=== PATIENT | male | born 1955 | race African-American/Black ===

== ENCOUNTER 2016-07-03 18:00 | Emergency (ER) | payer MEDICAID ==
[2016-07-03] MEDS ORDERED: HYDROCODONE/ACETAMINOPHEN 5-325 MG TABLET PO ONE (23:24)
[2016-07-03] MEDS ORDERED: ONDANSETRON 4 MG TAB.RAPDIS PO ONE (23:24)
--- NOTE | 2016-07-03 23:25 | ER Document Report ---
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 He states he has developed a headache, denies any specific head injuries, neck injury, shortness of breath, denies other locations of pain. Patient takes aspirin, on no other blood thinners. TRAVEL OUTSIDE OF THE [place] IN LAST 30 DAYS: No - Related Data Allergies/Adverse Reactions: Penicillins Allergy (Verified 07/03/16 18:10) Past Medical History - General Information source: Patient, Emergency Med Personnel - Social History Smoking Status: Never Smoker Chew tobacco use (# tins/day): No Frequency of alcohol use: None Drug Abuse: None Lives with: Alone Family History: Arthritis, CAD, CVA, DM, Hyperlipidemia, Hypertension Patient has suicidal ideation: No Patient has homicidal ideation: No - Past Medical History Cardiac Medical History: Reports: Hx Congestive Heart Failure, Hx Coronary Artery Disease, Hx Heart Attack - [place] x7, Hx Hypercholesterolemia, Hx Hypertension Pulmonary Medical History: Reports: Hx Asthma Denies: Hx Bronchitis, Hx COPD, Hx Pneumonia Neurological Medical History: Reports: Hx Cerebrovascular Accident - X2, Hx Seizures - 2015 Endocrine Medical History: Reports: Hx Diabetes Mellitus Type 2 Renal/ Medical History: Reports: Hx End Stage Renal Disease, Hx Hemodialysis, Hx Renal Insufficiency GI Medical History: Reports: Hx Gastroesophageal Reflux Disease Musculoskeltal Medical History: Reports Hx Arthritis, Reports Hx Musculoskeletal Deformity - right BKA, Reports Hx Musculoskeletal Trauma Psychiatric Medical History: Reports: Hx Depression Past Surgical History: Reports: Hx Cardiac Catheterization, Hx Cardiac Surgery - Stent placement x 6, Hx Coronary Stent - x6, Hx Orthopedic Surgery - right BKA , Hx Vascular Surgery - Right subclavian PermCath - Immunizations Immunizations up to date: Yes Hx Diphtheria, Pertussis, Tetanus Vaccination: Yes Hx Pneumococcal Vaccination: 07/02/12 Review of Systems - Review of Systems Constitutional: No symptoms reported EENT: No symptoms reported Cardiovascular: No symptoms reported Respiratory: No symptoms reported Gastrointestinal: No symptoms reported Genitourinary: No symptoms reported Male Genitourinary: No symptoms reported Musculoskeletal: See HPI Skin: No symptoms reported Hematologic/Lymphatic: No symptoms reported Neurological/Psychological: No symptoms reported Physical Exam - Vital signs Vitals: Temp Pulse Resp BP Pulse Ox 98.5 F 74 22 H 116/69 100 07/03/16 18:05 07/03/16 18:05 07/03/16 18:05 07/03/16 18:05 07/03/16 18:05 Interpretation: Normal - General General appearance: Appears well, Alert In distress: None - Patient does not appear to be in any pain whatsoever - HEENT Head: Normocephalic, Atraumatic. No: Abrasions, Ecchymosis Eyes: Normal Conjunctiva: Normal Extraocular movements intact: Yes Eyelashes: Normal Pupils: PERRL Pharynx: Normal Neck: Normal - Respiratory Respiratory status: No respiratory distress Chest status: Tender - Patient complains with his palpated generally over the left ribs near the mid axillary line, this is not reproducible, there is no sign of trauma Breath sounds: Normal. No: Decreased air movement, Nonproductive cough, Wheezing Chest palpation: Normal - Cardiovascular Rhythm: Regular Heart sounds: Normal auscultation Murmur: No - Abdominal Inspection: Normal Distension: No distension Bowel sounds: Normal Tenderness: Nontender. No: Tender - Completely nontender abdomen Organomegaly: No organomegaly - Back Back: Normal, Nontender. No: Tender - No tenderness over the cervical, thoracic , lumbar areas, no saddle anesthesia, no signs of trauma - Extremities General upper extremity: Normal inspection, Nontender, Normal ROM, Normal strength General lower extremity: Other - Left BK - Neurological Neuro grossly intact: Yes Cognition: Normal Orientation: AAOx4 Edward Coma Scale Eye Opening: Spontaneous Ras Coma Scale Verbal: Oriented Edward Coma Scale Motor: Obeys Commands Ras Coma Scale Total: 15 Speech: Normal Motor strength normal: LUE, RUE, LLE, RLE Sensory: Normal - Psychological Associated symptoms: Normal affect, Normal mood - Skin Skin Temperature: Warm Skin Moisture: Dry Skin Color: Normal Course - Re-evaluation Re-evalutation: Patient very well appearing. No signs of significant injury, no signs of trauma. Patient on reexamination is sleeping comfortably and easily aroused. No complaints on reexamination. Imaging is unremarkable. Very low suspicion of any acute traumatic abnormality. - Vital Signs Vital signs: Temp Pulse Resp BP Pulse Ox 98.0 F 70 16 135/61 H 98 07/04/16 04:00 07/04/16 04:00 07/04/16 04:00 07/04/16 04:00 07/04/16 04:00 Discharge - Discharge Clinical Impression: Side pain Fall Qualifiers: Encounter type: initial encounter Qualified Code(s): W19.XXXA - Unspecified fall, initial encounter Condition: Stable Disposition: HOME, SELF-CARE Additional Instructions: No acute abnormality is noted on examination or imaging. Follow-up with your provider closely. Return to the ED for any concerning symptoms - shortness of breath, chest pain, vomiting, etc. Referrals: VIRIDIANA LEHMAN MD [Primary Care Provider] - Follow up as needed
[2016-07-04] MEDS ORDERED: HYDROCODONE/ACETAMINOPHEN 5-325 MG 6 TAB/DSPK PO PRN (01:18)
[2016-07-04 04:03] VITALS: BP 135/61
== END 2016-07-04 04:07 | disposition home or self-care (01) ==
LOC: ER 18:00
DX: R07.81 Pleurodynia (principal); R51 Headache; E11.22 Type 2 diabetes mellitus with diabetic chronic kidney disease; I13.2 Hypertensive heart and chronic kidney disease with heart failure and with stage 5 chronic kidney disease, or end stage renal disease; N18.6 End stage renal disease; K21.9 Gastro-esophageal reflux disease without esophagitis; I50.9 Heart failure, unspecified; E78.00 Pure hypercholesterolemia, unspecified; Z89.512 Acquired absence of left leg below knee; Z88.0 Allergy status to penicillin; Z79.82 Long term (current) use of aspirin; Z99.2 Dependence on renal dialysis; I25.2 Old myocardial infarction
CPT/HCPCS: 99285; 71101; S0119

== ENCOUNTER 2016-07-10 05:20 | Observation (INO) | payer MEDICAID ==
[~2016-07-10 05:20] MED LIST: VANCOMYCIN HCL 500 MG in DEXTROSE 5%-WATER 100 ML IV PRN; VANCOMYCIN HCL 500 MG in DEXTROSE 5%-WATER 100 ML IV SCH
[2016-07-10 06:57] LABS: HEMATOCRIT 33.8 % (37.9-51.0); HEMOGLOBIN 11.1 g/dL (13.5-17.0); HGB HCT DIFFERENCE -0.5; MEAN CORPUSCULAR HEMOGLOBIN 31.6 pg (27.0-33.4); MEAN CORPUSCULAR HGB CONC 32.9 g/dL (32.0-36.0); MEAN CORPUSCULAR VOLUME 96 fl (80-97); RED BLOOD COUNT 3.53 10^6/uL (4.35-5.55); RED CELL DISTRIBUTION WIDTH 15.5 % (11.5-14.0); WHITE BLOOD COUNT 6.6 10^3/uL (4.0-10.5)
[2016-07-10 07:10] LABS: ANION GAP 12 (5-19); BLOOD UREA NITROGEN 40 mg/dL (7-20); CALCIUM 8.6 mg/dL (8.4-10.2); CARBON DIOXIDE 34 mmol/L (22-30); CHLORIDE 96 mmol/L (98-107); CREATININE RESULT 4.09 mg/dL (0.52-1.25); GLUCOSE 181 mg/dL (75-110); SODIUM 141.6 mmol/L (137-145)
[2016-07-10 07:12] LABS: POTASSIUM 4.1 mmol/L (3.6-5.0)
[2016-07-10] MEDS ORDERED: FENTANYL CITRATE INJ/PF 100 MCG/2 ML AMPUL ONE ×2 (07:56→12:36)
[2016-07-10] MEDS ORDERED: MIDAZOLAM 2 MG/2 ML INJ ONE ×2 (07:56→12:36)
[2016-07-10] MEDS ORDERED: LIDOCAINE 0.5% INJ-PF (5 MG/ML) 50 ML SDV ONE ×2 (08:08→12:36)
[2016-07-10] MEDS ORDERED: BACITRACIN INJ 50,000 UNIT VIAL INJ PRN (08:13)
[2016-07-10] MEDS ORDERED: MAG HYDROX/AL HYDROX/SIMETH SUSP 30 ML UDCUP PO ONE (09:15)
[2016-07-10] MEDS ORDERED: LIDOCAINE 2% VISCOUS SOLN 20 ML UDCUP PO ONE (09:15)
[2016-07-10] MEDS ORDERED: METOCLOPRAMIDE HCL 10 MG TABLET PO ONE (09:15)
[2016-07-10] MEDS ORDERED: ONDANSETRON HCL INJ/PF 4 MG/2 ML SDV ONE (09:24)
[2016-07-10] MEDS ORDERED: METOCLOPRAMIDE HCL ORAL SOLN 10 MG/10 ML UDCUP PO ONE (09:30)
--- NOTE | 2016-07-10 11:39 | PDOC H&P ---
General Chief Complaint: This patient on hemodialysis for end-stage renal disease has had his catheter fallout over the weekend. He is therefore in for replacement of a new PermCath Catheter. - Diagnosis (1) ESRD (end stage renal disease) on dialysis Is this a Current Diagnosis?: Yes (2) Morbid obesity Is this a Current Diagnosis?: Yes (3) Seizure disorder Is this a Current Diagnosis?: Yes (4) CAD (coronary artery disease) Is this a Current Diagnosis?: Yes (5) Diabetes mellitus type 2 in nonobese Is this a Current Diagnosis?: Yes - Current Medications/Allergies Home Medications: Gabapentin [Neurontin 300 mg Capsule] 800 mg PO Q8 04/02/14 Isosorbide Mononitrate [Isosorbide Mononitrate ER] 30 mg PO DAILY 04/02/14 Clonidine HCl [Catapres] 0.1 mg PO QHS 08/10/14 Hydralazine HCl 50 mg PO TID 08/10/14 Levetiracetam [Keppra] 250 mg PO DAILY 08/10/14 Metoprolol Succinate [Toprol XL 100 mg Tablet] 50 mg PO Q12H 08/10/14 Divalproex Sodium [Depakote] 500 mg PO DAILY 11/26/14 Omeprazole 20 mg PO DAILY 11/26/14 Aspirin [Aspirin 81 mg Chewable Tablet] 81 mg PO DAILY 11/11/15 Atorvastatin Calcium 40 mg PO QHS 11/11/15 Budesonide/Formoterol Fumarate [Symbicort HFA 160-4.5 mcg Inhaler 6 gm] 2 puff IH BID 11/11/15 Carvedilol [Coreg 25 mg Tablet] 1 tab PO Q12 11/11/15 Hum Insulin NPH/Reg Insulin Hm [Insulin 70-30 (NPH/Reg) 100 unit/mL] 20 unit SUBCUT HSP 11/11/15 Hum Insulin NPH/Reg Insulin Hm [Insulin 70-30 (NPH/Reg) 100 unit/mL] 25 unit SUBCUT QAM 11/11/15 Nitroglycerin 0.4 mg SL ASDIR PRN 11/11/15 Ondansetron [Zofran Odt 4 mg Tablet] 1 tab PO Q4H PRN 11/11/15 Ranitidine HCl 150 mg PO BID 11/11/15 Sennosides/Docusate 8.6-50 mg [Senna Plus Tablet] 1 tab PO BIDP PRN 11/11/15 Tamsulosin HCl [Flomax] 0.4 mg PO DAILY 11/11/15 Ticagrelor [Brilinta 90 mg Tablet] 1 tab PO BID 11/11/15 Allergies/Adverse Reactions: Penicillins Allergy (Verified 07/03/16 18:10) Past Medical History Cardiac Medical History: Reports: Congestive Heart Failure, Coronary Artery Disease, Myocardial Infarction - [place] x7, Hyperlipidema, Hypertension Pulmonary Medical History: Reports: Asthma Denies: Bronchitis, Chronic Obstructive Pulmonary Disease (COPD), Pneumonia Neurological Medical History: Reports: Seizures - 2015 Endocrine Medical History: Reports: Diabetes Mellitus Type 1, Diabetes Mellitus Type 2 Renal/ Medical History: Reports: End Stage Renal Disease GI Medical History: Reports: Gastroesophageal Reflux Disease Musculoskeltal Medical History: Reports: Arthritis Psychiatric Medical History: Reports: Depression Hematology: Reports: Anemia Past Surgical History Past Surgical History: Reports: Cardiac Catheterization, Coronary Stent - x6, Orthopedic Surgery - right BKA, Vascular Surgery - Right subclavian PermCath Family History Family History: Arthritis, CAD, CVA, DM, Hyperlipidemia, Hypertension Parental Family History Reviewed: No Children Family History Reviewed: No Sibling(s) Family History Reviewed.: No Social History Smoking Status: Never Smoker Frequency of Alcohol Use: None Hx Recreational Drug Use: No Hx Prescription Drug Abuse: No Physical Exam Vital Signs: Temp Pulse Resp BP Pulse Ox 97.8 F 75 16 170/65 H 96 07/10/16 06:59 07/10/16 06:59 07/10/16 06:59 07/10/16 06:59 07/10/16 06:59 Intake & Output 07/09/16 07/10/16 07/11/16 06:59 06:59 06:59 Weight 117.934 kg Additional comments: A well-developed well-nourished -Hungarian male. Obese body habitus. No acute distress. Eyes membranes is pink and moist, sclerae anicteric. Respiratory no shortness of breath. Breath sounds are normal and equal bilaterally. Cardiac: Heart sounds 1 and 2 heard, no murmurs. Upper extremities show normal range of movement and pulsatile to the radials. Normal capillary refill. A basilic to brachial fistula is appreciated. In the left upper extremity. Left below-knee amputation. Psychiatric the patient is alert, oriented, judgment, memory, insight normal Impression/Plan Impression: #1 end stage renal disease on hemodialysis. #2 diabetes mellitus type II. #3 coronary artery disease. #4 seizure disorder. #5 morbid obesity. Plan: In this patient who was catheter fell out, there has to be the suspicion of at least low-grade infection. We will try to replace his perm catheter on the other side, if not on the same side. Consideration to be given for prolonged IV antibiotic on hemodialysis. The risks, benefits, expected outcome are Familiar to the patient. He has had some heartburn. He has had experience with that and requested a GI cocktail. This was successful in relieving his symptoms. A cardiac exam was done which shows no acute changes.
--- NOTE | 2016-07-10 11:59 | EKG REPORT ---
SEVERITY:- ABNORMAL ECG - SINUS RHYTHM FIRST DEGREE AV BLOCK PROBABLE LEFT ATRIAL ABNORMALITY BORDERLINE PROLONGED QT INTERVAL : Confirmed by: Donta Hunt 10-Jul-2016 11:58:41
--- NOTE | 2016-07-10 17:21 | Operative Report ---
Operative Report DATE OF SURGERY: 07/10/16 PREOPERATIVE DIAGNOSIS: #1 end-stage renal disease on hemodialysis. #2 peripheral vascular disease. #3 coronary artery disease. #4 diabetes mellitus type II. #5morbid obesity. #6 hypertension. POSTOPERATIVE DIAGNOSIS: #1 end-stage renal disease on hemodialysis. #2 peripheral vascular disease. #3 coronary artery disease. #4 diabetes mellitus type II. #5morbid obesity. #6 hypertension. OPERATION: #1 ultrasound guided evaluation of right femoral vein. #2 insertion of temporary hemodialysis catheter on ultrasound real-time access. SURGEON: RICHARD SERVIN TELEVISION REPORTER: none ANESTHESIA: Local TISSUE REMOVED OR ALTERED: Not applicable COMPLICATIONS: None ESTIMATED BLOOD LOSS: 5 mL. INTRAOPERATIVE FINDINGS: Of a very deeply placed right femoral vein in this morbidly obese patient. Also considerable scarring [place] getting the catheters over the Glidewire. The use of a stiff Glidewire was of great facility in device. Easy egress of blood and ingress of heparinized solution through all 3 ports. PROCEDURE: After obtaining informed consent, the patient was positioned supine at bedside. The right groin and adjacent areas] were prepared with chlorhexidine and draped out with sterile linen. After the universal timeout the procedure commenced. A steriley sheathed ultrasound probe was used to evaluate the left femoral vein. Local anesthesia was infiltrated adjacent to the probe. Access into the left femoral was accomplished using a micropuncture needle followed, by micropuncture wire and then with a micropuncture catheter. This was followed by introduction of a 0.035 guidewire, the skin opening was enlarged slightly, serially larger dilators were now placed followed by introduction of a triaysis catheter. All of these transitions were smooth. Each lumen was aspirated of blood and irrigated with heparinized solution. The catheter was now sutured to the skin using 3-0 nylon. A Bio A patch was now applied, followed by sterile dressings. Caps were placed on the end of the each of the lumens. The procedure concluded. Copies dictated operative report to Dr. Richard Nichols MD.
--- NOTE | 2016-07-10 18:12 | PDOC CONSULTATION ---
Consultation Consult Date: 07/10/16 Consult reason:: For hemodialysis. History of Present Illness Admission Date/PCP: VIRIDIANA LEHMAN, History of Present Illness: MARIANA RICHARDSON is a 61 year old male with a history of ESRD on hemodialysis in the background of long-standing complicated diabetes, hypertension. His also got multiple other comorbidities which includes peripheral vascular disease status post bilateral BKA, CAD status post PTCA. He is being admitted after failed interventions for angioplasty on his AV graft by Dr. Nichols. He has had fallen off the right IJ catheter the next both scarf that is discovered last Sunday. He is begun on IV vancomycin and gentamicin after initial cultures were drawn. Patient has had no history of fever or chills. No history of any redness or discharge from his exit site of the right IJ. Discussions were done earlier with Dr. Nichols. Because of the difficulty is that he has had with his IJ catheter he has had a temporary dialysis catheter in his right groin done which also had some difficulties in placement because of scarring. Currently he is undergoing dialysis. He expresses no issues. He has no history of any abdominal pains. No definite fever chills or Rigors. Past Medical History Cardiac Medical History: Reports: Coronary Artery Disease, Hyperlipidemia, Myocardial Infarction - [place] x7, Peripheral Vascular Disease - Status post bilateral BKA Pulmonary Medical History: Reports: Asthma Denies: Bronchitis, Chronic Obstructive Pulmonary Disease (COPD), Pneumonia Neurological Medical History: Reports: Ischemic CVA, Seizures - 2015 Endocrine Medical History: Reports: Diabetes Mellitus Type 2 Renal/ Medical History: Reports: End Stage Renal Disease GI Medical History: Reports: Gastroesophageal Reflux Disease Musculoskeltal Medical History: Reports: Arthritis Psychiatric Medical History: Reports: Depression Hematology Medical History: Reports Anemia of Chronic Kidney Disease Past Surgical History Past Surgical History: Reports: Cardiac Catheterization, Coronary Stent - x6, Orthopedic Surgery - right BKA, Vascular Surgery - Right subclavian PermCath Social History Smoking Status: Never Smoker Frequency of Alcohol Use: None Hx Recreational Drug Use: No Hx Prescription Drug Abuse: No Family History Parental Family History Reviewed: Yes Children Family History Reviewed: No Sibling(s) Family History Reviewed.: No Medication/Allergy Home Medications: Gabapentin [Neurontin 300 mg Capsule] 800 mg PO Q8 04/02/14 Isosorbide Mononitrate [Isosorbide Mononitrate ER] 30 mg PO DAILY 04/02/14 Clonidine HCl [Catapres] 0.1 mg PO QHS 08/10/14 Hydralazine HCl 50 mg PO TID 08/10/14 Levetiracetam [Keppra] 250 mg PO DAILY 08/10/14 Metoprolol Succinate [Toprol XL 100 mg Tablet] 50 mg PO Q12H 08/10/14 Divalproex Sodium [Depakote] 500 mg PO DAILY 11/26/14 Omeprazole 20 mg PO DAILY 11/26/14 Aspirin [Aspirin 81 mg Chewable Tablet] 81 mg PO DAILY 11/11/15 Atorvastatin Calcium 40 mg PO QHS 11/11/15 Budesonide/Formoterol Fumarate [Symbicort HFA 160-4.5 mcg Inhaler 6 gm] 2 puff IH BID 11/11/15 Carvedilol [Coreg 25 mg Tablet] 1 tab PO Q12 11/11/15 Hum Insulin NPH/Reg Insulin Hm [Insulin 70-30 (NPH/Reg) 100 unit/mL] 20 unit SUBCUT HSP 11/11/15 Hum Insulin NPH/Reg Insulin Hm [Insulin 70-30 (NPH/Reg) 100 unit/mL] 25 unit SUBCUT QAM 11/11/15 Nitroglycerin 0.4 mg SL ASDIR PRN 11/11/15 Ondansetron [Zofran Odt 4 mg Tablet] 1 tab PO Q4H PRN 11/11/15 Ranitidine HCl 150 mg PO BID 11/11/15 Sennosides/Docusate 8.6-50 mg [Senna Plus Tablet] 1 tab PO BIDP PRN 11/11/15 Tamsulosin HCl [Flomax] 0.4 mg PO DAILY 11/11/15 Ticagrelor [Brilinta 90 mg Tablet] 1 tab PO BID 11/11/15 Ondansetron [Zofran Odt 4 mg Tablet] 1 - 2 tab PO Q4H PRN #20 tab.rapdis Sulfamethoxazole/Trimethoprim [Bactrim Ds Tablet] 1 each PO BID #10 tablet 11/24 Omeprazole [Prilosec] 20 mg PO BID #40 capsule. 12/30/15 Sucralfate [Carafate 1 gm Tablet] 1 gm PO ACHS #40 tablet 12/30/15 Oxycodone HCl/Acetaminophen [Percocet 5-325 mg Tablet] 1 tab PO ASDIR PRN #15 tab 05/30/16 Famotidine [Pepcid 20 mg Tablet] 20 mg PO BID #60 tablet 06/14/16 Allergies/Adverse Reactions: Penicillins Allergy (Verified 07/03/16 18:10) Review of Systems Review of Systems: Constitutional: [ABSENT: chills, fever(s), headache(s), weight gain, weight loss ] Eyes: [ABSENT: visual disturbances] Ears: [ABSENT: hearing changes] Nose, Mouth and Throat: [ABSENT: headache(s)] Cardiovascular:[ ABSENT: chest pain, dyspnea on exertion, edema, orthropnea, palpitations] Respiratory: [ABSENT: cough, hemoptysis] Gastrointestinal:[ ABSENT: abdominal pain, constipation, diarrhea, hematemesis, hematochezia, nausea, vomiting] Genitourinary: [ABSENT: dysuria, hematuria] Musculoskeletal:[ ABSENT: joint swelling] Integumentary: [ABSENT: rash, wounds] Neurological: [ABSENT: abnormal gait, abnormal speech, confusion, dizziness, focal weakness, syncope, vertigo, weakness] Psychiatric: [ABSENT: anxiety, depression, homicidal ideation, suicidal ideation ] Endocrine: [ABSENT: cold intolerance, heat intolerance, menstrual abnormalities , polydipsia, polyuria] Hematologic/Lymphatic:[ ABSENT: easy bleeding, easy bruising, lymphadenopathy] Physical Exam Vital Signs: Temp Pulse Resp BP Pulse Ox 97.6 F 67 19 183/80 H 100 07/10/16 16:06 07/10/16 16:06 07/10/16 16:06 07/10/16 16:06 07/10/16 16:06 Intake & Output 07/09/16 07/10/16 07/11/16 06:59 06:59 06:59 Weight 117.934 kg 141.9 kg General appearance: PRESENT: no acute distress, obese Eye exam: PRESENT: conjunctiva pink, EOMI, PERRLA. ABSENT: nystagmus, periorbital swelling Ear exam: ABSENT: bleeding, drainage Mouth exam: ABSENT: moist, neck supple Neck exam: ABSENT: lymphadenopathy, meningismus, tenderness, thyromegaly, tracheal deviation Respiratory exam: PRESENT: clear to auscultation aguilar, symmetrical, unlabored. ABSENT: chest wall tenderness, crackles, rales Cardiovascular exam: PRESENT: +S1, +S2, systolic murmur GI/Abdominal exam: PRESENT: soft. ABSENT: distended, firm, guarding, mass, tenderness Extremities exam: ABSENT: pedal edema Neurological exam: PRESENT: alert, awake, oriented to person, oriented to place , oriented to time Psychiatric exam: PRESENT: flat affect Skin exam: PRESENT: normal color. ABSENT: cyanosis, erythema, mottled, rash Results Laboratory Results: 07/10/16 06:10 07/10/16 06:10 07/10/16 07/10/16 06:10 06:10 WBC 6.6 RBC 3.53 L Hgb 11.1 L Hct 33.8 L MCV 96 MCH 31.6 MCHC 32.9 RDW 15.5 H Plt Count 213 Sodium 141.6 Potassium 4.1 Chloride 96 L Carbon Dioxide 34 H Anion Gap 12 BUN 40 H Creatinine 4.09 H Est GFR ( Amer) 18 L Est GFR (Non-Af Amer) 15 L Glucose 181 H Calcium 8.6 Impressions: Chest X-Ray 07/10/16 06:39 IMPRESSION: HEART ENLARGED WITHOUT FAILURE. NO OTHER SIGNIFICANT RADIOGRAPHIC FINDING IN THE CHEST. Assessment & Plan - Diagnosis (2) ESRD (end stage renal disease) on dialysis Is this a current diagnosis for this admission?: YesPlan: Patient was last dialyzed Sunday and is due for dialysis. Patient presently showing stable lites and no bryn evidence of heart failure. However he has got issues with the access. Unfortunately his right IJ catheter was exposed in the cuff and had to be removed. He has had difficulty in having a new IJ catheter placed by Dr. Nichols was gone on to place a temporary right femoral catheter. He is undergoing dialysis without any issues and is being supervised. Vital signs are stable. Orders have been placed. Plan to remove 1 -2 L as tolerated. As per discussions with Dr. Nichols the plan is to insert a new PermCath in the next day or 2 and then discharge him on that after removal of his temporary femoral dialysis catheter. Meanwhile he'll continue to get his vancomycin and gentamicin as he has been getting at [facility] (4) Morbid obesity Is this a current diagnosis for this admission?: Yes (5) Anemia Plan: Stable.
[2016-07-10] MEDS ORDERED: GENTAMICIN SULFATE INJ 80 MG/2 ML VIAL IV ONE (18:15)
[2016-07-10] MEDS ORDERED: HEPARIN SOD (PORCINE) 1,000 UNIT/ML 1 ML VIAL IV PRN (18:22)
[2016-07-10] MEDS ORDERED: HEPARIN SOD (PORCINE) 1,000 UNIT/ML 10 ML VIAL IV PRN (18:25)
[2016-07-10] MEDS ORDERED: WATER IV ONE (19:30)
[2016-07-10] MEDS ORDERED: VANCOMYCIN HCL IV ONE (19:30)
[2016-07-10] MEDS ORDERED: DEXTROSE 5% IV ONE (19:30)
[2016-07-10] MEDS ORDERED: VANCOMYCIN HCL 1,000 MG in DEXTROSE 5%-WATER 250 ML IV ONE (19:30)
[2016-07-10] MEDS ORDERED: GENTAMICIN SULFATE 100 MG in DEXTROSE 5%-WATER 100.0 ML IV ONE (20:00)
[2016-07-10] MEDS ORDERED: OXYCODONE-ACETAMINOPHEN 5-325 MG TABLET PO PRN (21:07)
[2016-07-10] MEDS ORDERED: NITROGLYCERIN 0.4 MG/TAB 25 TAB/BOTTLE SL PRN ×2 (21:07→21:21)
[2016-07-10] MEDS ORDERED: SENNOSIDES/DOCUSATE 8.6-50 MG 1 EACH TABLET PO PRN (21:07)
[2016-07-10] MEDS ORDERED: (PENDING PHARMACY ID) (Divalproex Sodium [Depakote] 500 MG) PO SCH (21:15)
[2016-07-10] MEDS ORDERED: (PENDING PHARMACY ID) (Metoprolol Succinate [Toprol Xl 100 Mg Tablet] 50 MG) PO SCH (21:15)
[2016-07-10] MEDS ORDERED: (PENDING PHARMACY ID) (Ranitidine Hcl [Ranitidine Hcl] 150 MG) PO SCH (21:15)
[2016-07-10] MEDS ORDERED: TAMSULOSIN HCL 0.4 MG CAP.SR.24H PO ONE (21:30)
[2016-07-10] MEDS ORDERED: ASPIRIN 81 MG TABLET, CHEWABLE PO ONE (21:30)
[2016-07-10] MEDS ORDERED: DIVALPROEX SODIUM 250 MG TABLET.DR PO ONE (22:00)
[2016-07-10] MEDS ORDERED: LANSOPRAZOLE 15 MG TAB.RAP.DR PO ONE (22:00)
[2016-07-10] MEDS ORDERED: (PENDING PHARMACY ID) (Carvedilol [Coreg 25 Mg Tablet] 1 TAB) PO SCH (22:00)
[2016-07-10] MEDS ORDERED: METOPROLOL SUCCINATE 50 MG TAB.SR.24H PO SCH (22:00)
[2016-07-10] MEDS ORDERED: GABAPENTIN 300 MG CAPSULE PO SCH (22:00)
[2016-07-10] MEDS: HUM INSULIN NPH/REG INSULIN HM 100 UNIT/1 ML 3 ML SUBCUT SCH (23:19)
[2016-07-10] MEDS: BUDESONIDE/FORMOTEROL 160-4.5 MCG 60 PUFF/6 GM MDI IH SCH (23:25)
[2016-07-10] MEDS: ATORVASTATIN CALCIUM 40 MG TABLET PO SCH (23:25)
[2016-07-10] MEDS: CLONIDINE HCL 0.1 MG TABLET PO SCH (23:26)
[2016-07-10] MEDS: CARVEDILOL 12.5 MG TABLET PO SCH (23:26)
[2016-07-10] MEDS: HYDRALAZINE HCL 50 MG TABLET PO SCH (23:27)
[2016-07-10] MEDS: FAMOTIDINE 20 MG TABLET PO SCH (23:27)
[2016-07-10] MEDS: GABAPENTIN 400 MG CAPSULE PO SCH (23:27)
[2016-07-10] MEDS: SUCRALFATE 1 GM TABLET PO SCH (23:28)
[2016-07-10] MEDS: OXYCODONE-ACETAMINOPHEN 5-325 MG TABLET PO PRN (23:29)
[2016-07-10] MEDS: TICAGRELOR 90 MG TABLET PO SCH (23:29)
[2016-07-11 00:09] LABS: THYROID STIMULATING HORMONE 1.31 uIU/mL (0.47-4.68)
[2016-07-11] MEDS: GABAPENTIN 400 MG CAPSULE PO SCH ×3 (05:32→23:16)
[2016-07-11] MEDS: HYDRALAZINE HCL 50 MG TABLET PO SCH ×3 (05:57→23:18)
[2016-07-11 06:15] LABS: ABSOLUTE BASOPHILS # (AUTO) 0.1 10^3/uL (0.0-0.2); ABSOLUTE EOSINOPHILS # (AUTO) 0.2 10^3/uL (0.0-0.6); ABSOLUTE LYMPHOCYTES (AUTO) 1.3 10^3/uL (0.5-4.7); ABSOLUTE MONOCYTES (AUTO) 0.6 10^3/uL (0.1-1.4); ABSOLUTE NEUT (AUTO) 4.6 10^3/uL (1.7-8.2); BASOPHILS % (AUTO) 1.1 % (0-2); EOSINOPHILS % (AUTO) 3.5 % (0-6); HEMATOCRIT 31.2 % (37.9-51.0); HEMOGLOBIN 10.2 g/dL (13.5-17.0); HGB HCT DIFFERENCE -0.6; LYMPHOCYTES % (AUTO) 18.4 % (13-45); MEAN CORPUSCULAR HEMOGLOBIN 31.4 pg (27.0-33.4); MEAN CORPUSCULAR HGB CONC 32.7 g/dL (32.0-36.0); MEAN CORPUSCULAR VOLUME 96 fl (80-97); MONOCYTES % (AUTO) 8.9 % (3-13); RED BLOOD COUNT 3.24 10^6/uL (4.35-5.55); RED CELL DISTRIBUTION WIDTH 15.8 % (11.5-14.0); SEGMENTED NEUTROPHILS % (AUTO) 68.1 % (42-78); WHITE BLOOD COUNT 6.8 10^3/uL (4.0-10.5)
[2016-07-11 06:34] LABS: ANION GAP 12 (5-19); BLOOD UREA NITROGEN 29 mg/dL (7-20); CALCIUM 8.9 mg/dL (8.4-10.2); CARBON DIOXIDE 31 mmol/L (22-30); CHLORIDE 97 mmol/L (98-107); CREATININE RESULT 3.56 mg/dL (0.52-1.25); GLUCOSE 176 mg/dL (75-110); POTASSIUM 4.2 mmol/L (3.6-5.0); SODIUM 139.6 mmol/L (137-145)
[2016-07-11] MEDS: SUCRALFATE 1 GM TABLET PO SCH ×3 (07:46→17:47)
[2016-07-11] MEDS ORDERED: ENOXAPARIN SODIUM INJ 40 MG/0.4 ML DISP.SYRIN SUBCUT SCH (08:00)
[2016-07-11] MEDS: OXYCODONE-ACETAMINOPHEN 5-325 MG TABLET PO PRN (08:02)
[2016-07-11] MEDS: DIVALPROEX SODIUM 250 MG TABLET.DR PO SCH (10:20)
[2016-07-11] MEDS: FAMOTIDINE 20 MG TABLET PO SCH (10:22)
[2016-07-11] MEDS: LANSOPRAZOLE 15 MG TAB.RAP.DR PO SCH (10:22)
[2016-07-11] MEDS: ASPIRIN 81 MG TABLET, CHEWABLE PO SCH (10:23)
[2016-07-11] MEDS: TAMSULOSIN HCL 0.4 MG CAP.SR.24H PO SCH (10:23)
[2016-07-11] MEDS: TICAGRELOR 90 MG TABLET PO SCH (10:24)
[2016-07-11] MEDS: BUDESONIDE/FORMOTEROL 160-4.5 MCG 60 PUFF/6 GM MDI IH SCH ×2 (10:24→22:53)
[2016-07-11] MEDS: CARVEDILOL 12.5 MG TABLET PO SCH (10:35)
--- NOTE | 2016-07-11 13:36 | Physician Advisory Note ---
Physician Advisor ProgressNote .: Pursuant to the [facility], I have reviewed the medical record for this patient. Physician Advisor Statement: Possible documentation opportunities if attending agrees: 1. "chronic ___ CHF" [is it unknown whether systolic, diastolic, or both?] 2. Please document reasons pt needs to be in hospital for this care & not able/ safe to have these procedures/abx done as outpt. (see below) 3. Please document reasons pt needs daily BMP checked. As always, if concerned about any unstable VS or abnormal labs, please comment on them & note what doing about them, & please document each day the potential clinical problems you are concerned could occur if pt not kept in hospital for tx at this time. Discussion: 61yo male w/ chronic co-morbidities including DM type 2 w/ESRD/HD & PVD/bilat BKA, CAD/PTCA/MIx2, HTN, chronic __ type CHF, obesity, sz d/o, Rt subclavian permcath, difficulty getting IJ access in past, recent failed angioplasty on AV graft. - presented 1/ AM to ED on what this reviewer believes was his usual HD day w/ need for new IV access for HD. His Rt IJ cath had been found over the weekend to be exposed in the cuff, making infection & poor function likely, and had to be removed. (+) VSS except mild bradycardia, nl WBC, bicarb 34, A1C 9.1 with glc's 100s here. Cx's were done, IV vanc/gent begun. Temporary femoral HD cath placed for immediate HD, while arranging for more permanent HD access placement. Initial adm order was by surgeon, but then by medical physician, which made it a little less clear as to who was attending. Attending ordered IV vanc/gent, serial labs, cultures. Status: Pt needing IV abx coverage for possible bacteremia - especially important given need for new permanent catheter soon. Plan is new Perm Cath in 1-2 days, after continued IV abx for clearance of potential bloodstream pathogens first. All this sounds appropriate. However, with mostly normal VS & reasonable labs, no distress or new organ failure, it remains to be proved in documentation the reasons that tx in inpatient hospital setting is medically reasonable & necessary to protect pt's health, safety, & medical condition - why this cannot all be done as an outpatient with IV abx through dialysis now. Appears, based on currently available documentation, most appropriate for Obs initially (for temporary catheter placement & urgent HD), with plan for d/c today or else change to "Inpatient in a bed" status - unless clear clinical reasons requiring Inpt status & 2nd MN are documented. Thanks for your help with documentation accuracy/specificity improvement! Nelli Malloy MD [facility] Physician Advisor, Fellow of Hospital Medicine
[2016-07-11] MEDS ORDERED: ONDANSETRON HCL INJ/PF 4 MG/2 ML SDV IV PRN (14:00)
[2016-07-11] MEDS ORDERED: (PENDING PHARMACY ID) (Tramadol Hcl/Acetaminophen [Ultracet 37.5 Mg/325 Mg Tablet] 1 TAB) PO PRN ×2 (17:55→18:25)
[2016-07-11] MEDS ORDERED: (PENDING PHARMACY ID) (Levetiracetam [Keppra] 250 MG) PO SCH (18:00)
[2016-07-11] MEDS ORDERED: FINASTERIDE 5 MG TABLET PO SCH (18:00)
[2016-07-11] MEDS ORDERED: (PENDING PHARMACY ID) (Linagliptin [Tradjenta] 5 MG) PO SCH (18:00)
[2016-07-11] MEDS ORDERED: (PENDING PHARMACY ID) (Omeprazole [Prilosec] 20 MG) PO SCH (18:00)
--- NOTE | 2016-07-11 18:14 | PDOC H&P ---
History of Present Illness Admission Date/PCP: 07/10/16 21:41 SHARONISMAELDANNI LEHMAN, History of Present Illness: Patient 61-year-old male with history of end-stage renal disease on maintenance hemodialysis, he was admitted electively for placement of permcath for hemodialysis, apparently the internal jugular vein catheter fell off, there was difficulty in placing a new IJ catheter and a temporary right femoral catheter was inserted, the surgeon, Dr. Nichols is requesting hospital admission for this patient because he developed complication , fever, nausea and diarrhea. Past Medical History Cardiac Medical History: Reports: Coronary Artery Disease, Myocardial Infarction , Hypertension, Peripheral Vascular Disease Pulmonary Medical History: Reports: Asthma Neurological Medical History: Reports: Ischemic CVA, Seizures - 2015 Endocrine Medical History: Reports: Diabetes Mellitus Type 2, Obesity Renal/ Medical History: Reports: End Stage Renal Disease GI Medical History: Reports: Gastroesophageal Reflux Disease Musculoskeltal Medical History: Reports: Arthritis Psychiatric Medical History: Reports: Depression Hematology: Reports: Anemia Past Surgical History Past Surgical History: Reports: Cardiac Catheterization, Coronary Stent - x6, Vascular Surgery - Right subclavian PermCath Social History Information Source: Patient Smoking Status: Never Smoker Frequency of Alcohol Use: None Hx Recreational Drug Use: No Hx Prescription Drug Abuse: No Family History Family History: Arthritis, CAD, CVA, DM, Hyperlipidemia, Hypertension Parental Family History Reviewed: Yes Children Family History Reviewed: Yes Sibling(s) Family History Reviewed.: Yes Medication/Allergy Home Medications: Gabapentin [Neurontin 300 mg Capsule] 800 mg PO TID 04/02/14 Isosorbide Mononitrate [Isosorbide Mononitrate ER] 30 mg PO DAILY 04/02/14 Clonidine HCl [Catapres] 0.1 mg PO QHS 08/10/14 Hydralazine HCl 100 mg PO TID 08/10/14 Levetiracetam [Keppra] 250 mg PO DAILY 08/10/14 Metoprolol Succinate [Toprol XL 100 mg Tablet] 100 mg PO Q12H 08/10/14 Divalproex Sodium [Depakote] 500 mg PO DAILY 11/26/14 Tamsulosin HCl [Flomax] 0.4 mg PO DAILY 11/11/15 Finasteride [Proscar 5 mg Tablet] 1 tab PO DAILY 07/11/16 Insulin Glargine,Hum.rec.anlog [Lantus Solostar] 12 unit SQ DAILY 07/11/16 Linagliptin [Tradjenta] 5 mg PO DAILY 07/11/16 Losartan Potassium [Cozaar 100 mg Tablet] 100 mg PO DAILY 07/11/16 Omeprazole [Prilosec] 20 mg PO DAILY 07/11/16 Tramadol HCl/Acetaminophen [Ultracet 37.5 mg/325 mg Tablet] 1 tab PO DAILY PRN 07/11/16 Allergies/Adverse Reactions: Penicillins Allergy (Verified 07/03/16 18:10) Review of Systems Constitutional: ABSENT: chills, fever(s), headache(s), weight gain, weight loss Eyes: ABSENT: visual disturbances Ears: ABSENT: hearing changes Cardiovascular: ABSENT: chest pain, dyspnea on exertion, edema, orthropnea, palpitations Respiratory: ABSENT: cough, hemoptysis Gastrointestinal: PRESENT: diarrhea Genitourinary: ABSENT: dysuria, hematuria Musculoskeletal: ABSENT: joint swelling Integumentary: ABSENT: rash, wounds Neurological: ABSENT: abnormal gait, abnormal speech, confusion, dizziness, focal weakness, syncope Psychiatric: ABSENT: anxiety, depression, homidical ideation, suicidal ideation Endocrine: ABSENT: cold intolerance, heat intolerance, menstrual abnormalities, polydipsia, polyuria Hematologic/Lymphatic: ABSENT: easy bleeding, easy bruising, lymphadenopathy Physical Exam Vital Signs: Temp Pulse Resp BP Pulse Ox 97.3 F 63 22 H 114/54 L 100 07/11/16 11:49 07/11/16 14:00 07/11/16 11:49 07/11/16 11:49 07/11/16 11:49 Intake & Output 07/10/16 07/11/16 07/12/16 06:59 06:59 06:59 Intake Total 542 3 Output Total 2800 Balance -2258 3 Weight 117.934 kg 141.5 kg General appearance: PRESENT: no acute distress Eye exam: PRESENT: PERRLA Neck exam: PRESENT: full ROM Cardiovascular exam: PRESENT: RRR, +S1, +S2 GI/Abdominal exam: PRESENT: normal bowel sounds, soft Rectal exam: PRESENT: deferred Neurological exam: PRESENT: alert Results Laboratory Results: 07/11/16 05:52 07/11/16 05:52 07/10/16 07/10/16 07/10/16 22:03 22:03 23:11 WBC RBC Hgb Hct MCV MCH MCHC RDW Plt Count Seg Neutrophils % Lymphocytes % Monocytes % Eosinophils % Basophils % Absolute Neutrophils Absolute Lymphocytes Absolute Monocytes Absolute Eosinophils Absolute Basophils Sodium Potassium Chloride Carbon Dioxide Anion Gap BUN Creatinine Est GFR ( Amer) Est GFR (Non-Af Amer) Glucose Calcium Lipase 123.4 TSH Cancelled 1.31 Free T4 Cancelled 1.47 07/11/16 07/11/16 05:52 05:52 WBC 6.8 RBC 3.24 L Hgb 10.2 L Hct 31.2 L MCV 96 MCH 31.4 MCHC 32.7 RDW 15.8 H Plt Count 186 Seg Neutrophils % 68.1 Lymphocytes % 18.4 Monocytes % 8.9 Eosinophils % 3.5 Basophils % 1.1 Absolute Neutrophils 4.6 Absolute Lymphocytes 1.3 Absolute Monocytes 0.6 Absolute Eosinophils 0.2 Absolute Basophils 0.1 Sodium 139.6 Potassium 4.2 Chloride 97 L Carbon Dioxide 31 H Anion Gap 12 BUN 29 H Creatinine 3.56 H Est GFR ( Amer) 21 L Est GFR (Non-Af Amer) 18 L Glucose 176 H Calcium 8.9 Lipase TSH Free T4 Impressions: Chest X-Ray 07/10/16 06:39 IMPRESSION: HEART ENLARGED WITHOUT FAILURE. NO OTHER SIGNIFICANT RADIOGRAPHIC FINDING IN THE CHEST. Assessment & Plan - Diagnosis (1) Diarrhea Qualifiers: Diarrhea type: unspecified type Qualified Code(s): R19.7 - Diarrhea , unspecified Is this a current diagnosis for this admission?: Yes (2) End stage renal disease on dialysis Is this a current diagnosis for this admission?: Yes
[2016-07-11] MEDS ORDERED: LEVETIRACETAM 500 MG TABLET PO ONE (18:30)
[2016-07-11] MEDS ORDERED: SITAGLIPTIN PHOSPHATE 50 MG TABLET PO ONE (18:30)
[2016-07-11] MEDS ORDERED: LOSARTAN POTASSIUM 50 MG TABLET PO ONE (18:30)
[2016-07-11] MEDS ORDERED: FINASTERIDE 5 MG TABLET PO ONE (18:30)
[2016-07-11] MEDS ORDERED: LANSOPRAZOLE 15 MG TAB.RAP.DR PO ONE (18:30)
[2016-07-11] MEDS ORDERED: LEVETIRACETAM ORAL SOLN 500 MG/5 ML UDCUP PO ONE (19:00)
[2016-07-11] MEDS ORDERED: ISOSORBIDE MONONITRATE 30 MG TAB.ER.24H PO ONE (19:30)
[2016-07-11] MEDS ORDERED: METOPROLOL SUCCINATE 50 MG TAB.SR.24H PO ONE (19:30)
[2016-07-11] MEDS ORDERED: SITAGLIPTIN PHOSPHATE 25 MG TABLET PO ONE (20:00)
[2016-07-11] MEDS: ATORVASTATIN CALCIUM 40 MG TABLET PO SCH (23:16)
[2016-07-11] MEDS: HUM INSULIN NPH/REG INSULIN HM 100 UNIT/1 ML 3 ML SUBCUT SCH (23:18)
[2016-07-11] MEDS: CLONIDINE HCL 0.1 MG TABLET PO SCH (23:18)
[2016-07-12 03:54] LABS: APPEARANCE,URINE SLIGHTLY-CLOUDY; BILIRUBIN,URINE NEGATIVE (NEGATIVE); GLUCOSE, URINE 50 mg/dL (NEGATIVE); KETONES,URINE NEGATIVE (NEGATIVE); LEUKOCYTE ESTERASE,URINE LARGE (NEGATIVE); NITRITE,URINE NEGATIVE (NEGATIVE); PROTEIN,URINE 100 mg/dL (NEGATIVE); URINE SPECIFIC GRAVITY 1.013; UROBILINOGEN,URINE NEGATIVE mg/dL (<2.0)
[2016-07-12] MEDS: GABAPENTIN 400 MG CAPSULE PO SCH ×3 (06:26→23:24)
[2016-07-12] MEDS: HYDRALAZINE HCL 50 MG TABLET PO SCH ×3 (06:26→23:26)
[2016-07-12 07:46] LABS: ABSOLUTE BASOPHILS # (AUTO) 0.1 10^3/uL (0.0-0.2); ABSOLUTE EOSINOPHILS # (AUTO) 0.2 10^3/uL (0.0-0.6); ABSOLUTE LYMPHOCYTES (AUTO) 1.3 10^3/uL (0.5-4.7); ABSOLUTE MONOCYTES (AUTO) 0.4 10^3/uL (0.1-1.4); ABSOLUTE NEUT (AUTO) 5.1 10^3/uL (1.7-8.2); EOSINOPHILS % (AUTO) 3.2 % (0-6); HEMATOCRIT 32.2 % (37.9-51.0); HEMOGLOBIN 10.4 g/dL (13.5-17.0); LYMPHOCYTES % (AUTO) 18.3 % (13-45); MEAN CORPUSCULAR HEMOGLOBIN 31.5 pg (27.0-33.4); MEAN CORPUSCULAR HGB CONC 32.3 g/dL (32.0-36.0); MEAN CORPUSCULAR VOLUME 98 fl (80-97); MONOCYTES % (AUTO) 6.3 % (3-13); RED CELL DISTRIBUTION WIDTH 15.7 % (11.5-14.0); SEGMENTED NEUTROPHILS % (AUTO) 71.2 % (42-78); WHITE BLOOD COUNT 7.1 10^3/uL (4.0-10.5)
[2016-07-12 07:48] LABS: ANION GAP 13 (5-19); BLOOD UREA NITROGEN 41 mg/dL (7-20); CALCIUM 8.7 mg/dL (8.4-10.2); CARBON DIOXIDE 28 mmol/L (22-30); CHLORIDE 96 mmol/L (98-107); CREATININE RESULT 4.66 mg/dL (0.52-1.25); GLUCOSE 276 mg/dL (75-110); POTASSIUM 4.1 mmol/L (3.6-5.0); SODIUM 137.4 mmol/L (137-145)
[2016-07-12] MEDS ORDERED: LIDOCAINE 0.5% INJ-PF (5 MG/ML) 50 ML SDV ONE (08:28)
[2016-07-12] MEDS ORDERED: BACITRACIN INJ 50,000 UNIT VIAL INJ PRN (08:30)
[2016-07-12] MEDS ORDERED: MIDAZOLAM 2 MG/2 ML INJ ONE (08:49)
[2016-07-12] MEDS ORDERED: FENTANYL CITRATE INJ/PF 100 MCG/2 ML AMPUL ONE (08:49)
[2016-07-12] MEDS ORDERED: LEVETIRACETAM 500 MG TABLET PO SCH (10:00)
[2016-07-12] MEDS ORDERED: SITAGLIPTIN PHOSPHATE 50 MG TABLET PO SCH (10:00)
[2016-07-12] MEDS: LOSARTAN POTASSIUM 50 MG TABLET PO SCH (10:30)
[2016-07-12] MEDS: FINASTERIDE 5 MG TABLET PO SCH (10:31)
[2016-07-12] MEDS: METOPROLOL SUCCINATE 50 MG TAB.SR.24H PO SCH (10:31)
[2016-07-12] MEDS: TAMSULOSIN HCL 0.4 MG CAP.SR.24H PO SCH (10:32)
[2016-07-12] MEDS: ASPIRIN 81 MG TABLET, CHEWABLE PO SCH (10:32)
[2016-07-12] MEDS: LANSOPRAZOLE 15 MG TAB.RAP.DR PO SCH ×2 (10:32→10:40)
[2016-07-12] MEDS: ISOSORBIDE MONONITRATE 30 MG TAB.ER.24H PO SCH (10:32)
[2016-07-12] MEDS: SITAGLIPTIN PHOSPHATE 25 MG TABLET PO SCH (10:33)
[2016-07-12] MEDS: BUDESONIDE/FORMOTEROL 160-4.5 MCG 60 PUFF/6 GM MDI IH SCH ×2 (10:33→23:23)
[2016-07-12] MEDS: DIVALPROEX SODIUM 250 MG TABLET.DR PO SCH (10:34)
[2016-07-12] MEDS: LEVETIRACETAM ORAL SOLN 500 MG/5 ML UDCUP PO SCH (10:35)
[2016-07-12] MEDS: INSULIN GLARGINE,HUM.REC.ANLOG 300 UNIT/3 ML INSULN.PEN SUBCUT SCH (10:36)
--- NOTE | 2016-07-12 10:42 | Operative Report ---
Operative Report DATE OF SURGERY: 07/12/16 PREOPERATIVE DIAGNOSIS: #1 end-stage renal disease on hemodialysis. #2 peripheral vascular disease. #3 coronary artery disease. #4 diabetes mellitus type II. #5morbid obesity. #6 hypertension. POSTOPERATIVE DIAGNOSIS: #1 end-stage renal disease on hemodialysis. #2 peripheral vascular disease. #3 coronary artery disease. #4 diabetes mellitus type II. #5morbid obesity. #6 hypertension. OPERATION: #1 ultrasound guided evaluation of right internal jugular vein. #2 insertion of permacatheter under ultrasound ultrasound real-time access. #3 angiogram and interpretation. SURGEON: RICHARD [employer] ATTENDANT: none ANESTHESIA: Moderate Sedation TISSUE REMOVED OR ALTERED: Not applicable COMPLICATIONS: None ESTIMATED BLOOD LOSS: 5 mL. INTRAOPERATIVE FINDINGS: Of satisfactory access into the right internal jugular vein. Good position of the catheter with the tip well down in the right atrial pool of blood. Catheter angiogram demonstrated smooth flow of contrast through the right atrium, ventricle and pulmonary outflow tract. Easy egress of blood and ingress of heparinized solution through both ports. PROCEDURE: After obtaining informed consent, the patient was taken to the [employer] and positioned supine. The right neck and chest were prepared with chlorhexidine and draped out with sterile linen. After the " universal timeout", in which it was verified that the patient continued to receive antibiotic, the procedure commenced. A steriley sheathed ultrasound probe was used to evaluate the right internal jugular vein. Local anesthesia was infiltrated adjacent to the probe. Access into the right internal jugular vein was obtained using a micropuncture needle, followed by micropuncture wire and then a micropuncture catheter. This was followed by introduction of a 0.035 guidewire the tip of which was placed down into the inferior vena cava . A 23 cm permacatheter was now positioned over the chest and an exit site marked and locally anesthetized , the catheter was placed between the 2 incisions. Proximally, the catheter was now positioned using a peel-away sheath, after dilation. Easy ingress of heparinized solution and egress of blood obtained through both ports. A completion angiogram was done by injecting contrast. The findings were as dictated. The neck incision was now closed using interrupted 3-0 PDS to the subcutaneous tissues, the catheter was anchored at the exit site using 3-0 PDS. A Biopatch device was now placed adjacent to the catheter. Dressings were applied and the procedure concluded. Exposure time: 0.5 minutes. Exposure: 40 cGy per centimeters squared. Contrast amount: 5 mL of [id number] low osmolality. Copies of the dictated operative report for Dr. Richard Nichols MD.concluded. Copies of the dictated operative report for Dr. Richard Nichols MD.
[2016-07-12] MEDS ORDERED: VANCOMYCIN HCL 1,000 MG in DEXTROSE 5%-WATER 250 ML IV PRN (13:38)
--- NOTE | 2016-07-12 13:38 | PDOC PROGRESS REPORT ---
Subjective Progress Note for:: 07/12/16 Subjective:: Seen on HD.New Permacath placed this AM and no issues. Physical Exam Vital Signs: Temp Pulse Resp BP Pulse Ox 97.3 F 69 20 137/66 H 97 07/12/16 11:42 07/12/16 11:42 07/12/16 11:42 07/12/16 11:42 07/12/16 11:42 Intake & Output 07/11/16 07/12/16 07/13/16 06:59 06:59 06:59 Intake Total 542 661 0 Output Total 2800 275 0 Balance -2258 386 0 Weight 141.5 kg 140.1 kg General appearance: PRESENT: no acute distress Respiratory exam: PRESENT: clear to auscultation aguilar, symmetrical, unlabored. ABSENT: chest wall tenderness, crackles, rhonchi Cardiovascular exam: PRESENT: +S1, +S2, systolic murmur GI/Abdominal exam: PRESENT: soft. ABSENT: distended, firm, guarding, mass, tenderness Results Laboratory Results: 07/12/16 06:06 07/12/16 06:06 07/12/16 07/12/16 07/12/16 02:17 06:06 06:06 WBC 7.1 RBC 3.30 L Hgb 10.4 L Hct 32.2 L MCV 98 H MCH 31.5 MCHC 32.3 RDW 15.7 H Plt Count 188 Seg Neutrophils % 71.2 Lymphocytes % 18.3 Monocytes % 6.3 Eosinophils % 3.2 Basophils % 1.0 Absolute Neutrophils 5.1 Absolute Lymphocytes 1.3 Absolute Monocytes 0.4 Absolute Eosinophils 0.2 Absolute Basophils 0.1 Sodium 137.4 Potassium 4.1 Chloride 96 L Carbon Dioxide 28 Anion Gap 13 BUN 41 H Creatinine 4.66 H Est GFR ( Amer) 16 L Est GFR (Non-Af Amer) 13 L Glucose 276 H Calcium 8.7 Urine Color YELLOW Urine Appearance SLIGHTLY-CLOUDY Urine pH 7.0 Ur Specific [place] 1.013 Urine Protein 100 H Urine Glucose (UA) 50 H Urine Ketones NEGATIVE Urine Blood NEGATIVE Urine Nitrite NEGATIVE Ur Leukocyte Esterase LARGE H Urine WBC (Auto) 138 Urine RBC (Auto) 2 Impressions: Chest X-Ray 07/10/16 06:39 IMPRESSION: HEART ENLARGED WITHOUT FAILURE. NO OTHER SIGNIFICANT RADIOGRAPHIC FINDING IN THE CHEST. Assessment & Plan - Diagnosis (1) Diabetes Plan: stable (2) ESRD (end stage renal disease) on dialysis Is this a current diagnosis for this admission?: YesPlan: He is undergoing dialysis without any issues and is being supervised. Vital signs are stable. Orders have been placed. Plan to remove 1-2 L as tolerated.Continue on vanc/gent A (4) Morbid obesity Is this a current diagnosis for this admission?: Yes
[2016-07-12] MEDS ORDERED: GENTAMICIN SULFATE 100 MG in DEXTROSE 5%-WATER 100 ML IV PRN (13:39)
[2016-07-12] MEDS ORDERED: HEPARIN SOD (PORCINE) 1,000 UNIT/ML 10 ML VIAL IV PRN (14:56)
--- NOTE | 2016-07-12 20:24 | PDOC PROGRESS REPORT ---
Subjective Progress Note for:: 07/12/16 Subjective:: Patient was admitted for observation because of concern for infection/sepsis, the blood culture is growing gram-positive cocci in clusters that suggest Staphylococcus infection, specific specie is not known yet. He was also found to have a low blood pressure, initial intent was to discharge him today but he will be monitored for another day to make sure is stable enough for discharge Physical Exam Vital Signs: Temp Pulse Resp BP Pulse Ox 98.0 F 67 20 105/90 H 92 07/12/16 18:11 07/12/16 18:11 07/12/16 18:11 07/12/16 18:11 07/12/16 18:11 Intake & Output 07/11/16 07/12/16 07/13/16 06:59 06:59 06:59 Intake Total 542 661 118 Output Total 2800 275 0 Balance -2258 386 118 Weight 141.5 kg 140.1 kg General appearance: PRESENT: mild distress Eye exam: PRESENT: PERRLA Respiratory exam: PRESENT: clear to auscultation aguilar Cardiovascular exam: PRESENT: +S1, +S2 GI/Abdominal exam: PRESENT: soft Results Laboratory Results: 07/12/16 06:06 07/12/16 06:06 07/12/16 07/12/16 07/12/16 02:17 06:06 06:06 WBC 7.1 RBC 3.30 L Hgb 10.4 L Hct 32.2 L MCV 98 H MCH 31.5 MCHC 32.3 RDW 15.7 H Plt Count 188 Seg Neutrophils % 71.2 Lymphocytes % 18.3 Monocytes % 6.3 Eosinophils % 3.2 Basophils % 1.0 Absolute Neutrophils 5.1 Absolute Lymphocytes 1.3 Absolute Monocytes 0.4 Absolute Eosinophils 0.2 Absolute Basophils 0.1 Sodium 137.4 Potassium 4.1 Chloride 96 L Carbon Dioxide 28 Anion Gap 13 BUN 41 H Creatinine 4.66 H Est GFR ( Amer) 16 L Est GFR (Non-Af Amer) 13 L Glucose 276 H Calcium 8.7 Urine Color YELLOW Urine Appearance SLIGHTLY-CLOUDY Urine pH 7.0 Ur Specific [place] 1.013 Urine Protein 100 H Urine Glucose (UA) 50 H Urine Ketones NEGATIVE Urine Blood NEGATIVE Urine Nitrite NEGATIVE Ur Leukocyte Esterase LARGE H Urine WBC (Auto) 138 Urine RBC (Auto) 2 Impressions: Chest X-Ray 07/10/16 06:39 IMPRESSION: HEART ENLARGED WITHOUT FAILURE. NO OTHER SIGNIFICANT RADIOGRAPHIC FINDING IN THE CHEST. Central Venous Line 07/12/16 00:00 IMPRESSION: IMAGE(S) OBTAINED DURING PROCEDURE. Assessment & Plan - Diagnosis (1) Diarrhea Qualifiers: Diarrhea type: unspecified type Qualified Code(s): R19.7 - Diarrhea , unspecified Is this a current diagnosis for this admission?: Yes (2) End stage renal disease on dialysis Is this a current diagnosis for this admission?: Yes (3) Staphylococcus aureus bacteremia Is this a current diagnosis for this admission?: YesPlan: Patient presently on vancomycin intravenously, he was initially brought here for observation, but he is on stable hemodynamically to discharge him home at this time.
[2016-07-12] MEDS: ATORVASTATIN CALCIUM 40 MG TABLET PO SCH (23:24)
[2016-07-12] MEDS: HUM INSULIN NPH/REG INSULIN HM 100 UNIT/1 ML 3 ML SUBCUT SCH (23:24)
[2016-07-12] MEDS: CLONIDINE HCL 0.1 MG TABLET PO SCH (23:26)
[2016-07-13 05:32] LABS: HEMATOCRIT 29.2 % (37.9-51.0); HEMOGLOBIN 9.6 g/dL (13.5-17.0); HGB HCT DIFFERENCE -0.4; MEAN CORPUSCULAR HEMOGLOBIN 31.3 pg (27.0-33.4); MEAN CORPUSCULAR HGB CONC 32.9 g/dL (32.0-36.0); MEAN CORPUSCULAR VOLUME 95 fl (80-97); RED BLOOD COUNT 3.07 10^6/uL (4.35-5.55); RED CELL DISTRIBUTION WIDTH 15.6 % (11.5-14.0); WHITE BLOOD COUNT 10.9 10^3/uL (4.0-10.5)
[2016-07-13 05:37] LABS: BAND NEUTROPHILS % (MANUAL) 2 % (3-5); BASOPHILS % (MANUAL) 0 % (0-2); EOSINOPHILS % (MANUAL) 1 % (0-6); LYMPHOCYTES % (MANUAL) 20 % (13-45); TOTAL CELLS COUNTED 100
[2016-07-13 05:39] LABS: ANISOCYTOSIS SLIGHT; OVALOCYTES SLIGHT; POIKILOCYTOSIS SLIGHT; SCHISTOCYTES SLIGHT; TEAR DROP CELLS SLIGHT; TOXIC GRANULATION SLIGHT; TOXIC VACUOLATION PRESENT
[2016-07-13 06:02] VITALS: BP 108/41
[2016-07-13] MEDS: GABAPENTIN 400 MG CAPSULE PO SCH (06:03)
[2016-07-13] MEDS: HYDRALAZINE HCL 50 MG TABLET PO SCH (06:03)
[2016-07-13] MEDS: DIVALPROEX SODIUM 250 MG TABLET.DR PO SCH (11:07)
[2016-07-13] MEDS: LEVETIRACETAM ORAL SOLN 500 MG/5 ML UDCUP PO SCH (11:08)
[2016-07-13] MEDS: ASPIRIN 81 MG TABLET, CHEWABLE PO SCH (11:08)
[2016-07-13] MEDS: SITAGLIPTIN PHOSPHATE 25 MG TABLET PO SCH (11:08)
[2016-07-13] MEDS: TAMSULOSIN HCL 0.4 MG CAP.SR.24H PO SCH (11:11)
[2016-07-13] MEDS: LANSOPRAZOLE 15 MG TAB.RAP.DR PO SCH (11:12)
[2016-07-13] MEDS: LOSARTAN POTASSIUM 50 MG TABLET PO SCH (11:12)
[2016-07-13] MEDS: FINASTERIDE 5 MG TABLET PO SCH (11:12)
[2016-07-13] MEDS: INSULIN GLARGINE,HUM.REC.ANLOG 300 UNIT/3 ML INSULN.PEN SUBCUT SCH (11:12)
[2016-07-13] MEDS: BUDESONIDE/FORMOTEROL 160-4.5 MCG 60 PUFF/6 GM MDI IH SCH (11:12)
[2016-07-13] MEDS: METOPROLOL SUCCINATE 50 MG TAB.SR.24H PO SCH (11:12)
[2016-07-13] MEDS: ISOSORBIDE MONONITRATE 30 MG TAB.ER.24H PO SCH (11:12)
--- NOTE | 2016-07-13 20:09 | PDOC DISCHARGE SUMMARY ---
General - Admit/Disc Date/PCP Admission Date/Primary Care Provider: 07/10/16 21:41 VIRIDIANA LEHMAN, Discharge Date: 07/13/16 - Discharge Diagnosis (1) Diarrhea Is this a current diagnosis for this admission?: Yes (2) End stage renal disease on dialysis Is this a current diagnosis for this admission?: Yes (4) Hypotension Is this a current diagnosis for this admission?: Yes - Additional Information Discharge Activity: Activity As Tolerated Home Medications: Gabapentin [Neurontin 300 mg Capsule] 800 mg PO TID 04/02/14 Isosorbide Mononitrate [Isosorbide Mononitrate ER] 30 mg PO DAILY 04/02/14 Clonidine HCl [Catapres] 0.1 mg PO QHS 08/10/14 Hydralazine HCl 100 mg PO TID 08/10/14 Levetiracetam [Keppra] 250 mg PO DAILY 08/10/14 Metoprolol Succinate [Toprol XL 100 mg Tablet] 100 mg PO Q12H 08/10/14 Divalproex Sodium [Depakote] 500 mg PO DAILY 11/26/14 Tamsulosin HCl [Flomax] 0.4 mg PO DAILY 11/11/15 Finasteride [Proscar 5 mg Tablet] 1 tab PO DAILY 07/11/16 Insulin Glargine,Hum.rec.anlog [Lantus Solostar] 12 unit SQ DAILY 07/11/16 Linagliptin [Tradjenta] 5 mg PO DAILY 07/11/16 Losartan Potassium [Cozaar 100 mg Tablet] 100 mg PO DAILY 07/11/16 Omeprazole [Prilosec] 20 mg PO DAILY 07/11/16 Tramadol HCl/Acetaminophen [Ultracet 37.5 mg/325 mg Tablet] 1 tab PO DAILY PRN 07/11/16 History of Present Illness History of Present Illness: Patient 61-year-old male with history of end-stage renal disease on maintenance hemodialysis, he was admitted electively for placement of permcath for hemodialysis, apparently the internal jugular vein catheter fell off, there was difficulty in placing a new IJ catheter and a temporary right femoral catheter was inserted, the surgeon, Dr. Nichols is requesting hospital admission for this patient because he developed complication , fever, nausea and diarrhea. Hospital Course Hospital Course: Patient was admitted because of concern for infection/sepsis, he had permcath for hemodialysis inserted, the blood culture was positive for staph, but it was Staphylococcus hominis, most likely contamination. He had hemodialysis done in the Hospital. He had diarrhea that was self-limited Physical Exam Vital Signs: Temp Pulse Resp BP Pulse Ox 97.7 F 70 20 108/41 L 100 07/13/16 11:45 07/13/16 11:45 07/13/16 11:45 07/13/16 11:45 07/13/16 11:45 Intake & Output 07/12/16 07/13/16 07/14/16 06:59 06:59 06:59 Intake Total 661 478 Output Total 275 500 Balance 386 -22 Weight 140.1 kg 142 kg General appearance: PRESENT: no acute distress Eye exam: PRESENT: PERRLA Respiratory exam: PRESENT: clear to auscultation aguilar Cardiovascular exam: PRESENT: +S1, +S2 Results Laboratory Results: 07/13/16 04:50 07/12/16 06:06 07/13/16 04:50 WBC 10.9 H RBC 3.07 L Hgb 9.6 L Hct 29.2 L MCV 95 MCH 31.3 MCHC 32.9 RDW 15.6 H Plt Count 159 Seg Neutrophils % Not Reportable Lymphocytes % Not Reportable Monocytes % Not Reportable Eosinophils % Not Reportable Basophils % Not Reportable Absolute Neutrophils Not Reportable Absolute Lymphocytes Not Reportable Absolute Monocytes Not Reportable Absolute Eosinophils Not Reportable Absolute Basophils Not Reportable 07/10/16 22:03 Blood Blood Culture - Final Staphylococcus Hominis Impressions: Chest X-Ray 07/10/16 06:39 IMPRESSION: HEART ENLARGED WITHOUT FAILURE. NO OTHER SIGNIFICANT RADIOGRAPHIC FINDING IN THE CHEST. Central Venous Line 07/12/16 00:00 IMPRESSION: IMAGE(S) OBTAINED DURING PROCEDURE.
== END 2016-07-13 12:32 | disposition home health service (06) ==
LOC: CCL 05:20 → 3S 14:45 → INTOOBSV 21:41 → CCL 22:42
PROVIDERS: ADMIT Internal Medicine; ATTEND Internal Medicine
PROC: 0WHG43Z Insertion of Infusion Device into Peritoneal Cavity, Percutaneous Endoscopic Approach (ICD-10-PCS; principal; 2016-07-10)
DX: I12.0 Hypertensive chronic kidney disease with stage 5 chronic kidney disease or end stage renal disease (principal); E11.22 Type 2 diabetes mellitus with diabetic chronic kidney disease; N18.6 End stage renal disease; D63.1 Anemia in chronic kidney disease; Z99.2 Dependence on renal dialysis; Z79.4 Long term (current) use of insulin; R19.7 Diarrhea, unspecified; I95.9 Hypotension, unspecified; I73.9 Peripheral vascular disease, unspecified; Z89.512 Acquired absence of left leg below knee; Z89.511 Acquired absence of right leg below knee; I25.10 Atherosclerotic heart disease of native coronary artery without angina pectoris; E78.5 Hyperlipidemia, unspecified; I25.2 Old myocardial infarction; J45.909 Unspecified asthma, uncomplicated; I69.398 Other sequelae of cerebral infarction; R56.9 Unspecified convulsions; K21.9 Gastro-esophageal reflux disease without esophagitis; M19.90 Unspecified osteoarthritis, unspecified site; F32.9 Major depressive disorder, single episode, unspecified; Z95.5 Presence of coronary angioplasty implant and graft; E66.01 Morbid (severe) obesity due to excess calories; Z68.37 Body mass index [BMI] 37.0-37.9, adult
CPT/HCPCS: 36415 ×4; 87040; 84439; 82962 ×4; 83690; 84443; 85025 ×3; 85027; 87077; 80048 ×3; 81001; 87186; 83036; 36558; 76937; 77001; 71010; 93005; 93010; G0378 ×4; G0379; C1752 ×3; Q9967; C1769; J2250; J3490 ×36; J3010; J1580 ×2; J1815 ×3; J1644 ×4; J2405; J3370 ×3; J7060 ×2

== ENCOUNTER 2016-07-14 11:44 | Inpatient (IN) | payer MEDICAID ==
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
[2016-07-14] MEDS ORDERED: VANCOMYCIN HCL INJ 1000 MG VIAL IV ONE (13:46)
[2016-07-14] MEDS ORDERED: AZTREONAM INJ 1 GM VIAL IV ONE (13:46)
[2016-07-14 13:51] LABS: PARTIAL THROMBOPLASTIN TIME 34.5 SEC (23.5-35.8); PROTHROMBIN TIME 13.2 SEC (11.4-15.4)
[2016-07-14 14:06] LABS: ALANINE AMINOTRANSFERASE 14 U/L (21-72); ALBUMIN 3.6 g/dL (3.5-5.0); ALKALINE PHOSPHATASE 112 U/L (38-126); ANION GAP 17 (5-19); ASPARTATE AMINO TRANSFERASE 21 U/L (17-59); BILIRUBIN,TOTAL 0.3 mg/dL (0.2-1.3); BLOOD UREA NITROGEN 43 mg/dL (7-20); CALCIUM 8.6 mg/dL (8.4-10.2); CARBON DIOXIDE 28 mmol/L (22-30); CHLORIDE 97 mmol/L (98-107); CREATINE KINASE 270 U/L (55-170); CREATININE RESULT 5.57 mg/dL (0.52-1.25); GLUCOSE 190 mg/dL (75-110); LIPASE 75.4 U/L (23-300); POTASSIUM 4.5 mmol/L (3.6-5.0); SODIUM 141.7 mmol/L (137-145); TOTAL PROTEIN 6.9 g/dL (6.3-8.2)
[2016-07-14 14:18] LABS: CREATINE KINASE MB 6.01 ng/mL (<4.55); TROPONIN I 0.033 ng/mL
[2016-07-14 14:23] LABS: ADD ON TESTING BLD IN LAB ACKNOWLEDGE
--- NOTE | 2016-07-14 15:00 | EKG REPORT ---
SEVERITY:- ABNORMAL ECG - SINUS RHYTHM FIRST DEGREE AV BLOCK : Confirmed by: Donta Hunt 14-Jul-2016 15:00:15
[2016-07-14 16:00] LABS: ABSOLUTE EOSINOPHILS # (AUTO) 0.4 10^3/uL (0.0-0.6); ABSOLUTE MONOCYTES (AUTO) 0.9 10^3/uL (0.1-1.4); BASOPHILS % (AUTO) 0.3 % (0-2); HEMATOCRIT 31.3 % (37.9-51.0); HEMOGLOBIN 9.8 g/dL (13.5-17.0); HGB HCT DIFFERENCE -1.9; LYMPHOCYTES % (AUTO) 10.5 % (13-45); MEAN CORPUSCULAR HEMOGLOBIN 31.3 pg (27.0-33.4); MEAN CORPUSCULAR HGB CONC 31.4 g/dL (32.0-36.0); MONOCYTES % (AUTO) 9.4 % (3-13); RED BLOOD COUNT 3.13 10^6/uL (4.35-5.55); RED CELL DISTRIBUTION WIDTH 16.1 % (11.5-14.0); SEGMENTED NEUTROPHILS % (AUTO) 75.8 % (42-78); WHITE BLOOD COUNT 9.2 10^3/uL (4.0-10.5)
[2016-07-14 16:12] LABS: MEAN CORPUSCULAR VOLUME 100 fl (80-97)
[2016-07-14] MEDS ORDERED: HEPARIN SOD (PORCINE) 1,000 UNIT/ML 1 ML VIAL IV PRN (17:00)
[2016-07-14] MEDS ORDERED: LOSARTAN POTASSIUM 50 MG TABLET PO ONE (17:00)
[2016-07-14] MEDS ORDERED: HEPARIN SOD (PORCINE) 1,000 UNIT/ML 10 ML VIAL IV PRN (17:05)
--- NOTE | 2016-07-14 17:42 | PDOC PROGRESS REPORT ---
Subjective Progress Note for:: 07/14/16 Subjective:: Mr. Price seen on dialysis today. He had just been discharged home yesterday after he had a catheter replaced he was brought back off that he apparently had a fall in his house. States he had some left-sided headache and body aches. He has had a CT of his brain does not show any acute changes. He denies any history of severe headache at the moment. He denies any history of chest pain shortness of breath. About close to 2 hours into dialysis the patient apparently began to become belligerent. He was not complaining of anything in particular but wanted to be taken off the machine. He was very unhappy that he was not sent home from the ER. Discussed with my treating nurse Bettye. He has had no apparent seizures. His last blood sugar in the ER at 1:30 was 190. And I did order a Accu-Cheks just now and it came back at 160. Patient denies any specific complaints at the moment. He states he just wants to go home. He has undergone dialysis without any issues. Vitals signs have been stable. His hemoglobin and lites are stable. Denies any history of pain around the recently placed right IJ catheter. No discharge. Denies chills or Rigors with fever. Physical Exam Vital Signs: Temp Pulse Resp BP Pulse Ox 9 L 146/69 H 98 07/14/16 13:21 07/14/16 13:21 07/14/16 13:21 Intake & Output 07/13/16 07/14/16 07/15/16 06:59 06:59 06:59 Weight 142 kg General appearance: PRESENT: no acute distress, cooperative Exam: He is laying very quietly in the bed. He answers to questions appropriately. Denies specific complaints. Eye exam: PRESENT: conjunctiva pink, EOMI, PERRLA. ABSENT: conjunctiva pale, nystagmus, periorbital swelling, scleral icterus Ear exam: ABSENT: bleeding, normal external ear exam Mouth exam: ABSENT: neck supple Neck exam: ABSENT: meningismus, tenderness, thyromegaly Respiratory exam: PRESENT: clear to auscultation aguilar, symmetrical. ABSENT: crackles, rales, tachypnea, unlabored Cardiovascular exam: PRESENT: +S1, +S2 GI/Abdominal exam: PRESENT: soft. ABSENT: distended, tenderness Neurological exam: PRESENT: alert, awake, oriented to person, oriented to place , oriented to time Results Impressions: Chest X-Ray 07/14/16 12:03 IMPRESSION: Right upper lobe airspace disease with trace fluid in the right minor fissure Right-sided central venous dialysis catheter tip in the superior vena cava. Head CT 07/14/16 12:03 IMPRESSION: MILD CHRONIC CHANGES OF ATROPHY AND MICROVASCULAR ISCHEMIA. NO ACUTE PROCESS. Cervical Spine CT 07/14/16 12:15 IMPRESSION: Technical limitations due to patient motion. No acute fracture identified. Assessment & Plan - Diagnosis (1) ESRD (end stage renal disease) on dialysis Plan: Patient undergoing dialysis as he is due for one today. His next dialysis will be Sunday. Patient underwent dialysis without any issues even though we had to cut short his treatment after couple of hours. His electrolytes are stable. He should do well to Sunday. (2) Pneumonia Qualifiers: Pneumonia type: due to unspecified organism Laterality: right Lung location: upper lobe of lung Qualified Code(s): J18.1 - Lobar pneumonia, unspecified organism (3) Seizure disorder Plan: Should be on Keppra. However he has got history of severe noncompliance and therefore unsure if he is compliant with medications. (4) Diabetes mellitus type 2 in nonobese Plan: His blood sugars are currently stable as seen on Accu-Chek of of 160..
[2016-07-14] MEDS: METOPROLOL SUCCINATE 50 MG TAB.SR.24H PO SCH (19:31)
[2016-07-14] MEDS ORDERED: (PENDING PHARMACY ID) (Tramadol Hcl/Acetaminophen [Ultracet 37.5 Mg/325 Mg Tablet] 1 TAB) PO PRN (21:57)
[2016-07-14] MEDS ORDERED: DEXTROSE 40% GEL 15 GM TUBE PO PRN ×2 (21:59)
[2016-07-14] MEDS ORDERED: DEXTROSE 50%-WATER 25 GM/50 ML DISP.SYRIN IV PRN ×2 (21:59)
[2016-07-14] MEDS ORDERED: GLUCAGON,HUMAN RECOMB 1 MG INJ IM PRN (21:59)
[2016-07-14] MEDS ORDERED: (PENDING PHARMACY ID) (Omeprazole [Prilosec] 20 MG) PO SCH (22:00)
[2016-07-14] MEDS ORDERED: (PENDING PHARMACY ID) (Levetiracetam [Keppra] 250 MG) PO SCH (22:00)
[2016-07-14] MEDS ORDERED: (PENDING PHARMACY ID) (Linagliptin [Tradjenta] 5 MG) PO SCH (22:00)
--- NOTE | 2016-07-14 22:19 | PDOC H&P ---
History of Present Illness Admission Date/PCP: 07/14/16 18:41 VIRIDIANA LEHMAN, History of Present Illness: MARIANA RICHARDSON is a 61 year old male, he was discharged yesterday from this hospital when he was admitted for diarrhea and at a time he had a PermCath inserted. He came to emergency room this morning because he fell the emergency room providers said he developed left-sided weakness. CT head was done that was negative for any acute pathology. Chest x-ray was done that showed a focal airspace disease in the right upper lobe near the minor fissure that suggest pneumonia. Past Medical History Cardiac Medical History: Reports: Congestive Heart Failure, Coronary Artery Disease, Myocardial Infarction, Hyperlipidema, Hypertension, Peripheral Vascular Disease Pulmonary Medical History: Reports: Asthma Neurological Medical History: Reports: Seizures - 2015 Endocrine Medical History: Reports: Diabetes Mellitus Type 2, Obesity Renal/ Medical History: Reports: End Stage Renal Disease GI Medical History: Reports: Gastroesophageal Reflux Disease Musculoskeltal Medical History: Reports: Arthritis Psychiatric Medical History: Reports: Depression Hematology: Reports: Anemia Past Surgical History Past Surgical History: Reports: Cardiac Catheterization, Coronary Stent - x6, Orthopedic Surgery - right BKA, Vascular Surgery - Right subclavian PermCath Social History Lives with: Alone Smoking Status: Never Smoker Frequency of Alcohol Use: None Hx Recreational Drug Use: No Drugs: None Hx Prescription Drug Abuse: No - Advance Directive Resuscitation Status: Full Code Family History Family History: Arthritis, CAD, CVA, DM, Hyperlipidemia, Hypertension Parental Family History Reviewed: Yes Children Family History Reviewed: Yes Sibling(s) Family History Reviewed.: Yes Medication/Allergy Home Medications: Gabapentin [Neurontin 300 mg Capsule] 800 mg PO TID 04/02/14 Isosorbide Mononitrate [Isosorbide Mononitrate ER] 30 mg PO DAILY 04/02/14 Clonidine HCl [Catapres] 0.1 mg PO QHS 08/10/14 Hydralazine HCl 100 mg PO TID 08/10/14 Levetiracetam [Keppra] 250 mg PO DAILY 08/10/14 Metoprolol Succinate [Toprol XL 100 mg Tablet] 100 mg PO Q12H 08/10/14 Divalproex Sodium [Depakote] 500 mg PO DAILY 11/26/14 Tamsulosin HCl [Flomax] 0.4 mg PO DAILY 11/11/15 Finasteride [Proscar 5 mg Tablet] 1 tab PO DAILY 07/11/16 Insulin Glargine,Hum.rec.anlog [Lantus Solostar] 12 unit SQ DAILY 07/11/16 Linagliptin [Tradjenta] 5 mg PO DAILY 07/11/16 Losartan Potassium [Cozaar 100 mg Tablet] 100 mg PO DAILY 07/11/16 Omeprazole [Prilosec] 20 mg PO DAILY 07/11/16 Tramadol HCl/Acetaminophen [Ultracet 37.5 mg/325 mg Tablet] 1 tab PO DAILY PRN 07/11/16 Allergies/Adverse Reactions: Penicillins Allergy (Verified 07/03/16 18:10) Review of Systems Constitutional: PRESENT: chills Cardiovascular: ABSENT: as per HPI, chest pain, dyspnea on exertion, edema, orthropnea, palpitations, other Respiratory: PRESENT: cough Gastrointestinal: PRESENT: abdominal pain Genitourinary: ABSENT: as per HPI, difficulty urinating, dysuria, hematuria, nocturia, other Musculoskeletal: ABSENT: joint swelling Integumentary: ABSENT: rash, wounds Neurological: PRESENT: frequent falls Endocrine: ABSENT: cold intolerance, heat intolerance, menstrual abnormalities, polydipsia, polyuria Hematologic/Lymphatic: ABSENT: easy bleeding, easy bruising, lymphadenopathy Physical Exam Vital Signs: Temp Pulse Resp BP Pulse Ox 97.2 F 76 20 128/42 H 100 07/14/16 18:02 07/14/16 18:39 07/14/16 18:02 07/14/16 18:02 07/14/16 18:02 Intake & Output 07/13/16 07/14/16 07/15/16 06:59 06:59 06:59 Output Total 500 Balance -500 General appearance: PRESENT: no acute distress Eye exam: PRESENT: PERRLA Respiratory exam: PRESENT: clear to auscultation aguilar Cardiovascular exam: PRESENT: +S1, +S2 GI/Abdominal exam: PRESENT: soft Results Impressions: Chest X-Ray 07/14/16 12:03 IMPRESSION: Right upper lobe airspace disease with trace fluid in the right minor fissure Right-sided central venous dialysis catheter tip in the superior vena cava. Head CT 07/14/16 12:03 IMPRESSION: MILD CHRONIC CHANGES OF ATROPHY AND MICROVASCULAR ISCHEMIA. NO ACUTE PROCESS. Cervical Spine CT 07/14/16 12:15 IMPRESSION: Technical limitations due to patient motion. No acute fracture identified. Assessment & Plan - Diagnosis (1) Pneumonia Qualifiers: Pneumonia type: due to unspecified organism Laterality: right Lung location: upper lobe of lung Qualified Code(s): J18.1 - Lobar pneumonia, unspecified organism Is this a current diagnosis for this admission?: YesPlan: Patient will be treated with IV antibiotic,zithromax and rocephin
[2016-07-14] MEDS ORDERED: AZTREONAM INJ 1 GM VIAL IV PRN (22:35)
[2016-07-14] MEDS ORDERED: INSULIN GLARGINE,HUM.REC.ANLOG 300 UNIT/3 ML INSULN.PEN SUBCUT ONE (22:45)
[2016-07-14] MEDS ORDERED: LANSOPRAZOLE 15 MG TAB.RAP.DR PO ONE (22:45)
[2016-07-14] MEDS ORDERED: AZTREONAM 1.5 GM in DEXTROSE 5%-WATER 100 ML IV ONE (22:45)
[2016-07-14] MEDS ORDERED: ISOSORBIDE MONONITRATE 30 MG TAB.ER.24H PO ONE (22:45)
[2016-07-14] MEDS ORDERED: SITAGLIPTIN PHOSPHATE 25 MG TABLET PO ONE (23:00)
[2016-07-14] MEDS: GABAPENTIN 400 MG CAPSULE PO SCH (23:48)
[2016-07-14] MEDS: HYDRALAZINE HCL 50 MG TABLET PO SCH (23:48)
[2016-07-14] MEDS: CLONIDINE HCL 0.1 MG TABLET PO SCH (23:49)
[2016-07-15] MEDS: INSULIN LISPRO 100 UNIT/ML 3 ML VIAL SUBCUT PRN (00:09)
[2016-07-15] MEDS ORDERED: INSULIN GLARGINE,HUM.REC.ANLOG 300 UNIT/3 ML INSULN.PEN SUBCUT ONE (00:48)
[2016-07-15] MEDS ORDERED: AZTREONAM INJ 1 GM VIAL ONE (00:48)
[2016-07-15] MEDS ORDERED: AZTREONAM 1.5 GM in DEXTROSE 5%-WATER 100 ML IV SCH ×2 (06:00→10:00)
[2016-07-15] MEDS: GABAPENTIN 400 MG CAPSULE PO SCH ×3 (06:57→22:39)
[2016-07-15] MEDS: LANSOPRAZOLE 15 MG TAB.RAP.DR PO SCH (06:57)
[2016-07-15] MEDS: METOPROLOL SUCCINATE 50 MG TAB.SR.24H PO SCH ×2 (07:55→18:15)
[2016-07-15] MEDS: HYDRALAZINE HCL 50 MG TABLET PO SCH ×3 (07:55→22:43)
[2016-07-15] MEDS: AZITHROMYCIN 500 MG in DEXTROSE 5%-WATER 250 ML IV SCH (10:13)
[2016-07-15] MEDS: INSULIN GLARGINE,HUM.REC.ANLOG 300 UNIT/3 ML INSULN.PEN SUBCUT SCH (10:13)
[2016-07-15] MEDS: SITAGLIPTIN PHOSPHATE 25 MG TABLET PO SCH (10:14)
[2016-07-15] MEDS: FINASTERIDE 5 MG TABLET PO SCH (10:15)
[2016-07-15] MEDS: DIVALPROEX SODIUM 500 MG TAB.SR.24H PO SCH (10:15)
[2016-07-15] MEDS: ISOSORBIDE MONONITRATE 30 MG TAB.ER.24H PO SCH (10:15)
[2016-07-15 13:21] LABS: APPEARANCE,URINE TURBID; BILIRUBIN,URINE NEGATIVE (NEGATIVE); GLUCOSE, URINE NEGATIVE (NEGATIVE); KETONES,URINE NEGATIVE (NEGATIVE); LEUKOCYTE ESTERASE,URINE LARGE (NEGATIVE); NITRITE,URINE NEGATIVE (NEGATIVE); PROTEIN,URINE 100 mg/dL (NEGATIVE); URINE SPECIFIC GRAVITY 1.013; UROBILINOGEN,URINE NEGATIVE mg/dL (<2.0)
[2016-07-15] MEDS ORDERED: LEVETIRACETAM ORAL SOLN 500 MG/5 ML UDCUP PO ONE (13:30)
[2016-07-15] MEDS: TAMSULOSIN HCL 0.4 MG CAP.SR.24H PO SCH (18:15)
[2016-07-15] MEDS: LOSARTAN POTASSIUM 50 MG TABLET PO SCH (18:16)
[2016-07-15] MEDS: CLONIDINE HCL 0.1 MG TABLET PO SCH (22:39)
[2016-07-15] MEDS: DEXTROSE 5% IV SCH (22:43)
[2016-07-15] MEDS: WATER IV SCH (22:43)
[2016-07-15] MEDS: AZTREONAM IV SCH (22:43)
[2016-07-16 05:32] LABS: ABSOLUTE EOSINOPHILS # (AUTO) 0.3 10^3/uL (0.0-0.6); ABSOLUTE LYMPHOCYTES (AUTO) 1.1 10^3/uL (0.5-4.7); ABSOLUTE MONOCYTES (AUTO) 0.9 10^3/uL (0.1-1.4); ABSOLUTE NEUT (AUTO) 6.5 10^3/uL (1.7-8.2); BASOPHILS % (AUTO) 0.5 % (0-2); EOSINOPHILS % (AUTO) 3.3 % (0-6); HEMATOCRIT 28.3 % (37.9-51.0); HEMOGLOBIN 8.9 g/dL (13.5-17.0); HGB HCT DIFFERENCE -1.6; LYMPHOCYTES % (AUTO) 12.8 % (13-45); MEAN CORPUSCULAR HEMOGLOBIN 31.4 pg (27.0-33.4); MEAN CORPUSCULAR HGB CONC 31.4 g/dL (32.0-36.0); MEAN CORPUSCULAR VOLUME 100 fl (80-97); MONOCYTES % (AUTO) 10.1 % (3-13); RED BLOOD COUNT 2.82 10^6/uL (4.35-5.55); RED CELL DISTRIBUTION WIDTH 16.4 % (11.5-14.0); SEGMENTED NEUTROPHILS % (AUTO) 73.3 % (42-78); WHITE BLOOD COUNT 8.9 10^3/uL (4.0-10.5)
[2016-07-16 05:38] LABS: ALANINE AMINOTRANSFERASE 22 U/L (21-72); ALBUMIN 3.1 g/dL (3.5-5.0); ALKALINE PHOSPHATASE 94 U/L (38-126); ANION GAP 14 (5-19); ASPARTATE AMINO TRANSFERASE 13 U/L (17-59); BILIRUBIN,TOTAL 0.5 mg/dL (0.2-1.3); BLOOD UREA NITROGEN 46 mg/dL (7-20); CALCIUM 8.2 mg/dL (8.4-10.2); CARBON DIOXIDE 24 mmol/L (22-30); CHLORIDE 99 mmol/L (98-107); CREATININE RESULT 6.27 mg/dL (0.52-1.25); GLUCOSE 92 mg/dL (75-110); POTASSIUM 4.4 mmol/L (3.6-5.0); SODIUM 137.3 mmol/L (137-145)
[2016-07-16] MEDS: WATER IV SCH ×3 (06:04→22:38)
[2016-07-16] MEDS: DEXTROSE 5% IV SCH ×3 (06:04→22:38)
[2016-07-16] MEDS: AZTREONAM IV SCH ×3 (06:04→22:38)
[2016-07-16] MEDS: LANSOPRAZOLE 15 MG TAB.RAP.DR PO SCH (06:06)
[2016-07-16] MEDS: GABAPENTIN 400 MG CAPSULE PO SCH ×3 (06:06→22:18)
[2016-07-16] MEDS: HYDRALAZINE HCL 50 MG TABLET PO SCH ×3 (06:06→22:17)
[2016-07-16] MEDS: METOPROLOL SUCCINATE 50 MG TAB.SR.24H PO SCH ×2 (06:06→18:15)
[2016-07-16] MEDS: AZITHROMYCIN 500 MG in DEXTROSE 5%-WATER 250 ML IV SCH (10:39)
[2016-07-16] MEDS: FINASTERIDE 5 MG TABLET PO SCH (10:40)
[2016-07-16] MEDS: DIVALPROEX SODIUM 500 MG TAB.SR.24H PO SCH (10:40)
[2016-07-16] MEDS: LEVETIRACETAM ORAL SOLN 500 MG/5 ML UDCUP PO SCH (10:40)
[2016-07-16] MEDS: ISOSORBIDE MONONITRATE 30 MG TAB.ER.24H PO SCH (10:40)
[2016-07-16] MEDS: SITAGLIPTIN PHOSPHATE 25 MG TABLET PO SCH (10:45)
[2016-07-16] MEDS: INSULIN GLARGINE,HUM.REC.ANLOG 300 UNIT/3 ML INSULN.PEN SUBCUT SCH (10:45)
--- NOTE | 2016-07-16 12:21 | PDOC PROGRESS REPORT ---
Subjective Progress Note for:: 07/16/16 Subjective:: Patient expressed prpfound depression due to his current medical condition and lack of family support. Poor p.o intake and crying. Patient denied suicidal thoughts or ideation. He remain on IV Zithromax and Aztreonam coverage. Urine culture did revealed significant growth of Rosy species. Blood culture is no growth to date. He denied difficulty with breathing or chest pain. No nausea or vomiting. No reported fever or chills. Physical Exam Vital Signs: Temp Pulse Resp BP Pulse Ox 97.6 F 61 17 110/42 L 97 07/16/16 07:32 07/16/16 07:32 07/16/16 07:32 07/16/16 07:32 07/16/16 07:32 Intake & Output 07/15/16 07/16/16 07/17/16 06:59 06:59 06:59 Intake Total 420 1210 Output Total 500 400 Balance -80 810 General appearance: PRESENT: no acute distress, morbidly obese Head exam: PRESENT: atraumatic, normocephalic Eye exam: PRESENT: conjunctiva pink, EOMI, PERRLA Mouth exam: PRESENT: moist Respiratory exam: PRESENT: decreased breath sounds - at lung bases. ABSENT: accessory muscle use, chest wall tenderness, clear to auscultation aguilar, crackles , prolonged expiratory phas, rales, retraction, rhonchi, stridor, symmetrical, tachypnea, unlabored, wheezes, other Cardiovascular exam: PRESENT: RRR. ABSENT: diastolic murmur, rubs, systolic murmur GI/Abdominal exam: PRESENT: normal bowel sounds, soft. ABSENT: distended, guarding, mass, organolmegaly, rebound, tenderness Extremities exam: PRESENT: right BKA Neurological exam: PRESENT: alert, awake, oriented to person, oriented to place , oriented to time, oriented to situation, CN II-XII grossly intact, motor sensory deficit Psychiatric exam: PRESENT: depressed. ABSENT: agitated, anxious, appropriate affect, flat affect, homicidal ideation, manic, normal mood, suicidal ideation, unusual affect, other Skin exam: PRESENT: dry, intact, warm. ABSENT: cyanosis, rash Results Laboratory Results: 07/16/16 04:51 07/16/16 04:51 07/15/16 07/16/16 07/16/16 11:50 04:51 04:51 WBC 8.9 RBC 2.82 L Hgb 8.9 L Hct 28.3 L MCV 100 H MCH 31.4 MCHC 31.4 L RDW 16.4 H Plt Count 194 Seg Neutrophils % 73.3 Lymphocytes % 12.8 L Monocytes % 10.1 Eosinophils % 3.3 Basophils % 0.5 Absolute Neutrophils 6.5 Absolute Lymphocytes 1.1 Absolute Monocytes 0.9 Absolute Eosinophils 0.3 Absolute Basophils 0.0 Sodium 137.3 Potassium 4.4 Chloride 99 Carbon Dioxide 24 Anion Gap 14 BUN 46 H Creatinine 6.27 H Est GFR ( Amer) 11 L Est GFR (Non-Af Amer) 9 L Glucose 92 Calcium 8.2 L Total Bilirubin 0.5 AST 13 L ALT 22 Alkaline Phosphatase 94 Total Protein 6.0 L Albumin 3.1 L Urine Color YELLOW Urine Appearance TURBID Urine pH 6.0 Ur Specific [place] 1.013 Urine Protein 100 H Urine Glucose (UA) NEGATIVE Urine Ketones NEGATIVE Urine Blood SMALL H Urine Nitrite NEGATIVE Ur Leukocyte Esterase LARGE H Urine WBC (Auto) >182 Urine RBC (Auto) 3 07/15/16 11:50 Catheterized Urine Urine Culture - Final C.albicans/C.dubliniensis Impressions: Chest X-Ray 07/14/16 12:03 IMPRESSION: Right upper lobe airspace disease with trace fluid in the right minor fissure Right-sided central venous dialysis catheter tip in the superior vena cava. Head CT 07/14/16 12:03 IMPRESSION: MILD CHRONIC CHANGES OF ATROPHY AND MICROVASCULAR ISCHEMIA. NO ACUTE PROCESS. Cervical Spine CT 07/14/16 12:15 IMPRESSION: Technical limitations due to patient motion. No acute fracture identified. Assessment & Plan - Diagnosis (1) Diabetes mellitus type 2 in obese Is this a current diagnosis for this admission?: Yes (2) ESRD (end stage renal disease) on dialysis Is this a current diagnosis for this admission?: Yes (3) Pneumonia Qualifiers: Pneumonia type: due to unspecified organism Laterality: right Lung location: upper lobe of lung Qualified Code(s): J18.1 - Lobar pneumonia, unspecified organism Is this a current diagnosis for this admission?: YesPlan: Maintain on IV Aztreonam coverage. D/C IV Zithromax due to drug-drug interaction with Diflucan and so far no growth from blood culture. (4) HTN (hypertension) Qualifiers: Hypertension type: essential hypertension Qualified Code(s): I10 - Essential (primary) hypertension Is this a current diagnosis for this admission?: Yes (5) Chronic systolic CHF (congestive heart failure) Is this a current diagnosis for this admission?: Yes (6) Depression Qualifiers: Depression Type: major depressive disorder Major depression recurrence : recurrent Active/Remission status: currently active Major depression episode severity: moderate Qualified Code(s): F33.1 - Major depressive disorder, recurrent, moderate Is this a current diagnosis for this admission?: YesPlan: Start on Zoloft 50 mg p.o daily for dual benefit of depression and anxiety management. (7) Candidal UTI (urinary tract infection) Is this a current diagnosis for this admission?: YesPlan: Start on adjusted dose Diflucan therapy for Rosy UTI. - Time Time Spent with patient: 25-34 minutes Medications reviewed and adjusted accordingly: Yes Anticipated discharge: Home with Homehealth Within: Other - Inpatient Certification Medical Necessity: Need Close Monitoring Due to Risk of Patient Decompensation, Need for IV Antibiotics, Risk of Complication if Not Cared For in Hospital Post Hospital Care: D/C Operator Lights Documentation - Plan Summary Plan Summary: see covering physician orders.
[2016-07-16] MEDS ORDERED: SERTRALINE HCL 50 MG TABLET PO ONE (13:00)
[2016-07-16] MEDS ORDERED: FLUCONAZOLE 100 MG TABLET PO ONE (13:00)
[2016-07-16] MEDS: TAMSULOSIN HCL 0.4 MG CAP.SR.24H PO SCH (18:14)
[2016-07-16] MEDS: LOSARTAN POTASSIUM 50 MG TABLET PO SCH (18:15)
[2016-07-16] MEDS ORDERED: FLUTICASONE NASAL SPRAY 50 MCG/SPRY 120 SPRAY/16 GM ONE (19:06)
[2016-07-16] MEDS: CLONIDINE HCL 0.1 MG TABLET PO SCH (22:18)
[2016-07-17] MEDS: METOPROLOL SUCCINATE 50 MG TAB.SR.24H PO SCH ×2 (06:00→17:23)
[2016-07-17] MEDS: AZTREONAM IV SCH ×2 (06:00→13:16)
[2016-07-17] MEDS: GABAPENTIN 400 MG CAPSULE PO SCH ×2 (06:00→13:16)
[2016-07-17] MEDS: WATER IV SCH ×2 (06:00→13:16)
[2016-07-17] MEDS: HYDRALAZINE HCL 50 MG TABLET PO SCH ×2 (06:00→13:16)
[2016-07-17] MEDS: LANSOPRAZOLE 15 MG TAB.RAP.DR PO SCH (06:00)
[2016-07-17] MEDS: DEXTROSE 5% IV SCH ×2 (06:00→13:16)
[2016-07-17 09:26] LABS: ABSOLUTE EOSINOPHILS # (AUTO) 0.3 10^3/uL (0.0-0.6); ABSOLUTE LYMPHOCYTES (AUTO) 1.2 10^3/uL (0.5-4.7); ABSOLUTE MONOCYTES (AUTO) 0.8 10^3/uL (0.1-1.4); ABSOLUTE NEUT (AUTO) 5.4 10^3/uL (1.7-8.2); BASOPHILS % (AUTO) 0.4 % (0-2); EOSINOPHILS % (AUTO) 3.9 % (0-6); HEMOGLOBIN 8.5 g/dL (13.5-17.0); HGB HCT DIFFERENCE -2.5; LYMPHOCYTES % (AUTO) 15.8 % (13-45); MEAN CORPUSCULAR HEMOGLOBIN 30.4 pg (27.0-33.4); MEAN CORPUSCULAR HGB CONC 30.5 g/dL (32.0-36.0); MEAN CORPUSCULAR VOLUME 100 fl (80-97); MONOCYTES % (AUTO) 10.2 % (3-13); RED BLOOD COUNT 2.81 10^6/uL (4.35-5.55); RED CELL DISTRIBUTION WIDTH 16.3 % (11.5-14.0); SEGMENTED NEUTROPHILS % (AUTO) 69.7 % (42-78); WHITE BLOOD COUNT 7.7 10^3/uL (4.0-10.5)
[2016-07-17] MEDS: INSULIN GLARGINE,HUM.REC.ANLOG 300 UNIT/3 ML INSULN.PEN SUBCUT SCH (09:26)
--- NOTE | 2016-07-17 09:43 | PDOC PROGRESS REPORT ---
Subjective Progress Note for:: 07/17/16 Subjective:: Mr. Price seen on dialysis today. Patient denies any specific complaints at the moment. He has undergoing dialysis without any issues. Vitals signs have been stable. His hemoglobin and lites are stable. Denies any history of pain around the recently placed right IJ catheter. No discharge. Denies chills or Rigors with fever.He is not belligerent as he was on sunday. Physical Exam Vital Signs: Temp Pulse Resp BP Pulse Ox 97.4 F 62 18 110/39 L 96 07/17/16 07:39 07/17/16 07:39 07/17/16 07:39 07/17/16 07:39 07/17/16 07:39 Intake & Output 07/16/16 07/17/16 07/18/16 06:59 06:59 06:59 Intake Total 1210 3203 Output Total 400 400 Balance 810 2803 General appearance: PRESENT: no acute distress Respiratory exam: PRESENT: clear to auscultation aguilar, symmetrical, unlabored. ABSENT: crackles Cardiovascular exam: PRESENT: +S1, +S2 GI/Abdominal exam: PRESENT: soft. ABSENT: distended, tenderness Extremities exam: PRESENT: pedal edema - trace on left leg Neurological exam: PRESENT: alert, oriented to person, oriented to place, oriented to time Results Laboratory Results: 07/17/16 08:00 07/17/16 08:00 WBC 7.7 RBC 2.81 L Hgb 8.5 L Hct 28.0 L MCV 100 H MCH 30.4 MCHC 30.5 L RDW 16.3 H Plt Count 207 Seg Neutrophils % 69.7 Lymphocytes % 15.8 Monocytes % 10.2 Eosinophils % 3.9 Basophils % 0.4 Absolute Neutrophils 5.4 Absolute Lymphocytes 1.2 Absolute Monocytes 0.8 Absolute Eosinophils 0.3 Absolute Basophils 0.0 07/15/16 11:50 Catheterized Urine Urine Culture - Final C.albicans/C.dubliniensis Impressions: Chest X-Ray 07/14/16 12:03 IMPRESSION: Right upper lobe airspace disease with trace fluid in the right minor fissure Right-sided central venous dialysis catheter tip in the superior vena cava. Head CT 07/14/16 12:03 IMPRESSION: MILD CHRONIC CHANGES OF ATROPHY AND MICROVASCULAR ISCHEMIA. NO ACUTE PROCESS. Cervical Spine CT 07/14/16 12:15 IMPRESSION: Technical limitations due to patient motion. No acute fracture identified. Assessment & Plan - Diagnosis (1) ESRD (end stage renal disease) on dialysis Is this a current diagnosis for this admission?: YesPlan: Patient undergoing dialysis ,without any issues . His labs from today are pending. Orders discussed with RN. . (2) Pneumonia Qualifiers: Pneumonia type: due to unspecified organism Laterality: right Lung location: upper lobe of lung Qualified Code(s): J18.1 - Lobar pneumonia, unspecified organism Is this a current diagnosis for this admission?: Yes (3) Seizure disorder Plan: Stable.. (4) Diabetes mellitus type 2 in nonobese Plan: His blood sugars are currently stable. (5) Anemia Plan: titrate EPO after labs.
[2016-07-17 09:50] LABS: ANION GAP 13 (5-19); BLOOD UREA NITROGEN 60 mg/dL (7-20); CARBON DIOXIDE 26 mmol/L (22-30); CHLORIDE 97 mmol/L (98-107); CREATININE RESULT 6.88 mg/dL (0.52-1.25); GLUCOSE 78 mg/dL (75-110); POTASSIUM 4.9 mmol/L (3.6-5.0)
--- NOTE | 2016-07-17 10:49 | Physician Advisory Note ---
Physician Advisor ProgressNote .: Pursuant to the plan for [facility], I have reviewed the medical record for this patient. Physician Advisor Statement: 1. Please document principal dx for which pt required hospital as dx #1 in each note. 2. RUL PNA - "possibly gram-negative" [or "possibly gram-positive" - whatever type or class of bacteria you are suspecting/tx'ing, just please specify it] 3. "obesity w/BMI 49.6" Status: [facility] made Inpt on 07/16. Thanks! CK
[2016-07-17] MEDS ORDERED: EPOETIN ALFA INJ 20000 UNIT/1 ML VIAL (RENAL) IV PRN (11:00)
[2016-07-17] MEDS ORDERED: HEPARIN SOD (PORCINE) 1,000 UNIT/ML 10 ML VIAL IV PRN (11:00)
[2016-07-17] MEDS: LEVETIRACETAM ORAL SOLN 500 MG/5 ML UDCUP PO SCH (12:15)
[2016-07-17] MEDS: FINASTERIDE 5 MG TABLET PO SCH (12:16)
[2016-07-17] MEDS: DIVALPROEX SODIUM 500 MG TAB.SR.24H PO SCH (12:16)
[2016-07-17] MEDS: ISOSORBIDE MONONITRATE 30 MG TAB.ER.24H PO SCH (12:16)
[2016-07-17] MEDS: FLUCONAZOLE 100 MG TABLET PO SCH (12:16)
[2016-07-17] MEDS: SERTRALINE HCL 50 MG TABLET PO SCH (12:17)
[2016-07-17] MEDS: FLUTICASONE NASAL SPRAY 50 MCG/SPRY 120 SPRAY/16 GM NASL SCH ×2 (12:17→17:24)
[2016-07-17] MEDS: LOSARTAN POTASSIUM 50 MG TABLET PO SCH (12:17)
[2016-07-17] MEDS: SITAGLIPTIN PHOSPHATE 25 MG TABLET PO SCH (12:17)
[2016-07-17] MEDS: TAMSULOSIN HCL 0.4 MG CAP.SR.24H PO SCH (17:24)
--- NOTE | 2016-07-17 17:24 | PDOC PROGRESS REPORT ---
Subjective Progress Note for:: 07/17/16 Subjective:: Patient was dialyzed today, he is very lethargic and ABG was attempted but patient refused, he is oriented to person, he knows who I am Physical Exam Vital Signs: Temp Pulse Resp BP Pulse Ox 97.4 F 63 16 128/49 H 95 07/17/16 12:08 07/17/16 14:00 07/17/16 12:08 07/17/16 12:08 07/17/16 12:08 Intake & Output 07/16/16 07/17/16 07/18/16 06:59 06:59 06:59 Intake Total 1210 3203 Output Total 400 400 Balance 810 2803 General appearance: PRESENT: mild distress Head exam: PRESENT: atraumatic Eye exam: PRESENT: PERRLA. ABSENT: scleral icterus Neck exam: PRESENT: full ROM Respiratory exam: PRESENT: clear to auscultation aguilar Cardiovascular exam: PRESENT: RRR Vascular exam: PRESENT: normal capillary refill GI/Abdominal exam: PRESENT: normal bowel sounds, soft Rectal exam: PRESENT: deferred Neurological exam: PRESENT: altered Results Laboratory Results: 07/17/16 08:00 07/17/16 08:00 07/17/16 07/17/16 08:00 08:00 WBC 7.7 RBC 2.81 L Hgb 8.5 L Hct 28.0 L MCV 100 H MCH 30.4 MCHC 30.5 L RDW 16.3 H Plt Count 207 Seg Neutrophils % 69.7 Lymphocytes % 15.8 Monocytes % 10.2 Eosinophils % 3.9 Basophils % 0.4 Absolute Neutrophils 5.4 Absolute Lymphocytes 1.2 Absolute Monocytes 0.8 Absolute Eosinophils 0.3 Absolute Basophils 0.0 Sodium 136.0 L Potassium 4.9 Chloride 97 L Carbon Dioxide 26 Anion Gap 13 BUN 60 H Creatinine 6.88 H Est GFR ( Amer) 10 L Est GFR (Non-Af Amer) 8 L Glucose 78 Calcium 8.0 L Impressions: Chest X-Ray 07/14/16 12:03 IMPRESSION: Right upper lobe airspace disease with trace fluid in the right minor fissure Right-sided central venous dialysis catheter tip in the superior vena cava. Head CT 07/14/16 12:03 IMPRESSION: MILD CHRONIC CHANGES OF ATROPHY AND MICROVASCULAR ISCHEMIA. NO ACUTE PROCESS. Cervical Spine CT 07/14/16 12:15 IMPRESSION: Technical limitations due to patient motion. No acute fracture identified. Assessment & Plan - Diagnosis (1) Pneumonia Qualifiers: Pneumonia type: due to unspecified organism Laterality: right Lung location: upper lobe of lung Qualified Code(s): J18.1 - Lobar pneumonia, unspecified organism Is this a current diagnosis for this admission?: Yes (2) Encephalopathy Plan: The differentia diagnosis is long , MRI brain, cannot be done because of his weight, he has a history of seizure. EEG be ordered (3) CAD (coronary artery disease) Qualifiers: Coronary Disease-Associated Artery/Lesion type: [place] artery [place] vs. transplanted heart: [place] heart Associated angina: with unspecified angina Qualified Code(s): I25.119 - Atherosclerotic heart disease of [place] coronary artery with unspecified angina pectoris Is this a current diagnosis for this admission?: Yes
[2016-07-18] MEDS: GABAPENTIN 400 MG CAPSULE PO SCH ×4 (00:15→22:29)
[2016-07-18] MEDS: CLONIDINE HCL 0.1 MG TABLET PO SCH ×2 (00:15→22:30)
[2016-07-18] MEDS: HYDRALAZINE HCL 50 MG TABLET PO SCH ×4 (00:15→22:30)
[2016-07-18] MEDS: WATER IV SCH ×4 (00:27→22:29)
[2016-07-18] MEDS: AZTREONAM IV SCH ×4 (00:27→22:29)
[2016-07-18] MEDS: DEXTROSE 5% IV SCH ×4 (00:27→22:29)
[2016-07-18] MEDS: LANSOPRAZOLE 15 MG TAB.RAP.DR PO SCH (06:32)
[2016-07-18] MEDS: METOPROLOL SUCCINATE 50 MG TAB.SR.24H PO SCH ×2 (06:33→18:30)
[2016-07-18] MEDS: FLUTICASONE NASAL SPRAY 50 MCG/SPRY 120 SPRAY/16 GM NASL SCH ×2 (12:28→18:31)
[2016-07-18] MEDS: LOSARTAN POTASSIUM 50 MG TABLET PO SCH (12:28)
[2016-07-18] MEDS: FLUCONAZOLE 100 MG TABLET PO SCH (12:29)
[2016-07-18] MEDS: SERTRALINE HCL 50 MG TABLET PO SCH (12:29)
[2016-07-18] MEDS: DIVALPROEX SODIUM 500 MG TAB.SR.24H PO SCH (12:29)
[2016-07-18] MEDS: ISOSORBIDE MONONITRATE 30 MG TAB.ER.24H PO SCH (12:29)
[2016-07-18] MEDS: FINASTERIDE 5 MG TABLET PO SCH (12:29)
[2016-07-18] MEDS: INSULIN GLARGINE,HUM.REC.ANLOG 300 UNIT/3 ML INSULN.PEN SUBCUT SCH (12:30)
[2016-07-18] MEDS: SITAGLIPTIN PHOSPHATE 25 MG TABLET PO SCH (12:30)
[2016-07-18] MEDS: LEVETIRACETAM ORAL SOLN 500 MG/5 ML UDCUP PO SCH (12:30)
[2016-07-18] MEDS: TAMSULOSIN HCL 0.4 MG CAP.SR.24H PO SCH (18:31)
[2016-07-19] MEDS: WATER IV SCH (06:08)
[2016-07-19] MEDS: DEXTROSE 5% IV SCH (06:08)
[2016-07-19] MEDS: AZTREONAM IV SCH (06:08)
[2016-07-19] MEDS: GABAPENTIN 400 MG CAPSULE PO SCH ×3 (06:09→22:58)
[2016-07-19] MEDS: LANSOPRAZOLE 15 MG TAB.RAP.DR PO SCH (06:09)
[2016-07-19] MEDS: HYDRALAZINE HCL 50 MG TABLET PO SCH ×3 (06:14→22:57)
[2016-07-19] MEDS: METOPROLOL SUCCINATE 50 MG TAB.SR.24H PO SCH ×2 (06:14→18:35)
[2016-07-19 07:14] LABS: HEMATOCRIT 29.6 % (37.9-51.0); HGB HCT DIFFERENCE -2.6; MEAN CORPUSCULAR HEMOGLOBIN 30.3 pg (27.0-33.4); MEAN CORPUSCULAR HGB CONC 30.5 g/dL (32.0-36.0); MEAN CORPUSCULAR VOLUME 99 fl (80-97); RED BLOOD COUNT 2.98 10^6/uL (4.35-5.55); RED CELL DISTRIBUTION WIDTH 16.3 % (11.5-14.0); WHITE BLOOD COUNT 7.2 10^3/uL (4.0-10.5)
[2016-07-19 07:27] LABS: ANION GAP 12 (5-19); BLOOD UREA NITROGEN 52 mg/dL (7-20); CALCIUM 8.3 mg/dL (8.4-10.2); CARBON DIOXIDE 30 mmol/L (22-30); CHLORIDE 98 mmol/L (98-107); CREATININE RESULT 6.41 mg/dL (0.52-1.25); GLUCOSE 136 mg/dL (75-110); POTASSIUM 4.4 mmol/L (3.6-5.0); SODIUM 140.1 mmol/L (137-145)
[2016-07-19] MEDS: INSULIN GLARGINE,HUM.REC.ANLOG 300 UNIT/3 ML INSULN.PEN SUBCUT SCH (10:10)
[2016-07-19] MEDS: DIVALPROEX SODIUM 500 MG TAB.SR.24H PO SCH (10:18)
[2016-07-19] MEDS: FINASTERIDE 5 MG TABLET PO SCH (10:18)
[2016-07-19] MEDS: ISOSORBIDE MONONITRATE 30 MG TAB.ER.24H PO SCH (10:19)
[2016-07-19] MEDS: FLUCONAZOLE 100 MG TABLET PO SCH (10:19)
[2016-07-19] MEDS: SERTRALINE HCL 50 MG TABLET PO SCH (10:19)
[2016-07-19] MEDS: LEVETIRACETAM ORAL SOLN 500 MG/5 ML UDCUP PO SCH (10:22)
[2016-07-19] MEDS: SITAGLIPTIN PHOSPHATE 25 MG TABLET PO SCH (10:22)
[2016-07-19] MEDS: LOSARTAN POTASSIUM 50 MG TABLET PO SCH (10:24)
[2016-07-19] MEDS: FLUTICASONE NASAL SPRAY 50 MCG/SPRY 120 SPRAY/16 GM NASL SCH ×2 (10:25→18:35)
[2016-07-19] MEDS: INSULIN LISPRO 100 UNIT/ML 3 ML VIAL SUBCUT PRN (12:53)
[2016-07-19] MEDS: AZTREONAM 1.5 GM in DEXTROSE 5%-WATER 100 ML IV SCH ×2 (14:55→23:11)
[2016-07-19] MEDS: TAMSULOSIN HCL 0.4 MG CAP.SR.24H PO SCH (18:35)
--- NOTE | 2016-07-19 19:11 | PDOC PROGRESS REPORT ---
Subjective Progress Note for:: 07/19/16 Subjective:: Mr. Price seen on dialysis today. Patient denies any specific complaints at the moment. He has undergoing dialysis without any issues. Vitals signs have been stable. His hemoglobin and lites are stable. He is mentally most more coherent. Denies chills or Rigors with fever. Physical Exam Vital Signs: Temp Pulse Resp BP Pulse Ox 97.4 F 64 21 H 108/48 L 97 07/19/16 12:34 07/19/16 12:34 07/19/16 12:34 07/19/16 12:34 07/19/16 12:34 Intake & Output 07/18/16 07/19/16 07/20/16 06:59 06:59 06:59 Intake Total 1210 910 480 Output Total 2050 Balance -840 910 480 General appearance: PRESENT: no acute distress Respiratory exam: PRESENT: clear to auscultation aguilar. ABSENT: crackles Cardiovascular exam: PRESENT: +S1, +S2 GI/Abdominal exam: PRESENT: soft. ABSENT: distended, tenderness Results Laboratory Results: 07/19/16 06:32 07/19/16 06:32 07/19/16 07/19/16 06:32 06:32 WBC 7.2 RBC 2.98 L Hgb 9.0 L Hct 29.6 L MCV 99 H MCH 30.3 MCHC 30.5 L RDW 16.3 H Plt Count 211 Sodium 140.1 Potassium 4.4 Chloride 98 Carbon Dioxide 30 Anion Gap 12 BUN 52 H Creatinine 6.41 H Est GFR ( Amer) 11 L Est GFR (Non-Af Amer) 9 L Glucose 136 H Calcium 8.3 L Impressions: Chest X-Ray 07/14/16 12:03 IMPRESSION: Right upper lobe airspace disease with trace fluid in the right minor fissure Right-sided central venous dialysis catheter tip in the superior vena cava. Head CT 07/14/16 12:03 IMPRESSION: MILD CHRONIC CHANGES OF ATROPHY AND MICROVASCULAR ISCHEMIA. NO ACUTE PROCESS. Cervical Spine CT 07/14/16 12:15 IMPRESSION: Technical limitations due to patient motion. No acute fracture identified. Assessment & Plan - Diagnosis (1) ESRD (end stage renal disease) on dialysis Is this a current diagnosis for this admission?: YesPlan: Patient undergoing dialysis ,without any issues . His labs are stable. Orders discussed with FLIP. Gabi'll really ready to be discharged home . (2) Pneumonia Qualifiers: Pneumonia type: due to unspecified organism Laterality: right Lung location: upper lobe of lung Qualified Code(s): J18.1 - Lobar pneumonia, unspecified organism Is this a current diagnosis for this admission?: YesPlan: On antibiotics and getting better. (3) Seizure disorder Plan: Vies compliant with his medications. (6) Encephalopathy Plan: He is much improved. Differential includes possible seizures versus CO2 retention. Management as per Dr. Gordillo.
--- NOTE | 2016-07-19 19:26 | PDOC PROGRESS REPORT ---
Subjective Progress Note for:: 07/18/16 Subjective:: Patient is stuporous, he refused ABG, he is arousable Physical Exam Vital Signs: Temp Pulse Resp BP Pulse Ox 97.4 F 64 21 H 108/48 L 97 07/19/16 12:34 07/19/16 12:34 07/19/16 12:34 07/19/16 12:34 07/19/16 12:34 Intake & Output 07/18/16 07/19/16 07/20/16 06:59 06:59 06:59 Intake Total 1210 910 480 Output Total 2050 Balance -840 910 480 General appearance: PRESENT: no acute distress Eye exam: PRESENT: PERRLA Respiratory exam: PRESENT: clear to auscultation aguilar Cardiovascular exam: PRESENT: +S1, +S2 GI/Abdominal exam: PRESENT: soft Results Laboratory Results: 07/19/16 06:32 07/19/16 06:32 07/19/16 07/19/16 06:32 06:32 WBC 7.2 RBC 2.98 L Hgb 9.0 L Hct 29.6 L MCV 99 H MCH 30.3 MCHC 30.5 L RDW 16.3 H Plt Count 211 Sodium 140.1 Potassium 4.4 Chloride 98 Carbon Dioxide 30 Anion Gap 12 BUN 52 H Creatinine 6.41 H Est GFR ( Amer) 11 L Est GFR (Non-Af Amer) 9 L Glucose 136 H Calcium 8.3 L Impressions: Chest X-Ray 07/14/16 12:03 IMPRESSION: Right upper lobe airspace disease with trace fluid in the right minor fissure Right-sided central venous dialysis catheter tip in the superior vena cava. Head CT 07/14/16 12:03 IMPRESSION: MILD CHRONIC CHANGES OF ATROPHY AND MICROVASCULAR ISCHEMIA. NO ACUTE PROCESS. Cervical Spine CT 07/14/16 12:15 IMPRESSION: Technical limitations due to patient motion. No acute fracture identified. Assessment & Plan - Diagnosis (1) Pneumonia Qualifiers: Pneumonia type: due to unspecified organism Laterality: right Lung location: upper lobe of lung Qualified Code(s): J18.1 - Lobar pneumonia, unspecified organism Is this a current diagnosis for this admission?: Yes (3) CAD (coronary artery disease) Qualifiers: Coronary Disease-Associated Artery/Lesion type: [place] artery [place] vs. transplanted heart: [place] heart Associated angina: with unspecified angina Qualified Code(s): I25.119 - Atherosclerotic heart disease of [place] coronary artery with unspecified angina pectoris Is this a current diagnosis for this admission?: Yes
--- NOTE | 2016-07-19 19:28 | PDOC PROGRESS REPORT ---
Subjective Progress Note for:: 07/19/16 Subjective:: Patient is more alert and oriented today, he waants go home, but the nurse said discharge planning is yet to make arrangement for home health Physical Exam Vital Signs: Temp Pulse Resp BP Pulse Ox 97.4 F 64 21 H 108/48 L 97 07/19/16 12:34 07/19/16 12:34 07/19/16 12:34 07/19/16 12:34 07/19/16 12:34 Intake & Output 07/18/16 07/19/16 07/20/16 06:59 06:59 06:59 Intake Total 1210 910 480 Output Total 2050 Balance -840 910 480 General appearance: PRESENT: no acute distress Eye exam: PRESENT: PERRLA Respiratory exam: PRESENT: clear to auscultation aguilar Cardiovascular exam: PRESENT: +S1, +S2 Neurological exam: PRESENT: alert Results Laboratory Results: 07/19/16 06:32 07/19/16 06:32 07/19/16 07/19/16 06:32 06:32 WBC 7.2 RBC 2.98 L Hgb 9.0 L Hct 29.6 L MCV 99 H MCH 30.3 MCHC 30.5 L RDW 16.3 H Plt Count 211 Sodium 140.1 Potassium 4.4 Chloride 98 Carbon Dioxide 30 Anion Gap 12 BUN 52 H Creatinine 6.41 H Est GFR ( Amer) 11 L Est GFR (Non-Af Amer) 9 L Glucose 136 H Calcium 8.3 L Impressions: Chest X-Ray 07/14/16 12:03 IMPRESSION: Right upper lobe airspace disease with trace fluid in the right minor fissure Right-sided central venous dialysis catheter tip in the superior vena cava. Head CT 07/14/16 12:03 IMPRESSION: MILD CHRONIC CHANGES OF ATROPHY AND MICROVASCULAR ISCHEMIA. NO ACUTE PROCESS. Cervical Spine CT 07/14/16 12:15 IMPRESSION: Technical limitations due to patient motion. No acute fracture identified. Assessment & Plan - Diagnosis (1) Pneumonia Qualifiers: Pneumonia type: due to unspecified organism Laterality: right Lung location: upper lobe of lung Qualified Code(s): J18.1 - Lobar pneumonia, unspecified organism Is this a current diagnosis for this admission?: Yes (3) CAD (coronary artery disease) Qualifiers: Coronary Disease-Associated Artery/Lesion type: [place] artery [place] vs. transplanted heart: [place] heart Associated angina: with unspecified angina Qualified Code(s): I25.119 - Atherosclerotic heart disease of [place] coronary artery with unspecified angina pectoris Is this a current diagnosis for this admission?: Yes
[2016-07-19] MEDS ORDERED: HEPARIN SOD (PORCINE) 1,000 UNIT/ML 10 ML VIAL IV PRN (19:39)
[2016-07-19] MEDS ORDERED: EPOETIN ALFA INJ 20000 UNIT/1 ML VIAL (RENAL) IV PRN (19:40)
[2016-07-19] MEDS: CLONIDINE HCL 0.1 MG TABLET PO SCH (22:57)
[2016-07-20] MEDS: METOPROLOL SUCCINATE 50 MG TAB.SR.24H PO SCH ×2 (06:24→18:23)
[2016-07-20] MEDS: GABAPENTIN 400 MG CAPSULE PO SCH ×3 (06:24→22:58)
[2016-07-20] MEDS: HYDRALAZINE HCL 50 MG TABLET PO SCH ×3 (06:24→23:47)
[2016-07-20] MEDS: LANSOPRAZOLE 15 MG TAB.RAP.DR PO SCH (06:24)
[2016-07-20] MEDS: AZTREONAM 1.5 GM in DEXTROSE 5%-WATER 100 ML IV SCH ×3 (06:25→22:58)
--- NOTE | 2016-07-20 08:30 | EEG PRO FEE REPORT ---
EEG INTERPRETATION PATIENT NAME: MARIANA RICHARDSON ROOM#: [id number] ORDER#: [id number] DATE OF STUDY: 07/17/16 : 08/30/1987 REFERRING MD: VIRIDIANA LEHMAN M.D. DIAGNOSIS: Encephalopathy REPORT The patient is reported to be cooperative. This is done during photic stimulation and early stages of sleep. The background activity is 7.5-8 cycles per second while eyes are closed. However, slower forms seen intermittently as the patient is reported to be drowsy. EKG artifact seen severely towards the end of the tracing. Beta 18-22 cycles per second also noted. Photic stimulation did not alter the tracing significantly. In the early stages of sleep, more generalized slowing in other sleep forms noted. IMPRESSION This EEG is within normal limits. INTERPRETING PHYSICIAN: TEMO VERDUZCO M.D. /: HORACIO TT: 0827 ID: [id number] /: [id number] TD: 1220 JOB: [id number] cc:Patty MG M.D. >
[2016-07-20] MEDS: FLUCONAZOLE 100 MG TABLET PO SCH (10:30)
[2016-07-20] MEDS: LOSARTAN POTASSIUM 50 MG TABLET PO SCH (10:31)
[2016-07-20] MEDS: LEVETIRACETAM ORAL SOLN 500 MG/5 ML UDCUP PO SCH (10:31)
[2016-07-20] MEDS: ISOSORBIDE MONONITRATE 30 MG TAB.ER.24H PO SCH (10:31)
[2016-07-20] MEDS: SITAGLIPTIN PHOSPHATE 25 MG TABLET PO SCH (10:31)
[2016-07-20] MEDS: DIVALPROEX SODIUM 500 MG TAB.SR.24H PO SCH (10:32)
[2016-07-20] MEDS: FINASTERIDE 5 MG TABLET PO SCH (10:32)
[2016-07-20] MEDS: SERTRALINE HCL 50 MG TABLET PO SCH (10:32)
[2016-07-20] MEDS: FLUTICASONE NASAL SPRAY 50 MCG/SPRY 120 SPRAY/16 GM NASL SCH ×2 (10:32→18:23)
[2016-07-20] MEDS: INSULIN GLARGINE,HUM.REC.ANLOG 300 UNIT/3 ML INSULN.PEN SUBCUT SCH (10:35)
[2016-07-20] MEDS: TAMSULOSIN HCL 0.4 MG CAP.SR.24H PO SCH (18:23)
--- NOTE | 2016-07-20 21:26 | PDOC PROGRESS REPORT ---
Subjective Progress Note for:: 07/20/16 Subjective:: Patient was seen by the bedside, he is not in acute distress Physical Exam Vital Signs: Temp Pulse Resp BP Pulse Ox 97.9 F 60 18 102/48 L 97 07/20/16 19:59 07/20/16 19:59 07/20/16 19:59 07/20/16 19:59 07/20/16 19:59 Intake & Output 07/19/16 07/20/16 07/21/16 06:59 06:59 06:59 Intake Total 910 830 750 Output Total 2500 Balance 910 -1670 750 Weight 144.2 kg General appearance: PRESENT: no acute distress Eye exam: PRESENT: PERRLA Cardiovascular exam: PRESENT: +S1 GI/Abdominal exam: PRESENT: soft Neurological exam: PRESENT: alert Results Laboratory Results: 07/19/16 06:32 07/19/16 06:32 Impressions: Chest X-Ray 07/14/16 12:03 IMPRESSION: Right upper lobe airspace disease with trace fluid in the right minor fissure Right-sided central venous dialysis catheter tip in the superior vena cava. Head CT 07/14/16 12:03 IMPRESSION: MILD CHRONIC CHANGES OF ATROPHY AND MICROVASCULAR ISCHEMIA. NO ACUTE PROCESS. Cervical Spine CT 07/14/16 12:15 IMPRESSION: Technical limitations due to patient motion. No acute fracture identified. Assessment & Plan - Diagnosis (1) Pneumonia Qualifiers: Pneumonia type: due to unspecified organism Laterality: right Lung location: upper lobe of lung Qualified Code(s): J18.1 - Lobar pneumonia, unspecified organism Is this a current diagnosis for this admission?: Yes (3) CAD (coronary artery disease) Qualifiers: Coronary Disease-Associated Artery/Lesion type: [place] artery [place] vs. transplanted heart: [place] heart Associated angina: with unspecified angina Qualified Code(s): I25.119 - Atherosclerotic heart disease of [place] coronary artery with unspecified angina pectoris Is this a current diagnosis for this admission?: Yes
[2016-07-20] MEDS: CLONIDINE HCL 0.1 MG TABLET PO SCH (23:47)
[2016-07-21] MEDS: AZTREONAM 1.5 GM in DEXTROSE 5%-WATER 100 ML IV SCH ×3 (06:32→21:48)
[2016-07-21] MEDS: LANSOPRAZOLE 15 MG TAB.RAP.DR PO SCH (06:32)
[2016-07-21] MEDS: GABAPENTIN 400 MG CAPSULE PO SCH ×3 (06:32→21:48)
[2016-07-21] MEDS: HYDRALAZINE HCL 50 MG TABLET PO SCH ×3 (06:41→21:54)
[2016-07-21] MEDS: METOPROLOL SUCCINATE 50 MG TAB.SR.24H PO SCH ×2 (06:41→18:46)
[2016-07-21 08:49] LABS: ABSOLUTE BASOPHILS # (AUTO) 0.1 10^3/uL (0.0-0.2); ABSOLUTE EOSINOPHILS # (AUTO) 0.3 10^3/uL (0.0-0.6); ABSOLUTE LYMPHOCYTES (AUTO) 1.3 10^3/uL (0.5-4.7); ABSOLUTE MONOCYTES (AUTO) 0.9 10^3/uL (0.1-1.4); ABSOLUTE NEUT (AUTO) 4.9 10^3/uL (1.7-8.2); BASOPHILS % (AUTO) 1.2 % (0-2); EOSINOPHILS % (AUTO) 3.4 % (0-6); HEMATOCRIT 29.1 % (37.9-51.0); HEMOGLOBIN 9.1 g/dL (13.5-17.0); HGB HCT DIFFERENCE -1.8; LYMPHOCYTES % (AUTO) 17.9 % (13-45); MEAN CORPUSCULAR HEMOGLOBIN 30.8 pg (27.0-33.4); MEAN CORPUSCULAR HGB CONC 31.1 g/dL (32.0-36.0); MEAN CORPUSCULAR VOLUME 99 fl (80-97); MONOCYTES % (AUTO) 12.2 % (3-13); RED BLOOD COUNT 2.94 10^6/uL (4.35-5.55); RED CELL DISTRIBUTION WIDTH 15.8 % (11.5-14.0); SEGMENTED NEUTROPHILS % (AUTO) 65.3 % (42-78); WHITE BLOOD COUNT 7.4 10^3/uL (4.0-10.5)
[2016-07-21 09:12] LABS: ANION GAP 12 (5-19); BLOOD UREA NITROGEN 42 mg/dL (7-20); CALCIUM 8.7 mg/dL (8.4-10.2); CARBON DIOXIDE 29 mmol/L (22-30); CHLORIDE 98 mmol/L (98-107); CREATININE RESULT 6.03 mg/dL (0.52-1.25); GLUCOSE 81 mg/dL (75-110); POTASSIUM 4.3 mmol/L (3.6-5.0); SODIUM 139.1 mmol/L (137-145)
[2016-07-21] MEDS ORDERED: HEPARIN SOD (PORCINE) 1,000 UNIT/ML 10 ML VIAL IV PRN (10:33)
[2016-07-21] MEDS ORDERED: EPOETIN ALFA INJ 20000 UNIT/1 ML VIAL (RENAL) IV PRN (10:34)
[2016-07-21] MEDS: DIVALPROEX SODIUM 500 MG TAB.SR.24H PO SCH (12:22)
[2016-07-21] MEDS: FLUCONAZOLE 100 MG TABLET PO SCH (12:24)
[2016-07-21] MEDS: LOSARTAN POTASSIUM 50 MG TABLET PO SCH (12:25)
[2016-07-21] MEDS: ISOSORBIDE MONONITRATE 30 MG TAB.ER.24H PO SCH (12:25)
[2016-07-21] MEDS: FINASTERIDE 5 MG TABLET PO SCH (12:26)
[2016-07-21] MEDS: SERTRALINE HCL 50 MG TABLET PO SCH (12:26)
[2016-07-21] MEDS: LEVETIRACETAM ORAL SOLN 500 MG/5 ML UDCUP PO SCH (12:27)
[2016-07-21] MEDS: FLUTICASONE NASAL SPRAY 50 MCG/SPRY 120 SPRAY/16 GM NASL SCH ×2 (12:28→18:39)
[2016-07-21] MEDS: SITAGLIPTIN PHOSPHATE 25 MG TABLET PO SCH (12:28)
[2016-07-21] MEDS: INSULIN GLARGINE,HUM.REC.ANLOG 300 UNIT/3 ML INSULN.PEN SUBCUT SCH (12:32)
--- NOTE | 2016-07-21 13:46 | PDOC PROGRESS REPORT ---
Subjective Progress Note for:: 07/21/16 Subjective:: Mr. Price seen on dialysis today. Patient denies any specific complaints at the moment. He has undergoing dialysis without any issues. Vitals signs have been stable. His hemoglobin and lites are stable. He is mentally most more coherent. Denies chills or Rigors with fever. Physical Exam Vital Signs: Temp Pulse Resp BP Pulse Ox 97.6 F 63 22 H 158/64 H 96 07/21/16 12:10 07/21/16 12:10 07/21/16 12:10 07/21/16 12:10 07/21/16 12:10 Intake & Output 07/20/16 07/21/16 07/22/16 06:59 06:59 06:59 Intake Total 830 950 Output Total 2500 Balance -1670 950 Weight 144.2 kg General appearance: PRESENT: no acute distress Respiratory exam: PRESENT: clear to auscultation aguilar, symmetrical. ABSENT: crackles, rhonchi Cardiovascular exam: PRESENT: +S1, +S2 GI/Abdominal exam: PRESENT: soft. ABSENT: distended, tenderness Neurological exam: PRESENT: alert, oriented to person, oriented to place Results Laboratory Results: 07/21/16 08:30 07/21/16 08:30 07/21/16 07/21/16 08:30 08:30 WBC 7.4 RBC 2.94 L Hgb 9.1 L Hct 29.1 L MCV 99 H MCH 30.8 MCHC 31.1 L RDW 15.8 H Plt Count 248 Seg Neutrophils % 65.3 Lymphocytes % 17.9 Monocytes % 12.2 Eosinophils % 3.4 Basophils % 1.2 Absolute Neutrophils 4.9 Absolute Lymphocytes 1.3 Absolute Monocytes 0.9 Absolute Eosinophils 0.3 Absolute Basophils 0.1 Sodium 139.1 Potassium 4.3 Chloride 98 Carbon Dioxide 29 Anion Gap 12 BUN 42 H Creatinine 6.03 H Est GFR ( Amer) 12 L Est GFR (Non-Af Amer) 10 L Glucose 81 Calcium 8.7 07/19/16 04:15 Stool - Stool - Final Impressions: Chest X-Ray 07/14/16 12:03 IMPRESSION: Right upper lobe airspace disease with trace fluid in the right minor fissure Right-sided central venous dialysis catheter tip in the superior vena cava. Head CT 07/14/16 12:03 IMPRESSION: MILD CHRONIC CHANGES OF ATROPHY AND MICROVASCULAR ISCHEMIA. NO ACUTE PROCESS. Cervical Spine CT 07/14/16 12:15 IMPRESSION: Technical limitations due to patient motion. No acute fracture identified. Assessment & Plan - Diagnosis (1) ESRD (end stage renal disease) on dialysis Is this a current diagnosis for this admission?: YesPlan: Patient undergoing dialysis ,without any issues . His labs are stable. Orders discussed with RN. (2) Pneumonia Qualifiers: Pneumonia type: due to unspecified organism Laterality: right Lung location: upper lobe of lung Qualified Code(s): J18.1 - Lobar pneumonia, unspecified organism Is this a current diagnosis for this admission?: YesPlan: On antibiotics and getting better. (3) Seizure disorder Plan: Stable. no history to indicate he has had ongoing seizures. (6) Encephalopathy Plan: Improving.
[2016-07-21] MEDS: TAMSULOSIN HCL 0.4 MG CAP.SR.24H PO SCH (18:40)
--- NOTE | 2016-07-21 20:56 | EKG REPORT ---
SEVERITY:- ABNORMAL ECG - SINUS RHYTHM MULTIPLE ATRIAL PREMATURE COMPLEXES SINUS PAUSE/ARREST WITH ATRIAL ESCAPE FIRST DEGREE AV BLOCK NONSPECIFIC INTRAVENTRICULAR CONDUCTION DELAY : Confirmed by: Vincent Cruz MD 21-Jul-2016 20:55:39
[2016-07-21] MEDS: CLONIDINE HCL 0.1 MG TABLET PO SCH (21:54)
[2016-07-22] MEDS: HYDRALAZINE HCL 50 MG TABLET PO SCH ×2 (05:22→15:55)
[2016-07-22] MEDS: METOPROLOL SUCCINATE 50 MG TAB.SR.24H PO SCH ×2 (05:22→17:24)
[2016-07-22] MEDS: LANSOPRAZOLE 15 MG TAB.RAP.DR PO SCH (05:26)
[2016-07-22] MEDS: AZTREONAM 1.5 GM in DEXTROSE 5%-WATER 100 ML IV SCH ×2 (05:26→13:58)
[2016-07-22] MEDS: GABAPENTIN 400 MG CAPSULE PO SCH ×2 (05:26→13:58)
[2016-07-22] MEDS: LOSARTAN POTASSIUM 50 MG TABLET PO SCH (10:09)
[2016-07-22] MEDS: SITAGLIPTIN PHOSPHATE 25 MG TABLET PO SCH (10:09)
[2016-07-22] MEDS: LEVETIRACETAM ORAL SOLN 500 MG/5 ML UDCUP PO SCH (10:09)
[2016-07-22] MEDS: FLUCONAZOLE 100 MG TABLET PO SCH (10:10)
[2016-07-22] MEDS: ISOSORBIDE MONONITRATE 30 MG TAB.ER.24H PO SCH (10:10)
[2016-07-22] MEDS: FLUTICASONE NASAL SPRAY 50 MCG/SPRY 120 SPRAY/16 GM NASL SCH (10:11)
[2016-07-22] MEDS: DIVALPROEX SODIUM 500 MG TAB.SR.24H PO SCH (10:11)
[2016-07-22] MEDS: SERTRALINE HCL 50 MG TABLET PO SCH (10:11)
[2016-07-22] MEDS: FINASTERIDE 5 MG TABLET PO SCH (10:11)
[2016-07-22] MEDS: INSULIN GLARGINE,HUM.REC.ANLOG 300 UNIT/3 ML INSULN.PEN SUBCUT SCH (10:12)
--- NOTE | 2016-07-22 14:23 | PDOC PROGRESS REPORT ---
Subjective Progress Note for:: 07/21/16 Subjective:: Patient was hemodialyzed, he was seen by the bedside, hopefully discharge soon Physical Exam Vital Signs: Temp Pulse Resp BP Pulse Ox 97.9 F 51 L 22 H 110/52 L 100 07/22/16 11:42 07/22/16 11:42 07/22/16 11:42 07/22/16 11:42 07/22/16 11:42 Intake & Output 07/21/16 07/22/16 07/23/16 06:59 06:59 06:59 Intake Total 950 1240 Output Total 2300 Balance 950 -1060 General appearance: PRESENT: no acute distress Eye exam: PRESENT: PERRLA Respiratory exam: PRESENT: clear to auscultation aguilar Cardiovascular exam: PRESENT: +S1, +S2 GI/Abdominal exam: PRESENT: soft Results Laboratory Results: 07/21/16 08:30 07/21/16 08:30 07/19/16 04:15 Stool - Stool - Final Impressions: Chest X-Ray 07/14/16 12:03 IMPRESSION: Right upper lobe airspace disease with trace fluid in the right minor fissure Right-sided central venous dialysis catheter tip in the superior vena cava. Head CT 07/14/16 12:03 IMPRESSION: MILD CHRONIC CHANGES OF ATROPHY AND MICROVASCULAR ISCHEMIA. NO ACUTE PROCESS. Cervical Spine CT 07/14/16 12:15 IMPRESSION: Technical limitations due to patient motion. No acute fracture identified. Assessment & Plan - Diagnosis (1) Pneumonia Qualifiers: Pneumonia type: due to unspecified organism Laterality: right Lung location: upper lobe of lung Qualified Code(s): J18.1 - Lobar pneumonia, unspecified organism Is this a current diagnosis for this admission?: Yes (3) CAD (coronary artery disease) Qualifiers: Coronary Disease-Associated Artery/Lesion type: [place] artery [place] vs. transplanted heart: [place] heart Associated angina: with unspecified angina Qualified Code(s): I25.119 - Atherosclerotic heart disease of [place] coronary artery with unspecified angina pectoris Is this a current diagnosis for this admission?: Yes
--- NOTE | 2016-07-22 14:35 | PDOC DISCHARGE SUMMARY ---
General - Admit/Disc Date/PCP Admission Date/Primary Care Provider: 07/16/16 16:32 VIRIDIANA LEHMAN, Discharge Date: 07/22/16 - Discharge Diagnosis (1) Pneumonia Is this a current diagnosis for this admission?: Yes (2) CAD (coronary artery disease) Is this a current diagnosis for this admission?: Yes (3) BPH (benign prostatic hypertrophy) with urinary obstruction Is this a current diagnosis for this admission?: Yes (4) Depression Is this a current diagnosis for this admission?: Yes (5) ESRD (end stage renal disease) on dialysis Is this a current diagnosis for this admission?: Yes - Additional Information Resuscitation Status: Full Code Home Medications: Gabapentin [Neurontin 300 mg Capsule] 800 mg PO TID 04/02/14 Levetiracetam [Keppra] 250 mg PO DAILY 08/10/14 Metoprolol Succinate [Toprol XL 100 mg Tablet] 100 mg PO Q12H 08/10/14 Divalproex Sodium [Depakote] 500 mg PO DAILY 11/26/14 Tamsulosin HCl [Flomax] 0.4 mg PO DAILY 11/11/15 Finasteride [Proscar 5 mg Tablet] 1 tab PO DAILY 07/11/16 Insulin Glargine,Hum.rec.anlog [Lantus Solostar] 12 unit SQ DAILY 07/11/16 Linagliptin [Tradjenta] 5 mg PO DAILY 07/11/16 Losartan Potassium [Cozaar 100 mg Tablet] 100 mg PO DAILY 07/11/16 Omeprazole [Prilosec] 20 mg PO DAILY 07/11/16 Tramadol HCl/Acetaminophen [Ultracet 37.5 mg/325 mg Tablet] 1 tab PO DAILY PRN 07/11/16 History of Present Illness History of Present Illness: MARIANA RICHARDSON is a 61 year old male, he was discharged yesterday from this hospital when he was admitted for diarrhea and at a time he had a PermCath inserted. He came to emergency room this morning because he fell the emergency room providers said he developed left-sided weakness. CT head was done that was negative for any acute pathology. Chest x-ray was done that showed a focal airspace disease in the right upper lobe near the minor fissure that suggest pneumonia. Hospital Course Hospital Course: Patient was admitted because of pneumonia, he was treated with IV antibiotic, he has end-stage renal disease on hemodialysis, and he had hemodialysis session in the hospital. He had episode of excessive somnolence and encephalopathy was considered as a possible etiology. EEG was done. EEG was within normal limits suggesting that it was not encephalopathy is probably just excessive sleepiness. Patient is also depressed he lives alone and he is very limited in terms of what he can do at home . Physical Exam Vital Signs: Temp Pulse Resp BP Pulse Ox 97.9 F 51 L 22 H 110/52 L 100 07/22/16 11:42 07/22/16 11:42 07/22/16 11:42 07/22/16 11:42 07/22/16 11:42 Intake & Output 07/21/16 07/22/16 07/23/16 06:59 06:59 06:59 Intake Total 950 1240 Output Total 2300 Balance 950 -1060 General appearance: PRESENT: no acute distress Eye exam: PRESENT: PERRLA Respiratory exam: PRESENT: clear to auscultation aguilar Cardiovascular exam: PRESENT: +S1, +S2 GI/Abdominal exam: PRESENT: soft Neurological exam: PRESENT: alert, CN II-XII grossly intact Results Laboratory Results: 07/21/16 08:30 07/21/16 08:30 07/19/16 04:15 Stool - Stool - Final 07/19/16 04:15 Stool - Stool Stool Culture - Final NO SALMONELLA, SHIGELLA, CAMPYLOBACTER, OR E.COLI 0157 RECOVERED. NEGATIVE FOR SHIGA TOXINS 1&2. Impressions: Chest X-Ray 07/14/16 12:03 IMPRESSION: Right upper lobe airspace disease with trace fluid in the right minor fissure Right-sided central venous dialysis catheter tip in the superior vena cava. Head CT 07/14/16 12:03 IMPRESSION: MILD CHRONIC CHANGES OF ATROPHY AND MICROVASCULAR ISCHEMIA. NO ACUTE PROCESS. Cervical Spine CT 07/14/16 12:15 IMPRESSION: Technical limitations due to patient motion. No acute fracture identified.
[2016-07-22 16:02] VITALS: BP 149/50
[2016-07-22] MEDS: TAMSULOSIN HCL 0.4 MG CAP.SR.24H PO SCH (17:24)
== END 2016-07-22 18:57 | disposition home health service (06) | DRG 193 ==
LOC: ER 11:44 → EH 16:24 → UNDOADMOB 16:24 → EH 18:01 → 4S 18:01 → UNDOADMOB 18:41 → 4S 18:41 → OBSVTOIN 07-16 16:32 → 4S 07-16 16:32 → OBSVTOIN 07-18 07:05 → INTOOBSV 07-18 07:05
PROVIDERS: ADMIT Internal Medicine; ATTEND Internal Medicine
PROC: 5A1D60Z (ICD-10-PCS; principal; 2016-07-16)
DX: J18.1 Lobar pneumonia, unspecified organism (principal); N18.6 End stage renal disease; I50.22 Chronic systolic (congestive) heart failure; I13.2 Hypertensive heart and chronic kidney disease with heart failure and with stage 5 chronic kidney disease, or end stage renal disease; B37.49 Other urogenital candidiasis; F33.1 Major depressive disorder, recurrent, moderate; N13.8 Other obstructive and reflux uropathy; Z68.43 Body mass index [BMI] 50.0-59.9, adult; E11.22 Type 2 diabetes mellitus with diabetic chronic kidney disease; I25.119 Atherosclerotic heart disease of native coronary artery with unspecified angina pectoris; R53.1 Weakness; E78.5 Hyperlipidemia, unspecified; I73.9 Peripheral vascular disease, unspecified; E66.01 Morbid (severe) obesity due to excess calories; N40.1 Benign prostatic hyperplasia with lower urinary tract symptoms; G40.909 Epilepsy, unspecified, not intractable, without status epilepticus; K21.9 Gastro-esophageal reflux disease without esophagitis; I25.2 Old myocardial infarction; W05.0XXA Fall from non-moving wheelchair, initial encounter; Y93.9 Activity, unspecified; Y92.9 Unspecified place or not applicable; Z60.2 Problems related to living alone; Z91.14 Patient's other noncompliance with medication regimen; Z89.511 Acquired absence of right leg below knee; Z88.0 Allergy status to penicillin; Z79.4 Long term (current) use of insulin; Z99.2 Dependence on renal dialysis
CPT/HCPCS: 36415; 70450; 71010; 72125; 80048; 80053; 81001; 82550; 82553; 82962; 83605; 83690; 83735; 83880; 84484; 85025; 85027; 85610; 85730; 87040; 87045; 87086; 87205; 93005; 93010; 95819; 99285; G0378; J0456; J1644; J1815; J3490; J7060; Q4081

== ENCOUNTER 2016-07-25 19:56 | Inpatient (IN) | payer MEDICAID ==
--- NOTE | 2016-07-25 20:19 | ER Document Report ---
ED Medical Screen (RME) - General Chief Complaint: Fall Stated Complaint: FALL Time seen by provider: 20:15 Mode of Arrival: Medic Information source: Patient Notes: 61-year-old male presents to ED via EMS for a fall today. States he is sore but does not have any pain. Vital signs stable for EMS. States he needs to get checked out. I have greeted and performed a rapid initial assessment of this patient. A comprehensive ED assessment and evaluation of the patient, analysis of test results and completion of medical decision making process will be conducted by an additional ED providers. TRAVEL OUTSIDE OF THE [place] IN LAST 30 DAYS: No - Related Data Allergies/Adverse Reactions: Penicillins Allergy (Verified 07/03/16 18:10) Past Medical History - Past Medical History Cardiac Medical History: Reports: Hx Congestive Heart Failure, Hx Coronary Artery Disease, Hx Heart Attack, Hx Hypercholesterolemia, Hx Hypertension, Hx Peripheral Vascular Disease Pulmonary Medical History: Reports: Hx Asthma Denies: Hx Bronchitis, Hx COPD, Hx Pneumonia Neurological Medical History: Reports: Hx Cerebrovascular Accident - X2, Hx Seizures - 2015 Endocrine Medical History: Reports: Hx Diabetes Mellitus Type 1, Hx Diabetes Mellitus Type 2 Renal/ Medical History: Reports: Hx End Stage Renal Disease, Hx Hemodialysis, Hx Renal Insufficiency GI Medical History: Reports: Hx Gastroesophageal Reflux Disease Musculoskeltal Medical History: Reports Hx Arthritis, Reports Hx Musculoskeletal Deformity - right BKA, Reports Hx Musculoskeletal Trauma Psychiatric Medical History: Reports: Hx Depression Past Surgical History: Reports: Hx Cardiac Catheterization, Hx Cardiac Surgery - Stent placement x 6, Hx Coronary Stent - x6, Hx Orthopedic Surgery - right BKA , Hx Vascular Surgery - Right subclavian PermCath - Immunizations Immunizations up to date: Yes Hx Diphtheria, Pertussis, Tetanus Vaccination: Yes
[2016-07-26] MEDS ORDERED: HYDROCODONE/ACETAMINOPHEN 5-325 MG TABLET PO ONE (01:34)
[2016-07-26 03:27] LABS: ABSOLUTE BASOPHILS # (AUTO) 0.1 10^3/uL (0.0-0.2); ABSOLUTE EOSINOPHILS # (AUTO) 0.2 10^3/uL (0.0-0.6); ABSOLUTE MONOCYTES (AUTO) 0.9 10^3/uL (0.1-1.4); ABSOLUTE NEUT (AUTO) 12.1 10^3/uL (1.7-8.2); BASOPHILS % (AUTO) 0.7 % (0-2); EOSINOPHILS % (AUTO) 1.7 % (0-6); HEMATOCRIT 28.9 % (37.9-51.0); HEMOGLOBIN 8.9 g/dL (13.5-17.0); HGB HCT DIFFERENCE -2.2; LYMPHOCYTES % (AUTO) 6.8 % (13-45); MEAN CORPUSCULAR HEMOGLOBIN 30.3 pg (27.0-33.4); MEAN CORPUSCULAR HGB CONC 30.8 g/dL (32.0-36.0); MEAN CORPUSCULAR VOLUME 98 fl (80-97); MONOCYTES % (AUTO) 6.2 % (3-13); RED BLOOD COUNT 2.93 10^6/uL (4.35-5.55); RED CELL DISTRIBUTION WIDTH 15.8 % (11.5-14.0); SEGMENTED NEUTROPHILS % (AUTO) 84.6 % (42-78); WHITE BLOOD COUNT 14.3 10^3/uL (4.0-10.5)
[2016-07-26 03:51] LABS: ANION GAP 16 (5-19); BLOOD UREA NITROGEN 60 mg/dL (7-20); CALCIUM 8.8 mg/dL (8.4-10.2); CARBON DIOXIDE 22 mmol/L (22-30); CHLORIDE 104 mmol/L (98-107); GLUCOSE 90 mg/dL (75-110); POTASSIUM 4.1 mmol/L (3.6-5.0); SODIUM 142.3 mmol/L (137-145)
[2016-07-26] MEDS ORDERED: VANCOMYCIN HCL INJ 500 MG VIAL IV ONE (05:00)
[2016-07-26] MEDS ORDERED: LEVOFLOXACIN 750 MG/D5W RTU 150 ML IV ONE (05:00)
--- NOTE | 2016-07-26 05:01 | ER Document Report ---
ED General - General Chief Complaint: Fall Stated Complaint: FALL Mode of Arrival: Medic Notes: Patient is 61-year-old male who presents with complaint of fall. Patient said he fell and he's been very weak today. Patient was recently discharged from the hospital for pneumonia. Patient says that he is doing very well and is felt well until today. Today's gradual for more weakness had subjective fevers and coughing. He says he feels as if his pneumonia has returned. Last dialysis was Sunday. He is due for dialysis in the morning. No trauma or injuries from the fall. No other complaints at this time. TRAVEL OUTSIDE OF THE [place] IN LAST 30 DAYS: No - Related Data Allergies/Adverse Reactions: Penicillins Allergy (Verified 07/03/16 18:10) Past Medical History - General Information source: Patient - Social History Smoking Status: Never Smoker Chew tobacco use (# tins/day): No Frequency of alcohol use: None Drug Abuse: None Family History: Arthritis, CAD, CVA, DM, Hyperlipidemia, Hypertension - Past Medical History Cardiac Medical History: Reports: Hx Congestive Heart Failure, Hx Coronary Artery Disease, Hx Heart Attack, Hx Hypercholesterolemia, Hx Hypertension, Hx Peripheral Vascular Disease Pulmonary Medical History: Reports: Hx Asthma Denies: Hx Bronchitis, Hx COPD, Hx Pneumonia Neurological Medical History: Reports: Hx Cerebrovascular Accident - X2, Hx Seizures - 2015 Endocrine Medical History: Reports: Hx Diabetes Mellitus Type 1, Hx Diabetes Mellitus Type 2 Renal/ Medical History: Reports: Hx End Stage Renal Disease, Hx Hemodialysis, Hx Renal Insufficiency. Denies: Hx Peritoneal Dialysis GI Medical History: Reports: Hx Gastroesophageal Reflux Disease Musculoskeltal Medical History: Reports Hx Arthritis, Reports Hx Musculoskeletal Deformity - right BKA, Reports Hx Musculoskeletal Trauma Psychiatric Medical History: Reports: Hx Depression Past Surgical History: Reports: Hx Cardiac Catheterization, Hx Cardiac Surgery - Stent placement x 6, Hx Coronary Stent - x6, Hx Orthopedic Surgery - right BKA , Hx Vascular Surgery - Right subclavian PermCath - Immunizations Immunizations up to date: Yes Hx Diphtheria, Pertussis, Tetanus Vaccination: Yes Hx Pneumococcal Vaccination: 07/02/12 Review of Systems - Review of Systems Notes: My Normal Review Basic REVIEW OF SYSTEMS: CONSTITUTIONAL : Objective fever EENT: Denies eye, ear, throat, or mouth pain or symptoms. Denies nasal or sinus congestion. CARDIOVASCULAR: Denies chest pain. RESPIRATORY: Current cough GASTROINTESTINAL: Denies abdominal pain. Denies nausea, vomiting, or diarrhea. Denies constipation. Last BM: MUSCULOSKELETAL: Denies neck or back pain or joint pain or swelling. SKIN: Denies rash or skin lesions. NEUROLOGICAL: Denies altered mental status or loss of consciousness. Denies headache. Denies weakness or paralysis or loss of use of either side. Denies problems with gait or speech. Denies sensory or motor loss. ALL OTHER SYSTEMS REVIEWED AND NEGATIVE. Physical Exam - Vital signs Vitals: Temp Pulse Resp BP Pulse Ox 98.2 F 73 20 104/46 L 96 07/25/16 20:19 07/25/16 20:19 07/25/16 20:19 07/25/16 20:19 07/25/16 20:19 - Notes Notes: General Appearance: Well nourished, alert, cooperative, no acute distress, no obvious discomfort. Obese Vitals: reviewed, See vital signs table. Head: no swelling or tenderness to the head Eyes: PERRL, EOMI, Conjuctiva clear Mouth: No decreasd moisture Neck: Supple, no neck tenderness, No thyromegaly Lungs: No wheezing, No rales, No rhonci, No accessory muscle use, good air exchange bilaterally. Heart: Normal rate, Regular rythm, No murmur, no rub Abdomen: Normal BS, soft, No rigidity, No abdominal tenderness, No guarding, no rebound, no abdominal masses, no organomegaly Extremities: strength 5/5 in all extremities, good pulses in all extremities, no swelling or tenderness in the extremities, no edema. Skin: warm, dry, appropriate color, no rash Neuro: speech clear, oriented x 3, normal affect, responds appropriately to questions. Course - Vital Signs Vital signs: Temp Pulse Resp BP Pulse Ox 98.2 F 73 20 104/46 L 96 07/25/16 20:19 07/25/16 20:19 07/25/16 20:19 07/25/16 20:19 07/25/16 20:19 - Laboratory Result Diagrams: 07/26/16 03:14 07/26/16 03:14 Laboratory results interpreted by me: 07/26/16 07/26/16 03:14 03:14 WBC 14.3 H RBC 2.93 L Hgb 8.9 L Hct 28.9 L MCV 98 H MCHC 30.8 L RDW 15.8 H Seg Neutrophils % 84.6 H Lymphocytes % 6.8 L Absolute Neutrophils 12.1 H BUN 60 H Creatinine 6.40 H Est GFR ( Amer) 11 L Est GFR (Non-Af Amer) 9 L - Transfer of Care Notes: 07/26/16 04:57 Unfortunately this is the patient's second readmit for similar problems. His chest x-ray does have bilateral of drift process. Suspect that some of this is fluid from requiring dialysis; however, he does have a leukocytosis which is new and the patient himself still says that he feels as if his pneumonias, back and has been very weak at home and that is why he fell. I suspect he probably is having recurrence of his pneumonia based on his leukocytosis and subjective fevers at home. I did speak with Dr. Gordillo and informed him of my wish to admit the patient. 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 I will start the patient on antibiotics. We will omit the patient for further workup and treatment of his probable pneumonia, leukocytosis, and end-stage renal disease. Dictation of this chart was performed using voice recognition software; therefore, there may be some unintended grammatical errors. Discharge - Discharge Clinical Impression: Weakness, End stage renal failure on dialysis Leukocytosis Qualifiers: Leukocytosis type: unspecified Qualified Code(s): D72.829 - Elevated white blood cell count, unspecified Pneumonia Qualifiers: Pneumonia type: due to unspecified organism Laterality: bilateral Lung location : unspecified part of lung Qualified Code(s): J18.9 - Pneumonia, unspecified organism Condition: Stable Disposition: ADMITTED INPATIENT Admitting Provider: [facility] Admitted: Telemetry
[2016-07-26] MEDS ORDERED: IPRATROPIUM/ALBUTEROL 0.5-2.5 MG/3 ML AMPUL NEB PRN (07:31)
[2016-07-26] MEDS ORDERED: DEXTROSE 50%-WATER 25 GM/50 ML DISP.SYRIN IV PRN ×2 (07:38)
[2016-07-26] MEDS ORDERED: GLUCAGON,HUMAN RECOMB 1 MG INJ IM PRN (07:38)
[2016-07-26] MEDS ORDERED: DEXTROSE 40% GEL 15 GM TUBE PO PRN ×2 (07:38)
[2016-07-26 09:32] LABS: LIPASE 93.6 U/L (23-300); MAGNESIUM 1.9 mg/dL (1.6-2.3)
[2016-07-26] MEDS ORDERED: LEVOFLOXACIN 750 MG/D5W RTU 750 MG/150 ML RTUPB IV SCH (10:00)
[2016-07-26] MEDS ORDERED: VANCOMYCIN HCL 1,000 MG in DEXTROSE 5%-WATER 250 ML IV ONE (11:30)
--- NOTE | 2016-07-26 13:11 | XCELERA REPORT ---
[address] [address] Transthoracic Echocardiogram Report Name: MARIANA RICHARDSON Age: 61 yrs Gender: Male : 1955 Patient Status: Inpatient Patient Location: \S\[facility]\S\A Study Date: 07/26/2016 10:35 AM Height: 66 in Weight: 210 lb BSA: 2.0 m2 Procedure: A complete two-dimensional transthoracic echocardiogram was performed (2D, M-mode, spectral and color flow Doppler). The study was technically difficult with many images being suboptimal in quality. Reason For Study: chf Ordering Physician: VIRIDIANA LEHMAN Performed By: Armando Dasilva Interpretation Summary Due to the poor quality of the echocardiogram, an assessment of left ventricular ejection fraction cannot be made. Best estimate is LVEF is WNL. LV diastolic function could not be adequately assessed. The left ventricle is grossly normal size. There is mild concentric left ventricular hypertrophy. Not all wall segments were well visualized. Regional wall motion abnormalities cannot be excluded due to limited visualization. The right ventricle is mildly dilated. The right ventricular systolic function is normal. The left atrium is mildly dilated. The right atrium is mildly dilated. There is no mitral valve stenosis. There is a trace to mild amount of mitral regurgitation No aortic regurgitation is present. There is no aortic valve stenosis There is a trace or physiologic amount of tricuspid regurgitation Tricuspid regurgitation jet envelope not well defined to measure RV systolic pressure accurately. There is no pericardial effusion. MMode/2D Measurements \T\ Calculations RVDd: 3.1 cm LVIDd: 5.2 cm FS: 33.2 % Ao root diam: 3.2 cm IVSd: 1.2 cm LVIDs: 3.5 cm EDV(Teich): 130.4 ml LVPWd: 1.2 cm ESV(Teich): 50.4 ml Ao root area: 8.0 cm2 EF(Teich): 61.4 % LA dimension: 4.2 cm Doppler Measurements \T\ Calculations MV E max elma: MV P1/2t max elma: Ao V2 max: LV V1 max P.6 cm/sec 58.9 cm/sec 117.9 cm/sec 2.8 mmHg MV A max elma: MV P1/2t: 57.6 msec Ao max PG: LV V1 max: 81.8 cm/sec 5.6 mmHg 83.4 cm/sec MV E/A: 0.70 MVA(P1/2t): 3.8 cm2 MV dec slope: 299.6 cm/sec2 MV dec time: 0.20 sec PA V2 max: TR max elma: RAP systole: 84.9 cm/sec 204.6 cm/sec 10.0 mmHg PA max PG: TR max P.7 mmHg 2.9 mmHg RVSP(TR): 26.7 mmHg Left Ventricle The left ventricle is grossly normal size. There is mild concentric left ventricular hypertrophy. Due to the poor quality of the echocardiogram, an assessment of left ventricular ejection fraction cannot be made. Best estimate is LVEF is WNL. LV diastolic function could not be adequately assessed. Not all wall segments were well visualized. Regional wall motion abnormalities cannot be excluded due to limited visualization. Right Ventricle The right ventricle is mildly dilated. There is normal right ventricular wall thickness. The right ventricular systolic function is normal. Atria The right atrium is mildly dilated. The left atrium is mildly dilated. Interarterial septum not well visualized and not well dopplered. Cannot comment on ASD/PFO presence. Mitral Valve There is mild mitral leaflet calcification. There is no mitral valve stenosis. There is a trace to mild amount of mitral regurgitation. Aortic Valve The aortic valve is not well visualized secondary to technical limitations. There is no aortic valve stenosis. No aortic regurgitation is present. Tricuspid Valve The tricuspid valve is not well visualized secondary to technical limitations. There is no tricuspid stenosis. There is a trace or physiologic amount of tricuspid regurgitation. Tricuspid regurgitation jet envelope not well defined to measure RV systolic pressure accurately. Pulmonic Valve The pulmonic valve is not well visualized. Great Vessels The aortic root is not well visualized. The inferior vena cava was not well visualized. Effusions There is no pericardial effusion. : VIRIDIANA LEHMAN > Donta Hunt
[2016-07-26 13:52] LABS: CREATINE KINASE MB 4.06 ng/mL (<4.55)
[2016-07-26 13:56] LABS: TROPONIN I 0.05 ng/mL
[2016-07-26 14:07] LABS: THYROID STIMULATING HORMONE 1.49 uIU/mL (0.47-4.68)
[2016-07-26] MEDS ORDERED: HEPARIN SOD (PORCINE) 1,000 UNIT/ML 10 ML VIAL IV PRN (16:16)
[2016-07-26] MEDS ORDERED: EPOETIN ALFA INJ 20000 UNIT/1 ML VIAL (RENAL) IV PRN (16:17)
[2016-07-26] MEDS ORDERED: ENOXAPARIN SODIUM INJ 40 MG/0.4 ML DISP.SYRIN SUBCUT ONE (17:30)
[2016-07-26 20:30] LABS: CREATINE KINASE MB 2.85 ng/mL (<4.55); TROPONIN I 0.061 ng/mL
[2016-07-27 00:37] LABS: CREATINE KINASE MB 2.53 ng/mL (<4.55); TROPONIN I 0.054 ng/mL
[2016-07-27] MEDS ORDERED: VANCOMYCIN HCL 1,000 MG in DEXTROSE 5%-WATER 250 ML IV ONE ×2 (02:30→16:00)
[2016-07-27 07:04] LABS: ABSOLUTE BASOPHILS # (AUTO) 0.1 10^3/uL (0.0-0.2); ABSOLUTE EOSINOPHILS # (AUTO) 0.2 10^3/uL (0.0-0.6); ABSOLUTE LYMPHOCYTES (AUTO) 1.5 10^3/uL (0.5-4.7); ABSOLUTE MONOCYTES (AUTO) 1.1 10^3/uL (0.1-1.4); ABSOLUTE NEUT (AUTO) 7.3 10^3/uL (1.7-8.2); BASOPHILS % (AUTO) 0.9 % (0-2); EOSINOPHILS % (AUTO) 2.4 % (0-6); HEMATOCRIT 26.8 % (37.9-51.0); HEMOGLOBIN 8.2 g/dL (13.5-17.0); HGB HCT DIFFERENCE -2.2; LYMPHOCYTES % (AUTO) 14.3 % (13-45); MEAN CORPUSCULAR HEMOGLOBIN 30.6 pg (27.0-33.4); MEAN CORPUSCULAR HGB CONC 30.7 g/dL (32.0-36.0); MEAN CORPUSCULAR VOLUME 100 fl (80-97); MONOCYTES % (AUTO) 11.2 % (3-13); RED BLOOD COUNT 2.68 10^6/uL (4.35-5.55); RED CELL DISTRIBUTION WIDTH 16.2 % (11.5-14.0); SEGMENTED NEUTROPHILS % (AUTO) 71.2 % (42-78); WHITE BLOOD COUNT 10.2 10^3/uL (4.0-10.5)
[2016-07-27 07:19] LABS: ALANINE AMINOTRANSFERASE 16 U/L (21-72); ALBUMIN 3.6 g/dL (3.5-5.0); ALKALINE PHOSPHATASE 97 U/L (38-126); ANION GAP 12 (5-19); ASPARTATE AMINO TRANSFERASE 22 U/L (17-59); BILIRUBIN,TOTAL 0.4 mg/dL (0.2-1.3); BLOOD UREA NITROGEN 37 mg/dL (7-20); CALCIUM 8.9 mg/dL (8.4-10.2); CARBON DIOXIDE 30 mmol/L (22-30); CHLORIDE 100 mmol/L (98-107); CHOLESTEROL 151.03 mg/dL (0-200); CREATININE RESULT 5.24 mg/dL (0.52-1.25); Direct HDL 28 mg/dL (>40); GLUCOSE 118 mg/dL (75-110); POTASSIUM 3.5 mmol/L (3.6-5.0); SODIUM 141.9 mmol/L (137-145); TOTAL PROTEIN 7.1 g/dL (6.3-8.2); TRIGLYCERIDES 134 mg/dL (<150)
[2016-07-27 07:31] LABS: DIRECT LDL 67 mg/dL (<100)
[2016-07-27] MEDS ORDERED: ENOXAPARIN SODIUM INJ 40 MG/0.4 ML DISP.SYRIN SUBCUT SCH (08:00)
--- NOTE | 2016-07-27 13:55 | PDOC CONSULTATION ---
Consultation Consult Date: 07/26/16 Consult reason:: Hemodialysis History of Present Illness Admission Date/PCP: 07/26/16 07:32 VIRIDIANA LEHMAN, History of Present Illness: MARIANA RICHARDSON is a 61 year old male was recently discharged after admission for pneumonia comes in with a history of falls. He lives alone does not have appropriate help. He denies any history of chest pain shortness of breath most of nausea vomiting no history of any syncope or focal deficits. Has not been going for outpatient hemodialysis as supposed to. He has history of noncompliance with diet and medications and getting to dialysis.No history of any headaches or possible seizures. Has a history of seizures because of noncompliance with his seizure medications. No history of any focal deficits Past Medical History Cardiac Medical History: Reports: Coronary Artery Disease, Hyperlipidemia, Myocardial Infarction, Peripheral Vascular Disease Pulmonary Medical History: Reports: Asthma Denies: Bronchitis, Chronic Obstructive Pulmonary Disease (COPD), Pneumonia Neurological Medical History: Reports: Seizures - 2015 Endocrine Medical History: Reports: Diabetes Mellitus Type 2 Renal/ Medical History: Reports: End Stage Renal Disease GI Medical History: Reports: Gastroesophageal Reflux Disease Musculoskeltal Medical History: Reports: Arthritis Psychiatric Medical History: Reports: Depression Hematology Medical History: Reports Anemia of Chronic Kidney Disease Past Surgical History Past Surgical History: Reports: Cardiac Catheterization, Coronary Stent - x6, Orthopedic Surgery - right BKA, Vascular Surgery - Right subclavian PermCath Social History Smoking Status: Never Smoker Frequency of Alcohol Use: None Hx Recreational Drug Use: No Drugs: None Hx Prescription Drug Abuse: No Family History Parental Family History Reviewed: Yes - Negative for ESRD Children Family History Reviewed: No Sibling(s) Family History Reviewed.: No Medication/Allergy Home Medications: Clonidine HCl [Catapres 0.1 mg Tablet] 0.1 mg PO QHS 07/26/16 Divalproex Sodium [Depakote ER 500 mg Tab.sr] 500 mg PO DAILY 07/26/16 Finasteride [Proscar 5 mg Tablet] 5 mg PO DAILY 07/26/16 Gabapentin [Neurontin] 800 mg PO Q8 07/26/16 Hydralazine HCl [Apresoline 50 mg Tablet] 100 mg PO Q8 07/26/16 Insulin Glargine,Hum.rec.anlog [Lantus Solostar] 12 units SQ DAILY 07/26/16 Isosorbide Mononitrate [Imdur 30 mg Tablet.er] 30 mg PO DAILY 07/26/16 Levetiracetam [Keppra] 250 mg PO DAILY 07/26/16 Linagliptin [Tradjenta] 5 mg PO DAILY 07/26/16 Losartan Potassium [Cozaar 100 mg Tablet] 100 mg PO DAILY 07/26/16 Metoprolol Succinate [Toprol XL 100 mg Tablet] 100 mg PO DAILY 07/26/16 Omeprazole 20 mg PO DAILY 07/26/16 Oxycodone HCl/Acetaminophen [Percocet 5-325 mg Tablet] 1 tab PO Q6HP PRN Tamsulosin HCl [Flomax 0.4 mg Cap.sr] 0.4 mg PO PCBRKFST 07/26/16 Allergies/Adverse Reactions: Penicillins Allergy (Verified 07/03/16 18:10) Review of Systems Review of Systems: Constitutional: PRESENT: as per HPI. ABSENT: chills, fever(s), headache(s), weight gain, weight loss Eyes: ABSENT: visual disturbances Ears: ABSENT: hearing changes Cardiovascular: ABSENT: chest pain, dyspnea on exertion, edema, orthropnea, palpitations Respiratory: ABSENT: cough, hemoptysis Gastrointestinal: ABSENT: abdominal pain, constipation, diarrhea, hematemesis, hematochezia, nausea, vomiting Genitourinary: ABSENT: dysuria, hematuria Musculoskeletal: ABSENT: joint swelling Integumentary: ABSENT: rash, wounds Neurological: ABSENT: abnormal gait, abnormal speech, confusion, dizziness, focal weakness, syncope Psychiatric: ABSENT: anxiety, depression, homicidal ideation, suicidal ideation Endocrine: ABSENT: cold intolerance, heat intolerance, menstrual abnormalities, polydipsia, polyuria Hematologic/Lymphatic: ABSENT: easy bleeding, easy bruising, lymphadenopathy Physical Exam Vital Signs: Temp Pulse Resp BP Pulse Ox 98.2 F 77 19 104/46 L 96 07/25/16 20:19 07/26/16 09:36 07/26/16 09:36 07/25/16 20:19 07/25/16 20:19 General appearance: PRESENT: no acute distress Exam: Patient is in no acute distress. He looks well-nourished. He is atraumatic normocephalic. EOMI/PERRLA. Conjunctiva is pink no scleral icterus. No periorbital swelling. The external ears were normal to examination and there was no bleeding or drainage. All mucosa was moist and there were no visible lesions on the soft palate. Neck was supple and that he had no thyromegaly or tracheal deviation. Full range of movements. He had no cervical lymphadenopathy. Both heart sounds were heard normally. No rubs or gallops. No pericardial rub. Chest examination revealed equal air entry in both lungs nose no wheezing or crackles. Examination of the abdomen was soft nontender. No organomegaly. Bowel sounds are heard normally. Was no ascites. There is 1+ edema. There is no joint swelling. There is no cough tenderness. Patient is ambulatory. Full range of movements. Normal to inspection. Neurological evaluation revealed an awake alert person. Oriented to time person and place. Cranial nerves 2-12 is grossly intact. He is not aphasic. Psych evaluation revealed appropriate affect. He is not anxious or agitated. He has a normal mood. Skin evaluation was normal. She had no mottling. Skin is not dry. He had no skin rashes. No palpable nodules Respiratory exam: PRESENT: clear to auscultation aguilar, decreased breath sounds. ABSENT: crackles, rhonchi Cardiovascular exam: PRESENT: +S1, +S2, systolic murmur GI/Abdominal exam: PRESENT: soft. ABSENT: distended, firm, guarding, organomegaly, tenderness Neurological exam: PRESENT: alert, awake, oriented to person, oriented to place , oriented to time Results Laboratory Results: 07/26/16 07/26/16 08:56 12:56 Phosphorus 5.0 H Magnesium 1.9 Lipase 93.6 TSH 1.49 Free T4 1.27 07/26/16 12:56 CK-MB (CK-2) 4.06 Troponin I 0.050 Impressions: Chest X-Ray 07/26/16 01:34 IMPRESSION: Evolved mild -moderate pulmonary edema pattern. Differential diagnosis includes CHF and pneumonia. Assessment & Plan - Diagnosis (1) ESRD (end stage renal disease) on dialysis Plan: Patient undergoing dialysis currently without any issues no history of any chest pain shortness of breath. Orders were discussed with the treating nurse Bettye. We will try to remove between 3 and 4 L as he has compliance issues with fluid intake. (2) Pneumonia Qualifiers: Pneumonia type: due to unspecified organism Laterality: bilateral Lung location: unspecified part of lung Qualified Code(s): J18.9 - Pneumonia, unspecified organism Plan: Management as per Dr. Patricia (3) Seizure disorder Plan: Discussed compliance with his antiseizure medications. (4) Weakness Plan: With history of intermittent falls. No history to indicate orthostasis. He has got very poor psychosocial support. discussed the possibility of going to intermediate but he declined. (5) Anemia Qualifiers: Other causes of anemia: chronic disease, kidney Plan: Adjust erythropoietin (6) Diabetes mellitus type 2 in obese Plan: Advised on sugar control
[2016-07-27] MEDS: INSULIN LISPRO 100 UNIT/ML 3 ML VIAL SUBCUT PRN ×2 (18:10→23:47)
--- NOTE | 2016-07-27 20:12 | PDOC H&P ---
[id number] History of Present Illness: Patient 61-year-old male. He was draws discharged from this hospital on 2016 when he was admitted for pneumonia, he has end-stage renal disease on hemodialysis. He came to the emergency room because of a fall, in the ER was evaluated and it was thought to have pneumonia. Chest x-ray showed patchy air space disease in the right lung. The biggest challenge for this patient is a social problem, he lives alone and he has no help, is an amputee and he cannot care for himself. This is the third admission within 30 days and he usually will present in similar fashion Past Medical History Cardiac Medical History: Reports: Congestive Heart Failure, Coronary Artery Disease, Myocardial Infarction, Hyperlipidema, Hypertension, Peripheral Vascular Disease Pulmonary Medical History: Reports: Asthma Neurological Medical History: Reports: Seizures - 2015 Endocrine Medical History: Reports: Diabetes Mellitus Type 2 Renal/ Medical History: Reports: End Stage Renal Disease GI Medical History: Reports: Gastroesophageal Reflux Disease Musculoskeltal Medical History: Reports: Arthritis Psychiatric Medical History: Reports: Depression Hematology: Reports: Anemia Past Surgical History Past Surgical History: Reports: Cardiac Catheterization, Coronary Stent - x6, Orthopedic Surgery - right BKA, Vascular Surgery - Right subclavian PermCath Social History Smoking Status: Never Smoker Frequency of Alcohol Use: None Hx Recreational Drug Use: No Drugs: None Hx Prescription Drug Abuse: No Family History Family History: Arthritis, CAD, CVA, DM, Hyperlipidemia, Hypertension Parental Family History Reviewed: Yes Children Family History Reviewed: Yes Sibling(s) Family History Reviewed.: Yes Medication/Allergy Home Medications: Clonidine HCl [Catapres 0.1 mg Tablet] 0.1 mg PO QHS 07/26/16 Divalproex Sodium [Depakote ER 500 mg Tab.sr] 500 mg PO DAILY 07/26/16 Finasteride [Proscar 5 mg Tablet] 5 mg PO DAILY 07/26/16 Gabapentin [Neurontin] 800 mg PO Q8 07/26/16 Hydralazine HCl [Apresoline 50 mg Tablet] 100 mg PO Q8 07/26/16 Insulin Glargine,Hum.rec.anlog [Lantus Solostar] 12 units SQ DAILY 07/26/16 Isosorbide Mononitrate [Imdur 30 mg Tablet.er] 30 mg PO DAILY 07/26/16 Levetiracetam [Keppra] 250 mg PO DAILY 07/26/16 Linagliptin [Tradjenta] 5 mg PO DAILY 07/26/16 Losartan Potassium [Cozaar 100 mg Tablet] 100 mg PO DAILY 07/26/16 Metoprolol Succinate [Toprol XL 100 mg Tablet] 100 mg PO DAILY 07/26/16 Omeprazole 20 mg PO DAILY 07/26/16 Oxycodone HCl/Acetaminophen [Percocet 5-325 mg Tablet] 1 tab PO Q6HP PRN Tamsulosin HCl [Flomax 0.4 mg Cap.sr] 0.4 mg PO [id number] 07/26/16 Allergies/Adverse Reactions: Penicillins Allergy (Verified 07/03/16 18:10) Review of Systems Constitutional: PRESENT: chills Cardiovascular: ABSENT: as per HPI, chest pain, dyspnea on exertion, edema, orthropnea, palpitations, other Respiratory: PRESENT: cough Gastrointestinal: ABSENT: as per HPI, abdominal pain, bloating, coffee ground emesis, constipation, diarrhea, dysphagia, heartburn, hematemesis, hematochezia , melena, nausea, vomiting, other Musculoskeletal: ABSENT: as per HPI, back pain, deformity, joint swelling, muscle weakness, other Neurological: ABSENT: as per HPI, abnormal gait, abnormal movements, abnormal speech, confusion, convulsions, dizziness, focal weakness, frequent falls, lack of coordination, memory loss, numbness, paresthesias, restless legs, syncope, tingling, tremor(s), vertigo, weakness, other Physical Exam Vital Signs: Temp Pulse Resp BP Pulse Ox 98.3 F 75 16 151/54 H 96 07/27/16 15:23 07/27/16 16:41 07/27/16 16:41 07/27/16 15:23 07/27/16 16:41 Intake & Output 07/26/16 07/27/16 07/28/16 06:59 06:59 06:59 Intake Total 712 1224 Output Total 4000 150 Balance -3288 1074 Weight 140 kg 135.794 kg General appearance: PRESENT: no acute distress Eye exam: PRESENT: PERRLA Respiratory exam: PRESENT: crackles Cardiovascular exam: PRESENT: +S1, +S2 GI/Abdominal exam: PRESENT: firm Neurological exam: PRESENT: alert Results Laboratory Results: 07/27/16 06:51 07/27/16 06:51 07/26/16 07/27/16 07/27/16 19:50 06:51 06:51 WBC 10.2 RBC 2.68 L Hgb 8.2 L Hct 26.8 L MCV 100 H MCH 30.6 MCHC 30.7 L RDW 16.2 H Plt Count 235 Seg Neutrophils % 71.2 Lymphocytes % 14.3 Monocytes % 11.2 Eosinophils % 2.4 Basophils % 0.9 Absolute Neutrophils 7.3 Absolute Lymphocytes 1.5 Absolute Monocytes 1.1 Absolute Eosinophils 0.2 Absolute Basophils 0.1 Sodium 141.9 Potassium 3.5 L Chloride 100 Carbon Dioxide 30 Anion Gap 12 BUN 37 H Creatinine 5.24 H Est GFR ( Amer) 14 L Est GFR (Non-Af Amer) 11 L Glucose 118 H Calcium 8.9 Total Bilirubin 0.4 AST 22 ALT 16 L Alkaline Phosphatase 97 Ammonia < 8.7 L Total Protein 7.1 Albumin 3.6 Triglycerides 134 Cholesterol 151.03 LDL Cholesterol Direct 67 VLDL Cholesterol 27.0 HDL Cholesterol 28 L 07/26/16 07/26/16 07/26/16 12:56 19:50 23:52 CK-MB (CK-2) 4.06 2.85 2.53 Troponin I 0.050 0.061 0.054 NT-Pro-B Natriuret Pep 07/27/16 06:51 CK-MB (CK-2) Troponin I NT-Pro-B Natriuret Pep 7520 H Impressions: Chest X-Ray 07/26/16 01:34 IMPRESSION: Evolved mild -moderate pulmonary edema pattern. Differential diagnosis includes CHF and pneumonia. Assessment & Plan - Diagnosis (1) Pneumonia Qualifiers: Pneumonia type: due to unspecified organism Laterality: unspecified laterality Lung location: unspecified part of lung Qualified Code(s) : J18.9 - Pneumonia, unspecified organism Plan: Patient is admitted for management (2) ESRD (end stage renal disease) on dialysis Is this a current diagnosis for this admission?: Yes
[2016-07-27] MEDS: TRAMADOL HCL 50 MG TABLET PO PRN (23:03)
[2016-07-28] MEDS: TRAMADOL HCL 50 MG TABLET PO PRN ×2 (06:13→17:52)
[2016-07-28 08:15] LABS: ABSOLUTE BASOPHILS # (AUTO) 0.1 10^3/uL (0.0-0.2); ABSOLUTE EOSINOPHILS # (AUTO) 0.4 10^3/uL (0.0-0.6); ABSOLUTE LYMPHOCYTES (AUTO) 1.3 10^3/uL (0.5-4.7); ABSOLUTE MONOCYTES (AUTO) 1.1 10^3/uL (0.1-1.4); ABSOLUTE NEUT (AUTO) 6.5 10^3/uL (1.7-8.2); BASOPHILS % (AUTO) 0.9 % (0-2); EOSINOPHILS % (AUTO) 4.3 % (0-6); HEMATOCRIT 27.5 % (37.9-51.0); HEMOGLOBIN 8.7 g/dL (13.5-17.0); HGB HCT DIFFERENCE -1.4; LYMPHOCYTES % (AUTO) 13.9 % (13-45); MEAN CORPUSCULAR HEMOGLOBIN 31.2 pg (27.0-33.4); MEAN CORPUSCULAR HGB CONC 31.4 g/dL (32.0-36.0); MEAN CORPUSCULAR VOLUME 99 fl (80-97); MONOCYTES % (AUTO) 11.9 % (3-13); RED BLOOD COUNT 2.78 10^6/uL (4.35-5.55); RED CELL DISTRIBUTION WIDTH 16.2 % (11.5-14.0); WHITE BLOOD COUNT 9.4 10^3/uL (4.0-10.5)
[2016-07-28 08:44] LABS: ALANINE AMINOTRANSFERASE 21 U/L (21-72); ALBUMIN 3.2 g/dL (3.5-5.0); ALKALINE PHOSPHATASE 97 U/L (38-126); ANION GAP 15 (5-19); ASPARTATE AMINO TRANSFERASE 15 U/L (17-59); BILIRUBIN,TOTAL 0.4 mg/dL (0.2-1.3); BLOOD UREA NITROGEN 44 mg/dL (7-20); CALCIUM 8.9 mg/dL (8.4-10.2); CARBON DIOXIDE 28 mmol/L (22-30); CHLORIDE 97 mmol/L (98-107); CREATININE RESULT 5.61 mg/dL (0.52-1.25); GLUCOSE 159 mg/dL (75-110); POTASSIUM 3.6 mmol/L (3.6-5.0); SODIUM 139.9 mmol/L (137-145); TOTAL PROTEIN 6.9 g/dL (6.3-8.2)
[2016-07-28] MEDS ORDERED: HEPARIN SOD (PORCINE) 1,000 UNIT/ML 10 ML VIAL IV PRN (10:02)
[2016-07-28] MEDS ORDERED: EPOETIN ALFA INJ 20000 UNIT/1 ML VIAL (RENAL) IV PRN (10:03)
[2016-07-28 11:24] LABS: FOLATE 9.06 ng/mL (>2.76)
[2016-07-28] MEDS: LEVOFLOXACIN 500 MG/D5W RTU 500 MG/100 ML RTUPB IV SCH (11:43)
[2016-07-28] MEDS: ENOXAPARIN SODIUM INJ 30 MG/0.3 ML DISP.SYRIN SUBCUT SCH (11:43)
--- NOTE | 2016-07-28 16:51 | PDOC PROGRESS REPORT ---
Subjective Progress Note for:: 07/28/16 Subjective:: Seen on dialysis today.Undergoing dialysis without any issues. Denies any chest pains, dyspnea, fever or chills.labs reviewed.Orders discussed with pulp grinder and blender. Physical Exam Vital Signs: Temp Pulse Resp BP Pulse Ox 98.5 F 111 H 18 149/52 H 96 07/28/16 16:20 07/28/16 16:20 07/28/16 16:20 07/28/16 16:20 07/28/16 16:20 Intake & Output 07/27/16 07/28/16 07/29/16 06:59 06:59 06:59 Intake Total 712 1534 120 Output Total 4000 400 0 Balance -3288 1134 120 Weight 140 kg 145 kg General appearance: PRESENT: no acute distress Respiratory exam: PRESENT: clear to auscultation aguilar. ABSENT: crackles, rhonchi Cardiovascular exam: PRESENT: +S1, +S2, systolic murmur GI/Abdominal exam: PRESENT: soft. ABSENT: distended, firm, guarding, organomegaly, tenderness Neurological exam: PRESENT: awake, oriented to person, oriented to place, oriented to time Results Laboratory Results: 07/28/16 07:47 07/28/16 07:47 07/28/16 07/28/16 07/28/16 07:47 07:47 07:47 WBC 9.4 RBC 2.78 L Hgb 8.7 L Hct 27.5 L MCV 99 H MCH 31.2 MCHC 31.4 L RDW 16.2 H Plt Count 238 Seg Neutrophils % 69.0 Lymphocytes % 13.9 Monocytes % 11.9 Eosinophils % 4.3 Basophils % 0.9 Absolute Neutrophils 6.5 Absolute Lymphocytes 1.3 Absolute Monocytes 1.1 Absolute Eosinophils 0.4 Absolute Basophils 0.1 Retic Count (auto) 2.58 Absolute Retic 0.072 Sodium 139.9 Potassium 3.6 Chloride 97 L Carbon Dioxide 28 Anion Gap 15 BUN 44 H Creatinine 5.61 H Est GFR ( Amer) 13 L Est GFR (Non-Af Amer) 10 L Glucose 159 H Calcium 8.9 Iron TIBC % Saturation Ferritin Total Bilirubin 0.4 AST 15 L ALT 21 Alkaline Phosphatase 97 Total Protein 6.9 Albumin 3.2 L Vitamin B12 Folate 07/28/16 07:47 WBC RBC Hgb Hct MCV MCH MCHC RDW Plt Count Seg Neutrophils % Lymphocytes % Monocytes % Eosinophils % Basophils % Absolute Neutrophils Absolute Lymphocytes Absolute Monocytes Absolute Eosinophils Absolute Basophils Retic Count (auto) Absolute Retic Sodium Potassium Chloride Carbon Dioxide Anion Gap BUN Creatinine Est GFR ( Amer) Est GFR (Non-Af Amer) Glucose Calcium Iron 42 L TIBC 181 L % Saturation 23 Ferritin 375.00 Total Bilirubin AST ALT Alkaline Phosphatase Total Protein Albumin Vitamin B12 736.0 Folate 9.06 07/26/16 07/26/16 07/26/16 12:56 19:50 23:52 CK-MB (CK-2) 4.06 2.85 2.53 Troponin I 0.050 0.061 0.054 NT-Pro-B Natriuret Pep 07/27/16 07/28/16 06:51 07:47 CK-MB (CK-2) Troponin I NT-Pro-B Natriuret Pep 7520 H 5790 H Impressions: Chest X-Ray 07/26/16 01:34 IMPRESSION: Evolved mild -moderate pulmonary edema pattern. Differential diagnosis includes CHF and pneumonia. Assessment & Plan - Diagnosis (1) ESRD (end stage renal disease) on dialysis Plan: Seen on HD.No issues.Plan to UF x 3-4 L as tolerated. (2) Pneumonia Qualifiers: Pneumonia type: due to unspecified organism Laterality: bilateral Lung location: unspecified part of lung Qualified Code(s): J18.9 - Pneumonia, unspecified organism Plan: On antibiotics.WBC better. (3) Seizure disorder Plan: stable. (5) Anemia Qualifiers: Other causes of anemia: chronic disease, kidney Plan: Adjust EPO dose.Check Iron. (6) Diabetes mellitus type 2 in obese Plan: Advised on sugar control
[2016-07-28] MEDS: VANCOMYCIN HCL 750 MG in DEXTROSE 5%-WATER 250 ML IV SCH (17:53)
--- NOTE | 2016-07-28 21:06 | PDOC PROGRESS REPORT ---
Subjective Progress Note for:: 07/27/16 Subjective:: Patient seen by the bedside. There is no new complaint today Physical Exam Vital Signs: Temp Pulse Resp BP Pulse Ox 98.3 F 67 16 151/54 H 96 07/27/16 15:23 07/27/16 19:00 07/27/16 16:41 07/27/16 15:23 07/27/16 16:41 Intake & Output 07/26/16 07/27/16 07/28/16 06:59 06:59 06:59 Intake Total 712 1224 Output Total 4000 150 Balance -3288 1074 Weight 140 kg 135.794 kg General appearance: PRESENT: no acute distress Eye exam: PRESENT: PERRLA Respiratory exam: PRESENT: clear to auscultation aguilar Cardiovascular exam: PRESENT: +S1, +S2 GI/Abdominal exam: PRESENT: soft Neurological exam: PRESENT: altered, CN II-XII grossly intact Results Laboratory Results: 07/27/16 06:51 07/27/16 06:51 07/26/16 07/27/16 07/27/16 19:50 06:51 06:51 WBC 10.2 RBC 2.68 L Hgb 8.2 L Hct 26.8 L MCV 100 H MCH 30.6 MCHC 30.7 L RDW 16.2 H Plt Count 235 Seg Neutrophils % 71.2 Lymphocytes % 14.3 Monocytes % 11.2 Eosinophils % 2.4 Basophils % 0.9 Absolute Neutrophils 7.3 Absolute Lymphocytes 1.5 Absolute Monocytes 1.1 Absolute Eosinophils 0.2 Absolute Basophils 0.1 Sodium 141.9 Potassium 3.5 L Chloride 100 Carbon Dioxide 30 Anion Gap 12 BUN 37 H Creatinine 5.24 H Est GFR ( Amer) 14 L Est GFR (Non-Af Amer) 11 L Glucose 118 H Calcium 8.9 Total Bilirubin 0.4 AST 22 ALT 16 L Alkaline Phosphatase 97 Ammonia < 8.7 L Total Protein 7.1 Albumin 3.6 Triglycerides 134 Cholesterol 151.03 LDL Cholesterol Direct 67 VLDL Cholesterol 27.0 HDL Cholesterol 28 L 07/26/16 07/26/16 07/26/16 12:56 19:50 23:52 CK-MB (CK-2) 4.06 2.85 2.53 Troponin I 0.050 0.061 0.054 NT-Pro-B Natriuret Pep 07/27/16 06:51 CK-MB (CK-2) Troponin I NT-Pro-B Natriuret Pep 7520 H Impressions: Chest X-Ray 07/26/16 01:34 IMPRESSION: Evolved mild -moderate pulmonary edema pattern. Differential diagnosis includes CHF and pneumonia. Assessment & Plan - Diagnosis (1) Pneumonia Qualifiers: Pneumonia type: due to unspecified organism Laterality: unspecified laterality Lung location: unspecified part of lung Qualified Code(s) : J18.9 - Pneumonia, unspecified organism Is this a current diagnosis for this admission?: Yes
--- NOTE | 2016-07-28 21:07 | PDOC PROGRESS REPORT ---
Subjective Progress Note for:: 07/28/16 Subjective:: There is no new complaint today. He had dialysis Physical Exam Vital Signs: Temp Pulse Resp BP Pulse Ox 98.2 F 62 16 154/53 H 99 07/28/16 20:10 07/28/16 20:10 07/28/16 20:10 07/28/16 20:10 07/28/16 20:10 Intake & Output 07/27/16 07/28/16 07/29/16 06:59 06:59 06:59 Intake Total 712 1534 947 Output Total 4000 400 4500 Balance -3285 9954 -7117 Weight 140 kg 145 kg General appearance: PRESENT: no acute distress Eye exam: PRESENT: PERRLA Respiratory exam: PRESENT: clear to auscultation aguilar Cardiovascular exam: PRESENT: +S1, +S2 Results Laboratory Results: 07/28/16 07:47 07/28/16 07:47 07/28/16 07/28/16 07/28/16 07:47 07:47 07:47 WBC 9.4 RBC 2.78 L Hgb 8.7 L Hct 27.5 L MCV 99 H MCH 31.2 MCHC 31.4 L RDW 16.2 H Plt Count 238 Seg Neutrophils % 69.0 Lymphocytes % 13.9 Monocytes % 11.9 Eosinophils % 4.3 Basophils % 0.9 Absolute Neutrophils 6.5 Absolute Lymphocytes 1.3 Absolute Monocytes 1.1 Absolute Eosinophils 0.4 Absolute Basophils 0.1 Retic Count (auto) 2.58 Absolute Retic 0.072 Sodium 139.9 Potassium 3.6 Chloride 97 L Carbon Dioxide 28 Anion Gap 15 BUN 44 H Creatinine 5.61 H Est GFR ( Amer) 13 L Est GFR (Non-Af Amer) 10 L Glucose 159 H Calcium 8.9 Iron TIBC % Saturation Ferritin Total Bilirubin 0.4 AST 15 L ALT 21 Alkaline Phosphatase 97 Total Protein 6.9 Albumin 3.2 L Vitamin B12 Folate 07/28/16 07:47 WBC RBC Hgb Hct MCV MCH MCHC RDW Plt Count Seg Neutrophils % Lymphocytes % Monocytes % Eosinophils % Basophils % Absolute Neutrophils Absolute Lymphocytes Absolute Monocytes Absolute Eosinophils Absolute Basophils Retic Count (auto) Absolute Retic Sodium Potassium Chloride Carbon Dioxide Anion Gap BUN Creatinine Est GFR ( Amer) Est GFR (Non-Af Amer) Glucose Calcium Iron 42 L TIBC 181 L % Saturation 23 Ferritin 375.00 Total Bilirubin AST ALT Alkaline Phosphatase Total Protein Albumin Vitamin B12 736.0 Folate 9.06 07/26/16 07/26/16 07/26/16 12:56 19:50 23:52 CK-MB (CK-2) 4.06 2.85 2.53 Troponin I 0.050 0.061 0.054 NT-Pro-B Natriuret Pep 07/27/16 07/28/16 06:51 07:47 CK-MB (CK-2) Troponin I NT-Pro-B Natriuret Pep 7520 H 5790 H Impressions: Chest X-Ray 07/26/16 01:34 IMPRESSION: Evolved mild -moderate pulmonary edema pattern. Differential diagnosis includes CHF and pneumonia. Assessment & Plan - Diagnosis (1) Pneumonia Qualifiers: Pneumonia type: due to unspecified organism Laterality: unspecified laterality Lung location: unspecified part of lung Qualified Code(s) : J18.9 - Pneumonia, unspecified organism Is this a current diagnosis for this admission?: Yes
--- NOTE | 2016-07-29 08:50 | PDOC PROGRESS REPORT ---
Subjective Progress Note for:: 07/29/16 Subjective:: Patient is doing well this morning denied any chest pain or shortness of the breath still coughing on and off patient's admitted for the pneumonia and end- stage renal disease on hemodialysis is seen by Dr. Bojorquez also Physical Exam Vital Signs: Temp Pulse Resp BP Pulse Ox 97.5 F 70 16 153/55 H 99 07/29/16 07:46 07/29/16 07:46 07/29/16 07:46 07/29/16 07:46 07/29/16 07:46 Intake & Output 07/28/16 07/29/16 07/30/16 06:59 06:59 06:59 Intake Total 1534 1697 Output Total 400 4700 Balance 1134 -3003 Weight 145 kg 141.2 kg General appearance: PRESENT: no acute distress Head exam: PRESENT: normocephalic Eye exam: PRESENT: PERRLA Mouth exam: PRESENT: neck supple Neck exam: ABSENT: JVD Respiratory exam: PRESENT: clear to auscultation aguilar Cardiovascular exam: PRESENT: +S1, +S2 GI/Abdominal exam: PRESENT: normal bowel sounds, soft. ABSENT: tenderness Extremities exam: PRESENT: right BKA Neurological exam: PRESENT: alert, awake, oriented to person, oriented to place , oriented to time Psychiatric exam: PRESENT: normal mood Skin exam: PRESENT: normal color Results Laboratory Results: 07/28/16 07:47 07/28/16 07:47 07/28/16 07/28/16 07/28/16 07:47 07:47 07:47 Retic Count (auto) 2.58 Absolute Retic 0.072 Sodium 139.9 Potassium 3.6 Chloride 97 L Carbon Dioxide 28 Anion Gap 15 BUN 44 H Creatinine 5.61 H Est GFR ( Amer) 13 L Est GFR (Non-Af Amer) 10 L Glucose 159 H Calcium 8.9 Iron 42 L TIBC 181 L % Saturation 23 Ferritin 375.00 Total Bilirubin 0.4 AST 15 L ALT 21 Alkaline Phosphatase 97 Total Protein 6.9 Albumin 3.2 L Vitamin B12 736.0 Folate 9.06 07/26/16 07/26/16 07/26/16 12:56 19:50 23:52 CK-MB (CK-2) 4.06 2.85 2.53 Troponin I 0.050 0.061 0.054 NT-Pro-B Natriuret Pep 07/27/16 07/28/16 06:51 07:47 CK-MB (CK-2) Troponin I NT-Pro-B Natriuret Pep 7520 H 5790 H Impressions: Chest X-Ray 07/26/16 01:34 IMPRESSION: Evolved mild -moderate pulmonary edema pattern. Differential diagnosis includes CHF and pneumonia. Assessment & Plan - Diagnosis (1) Pneumonia Qualifiers: Pneumonia type: due to unspecified organism Laterality: bilateral Lung location: unspecified part of lung Qualified Code(s): J18.9 - Pneumonia, unspecified organism Is this a current diagnosis for this admission?: YesPlan: In his IV antibiotic (2) ESRD (end stage renal disease) on dialysis Is this a current diagnosis for this admission?: YesPlan: dialysis (3) Anemia Qualifiers: Other causes of anemia: chronic disease, kidney Is this a current diagnosis for this admission?: YesPlan: stable (4) Diabetes mellitus type 2 in nonobese Is this a current diagnosis for this admission?: YesPlan: Sliding scale - Time Time Spent with patient: 15-24 minutes Medications reviewed and adjusted accordingly: Yes Anticipated discharge: Home with Homehealth - Inpatient Certification Medical Necessity: Significant Comorbidiites Make Outpatient Treatment Too Risky , Need for IV Antibiotics - Plan Summary Plan Summary: continuee IV antibiotic
[2016-07-29] MEDS: ENOXAPARIN SODIUM INJ 30 MG/0.3 ML DISP.SYRIN SUBCUT SCH (10:42)
--- NOTE | 2016-07-29 15:18 | EKG REPORT ---
SEVERITY:- ABNORMAL ECG - SINUS RHYTHM FIRST DEGREE AV BLOCK PROBABLE LEFT ATRIAL ABNORMALITY NONSPECIFIC INTRAVENTRICULAR CONDUCTION DELAY : Confirmed by: Jena Chairez MD 29-Jul-2016 15:17:05
[2016-07-30] MEDS: ENOXAPARIN SODIUM INJ 30 MG/0.3 ML DISP.SYRIN SUBCUT SCH (09:12)
[2016-07-30] MEDS: LEVOFLOXACIN 500 MG/D5W RTU 500 MG/100 ML RTUPB IV SCH (09:13)
--- NOTE | 2016-07-30 12:55 | PDOC PROGRESS REPORT ---
Subjective Progress Note for:: 07/30/16 Subjective:: Patient is doing well this morning denied any chest pain or shortness of the breath still coughing on and off patient's admitted for the pneumonia and end- stage renal disease on hemodialysis is seen by Dr. Bojorquez also Physical Exam Vital Signs: Temp Pulse Resp BP Pulse Ox 98.3 F 72 16 162/87 H 99 07/30/16 07:46 07/30/16 07:46 07/30/16 07:46 07/30/16 07:46 07/30/16 07:46 Intake & Output 07/29/16 07/30/16 07/31/16 06:59 06:59 06:59 Intake Total 1697 1192 Output Total 4700 800 Balance -3003 392 Weight 141.2 kg 141.2 kg General appearance: PRESENT: no acute distress Eye exam: PRESENT: PERRLA Mouth exam: PRESENT: neck supple Neck exam: ABSENT: JVD Respiratory exam: PRESENT: clear to auscultation aguilar Cardiovascular exam: PRESENT: +S1, +S2 GI/Abdominal exam: PRESENT: normal bowel sounds, soft. ABSENT: tenderness Extremities exam: PRESENT: right BKA Neurological exam: PRESENT: alert, awake, oriented to person, oriented to place , oriented to time, oriented to situation Psychiatric exam: PRESENT: normal mood Skin exam: PRESENT: normal color Results Laboratory Results: 07/28/16 07:47 07/28/16 07:47 07/28/16 07:47 Transferrin 132 L 07/26/16 22:30 Sputum Gram Stain - Final 07/26/16 22:30 Sputum Sputum Culture - Final NORMAL SEBAS 07/26/16 07/26/16 07/26/16 12:56 19:50 23:52 CK-MB (CK-2) 4.06 2.85 2.53 Troponin I 0.050 0.061 0.054 NT-Pro-B Natriuret Pep 07/27/16 07/28/16 06:51 07:47 CK-MB (CK-2) Troponin I NT-Pro-B Natriuret Pep 7520 H 5790 H Impressions: Chest X-Ray 07/26/16 01:34 IMPRESSION: Evolved mild -moderate pulmonary edema pattern. Differential diagnosis includes CHF and pneumonia. Assessment & Plan - Diagnosis (1) Pneumonia Qualifiers: Pneumonia type: due to unspecified organism Laterality: bilateral Lung location: unspecified part of lung Qualified Code(s): J18.9 - Pneumonia, unspecified organism Is this a current diagnosis for this admission?: YesPlan: In his IV antibiotic (2) ESRD (end stage renal disease) on dialysis Is this a current diagnosis for this admission?: YesPlan: dialysis (3) Anemia Qualifiers: Other causes of anemia: chronic disease, kidney Is this a current diagnosis for this admission?: YesPlan: stable (4) Diabetes mellitus type 2 in nonobese Is this a current diagnosis for this admission?: YesPlan: Sliding scale - Time Time Spent with patient: 15-24 minutes Medications reviewed and adjusted accordingly: Yes Anticipated discharge: Other - Inpatient Certification Medical Necessity: Significant Comorbidiites Make Outpatient Treatment Too Risky
[2016-07-30] MEDS: INSULIN LISPRO 100 UNIT/ML 3 ML VIAL SUBCUT PRN ×2 (13:27→18:19)
[2016-07-31 08:21] LABS: HEMATOCRIT 28.4 % (37.9-51.0); HEMOGLOBIN 9.2 g/dL (13.5-17.0); HGB HCT DIFFERENCE -0.8; MEAN CORPUSCULAR HEMOGLOBIN 31.7 pg (27.0-33.4); MEAN CORPUSCULAR HGB CONC 32.3 g/dL (32.0-36.0); MEAN CORPUSCULAR VOLUME 98 fl (80-97); RED BLOOD COUNT 2.89 10^6/uL (4.35-5.55); RED CELL DISTRIBUTION WIDTH 16.5 % (11.5-14.0); WHITE BLOOD COUNT 7.2 10^3/uL (4.0-10.5)
[2016-07-31 08:47] LABS: ANION GAP 13 (5-19); BLOOD UREA NITROGEN 46 mg/dL (7-20); CALCIUM 9.6 mg/dL (8.4-10.2); CARBON DIOXIDE 29 mmol/L (22-30); CHLORIDE 100 mmol/L (98-107); CREATININE RESULT 5.43 mg/dL (0.52-1.25); GLUCOSE 182 mg/dL (75-110); POTASSIUM 4.2 mmol/L (3.6-5.0); SODIUM 141.9 mmol/L (137-145)
[2016-07-31] MEDS ORDERED: HEPARIN SOD (PORCINE) 1,000 UNIT/ML 10 ML VIAL IV PRN (09:57)
[2016-07-31] MEDS ORDERED: EPOETIN ALFA INJ 20000 UNIT/1 ML VIAL (RENAL) IV PRN (09:58)
--- NOTE | 2016-07-31 12:52 | PDOC PROGRESS REPORT ---
Subjective Progress Note for:: 07/31/16 Subjective:: Seen on dialysis today.Undergoing dialysis without any issues. Denies any chest pains, dyspnea, fever or chills.labs reviewed.Orders discussed with cement tester assistant. Physical Exam Vital Signs: Temp Pulse Resp BP Pulse Ox 99.0 F 68 12 166/76 H 97 07/31/16 04:20 07/31/16 04:20 07/31/16 04:20 07/31/16 04:20 07/31/16 04:20 Intake & Output 07/30/16 07/31/16 08/01/16 06:59 06:59 06:59 Intake Total 1192 1394 Output Total 800 375 Balance 392 1019 Weight 141.2 kg 135.2 kg General appearance: PRESENT: no acute distress Respiratory exam: PRESENT: clear to auscultation aguilar. ABSENT: crackles, rhonchi Cardiovascular exam: PRESENT: +S1, +S2, systolic murmur GI/Abdominal exam: PRESENT: soft. ABSENT: distended, firm, guarding, organomegaly, tenderness Extremities exam: PRESENT: +1 edema Neurological exam: PRESENT: alert, awake, oriented to person, oriented to place , oriented to time Results Laboratory Results: 07/31/16 07:56 07/31/16 07:56 07/31/16 07/31/16 07:56 07:56 WBC 7.2 RBC 2.89 L Hgb 9.2 L Hct 28.4 L MCV 98 H MCH 31.7 MCHC 32.3 RDW 16.5 H Plt Count 254 Sodium 141.9 Potassium 4.2 Chloride 100 Carbon Dioxide 29 Anion Gap 13 BUN 46 H Creatinine 5.43 H Est GFR ( Amer) 13 L Est GFR (Non-Af Amer) 11 L Glucose 182 H Calcium 9.6 07/26/16 07/26/16 07/26/16 12:56 19:50 23:52 CK-MB (CK-2) 4.06 2.85 2.53 Troponin I 0.050 0.061 0.054 NT-Pro-B Natriuret Pep 07/27/16 07/28/16 06:51 07:47 CK-MB (CK-2) Troponin I NT-Pro-B Natriuret Pep 7520 H 5790 H Impressions: Chest X-Ray 01/25/17 01:34 IMPRESSION: Evolved mild -moderate pulmonary edema pattern. Differential diagnosis includes CHF and pneumonia. Assessment & Plan - Diagnosis (1) ESRD (end stage renal disease) on dialysis Is this a current diagnosis for this admission?: YesPlan: Seen on HD.No issues.Plan to UF x 1-2 L as tolerated. (2) Pneumonia Qualifiers: Pneumonia type: due to unspecified organism Laterality: bilateral Lung location: unspecified part of lung Qualified Code(s): J18.9 - Pneumonia, unspecified organism Is this a current diagnosis for this admission?: YesPlan: On antibiotics. (3) Seizure disorder Plan: stable. (5) Anemia Qualifiers: Other causes of anemia: chronic disease, kidney Is this a current diagnosis for this admission?: YesPlan: Adjust EPO dose.Iron levels are adequate (6) Diabetes mellitus type 2 in obese Plan: Advised on sugar control
[2016-07-31] MEDS: ENOXAPARIN SODIUM INJ 30 MG/0.3 ML DISP.SYRIN SUBCUT SCH (16:58)
[2016-07-31] MEDS: VANCOMYCIN HCL 750 MG in DEXTROSE 5%-WATER 250 ML IV SCH (16:58)
[2016-07-31] MEDS ORDERED: VANCOMYCIN HCL 750 MG in DEXTROSE 5%-WATER 250 ML IV ONE (21:30)
[2016-08-01] MEDS ORDERED: (PENDING PHARMACY ID) (Levetiracetam [Keppra] 250 MG) PO SCH (10:00)
[2016-08-01] MEDS ORDERED: (PENDING PHARMACY ID) (Linagliptin [Tradjenta] 5 MG) PO SCH (10:00)
[2016-08-01] MEDS ORDERED: LEVOFLOXACIN 500 MG TABLET PO SCH (10:00)
[2016-08-01] MEDS: ENOXAPARIN SODIUM INJ 30 MG/0.3 ML DISP.SYRIN SUBCUT SCH (10:43)
[2016-08-01] MEDS: LOSARTAN POTASSIUM 50 MG TABLET PO SCH (10:44)
[2016-08-01] MEDS: DIVALPROEX SODIUM 500 MG TAB.SR.24H PO SCH (10:44)
[2016-08-01] MEDS: METOPROLOL SUCCINATE 50 MG TAB.SR.24H PO SCH (10:45)
[2016-08-01] MEDS: ISOSORBIDE MONONITRATE 30 MG TAB.ER.24H PO SCH (10:45)
[2016-08-01] MEDS: LEVETIRACETAM 500 MG TABLET PO SCH (10:45)
[2016-08-01] MEDS: TAMSULOSIN HCL 0.4 MG CAP.SR.24H PO SCH (10:46)
[2016-08-01] MEDS: FINASTERIDE 5 MG TABLET PO SCH (10:46)
[2016-08-01] MEDS: LANSOPRAZOLE 15 MG TAB.RAP.DR PO SCH (10:46)
[2016-08-01] MEDS ORDERED: INSULIN GLARGINE,HUM.REC.ANLOG 300 UNIT/3 ML INSULN.PEN SUBCUT ONE (11:00)
[2016-08-01] MEDS: SITAGLIPTIN PHOSPHATE 25 MG TABLET PO SCH (12:40)
[2016-08-01] MEDS: GABAPENTIN 400 MG CAPSULE PO SCH ×2 (13:40→22:13)
[2016-08-01] MEDS: HYDRALAZINE HCL 50 MG TABLET PO SCH ×2 (13:40→23:43)
[2016-08-01] MEDS: INSULIN LISPRO 100 UNIT/ML 3 ML VIAL SUBCUT PRN ×2 (17:30→22:14)
--- NOTE | 2016-08-01 20:28 | PDOC PROGRESS REPORT ---
Subjective Progress Note for:: 07/31/16 Subjective:: There is no new complaint today. He had dialysis Physical Exam Vital Signs: Temp Pulse Resp BP Pulse Ox 99.0 F 63 12 166/76 H 97 07/31/16 04:20 07/31/16 14:00 07/31/16 04:20 07/31/16 04:20 07/31/16 04:20 Intake & Output 07/30/16 07/31/16 08/01/16 06:59 06:59 06:59 Intake Total 1192 1394 710 Output Total 925 162 2296 Balance 392 1019 -3390 Weight 141.2 kg 135.2 kg General appearance: PRESENT: no acute distress Eye exam: PRESENT: PERRLA Respiratory exam: PRESENT: clear to auscultation aguilar Cardiovascular exam: PRESENT: +S1, +S2 GI/Abdominal exam: PRESENT: soft Neurological exam: PRESENT: alert Results Laboratory Results: 07/31/16 07:56 07/31/16 07:56 07/31/16 07/31/16 07:56 07:56 WBC 7.2 RBC 2.89 L Hgb 9.2 L Hct 28.4 L MCV 98 H MCH 31.7 MCHC 32.3 RDW 16.5 H Plt Count 254 Sodium 141.9 Potassium 4.2 Chloride 100 Carbon Dioxide 29 Anion Gap 13 BUN 46 H Creatinine 5.43 H Est GFR ( Amer) 13 L Est GFR (Non-Af Amer) 11 L Glucose 182 H Calcium 9.6 07/26/16 07/26/16 07/26/16 12:56 19:50 23:52 CK-MB (CK-2) 4.06 2.85 2.53 Troponin I 0.050 0.061 0.054 NT-Pro-B Natriuret Pep 07/27/16 07/28/16 06:51 07:47 CK-MB (CK-2) Troponin I NT-Pro-B Natriuret Pep 7520 H 5790 H Impressions: Chest X-Ray 07/26/16 01:34 IMPRESSION: Evolved mild -moderate pulmonary edema pattern. Differential diagnosis includes CHF and pneumonia. Assessment & Plan - Diagnosis (1) Pneumonia Qualifiers: Pneumonia type: due to unspecified organism Laterality: unspecified laterality Lung location: unspecified part of lung Qualified Code(s) : J18.9 - Pneumonia, unspecified organism Is this a current diagnosis for this admission?: Yes (2) ESRD (end stage renal disease) on dialysis Is this a current diagnosis for this admission?: Yes
[2016-08-01] MEDS ORDERED: CLONIDINE HCL 0.1 MG TABLET PO SCH (22:00)
[2016-08-01] MEDS: TRAMADOL HCL 50 MG TABLET PO PRN (22:13)
[2016-08-02] MEDS: HYDRALAZINE HCL 50 MG TABLET PO SCH (05:13)
[2016-08-02] MEDS: GABAPENTIN 400 MG CAPSULE PO SCH ×2 (06:16→13:11)
[2016-08-02] MEDS: TRAMADOL HCL 50 MG TABLET PO PRN (06:16)
[2016-08-02 06:22] LABS: ABSOLUTE BASOPHILS # (AUTO) 0.1 10^3/uL (0.0-0.2); ABSOLUTE EOSINOPHILS # (AUTO) 0.3 10^3/uL (0.0-0.6); ABSOLUTE LYMPHOCYTES (AUTO) 1.7 10^3/uL (0.5-4.7); ABSOLUTE MONOCYTES (AUTO) 0.9 10^3/uL (0.1-1.4); ABSOLUTE NEUT (AUTO) 4.5 10^3/uL (1.7-8.2); BASOPHILS % (AUTO) 1.3 % (0-2); EOSINOPHILS % (AUTO) 3.9 % (0-6); HEMATOCRIT 30.9 % (37.9-51.0); HGB HCT DIFFERENCE -0.9; MEAN CORPUSCULAR HEMOGLOBIN 31.5 pg (27.0-33.4); MEAN CORPUSCULAR HGB CONC 32.3 g/dL (32.0-36.0); MEAN CORPUSCULAR VOLUME 97 fl (80-97); MONOCYTES % (AUTO) 11.6 % (3-13); RED BLOOD COUNT 3.17 10^6/uL (4.35-5.55); RED CELL DISTRIBUTION WIDTH 16.4 % (11.5-14.0); SEGMENTED NEUTROPHILS % (AUTO) 60.2 % (42-78); WHITE BLOOD COUNT 7.5 10^3/uL (4.0-10.5)
[2016-08-02 06:41] LABS: ANION GAP 15 (5-19); BLOOD UREA NITROGEN 39 mg/dL (7-20); CALCIUM 9.3 mg/dL (8.4-10.2); CARBON DIOXIDE 27 mmol/L (22-30); CHLORIDE 98 mmol/L (98-107); CREATININE RESULT 5.84 mg/dL (0.52-1.25); GLUCOSE 145 mg/dL (75-110); POTASSIUM 4.7 mmol/L (3.6-5.0); SODIUM 139.9 mmol/L (137-145)
[2016-08-02] MEDS ORDERED: INSULIN GLARGINE,HUM.REC.ANLOG 300 UNIT/3 ML INSULN.PEN SUBCUT SCH (10:00)
[2016-08-02] MEDS ORDERED: HEPARIN SOD (PORCINE) 1,000 UNIT/ML 10 ML VIAL IV PRN (10:10)
--- NOTE | 2016-08-02 11:26 | PDOC PROGRESS REPORT ---
Subjective Progress Note for:: 08/02/16 Subjective:: Seen on dialysis today.His blood pressures on the low side with around upper 90s systolics. Undergoing dialysis without any issues. Denies any chest pains, dyspnea, fever or chills.labs reviewed.Orders discussed with speeder machine operator. Physical Exam Vital Signs: Temp Pulse Resp BP Pulse Ox 97.3 F 56 L 16 96/45 L 100 08/02/16 03:37 08/02/16 07:00 08/02/16 03:37 08/02/16 03:37 08/02/16 03:37 Intake & Output 08/01/16 08/02/16 08/03/16 06:59 06:59 06:59 Intake Total 1216 1258 Output Total 4400 250 Balance -3184 1008 Weight 134.8 kg 134.3 kg General appearance: PRESENT: no acute distress Respiratory exam: PRESENT: clear to auscultation aguilar, symmetrical. ABSENT: crackles, rhonchi Cardiovascular exam: PRESENT: +S1, +S2, systolic murmur GI/Abdominal exam: PRESENT: soft. ABSENT: distended, firm, guarding, organomegaly, tenderness Extremities exam: PRESENT: pedal edema Neurological exam: PRESENT: alert, oriented to person, oriented to place, oriented to time Results Laboratory Results: 08/02/16 06:07 08/02/16 06:07 08/02/16 08/02/16 06:07 06:07 WBC 7.5 RBC 3.17 L Hgb 10.0 L Hct 30.9 L MCV 97 MCH 31.5 MCHC 32.3 RDW 16.4 H Plt Count 245 Seg Neutrophils % 60.2 Lymphocytes % 23.0 Monocytes % 11.6 Eosinophils % 3.9 Basophils % 1.3 Absolute Neutrophils 4.5 Absolute Lymphocytes 1.7 Absolute Monocytes 0.9 Absolute Eosinophils 0.3 Absolute Basophils 0.1 Sodium 139.9 Potassium 4.7 Chloride 98 Carbon Dioxide 27 Anion Gap 15 BUN 39 H Creatinine 5.84 H Est GFR ( Amer) 12 L Est GFR (Non-Af Amer) 10 L Glucose 145 H Calcium 9.3 07/27/16 06:51 Blood Blood Culture - Final NO GROWTH IN 5 DAYS 07/26/16 07/26/16 07/26/16 12:56 19:50 23:52 CK-MB (CK-2) 4.06 2.85 2.53 Troponin I 0.050 0.061 0.054 NT-Pro-B Natriuret Pep 07/27/16 07/28/16 06:51 07:47 CK-MB (CK-2) Troponin I NT-Pro-B Natriuret Pep 7520 H 5790 H Impressions: Chest X-Ray 07/26/16 01:34 IMPRESSION: Evolved mild -moderate pulmonary edema pattern. Differential diagnosis includes CHF and pneumonia. Assessment & Plan - Diagnosis (1) ESRD (end stage renal disease) on dialysis Is this a current diagnosis for this admission?: YesPlan: Seen on HD. Blood pressure is in the upper 90s. Patient has been primed with saline as discussed with Bettye the treating nurse. Will monitor and see if he needs more priming. Patient asymptomatic.Plan to UF x 500 - 1 l L as tolerated. (2) Pneumonia Qualifiers: Pneumonia type: due to unspecified organism Laterality: bilateral Lung location: unspecified part of lung Qualified Code(s): J18.9 - Pneumonia, unspecified organism Is this a current diagnosis for this admission?: YesPlan: On antibiotics. (3) Seizure disorder Plan: stable. (5) Anemia Qualifiers: Other causes of anemia: chronic disease, kidney Is this a current diagnosis for this admission?: YesPlan: Adjust EPO dose.Iron levels are adequate (6) Diabetes mellitus type 2 in obese Plan: Advised on sugar control
[2016-08-02] MEDS: METOPROLOL SUCCINATE 50 MG TAB.SR.24H PO SCH (12:43)
[2016-08-02] MEDS: ISOSORBIDE MONONITRATE 30 MG TAB.ER.24H PO SCH (12:43)
[2016-08-02] MEDS: ENOXAPARIN SODIUM INJ 30 MG/0.3 ML DISP.SYRIN SUBCUT SCH (12:43)
[2016-08-02] MEDS: LOSARTAN POTASSIUM 50 MG TABLET PO SCH (12:43)
[2016-08-02] MEDS: TAMSULOSIN HCL 0.4 MG CAP.SR.24H PO SCH (12:48)
[2016-08-02] MEDS: LEVETIRACETAM 500 MG TABLET PO SCH (13:10)
[2016-08-02] MEDS: DIVALPROEX SODIUM 500 MG TAB.SR.24H PO SCH (13:11)
[2016-08-02] MEDS: SITAGLIPTIN PHOSPHATE 25 MG TABLET PO SCH (13:12)
[2016-08-02] MEDS: LANSOPRAZOLE 15 MG TAB.RAP.DR PO SCH (13:12)
[2016-08-02] MEDS: FINASTERIDE 5 MG TABLET PO SCH (13:12)
--- NOTE | 2016-08-02 15:06 | PDOC DISCHARGE SUMMARY ---
General - Admit/Disc Date/PCP Admission Date/Primary Care Provider: 07/26/16 07:32 VIRIDIANA LEHMAN, Discharge Date: 08/02/16 - Discharge Diagnosis (1) Pneumonia Is this a current diagnosis for this admission?: Yes (2) ESRD (end stage renal disease) on dialysis Is this a current diagnosis for this admission?: Yes (3) Essential hypertension Is this a current diagnosis for this admission?: Yes (4) Diabetes mellitus type 2 in obese Is this a current diagnosis for this admission?: Yes (5) CAD (coronary artery disease) Is this a current diagnosis for this admission?: Yes - Additional Information Discharge Activity: Activity As Tolerated Home Medications: Clonidine HCl [Catapres 0.1 mg Tablet] 0.1 mg PO QHS 07/26/16 Divalproex Sodium [Depakote ER 500 mg Tab.sr] 500 mg PO DAILY 07/26/16 Finasteride [Proscar 5 mg Tablet] 5 mg PO DAILY 07/26/16 Gabapentin [Neurontin] 800 mg PO Q8 07/26/16 Hydralazine HCl [Apresoline 50 mg Tablet] 100 mg PO Q8 07/26/16 Insulin Glargine,Hum.rec.anlog [Lantus Solostar] 12 units SQ DAILY 07/26/16 Isosorbide Mononitrate [Imdur 30 mg Tablet.er] 30 mg PO DAILY 07/26/16 Levetiracetam [Keppra] 250 mg PO DAILY 07/26/16 Linagliptin [Tradjenta] 5 mg PO DAILY 07/26/16 Losartan Potassium [Cozaar 100 mg Tablet] 100 mg PO DAILY 07/26/16 Metoprolol Succinate [Toprol XL 100 mg Tablet] 100 mg PO DAILY 07/26/16 Omeprazole 20 mg PO DAILY 07/26/16 Tamsulosin HCl [Flomax 0.4 mg Cap.sr] 0.4 mg PO PCBRKFST 07/26/16 History of Present Illness History of Present Illness: Patient 61-year-old male. He was draws discharged from this hospital on 2016 when he was admitted for pneumonia, he has end-stage renal disease on hemodialysis. He came to the emergency room because of a fall, in the ER was evaluated and it was thought to have pneumonia. Chest x-ray showed patchy air space disease in the right lung. The biggest challenge for this patient is a social problem, he lives alone and he has no help, is an amputee and he cannot care for himself. This is the third admission within 30 days and he usually will present in similar fashion Hospital Course Hospital Course: Patient was admitted because of pneumonia, he has end-stage renal disease on maintenance hemodialysis, he was hemodialyzed in the hospital. He was treated with IV antibiotic with good response. Part of the challenge for this patient is Social, he lives alone and is on amputee and also very obese. He has no one to help him at home with with routine shores. He was seen in consultation by the automotive sales professional, Dr. Fabio Bojorquez. Discharge planning is making arrangements for home health nurse, home physical therapy and other assistance that he may need at home. Physical Exam Vital Signs: Temp Pulse Resp BP Pulse Ox 97.3 F 68 16 96/45 L 100 08/02/16 03:37 08/02/16 14:00 08/02/16 03:37 08/02/16 03:37 08/02/16 03:37 Intake & Output 08/01/16 08/02/16 08/03/16 06:59 06:59 06:59 Intake Total 1216 1258 Output Total 4400 250 Balance -3184 1008 Weight 134.8 kg 134.3 kg General appearance: PRESENT: no acute distress Eye exam: PRESENT: PERRLA Respiratory exam: PRESENT: clear to auscultation aguilar Cardiovascular exam: PRESENT: +S1, +S2 GI/Abdominal exam: PRESENT: soft Neurological exam: PRESENT: CN II-XII grossly intact Results Laboratory Results: 08/02/16 06:07 08/02/16 06:07 08/02/16 08/02/16 06:07 06:07 WBC 7.5 RBC 3.17 L Hgb 10.0 L Hct 30.9 L MCV 97 MCH 31.5 MCHC 32.3 RDW 16.4 H Plt Count 245 Seg Neutrophils % 60.2 Lymphocytes % 23.0 Monocytes % 11.6 Eosinophils % 3.9 Basophils % 1.3 Absolute Neutrophils 4.5 Absolute Lymphocytes 1.7 Absolute Monocytes 0.9 Absolute Eosinophils 0.3 Absolute Basophils 0.1 Sodium 139.9 Potassium 4.7 Chloride 98 Carbon Dioxide 27 Anion Gap 15 BUN 39 H Creatinine 5.84 H Est GFR ( Amer) 12 L Est GFR (Non-Af Amer) 10 L Glucose 145 H Calcium 9.3 07/26/16 07/26/16 07/26/16 12:56 19:50 23:52 CK-MB (CK-2) 4.06 2.85 2.53 Troponin I 0.050 0.061 0.054 NT-Pro-B Natriuret Pep 07/27/16 07/28/16 06:51 07:47 CK-MB (CK-2) Troponin I NT-Pro-B Natriuret Pep 7520 H 5790 H Impressions: Chest X-Ray 07/26/16 01:34 IMPRESSION: Evolved mild -moderate pulmonary edema pattern. Differential diagnosis includes CHF and pneumonia.
[2016-08-02 15:42] VITALS: BP 137/65
== END 2016-08-02 17:02 | disposition home health service (06) | DRG 193 ==
LOC: ER 19:56 → EH 07-26 05:24 → UNDOADMIN 07-26 05:24 → EH 07-26 07:32 → 3W 07-26 22:19
PROVIDERS: ADMIT Internal Medicine; ATTEND Internal Medicine
PROC: 5A1D60Z (ICD-10-PCS; principal; 2016-07-26)
DX: J18.9 Pneumonia, unspecified organism (principal); N18.6 End stage renal disease; I13.2 Hypertensive heart and chronic kidney disease with heart failure and with stage 5 chronic kidney disease, or end stage renal disease; E11.22 Type 2 diabetes mellitus with diabetic chronic kidney disease; E78.5 Hyperlipidemia, unspecified; I50.9 Heart failure, unspecified; I25.10 Atherosclerotic heart disease of native coronary artery without angina pectoris; G40.909 Epilepsy, unspecified, not intractable, without status epilepticus; D63.1 Anemia in chronic kidney disease; E11.51 Type 2 diabetes mellitus with diabetic peripheral angiopathy without gangrene; K21.9 Gastro-esophageal reflux disease without esophagitis; M19.90 Unspecified osteoarthritis, unspecified site; D72.829 Elevated white blood cell count, unspecified; J45.909 Unspecified asthma, uncomplicated; Z89.511 Acquired absence of right leg below knee; Z82.61 Family history of arthritis; Z82.3 Family history of stroke; Z79.4 Long term (current) use of insulin; Z88.0 Allergy status to penicillin; Z79.899 Other long term (current) drug therapy; Z86.73 Personal history of transient ischemic attack (TIA), and cerebral infarction without residual deficits; Z95.5 Presence of coronary angioplasty implant and graft; Z60.2 Problems related to living alone; Z91.19 Patient's noncompliance with other medical treatment and regimen
CPT/HCPCS: 36415; 71010; 80048; 80061; 80074; 80076; 80202; 82140; 82553; 82607; 82728; 82746; 82962; 83036; 83540; 83550; 83690; 83735; 83880; 84100; 84439; 84443; 84466; 84484; 85025; 85027; 85045; 87040; 87070; 87205; 87340; 93005; 93010; 93306; 99285; J1644; J1650; J1815; J1956; J3370; J7060; Q4081

== ENCOUNTER 2016-08-13 01:49 | Emergency (ER) | payer MEDICAID ==
[2016-08-13] MEDS ORDERED: ASPIRIN 81 MG TABLET, CHEWABLE PO ONE (01:51)
[2016-08-13] MEDS ORDERED: ONDANSETRON 4 MG TAB.RAPDIS PO ONE (02:03)
--- NOTE | 2016-08-13 02:05 | ER Document Report ---
ED General - General Chief Complaint: Chest Pain Stated Complaint: CHEST PAIN Time seen by provider: 02:04 Notes: Patient is a 61-year-old male that comes emergency department for chief complaint of persistent vomiting, chills, sweats, shortness of breath, and a sharp chest pain on the left side of his chest symptoms began 2 hours ago. States he has vomited more than 10 times. Patient states he is getting doses of antibiotics at dialysis for a recent pneumonia. Last dialysis was Sunday. Past medical history of SD, end-stage renal disease, CHF, type II diabetes, LE amputation. TRAVEL OUTSIDE OF THE [place] IN LAST 30 DAYS: No - Related Data Allergies/Adverse Reactions: Penicillins Allergy (Verified 07/03/16 18:10) Past Medical History - General Information source: Patient, Emergency Med Personnel - Social History Smoking Status: Never Smoker Family History: Arthritis, CAD, CVA, DM, Hyperlipidemia, Hypertension - Past Medical History Cardiac Medical History: Reports: Hx Congestive Heart Failure, Hx Coronary Artery Disease, Hx Heart Attack, Hx Hypercholesterolemia, Hx Hypertension, Hx Peripheral Vascular Disease Pulmonary Medical History: Reports: Hx Asthma Denies: Hx Bronchitis, Hx COPD, Hx Pneumonia Neurological Medical History: Reports: Hx Cerebrovascular Accident - X2, Hx Seizures - 2015 Endocrine Medical History: Reports: Hx Diabetes Mellitus Type 1, Hx Diabetes Mellitus Type 2 Renal/ Medical History: Reports: Hx End Stage Renal Disease, Hx Hemodialysis, Hx Renal Insufficiency. Denies: Hx Peritoneal Dialysis GI Medical History: Reports: Hx Gastroesophageal Reflux Disease Musculoskeltal Medical History: Reports Hx Arthritis, Reports Hx Musculoskeletal Deformity - right BKA, Reports Hx Musculoskeletal Trauma Psychiatric Medical History: Reports: Hx Depression Past Surgical History: Reports: Hx Cardiac Catheterization, Hx Cardiac Surgery - Stent placement x 6, Hx Coronary Stent - x6, Hx Orthopedic Surgery - right BKA , Hx Vascular Surgery - Right subclavian PermCath - Immunizations Immunizations up to date: Yes Hx Diphtheria, Pertussis, Tetanus Vaccination: Yes Hx Pneumococcal Vaccination: 07/02/12 Review of Systems - Review of Systems Constitutional: No symptoms reported EENT: No symptoms reported Cardiovascular: See HPI Respiratory: See HPI Gastrointestinal: See HPI Genitourinary: No symptoms reported Male Genitourinary: No symptoms reported Musculoskeletal: No symptoms reported Skin: No symptoms reported Hematologic/Lymphatic: No symptoms reported Neurological/Psychological: No symptoms reported Physical Exam - Vital signs Vitals: Pulse Ox 100 08/13/16 01:51 Interpretation: Normal - General General appearance: Alert, Anxious In distress: Mild - Patient appears mildly uncomfortable - HEENT Head: Normocephalic, Atraumatic Eyes: Normal Pupils: PERRL - Respiratory Respiratory status: No respiratory distress Chest status: Nontender Breath sounds: Normal. No: Decreased air movement, Wheezing Chest palpation: Normal - Cardiovascular Rhythm: Regular. No: Tachycardia Heart sounds: Normal auscultation, S1 appreciated, S2 appreciated Murmur: No - Abdominal Inspection: Normal Distension: No distension Bowel sounds: Normal Tenderness: Tender - Very mild generalized upper abdominal tenderness, nonspecific, no guarding - Back Back: Normal, Nontender - Extremities General upper extremity: Normal inspection, Nontender, Normal color, Normal ROM , Normal temperature General lower extremity: Other - Lower extremity amputee - Neurological Neuro grossly intact: Yes Cognition: Normal Orientation: AAOx4 [place] Coma Scale Eye Opening: Spontaneous [place] Coma Scale Verbal: Oriented [place] Coma Scale Motor: Obeys Commands [place] Coma Scale Total: 15 Speech: Normal Motor strength normal: LUE, RUE, LLE, RLE Sensory: Normal - Psychological Associated symptoms: Normal affect, Normal mood - Skin Skin Temperature: Warm Skin Moisture: Dry Skin Color: Normal Course - Re-evaluation Re-evalutation: CBC, chemistry at baseline, cardiac enzyme indeterminate, this is patient's baseline, chest x-ray is unremarkable. Patient has some epigastric tenderness on exam, mild, when asked to clarify where his chest pain is he points to his left upper abdomen. Patient given zofran, did vomit again, will be given phenergan. 08/13/16 05:31 Patient was sleeping soundly on reevaluation, on second reevaluation patient awake, states he has "heartburn", otherwise he states he feels fine. Cardiac enzymes cycled, no significant change, patient tolerated Phenergan, Pepcid, Maalox, by mouth fluids. Discussed with patient, patient will follow- up with primary care this week, dialysis, instructed to return if he develops uncontrolled vomiting, pain in his chest, shortness of breath, or any other concerning symptoms. Patient states understanding and agreement with plan. I did offer patient to help him find services for people would check on him routinely or even home health, patient declines, patient states that he has "neighbors everywhere that take care" of him, states he is fine and he does not need anything - Vital Signs Vital signs: Temp Pulse Resp BP Pulse Ox 98.7 F 16 172/79 H 98 08/13/16 02:02 08/13/16 06:32 08/13/16 07:31 08/13/16 06:32 - Laboratory Result Diagrams: 08/13/16 02:25 08/13/16 02:25 Laboratory results interpreted by me: 08/13/16 08/13/16 02:25 02:25 RBC 3.55 L Hgb 10.9 L Hct 34.6 L MCHC 31.6 L RDW 16.7 H Seg Neutrophils % 84.2 H Lymphocytes % 8.8 L BUN 24 H Creatinine 3.93 H Est GFR ( Amer) 19 L Est GFR (Non-Af Amer) 16 L Glucose 192 H ALT 18 L Alkaline Phosphatase 131 H Discharge - Discharge Clinical Impression: Nausea and vomiting Qualifiers: Vomiting type: unspecified Vomiting Intractability: non-intractable Qualified Code(s): R11.2 - Nausea with vomiting, unspecified Chest pain Qualifiers: Chest pain type: unspecified Qualified Code(s): R07.9 - Chest pain, unspecified Abdominal pain Qualifiers: Abdominal location: unspecified location Qualified Code(s): R10.9 - Unspecified abdominal pain Condition: Stable Disposition: HOME, SELF-CARE Additional Instructions: Take the nausea medication as prescribed if needed, start with liquids and bland food. Follow-up with your primary care provider this week. Return to the emergency department for any concerning or worsening symptoms. Prescriptions: Promethazine HCl [Phenergan 25 mg Tablet] 1 - 2 tab PO Q6H PRN #20 tablet PRN Reason:
[2016-08-13 02:44] LABS: ABSOLUTE BASOPHILS # (AUTO) 0.1 10^3/uL (0.0-0.2); ABSOLUTE LYMPHOCYTES (AUTO) 0.7 10^3/uL (0.5-4.7); ABSOLUTE MONOCYTES (AUTO) 0.5 10^3/uL (0.1-1.4); EOSINOPHILS % (AUTO) 0.4 % (0-6); HEMATOCRIT 34.6 % (37.9-51.0); HEMOGLOBIN 10.9 g/dL (13.5-17.0); HGB HCT DIFFERENCE -1.9; LYMPHOCYTES % (AUTO) 8.8 % (13-45); MEAN CORPUSCULAR HEMOGLOBIN 30.8 pg (27.0-33.4); MEAN CORPUSCULAR HGB CONC 31.6 g/dL (32.0-36.0); MEAN CORPUSCULAR VOLUME 97 fl (80-97); MONOCYTES % (AUTO) 5.6 % (3-13); RED BLOOD COUNT 3.55 10^6/uL (4.35-5.55); RED CELL DISTRIBUTION WIDTH 16.7 % (11.5-14.0); SEGMENTED NEUTROPHILS % (AUTO) 84.2 % (42-78); WHITE BLOOD COUNT 8.3 10^3/uL (4.0-10.5)
[2016-08-13 02:57] LABS: ALANINE AMINOTRANSFERASE 18 U/L (21-72); ALBUMIN 3.8 g/dL (3.5-5.0); ALKALINE PHOSPHATASE 131 U/L (38-126); ANION GAP 13 (5-19); ASPARTATE AMINO TRANSFERASE 24 U/L (17-59); BILIRUBIN,TOTAL 0.7 mg/dL (0.2-1.3); BLOOD UREA NITROGEN 24 mg/dL (7-20); CALCIUM 9.4 mg/dL (8.4-10.2); CARBON DIOXIDE 30 mmol/L (22-30); CHLORIDE 99 mmol/L (98-107); CREATINE KINASE 86 U/L (55-170); CREATININE RESULT 3.93 mg/dL (0.52-1.25); GLUCOSE 192 mg/dL (75-110); POTASSIUM 3.8 mmol/L (3.6-5.0); SODIUM 141.5 mmol/L (137-145); TOTAL PROTEIN 7.9 g/dL (6.3-8.2)
[2016-08-13 03:09] LABS: CREATINE KINASE MB 1.94 ng/mL (<4.55); TROPONIN I 0.057 ng/mL
[2016-08-13] MEDS ORDERED: MAG HYDROX/AL HYDROX/SIMETH SUSP 30 ML UDCUP PO ONE (05:31)
[2016-08-13] MEDS ORDERED: FAMOTIDINE 20 MG TABLET PO ONE (05:31)
[2016-08-13] MEDS ORDERED: PROMETHAZINE HCL 25 MG TABLET PO ONE (06:00)
[2016-08-13 08:30] VITALS: BP 172/74
--- NOTE | 2016-08-13 11:07 | EKG REPORT ---
SEVERITY:- ABNORMAL ECG - SINUS RHYTHM LATERAL INFARCT, OLD BORDERLINE PROLONGED QT INTERVAL : Confirmed by: Vincent Cruz MD 13-Aug-2016 11:06:23
== END 2016-08-13 08:41 | disposition home or self-care (01) ==
LOC: ER 01:49
DX: R07.9 Chest pain, unspecified (principal); R11.2 Nausea with vomiting, unspecified; R10.9 Unspecified abdominal pain
CPT/HCPCS: 93005; 99285; 36415; 87040; 82553; 82550; 85025; 87077; 80053; 84484; 87186; 71010; 93010; J3490 ×3; S0119

== ENCOUNTER 2016-09-26 05:17 | Day surgery (SDC) | payer MEDICAID ==
[~2016-09-26 05:17] MED LIST changes: -VANCOMYCIN HCL 500 MG in DEXTROSE 5%-WATER 100 ML IV SCH
[2016-09-26] MEDS ORDERED: VANCOMYCIN HCL INJ 500 MG VIAL IV PRN (05:22)
[2016-09-26] MEDS ORDERED: METOPROLOL SUCCINATE 50 MG TAB.SR.24H PO ONE (05:43)
[2016-09-26 06:01] VITALS: BP 148/87
[2016-09-26] MEDS ORDERED: ALBUTEROL SULFATE 0.083% NEB 2.5 MG/3 ML AMPUL NEB ONE (06:51)
== END 2016-09-26 08:35 | disposition home or self-care (01) ==
LOC: OROUT 05:17
PROVIDERS: ATTEND Surgery
DX: T82.858A Stenosis of other vascular prosthetic devices, implants and grafts, initial encounter (principal); N18.6 End stage renal disease; Z99.2 Dependence on renal dialysis; Z53.9 Procedure and treatment not carried out, unspecified reason
CPT/HCPCS: 71010; 94640; J3490

== ENCOUNTER 2016-10-17 06:54 | Day surgery (SDC) | payer MEDICAID ==
[~2016-10-17 06:54] MED LIST changes: +BACITRACIN INJ 50,000 UNIT VIAL ONE; +BUPIVACAINE HCL 0.25 % INJ/PF (2.5 MG/1 ML) 30 ML VIAL ONE; +HEPARIN SOD (PORCINE) 1,000 UNIT/ML 10 ML VIAL ONE; +LIDOCAINE 0.5% INJ-PF (5 MG/ML) 50 ML SDV ONE; +LIDOCAINE 1% INJ-PF (10 MG/ML) 30 ML SDV ONE
[2016-10-17] MEDS ORDERED: ALBUTEROL SULFATE 0.083% NEB 2.5 MG/3 ML AMPUL NEB ONE (07:41)
[2016-10-17 07:42] LABS: HEMATOCRIT 35.5 % (37.9-51.0); HEMOGLOBIN 11.6 g/dL (13.5-17.0); HGB HCT DIFFERENCE -0.7; MEAN CORPUSCULAR HEMOGLOBIN 32.2 pg (27.0-33.4); MEAN CORPUSCULAR HGB CONC 32.5 g/dL (32.0-36.0); MEAN CORPUSCULAR VOLUME 99 fl (80-97); RED BLOOD COUNT 3.59 10^6/uL (4.35-5.55); RED CELL DISTRIBUTION WIDTH 17.9 % (11.5-14.0); WHITE BLOOD COUNT 7.8 10^3/uL (4.0-10.5)
[2016-10-17] MEDS ORDERED: KETAMINE HCL INJ 500 MG/10 ML VIAL ONE (07:49)
[2016-10-17] MEDS ORDERED: FENTANYL CITRATE INJ/PF 100 MCG/2 ML AMPUL ONE (07:49)
[2016-10-17 07:50] LABS: ALANINE AMINOTRANSFERASE 21 U/L (21-72); ALBUMIN 3.9 g/dL (3.5-5.0); ALKALINE PHOSPHATASE 129 U/L (38-126); ANION GAP 14 (5-19); ASPARTATE AMINO TRANSFERASE 16 U/L (17-59); BILIRUBIN,DIRECT 0.4 mg/dL (0.0-0.4); BILIRUBIN,TOTAL 0.6 mg/dL (0.2-1.3); BLOOD UREA NITROGEN 25 mg/dL (7-20); CALCIUM 9.4 mg/dL (8.4-10.2); CARBON DIOXIDE 28 mmol/L (22-30); CHLORIDE 100 mmol/L (98-107); CREATININE RESULT 3.04 mg/dL (0.52-1.25); GLUCOSE 190 mg/dL (75-110); POTASSIUM 4.2 mmol/L (3.6-5.0); SODIUM 142.2 mmol/L (137-145); TOTAL PROTEIN 7.2 g/dL (6.3-8.2)
[2016-10-17] MEDS ORDERED: DEXMEDETOMIDINE INJ 80 MCG/20 ML VIAL IV ONE (07:50)
[2016-10-17] MEDS ORDERED: MIDAZOLAM 2 MG/2 ML INJ ONE (07:50)
[2016-10-17] MEDS ORDERED: PROPOFOL INJ 200 MG/20 ML VIAL IV ONE (07:50)
[2016-10-17] MEDS ORDERED: ACETAMINOPHEN 100 ML IV ONE (07:50)
[2016-10-17] MEDS ORDERED: BUPIVACAINE HCL 0.25 % INJ/PF (2.5 MG/1 ML) 30 ML VIAL ONE ×2 (07:58→08:41)
--- NOTE | 2016-10-17 08:16 | PDOC H&P ---
General Chief Complaint: End-stage renal disease on hemodialysis. First is transfusion positioned in the left arm, need for second stage. - Diagnosis (1) Dialysis AV fistula malfunction Is this a Current Diagnosis?: Yes (2) ESRD (end stage renal disease) on dialysis Is this a Current Diagnosis?: Yes (3) Obesity hypoventilation syndrome Is this a Current Diagnosis?: Yes (4) Seizure disorder Is this a Current Diagnosis?: Yes (5) CAD (coronary artery disease) Is this a Current Diagnosis?: Yes (6) Diabetes mellitus type 2 in nonobese Is this a Current Diagnosis?: Yes (7) Amputation of left lower extremity above knee upon examination Is this a Current Diagnosis?: Yes (8) Essential hypertension Is this a Current Diagnosis?: Yes - Current Medications/Allergies Home Medications: Clonidine HCl [Catapres 0.1 mg Tablet] 0.1 mg PO QHS 07/26/16 Divalproex Sodium [Depakote ER 500 mg Tab.sr] 500 mg PO DAILY 07/26/16 Finasteride [Proscar 5 mg Tablet] 5 mg PO DAILY 07/26/16 Gabapentin [Neurontin] 800 mg PO Q8 07/26/16 Hydralazine HCl [Apresoline 50 mg Tablet] 100 mg PO Q8 07/26/16 Insulin Glargine,Hum.rec.anlog [Lantus Solostar] 12 units SQ DAILY 07/26/16 Isosorbide Mononitrate [Imdur 30 mg Tablet.er] 30 mg PO DAILY 07/26/16 Levetiracetam [Keppra] 250 mg PO DAILY 07/26/16 Linagliptin [Tradjenta] 5 mg PO DAILY 07/26/16 Losartan Potassium [Cozaar 100 mg Tablet] 100 mg PO DAILY 07/26/16 Metoprolol Succinate [Toprol XL 100 mg Tablet] 100 mg PO DAILY 07/26/16 Omeprazole 20 mg PO DAILY 07/26/16 Tamsulosin HCl [Flomax 0.4 mg Cap.sr] 0.4 mg PO PCBRKFST 07/26/16 Aspirin [Aspirin 325 mg Tablet] 325 mg PO 09/26/16 Allergies/Adverse Reactions: Penicillins Allergy (Verified 07/03/16 18:10) Past Medical History Cardiac Medical History: Reports: Congestive Heart Failure, Coronary Artery Disease, Myocardial Infarction - mi x 7, Hyperlipidema, Hypertension, Peripheral Vascular Disease Pulmonary Medical History: Reports: Asthma Denies: Bronchitis, Chronic Obstructive Pulmonary Disease (COPD), Pneumonia Neurological Medical History: Reports: Seizures - 2015 x1 Endocrine Medical History: Reports: Diabetes Mellitus Type 1, Diabetes Mellitus Type 2 Renal/ Medical History: Reports: End Stage Renal Disease GI Medical History: Reports: Gastroesophageal Reflux Disease Musculoskeltal Medical History: Reports: Arthritis Psychiatric Medical History: Reports: Depression Hematology: Reports: Anemia - hx of Past Surgical History Past Surgical History: Reports: Cardiac Catheterization, Coronary Stent - x6, Orthopedic Surgery - right BKA, Vascular Surgery - Right subclavian PermCath Family History Family History: Arthritis, CAD, CVA, DM, Hyperlipidemia, Hypertension Parental Family History Reviewed: No Children Family History Reviewed: No Sibling(s) Family History Reviewed.: No Social History Smoking Status: Never Smoker Frequency of Alcohol Use: None Hx Recreational Drug Use: No Drugs: None Hx Prescription Drug Abuse: No Physical Exam Vital Signs: Intake & Output 10/16/16 10/17/16 10/18/16 06:59 06:59 06:59 Weight 104 kg Additional comments: A well-developed well-nourished -[place] male. Morbidly obese body habitus No acute distress. Eyes membranes is pink and moist, sclerae anicteric. Respiratory no shortness of breath. Breath sounds are normal and equal bilaterally. Cardiac: Heart sounds 1 and 2 heard, no murmurs. Upper extremities show normal range of movement and pulsatile to the radials. Normal capillary refill. A first stage basilic vein transposition is appreciated. In the left upper extremity. Lower extremity: Below-knee amputation noted. Psychiatric the patient is alert, oriented, judgment, memory, insight normal Impression/Plan Impression: #1 malfunctioning AV fistula. The patient has a first staged transposed basilic vein fistula. Good bruit but and accessible. #2 end-stage renal disease on hemodialysis. #3 morbid obesity. #4 mellitus type II. #5 seizure disorder. #6 coronary artery disease, prior previous myocardial infarction. #7. Hypertension Plan: In this patient who is dependent on hemodialysis through a permacatheter establishment of an arteriovenous fistula is much to be desired. Challenger challenges are anticipated given that he has some swelling in the left upper extremity so that wound breakdown or infection is a large a risk than usual. In addition his respiratory and cardiac issues and diabetic status a somewhat challenging to control. The plan will be to go ahead and do second stage transposition and to keep the patient at least overnight. We missing the assistance of the hospitalist service or nephrologists. The elbow above discussed with the patient and is agreeable with proceeding.
[2016-10-17] MEDS ORDERED: LIDOCAINE 2% INJ-PF (20 MG/ML) 10 ML AMPUL ONE (08:35)
[2016-10-17] MEDS ORDERED: ONDANSETRON HCL INJ/PF 4 MG/2 ML SDV ONE (08:35)
[2016-10-17] MEDS ORDERED: METOCLOPRAMIDE HCL INJ/PF 10 MG/2 ML SDV ONE (08:35)
[2016-10-17] MEDS ORDERED: GLYCOPYRROLATE INJ 0.4 MG/2 ML VIAL ONE (08:35)
[2016-10-17] MEDS ORDERED: LIDOCAINE 0.5% INJ-PF (5 MG/ML) 50 ML SDV ONE (08:41)
[2016-10-17] MEDS ORDERED: HEPARIN SOD (PORCINE) 1,000 UNIT/ML 10 ML VIAL ONE (08:41)
[2016-10-17] MEDS ORDERED: BACITRACIN INJ 50,000 UNIT VIAL ONE (08:42)
[2016-10-17] MEDS ORDERED: LIDOCAINE 1% INJ-PF (10 MG/ML) 30 ML SDV ONE (08:44)
[2016-10-17] MEDS ORDERED: FENTANYL CITRATE INJ/PF 100 MCG/2 ML AMPUL IV PRN ×3 (10:21)
[2016-10-17] MEDS ORDERED: PROMETHAZINE HCL INJ 25 MG/1 ML VIAL IV PRN ×2 (10:21)
[2016-10-17] MEDS ORDERED: OXYCODONE-ACETAMINOPHEN 5-325 MG TABLET PO PRN ×2 (10:21)
[2016-10-17] MEDS ORDERED: MORPHINE SULFATE 10 MG/ML INJ IV PRN ×2 (10:21→18:18)
[2016-10-17] MEDS ORDERED: MEPERIDINE HCL/PF INJ 25 MG/1 ML DISP.SYRIN IV PRN (10:21)
[2016-10-17] MEDS ORDERED: DIPHENHYDRAMINE HCL 50 MG/ML VIAL IV PRN (10:21)
--- NOTE | 2016-10-17 13:11 | Operative Report ---
Operative Report DATE OF SURGERY: 10/17/16 PREOPERATIVE DIAGNOSIS: #1 status post first stage left transposed brachial vein fistula. #2 end-stage renal disease on hemodialysis. #3 seizure disorder. #4 coronary artery disease. #5 diabetes mellitus type II. #6 essential hypertension. POSTOPERATIVE DIAGNOSIS: #1 status post first stage left transposed brachial vein fistula. #2 end-stage renal disease on hemodialysis. #3 seizure disorder. #4 coronary artery disease. #5 diabetes mellitus type II. OPERATION: #1 Insertion of arteriovenous fistula, second stage left brachial to brachial vein. Increased level of difficulty. #2 insertion of negative pressure wound management system less than 50 cm. SURGEON: RICHARD SERVIN TEST BAKER: none TISSUE REMOVED OR ALTERED: Not applicable. COMPLICATIONS: None ESTIMATED BLOOD LOSS: 200 mils. INTRAOPERATIVE FINDINGS: Of a patient with some left arm swelling and with a morbid obese body habitus. A proffusion of superficial fragile veins. These factors contributed to a prolonged and difficult procedure taking about twice the usual 1.5 post-to do this procedure. A fairly robust brachial vein encountered and freed up for a distance of 15 cm. At least one additional brachial vein is left in continuity for drainage. The vein is an estimated 6 mm in diameter. The fistula was transferred about 2 cm away from the wound. It was placed in the immediate subcutaneous space is of access. The patient's obesity made it challenging to get enough length for access given the estimated 2.5-3 cm simply to get from the bed of the brachial vein to the skin. An estimated 8 cm will hopefully be available for access. PROCEDURE: Operative Report PROCEDURE: After reviewing the procedure with the patient, he was taken to the operating room. The patient was sedated and the left upper extremity prepared with chlorhexidine and draped out with sterile linen. After the "" universal timeout", in which it was verified that the patient [received IV antibiotics] the procedure commenced. The sterilely sheathed ultrasound probe was used to evaluate the size and topographic location of the existing veins. The fistula function was noted. This was transcribed topographical using a marking pen. Local anesthesia was infiltrated and a longitudinal incision started just above the elbow and dissection proceeded down to the vein. Sequential infiltration of local anesthesia, incision and dissection of the vein proceeded up to the axillary fold. The basilic vein was now dissected away from its branches which were either clipped and/or ligated and divided. In this patient with a unusual profusion of small bleeding veins use was made of bipolar cautery and ligatures with 3-0 Vicryl[address] In this way the brachial vein was freed up for its entire visible length. Its length was now measured with a dry umbilical tape which was used to transpose a tunnel onto the skin anteriorly and laterally. With this marked in ink, local anesthesia was infiltrated in the skin and subcutaneous tissue of the tunnel. A [place] tunneler was now inserted and the tunnel exposed. Serial sutures of 3-0 PDS were placed at about 3 cm intervals and placed on clamps. These gave lateral traction. Cautery was now used to incise the subcutaneous tissues so as to reveal the [place] tunneler. The length of the basilic vein was now shifted into the tunnel and sustained there by interrupted sutures of 3-0 PDS placed from the subcutaneous tissue on one side of the tunnel to the other. Once this was done the lateral flap was now approximated to the medial flap using interrupted sutures of 3-0 PDS. The fistula was interrogated from time to time to make sure that it was patent. A 15 [place] Dillon drain was placed deep in the wound and exiting inferiorly the it was sutured using 2-0 Prolene. A navarro type negative pressure wound management system was now inserted and activated. It is use in this patient because of anticipation of considerable drainage in the postoperative period. The hope is to avoid wound breakdown due to drainage. In this patient at high risk. The skin was closed with a continuous subcutaneous suture of 4-0 Monocryl. Steri-Strips were applied over benzoin and then a Kerlix wrap. The procedure was concluded. Copies dictated operative report to Dr. Richard Nichols MD thank you. DICTATING PHYSICIAN: RICHARD NICHOLS M.D
--- NOTE | 2016-10-17 13:26 | EKG REPORT ---
SEVERITY:- ABNORMAL ECG - SINUS RHYTHM MULTIPLE VENTRICULAR PREMATURE COMPLEXES FIRST DEGREE AV BLOCK PROBABLE LEFT ATRIAL ABNORMALITY : Confirmed by: Jena Chairez MD 17-Oct-2016 13:25:30
[2016-10-17] MEDS ORDERED: PROMETHAZINE HCL 25 MG TABLET PO PRN (15:43)
[2016-10-17] MEDS ORDERED: ASPIRIN 325 MG TABLET PO PRN (15:43)
[2016-10-17] MEDS ORDERED: DEXTROSE 40% GEL 15 GM TUBE PO PRN (16:43)
[2016-10-17] MEDS ORDERED: DEXTROSE 40% GEL 15 GM TUBE X 2 PO PRN (16:43)
[2016-10-17] MEDS ORDERED: GLUCAGON,HUMAN RECOMB 1 MG INJ IM PRN (16:43)
[2016-10-17] MEDS ORDERED: DEXTROSE 50%-WATER SYRINGE 12.5 GM/25 ML DOSE IV PRN (16:43)
[2016-10-17] MEDS ORDERED: INSULIN LISPRO 100 UNIT/ML 3 ML VIAL SUBCUT PRN (16:43)
[2016-10-17] MEDS ORDERED: DEXTROSE 50%-WATER SYRINGE 25 GM/50 ML DOSE IV PRN (16:43)
[2016-10-17] MEDS: OXYCODONE-ACETAMINOPHEN 5-325 MG TABLET PO PRN ×2 (17:14→21:51)
[2016-10-17] MEDS: GABAPENTIN 400 MG CAPSULE PO SCH (21:47)
[2016-10-17] MEDS: HYDRALAZINE HCL 50 MG TABLET PO SCH (21:48)
[2016-10-17] MEDS: CLONIDINE HCL 0.1 MG TABLET PO SCH (21:48)
[2016-10-18] MEDS: MORPHINE SULFATE 10 MG/ML INJ IV PRN (01:05)
[2016-10-18 04:56] LABS: HEMOGLOBIN 10.5 g/dL (13.5-17.0); HGB HCT DIFFERENCE -0.5; MEAN CORPUSCULAR HEMOGLOBIN 32.2 pg (27.0-33.4); MEAN CORPUSCULAR HGB CONC 32.7 g/dL (32.0-36.0); MEAN CORPUSCULAR VOLUME 98 fl (80-97); RED BLOOD COUNT 3.25 10^6/uL (4.35-5.55); RED CELL DISTRIBUTION WIDTH 17.5 % (11.5-14.0); WHITE BLOOD COUNT 10.1 10^3/uL (4.0-10.5)
[2016-10-18 05:20] LABS: ANION GAP 9 (5-19); BLOOD UREA NITROGEN 26 mg/dL (7-20); CALCIUM 9.4 mg/dL (8.4-10.2); CARBON DIOXIDE 31 mmol/L (22-30); CHLORIDE 101 mmol/L (98-107); CREATININE RESULT 3.59 mg/dL (0.52-1.25); GLUCOSE 154 mg/dL (75-110); POTASSIUM 4.4 mmol/L (3.6-5.0); SODIUM 140.6 mmol/L (137-145)
[2016-10-18] MEDS: GABAPENTIN 400 MG CAPSULE PO SCH ×3 (05:59→22:49)
[2016-10-18] MEDS: HYDRALAZINE HCL 50 MG TABLET PO SCH ×3 (06:00→22:48)
--- NOTE | 2016-10-18 14:43 | PDOC H&P ---
History of Present Illness Admission Date/PCP: VIRIDIANA LEHMAN MD History of Present Illness: MARIANA RICHARDSON is a 61 year old male, very obese, end-stage renal disease on hemodialysis, chronic somnolent state, obstructive sleep apnea, sedentary lifestyle. He was admitted electively for a vascular procedure, insertion of arteriovenous fistula. He was transferred to my service because patient felt dizzy on the vascular surgeon wants him evaluated by medicine because he has multiple comorbid conditions. He denies any chest pain or shortness of breath, is very sleepy but he will wake up on verbal commands. He has presented in similar fashion multiple times previously,he is an amputee he has social problems he lives alone and he cannot care for himself. He was offered previously residential placement but he refused. I do not see any indication at this point for inpatient care he could be discharged home today and he would need close office follow-up. Past Medical History Cardiac Medical History: Reports: Coronary Artery Disease, Myocardial Infarction - mi x 7, Hyperlipidema, Hypertension, Peripheral Vascular Disease Pulmonary Medical History: Reports: Asthma Neurological Medical History: Reports: Seizures - 2015 x1 Endocrine Medical History: Reports: Diabetes Mellitus Type 2 Renal/ Medical History: Reports: End Stage Renal Disease GI Medical History: Reports: Gastroesophageal Reflux Disease Musculoskeltal Medical History: Reports: Arthritis Psychiatric Medical History: Reports: Depression Hematology: Reports: Anemia - hx of Past Surgical History Past Surgical History: Reports: Cardiac Catheterization, Coronary Stent - x6, Orthopedic Surgery - right BKA, Vascular Surgery - Right subclavian PermCath Social History Smoking Status: Never Smoker Frequency of Alcohol Use: None Hx Recreational Drug Use: No Drugs: None Hx Prescription Drug Abuse: No Family History Family History: Arthritis, CAD, CVA, DM, Hyperlipidemia, Hypertension Parental Family History Reviewed: Yes Children Family History Reviewed: Yes Sibling(s) Family History Reviewed.: Yes Medication/Allergy Allergies/Adverse Reactions: Penicillins Allergy (Verified 07/03/16 18:10) Review of Systems Eyes: ABSENT: visual disturbances Ears: ABSENT: hearing changes Cardiovascular: ABSENT: chest pain, dyspnea on exertion, edema, orthropnea, palpitations Respiratory: ABSENT: cough, hemoptysis Gastrointestinal: ABSENT: abdominal pain, constipation, diarrhea, hematemesis, hematochezia, nausea, vomiting Genitourinary: ABSENT: dysuria, hematuria Musculoskeletal: ABSENT: joint swelling Integumentary: ABSENT: rash, wounds Neurological: ABSENT: abnormal gait, abnormal speech, confusion, dizziness, focal weakness, syncope Psychiatric: ABSENT: anxiety, depression, homidical ideation, suicidal ideation Endocrine: ABSENT: cold intolerance, heat intolerance, menstrual abnormalities, polydipsia, polyuria Hematologic/Lymphatic: ABSENT: easy bleeding, easy bruising, lymphadenopathy Physical Exam Vital Signs: Temp Pulse Resp BP Pulse Ox 97.5 F 62 20 129/53 H 100 10/18/16 10:08 10/18/16 10:08 10/18/16 10:08 10/18/16 10:08 10/18/16 10:08 Intake & Output 10/17/16 10/18/16 10/19/16 06:59 06:59 06:59 Intake Total 820 630 Output Total 610 40 Balance 210 590 Weight 104 kg General appearance: PRESENT: no acute distress Eye exam: PRESENT: PERRLA Respiratory exam: PRESENT: clear to auscultation aguilar Cardiovascular exam: PRESENT: +S1, +S2 GI/Abdominal exam: PRESENT: soft Neurological exam: PRESENT: alert, CN II-XII grossly intact Results Laboratory Results: 10/18/16 04:35 10/18/16 04:35 10/18/16 10/18/16 04:35 04:35 WBC 10.1 RBC 3.25 L Hgb 10.5 L Hct 32.0 L MCV 98 H MCH 32.2 MCHC 32.7 RDW 17.5 H Plt Count 197 Sodium 140.6 Potassium 4.4 Chloride 101 Carbon Dioxide 31 H Anion Gap 9 BUN 26 H Creatinine 3.59 H Est GFR ( Amer) 21 L Est GFR (Non-Af Amer) 17 L Glucose 154 H Calcium 9.4 Impressions: Chest X-Ray 10/17/16 06:58 IMPRESSION: Stable chest. No acute findings. Assessment & Plan - Diagnosis (1) Diabetes mellitus type 2 in obese Is this a current diagnosis for this admission?: Yes (2) End stage renal disease on dialysis Is this a current diagnosis for this admission?: Yes (3) HTN (hypertension) Qualifiers: Hypertension type: essential hypertension Qualified Code(s): I10 - Essential (primary) hypertension Is this a current diagnosis for this admission?: Yes - Plan Summary Plan Summary: Patient could be discharged home there is no indication for inpatient care at this time
--- NOTE | 2016-10-18 14:46 | PDOC DISCHARGE SUMMARY ---
General - Admit/Disc Date/PCP Admission Date/Primary Care Provider: VIRIDIANA LEHMAN MD Discharge Date: 10/18/16 - Discharge Diagnosis (1) Diabetes mellitus type 2 in obese Is this a current diagnosis for this admission?: Yes (2) End stage renal disease on dialysis Is this a current diagnosis for this admission?: Yes (3) HTN (hypertension) Is this a current diagnosis for this admission?: Yes - Additional Information Discharge Activity: Activity As Tolerated History of Present Illness History of Present Illness: MARIANA RICHARDSON is a 61 year old male, very obese, end-stage renal disease on hemodialysis, chronic somnolent state, obstructive sleep apnea, sedentary lifestyle. He was admitted electively for a vascular procedure, insertion of arteriovenous fistula. He was transferred to my service because patient felt dizzy on the vascular surgeon wants him evaluated by medicine because he has multiple comorbid conditions. He denies any chest pain or shortness of breath, is very sleepy but he will wake up on verbal commands. He has presented in similar fashion multiple times previously,he is an amputee he has social problems he lives alone and he cannot care for himself. He was offered previously fdc placement but he refused. I do not see any indication at this point for inpatient care he could be discharged home today and he would need close office follow-up. Hospital Course Hospital Course: Patient was seen, stable, sleepy but arousable, said he was tired, he be discharged home today Physical Exam Vital Signs: Temp Pulse Resp BP Pulse Ox 97.5 F 62 20 129/53 H 100 10/18/16 10:08 10/18/16 10:08 10/18/16 10:08 10/18/16 10:08 10/18/16 10:08 Intake & Output 10/17/16 10/18/16 10/19/16 06:59 06:59 06:59 Intake Total 820 630 Output Total 610 40 Balance 210 590 Weight 104 kg General appearance: PRESENT: no acute distress, well-developed, well-nourished Head exam: PRESENT: atraumatic, normocephalic Eye exam: PRESENT: conjunctiva pink, EOMI, PERRLA. ABSENT: scleral icterus Ear exam: PRESENT: normal external ear exam Mouth exam: PRESENT: moist, tongue midline Neck exam: PRESENT: full ROM. ABSENT: carotid bruit, JVD, lymphadenopathy, thyromegaly Cardiovascular exam: PRESENT: RRR, +S1, +S2 Murmur grade: 3 Vascular exam: PRESENT: normal capillary refill GI/Abdominal exam: PRESENT: soft Rectal exam: PRESENT: deferred Neurological exam: PRESENT: alert Psychiatric exam: PRESENT: appropriate affect, normal mood Skin exam: PRESENT: dry, intact, warm Results Laboratory Results: 10/18/16 04:35 10/18/16 04:35 10/18/16 10/18/16 04:35 04:35 WBC 10.1 RBC 3.25 L Hgb 10.5 L Hct 32.0 L MCV 98 H MCH 32.2 MCHC 32.7 RDW 17.5 H Plt Count 197 Sodium 140.6 Potassium 4.4 Chloride 101 Carbon Dioxide 31 H Anion Gap 9 BUN 26 H Creatinine 3.59 H Est GFR ( Amer) 21 L Est GFR (Non-Af Amer) 17 L Glucose 154 H Calcium 9.4 Impressions: Chest X-Ray 10/17/16 06:58 IMPRESSION: Stable chest. No acute findings.
--- NOTE | 2016-10-18 16:48 | PDOC PROGRESS REPORT ---
Subjective Progress Note for:: 10/18/16 Subjective:: The patient has had excessive pain, dizziness post surgery and is therefore kept in for treatment. Physical Exam Vital Signs: Temp Pulse Resp BP Pulse Ox 97.5 F 62 20 129/53 H 100 10/18/16 10:08 10/18/16 10:08 10/18/16 10:08 10/18/16 10:08 10/18/16 10:08 Intake & Output 10/17/16 10/18/16 10/19/16 06:59 06:59 06:59 Intake Total 820 630 Output Total 610 40 Balance 210 590 Weight 104 kg Additional comments: Constitutional: A well-developed well-nourished -Greek gentleman. Morbidly obese body habitus. No acute distress. Eyes: Mucous membranes pink and moist, sclerae anicteric, pupils react normally. Respiratory: Breath sounds are normal and equal. Extremities: Upper extremities shows normal range of movement and pulses. The left arm has a newly transposed brachial to brachial fistula which has a dressing in place. This has both a negative pressure VAC to vacuum system as well as a Dillon drain.. Bruit normal. Psychiatric: judgment, memory, insight seem normal. Mood is normal, appropriate and pleasant. Results Laboratory Results: 10/18/16 04:35 10/18/16 04:35 10/18/16 10/18/16 04:35 04:35 WBC 10.1 RBC 3.25 L Hgb 10.5 L Hct 32.0 L MCV 98 H MCH 32.2 MCHC 32.7 RDW 17.5 H Plt Count 197 Sodium 140.6 Potassium 4.4 Chloride 101 Carbon Dioxide 31 H Anion Gap 9 BUN 26 H Creatinine 3.59 H Est GFR ( Amer) 21 L Est GFR (Non-Af Amer) 17 L Glucose 154 H Calcium 9.4 Impressions: Chest X-Ray 10/17/16 06:58 IMPRESSION: Stable chest. No acute findings. Assessment & Plan - Diagnosis (1) Dialysis AV fistula malfunction Is this a current diagnosis for this admission?: Yes (2) ESRD (end stage renal disease) on dialysis Is this a current diagnosis for this admission?: Yes (3) Obesity hypoventilation syndrome Is this a current diagnosis for this admission?: Yes (4) Seizure disorder Is this a current diagnosis for this admission?: Yes (5) CAD (coronary artery disease) Qualifiers: Coronary Disease-Associated Artery/Lesion type: ruby artery [place] vs. transplanted heart: ruby heart Associated angina: with unspecified angina Qualified Code(s): I25.119 - Atherosclerotic heart disease of ruby coronary artery with unspecified angina pectoris Is this a current diagnosis for this admission?: Yes (6) Diabetes mellitus type 2 in nonobese Is this a current diagnosis for this admission?: Yes (7) Amputation of left lower extremity above knee upon examination Is this a current diagnosis for this admission?: Yes (8) Essential hypertension Is this a current diagnosis for this admission?: Yes - Plan Summary Plan Summary: The patient's condition seems to have improved, especially since inpatient hemodialysis today. At this point I am hoping to be able to send the patient home tomorrow for follow-up on Sunday of next week in clinic for change of dressing. Doctor O was kindly agreed to see him to see whether any more medical changes are needed. This patient is exceedingly complex with many severe comorbidities.
[2016-10-18] MEDS: LANSOPRAZOLE 15 MG TAB.RAP.DR PO SCH (17:36)
[2016-10-18] MEDS: METOPROLOL SUCCINATE 50 MG TAB.SR.24H PO SCH (17:38)
[2016-10-18] MEDS: LEVETIRACETAM 500 MG TABLET PO SCH (17:39)
[2016-10-18] MEDS: ASPIRIN 325 MG TABLET PO SCH (17:39)
[2016-10-18] MEDS: OXYCODONE-ACETAMINOPHEN 5-325 MG TABLET PO PRN (17:43)
[2016-10-18] MEDS: DIVALPROEX SODIUM 500 MG TAB.SR.24H PO SCH (17:44)
[2016-10-18] MEDS: FINASTERIDE 5 MG TABLET PO SCH (17:46)
[2016-10-18] MEDS: SITAGLIPTIN PHOSPHATE 25 MG TABLET PO SCH (17:49)
[2016-10-18] MEDS: TAMSULOSIN HCL 0.4 MG CAP.SR.24H PO SCH (17:49)
[2016-10-18] MEDS: CLONIDINE HCL 0.1 MG TABLET PO SCH (17:49)
[2016-10-18] MEDS: INSULIN GLARGINE,HUM.REC.ANLOG 300 UNIT/3 ML INSULN.PEN SUBCUT SCH (17:49)
[2016-10-18] MEDS: LOSARTAN POTASSIUM 50 MG TABLET PO SCH (17:49)
[2016-10-18] MEDS: ISOSORBIDE MONONITRATE 30 MG TAB.ER.24H PO SCH (17:49)
--- NOTE | 2016-10-18 21:34 | PDOC CONSULTATION ---
Consultation Consult Date: 10/18/16 Attending physician:: RICHARD WAGNER Consult reason:: I was asked by Dr. Wagner to see the patient to supervise dialysis while in the hospital. History of Present Illness Admission Date/PCP: VIRIDIANA LEHMAN MD History of Present Illness: Patient is a 61-year-old -[place] gentleman who is a patient of Dr. 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 Wagner for repair of AV fistula yesterday. Patient had some dizziness postoperative the so he was kept for observation. Today I was called in to supervise his dialysis while the hospital. This afternoon at around 3:10 PM I saw the patient during dialysis treatment. While lying down he said he is not DZ anymore but he was having a headache. He said the dizziness is only when he got up. He also continues to complain about his leg neuropathy. Other than that he tolerated dialysis without any problems. Past Medical History Cardiac Medical History: Reports: Coronary Artery Disease, Hyperlipidemia, Myocardial Infarction - mi x 7, Peripheral Vascular Disease Pulmonary Medical History: Reports: Asthma Neurological Medical History: Reports: Seizures - 2015 x1 Endocrine Medical History: Reports: Diabetes Mellitus Type 2 Renal/ Medical History: Reports: End Stage Renal Disease GI Medical History: Reports: Gastroesophageal Reflux Disease Musculoskeltal Medical History: Reports: Arthritis Psychiatric Medical History: Reports: Depression Past Surgical History Past Surgical History: Reports: Cardiac Catheterization, Coronary Stent - x6, Orthopedic Surgery - right BKA, Vascular Surgery - Right subclavian PermCath Social History Smoking Status: Never Smoker Frequency of Alcohol Use: None Hx Recreational Drug Use: No Drugs: None Hx Prescription Drug Abuse: No Family History Family History: Reviewed & Not Pertinent Parental Family History Reviewed: Yes Children Family History Reviewed: Unknown Sibling(s) Family History Reviewed.: Unknown Medication/Allergy Home Medications: Aspirin [Aspirin 325 mg Tablet] 325 mg PO DAILY 10/18/16 Clonidine HCl [Catapres 0.1 mg Tablet] 0.1 mg PO QHS 10/18/16 Divalproex Sodium [Depakote ER 500 mg Tab.sr] 500 mg PO DAILY 10/18/16 Finasteride [Proscar 5 mg Tablet] 5 mg PO DAILY 10/18/16 Gabapentin [Neurontin 400 mg Capsule] 800 mg PO Q8 10/18/16 Hydralazine HCl [Apresoline 50 mg Tablet] 100 mg PO Q8 10/18/16 Insulin Aspart Protam & Aspart [Novolog Mix 70-30 Vial] 0 units SQ AC PRN Insulin Glargine,Hum.rec.anlog [Lantus Solostar] 20 units SQ QHS 10/18/16 Isosorbide Mononitrate [Imdur 30 mg Tablet.er] 30 mg PO DAILY 10/18/16 Levetiracetam [Keppra] 250 mg PO DAILY 10/18/16 Linagliptin [Tradjenta] 5 mg PO DAILY 10/18/16 Losartan Potassium [Cozaar 100 mg Tablet] 100 mg PO DAILY 10/18/16 Metoprolol Succinate [Toprol XL 100 mg Tablet] 100 mg PO DAILY 10/18/16 Omeprazole 20 mg PO DAILY 10/18/16 Promethazine HCl [Phenergan 25 mg Tablet] 25 mg PO Q6HP PRN 10/18/16 Tamsulosin HCl [Flomax 0.4 mg Cap.sr] 0.4 mg PO [id number] 10/18/16 Allergies/Adverse Reactions: Penicillins Allergy (Verified 07/03/16 18:10) Review of Systems All systems: reviewed and no additional remarkable complaints except as stated Review of Systems: Constitutional: ABSENT: chills, fatigue, fever(s), headache(s), weight gain, weight loss Eyes: ABSENT: visual disturbances Ears: ABSENT: hearing changes Cardiovascular: ABSENT: chest pain, dyspnea on exertion, orthropnea, palpitations; admits edema Respiratory: ABSENT: cough, dyspnea, hemoptysis Gastrointestinal: ABSENT: constipation, diarrhea, hematemesis, hematochezia, nausea, vomiting; chronic abdominal pain Genitourinary: ABSENT: dysuria, hematuria Musculoskeletal: ABSENT: joint swelling Integumentary: ABSENT: rash, wounds Neurological: ABSENT: abnormal gait, abnormal speech, confusion, focal weakness , numbness, syncope; admits dizziness earlier and headache, admits leg pain due to neuropathy Psychiatric: ABSENT: anxiety, depression Endocrine: ABSENT: cold intolerance, heat intolerance, polydipsia, polyuria Hematologic/Lymphatic: ABSENT: easy bleeding, easy bruising, lymphadenopathy Physical Exam Vital Signs: Temp Pulse Resp BP Pulse Ox 97.5 F 62 20 129/53 H 100 10/18/16 10:08 10/18/16 10:08 10/18/16 10:08 10/18/16 10:08 10/18/16 10:08 Intake & Output 10/17/16 10/18/16 10/19/16 06:59 06:59 06:59 Intake Total 820 630 Output Total 610 2040 Balance 210 -1410 Weight 104 kg Vitals during dialysis: Blood pressure 1 of over 46, pulse rate 57, blood flow rate 350 mL per minute, dialysate flow rate 600 mL per minute. Exam: General appearance: no acute distress, cooperative, well-developed, well- nourished Head exam: PRESENT: atraumatic, normocephalic Eye exam: PRESENT: Conjunctiva Crucible, EOMI, PERRLA. ABSENT: conjunctival injection, scleral icterus Mouth exam: PRESENT: moist, neck supple, tongue midline Neck exam: PRESENT: full ROM. ABSENT: carotid bruit, JVD, lymphadenopathy, thyromegaly Respiratory exam: PRESENT: Diminished to auscultation bilaterally. ABSENT: rales, rhonchi, stridor, wheezes Cardiovascular exam: PRESENT: RRR, +S1, +S2. ABSENT: systolic murmur Pulses: PRESENT: normal radial pulses, normal dorsalis pedis pulses GI/Abdominal exam: PRESENT: normal bowel sounds, soft. ABSENT: guarding, mass, tenderness Rectal exam: deferred Extremities exam: PRESENT: full ROM. He has grade 1 left leg edema, no edema on his right BKA stump Musculoskeletal: PRESENT: full ROM. ABSENT: deformity Neurological exam: PRESENT: alert, Awake, Oriented to person, Oriented to place , Oriented to time, reflexes normal, CN II-XII grossly intact. ABSENT: motor sensory deficit Psychiatric exam: PRESENT: appropriate affect, normal mood. ABSENT: homicidal ideation, suicidal ideation Skin exam: PRESENT: intact, dry, warm. ABSENT: rash Results Laboratory Results: 10/18/16 04:35 10/18/16 04:35 10/18/16 10/18/16 04:35 04:35 WBC 10.1 RBC 3.25 L Hgb 10.5 L Hct 32.0 L MCV 98 H MCH 32.2 MCHC 32.7 RDW 17.5 H Plt Count 197 Sodium 140.6 Potassium 4.4 Chloride 101 Carbon Dioxide 31 H Anion Gap 9 BUN 26 H Creatinine 3.59 H Est GFR ( Amer) 21 L Est GFR (Non-Af Amer) 17 L Glucose 154 H Calcium 9.4 Impressions: Chest X-Ray 10/17/16 06:58 IMPRESSION: Stable chest. No acute findings. Assessment & Plan - Diagnosis (1) ESRD (end stage renal disease) on dialysis Is this a current diagnosis for this admission?: YesPlan: We did dialysis today for 3 hours, using the patient's PermCath, with 2 potassium bath, blood flow rate of 350 mL per minute, dialysate flow rate of 600 mL per minute, ultrafiltration 2 L, no heparin and no Procrit during dialysis. Patient tolerated dialysis well. (2) Dialysis AV fistula malfunction Is this a current diagnosis for this admission?: YesPlan: Status post AV fistula repair by Dr. Wagner yesterday. (3) Diabetes mellitus, type II Is this a current diagnosis for this admission?: Yes (4) Essential hypertension Is this a current diagnosis for this admission?: Yes - Notes Notes: Thank you very much for this consultation. Discussed with Dr. Wagner and Dr. Lehman. - Time Time Spent: 50 to 70 Minutes
[2016-10-19] MEDS: MORPHINE SULFATE 10 MG/ML INJ IV PRN (02:30)
[2016-10-19] MEDS: GABAPENTIN 400 MG CAPSULE PO SCH (05:23)
[2016-10-19] MEDS: HYDRALAZINE HCL 50 MG TABLET PO SCH (05:23)
[2016-10-19 08:14] VITALS: BP 111/57
[2016-10-19] MEDS: DIVALPROEX SODIUM 500 MG TAB.SR.24H PO SCH (09:20)
[2016-10-19] MEDS: LANSOPRAZOLE 15 MG TAB.RAP.DR PO SCH (09:21)
[2016-10-19] MEDS: ASPIRIN 325 MG TABLET PO SCH (09:21)
[2016-10-19] MEDS: LOSARTAN POTASSIUM 50 MG TABLET PO SCH (09:21)
[2016-10-19] MEDS: LEVETIRACETAM 500 MG TABLET PO SCH (09:21)
[2016-10-19] MEDS: SITAGLIPTIN PHOSPHATE 25 MG TABLET PO SCH (09:21)
[2016-10-19] MEDS: FINASTERIDE 5 MG TABLET PO SCH (09:21)
[2016-10-19] MEDS: TAMSULOSIN HCL 0.4 MG CAP.SR.24H PO SCH (09:22)
[2016-10-19] MEDS: METOPROLOL SUCCINATE 50 MG TAB.SR.24H PO SCH (09:22)
[2016-10-19] MEDS: ISOSORBIDE MONONITRATE 30 MG TAB.ER.24H PO SCH (09:22)
[2016-10-19] MEDS: INSULIN GLARGINE,HUM.REC.ANLOG 300 UNIT/3 ML INSULN.PEN SUBCUT SCH (09:23)
[2016-10-19] MEDS: OXYCODONE-ACETAMINOPHEN 5-325 MG TABLET PO PRN (09:37)
== END 2016-10-19 14:02 | disposition home or self-care (01) ==
LOC: OROUT 06:54 → 5 14:40 → OROUT 10-19 14:02
PROVIDERS: ATTEND Internal Medicine
PROC: 05SC0ZZ Reposition Left Basilic Vein, Open Approach (ICD-10-PCS; principal; 2016-10-17 08:00)
DX: T82.858A Stenosis of other vascular prosthetic devices, implants and grafts, initial encounter (principal); Y83.2 Surgical operation with anastomosis, bypass or graft as the cause of abnormal reaction of the patient, or of later complication, without mention of misadventure at the time of the procedure; E11.22 Type 2 diabetes mellitus with diabetic chronic kidney disease; I12.0 Hypertensive chronic kidney disease with stage 5 chronic kidney disease or end stage renal disease; N18.6 End stage renal disease; Z99.2 Dependence on renal dialysis; T81.89XA Other complications of procedures, not elsewhere classified, initial encounter; Y83.8 Other surgical procedures as the cause of abnormal reaction of the patient, or of later complication, without mention of misadventure at the time of the procedure; R42 Dizziness and giddiness; Y92.530 Ambulatory surgery center as the place of occurrence of the external cause; E66.01 Morbid (severe) obesity due to excess calories; Z68.37 Body mass index [BMI] 37.0-37.9, adult; G47.33 Obstructive sleep apnea (adult) (pediatric); I25.10 Atherosclerotic heart disease of native coronary artery without angina pectoris; E78.5 Hyperlipidemia, unspecified; I25.2 Old myocardial infarction; I73.9 Peripheral vascular disease, unspecified; M19.90 Unspecified osteoarthritis, unspecified site; G40.909 Epilepsy, unspecified, not intractable, without status epilepticus; K21.9 Gastro-esophageal reflux disease without esophagitis; Z79.82 Long term (current) use of aspirin; Z79.899 Other long term (current) drug therapy; Z88.0 Allergy status to penicillin; Z79.4 Long term (current) use of insulin; Z89.612 Acquired absence of left leg above knee
CPT/HCPCS: 36821; 97607; 36415; 82962; 85027; 80076; 80048; 71010; 93005; 93010; J2250; J3490 ×21; J3010; J1815 ×2; J1644; J2765; J2270 ×2; J2405; J3370; S0020; J2704; J0131; 1844

== ENCOUNTER 2016-10-29 09:35 | Inpatient (IN) | payer MEDICAID ==
--- NOTE | 2016-10-29 10:22 | ER Document Report ---
ED General - General Chief Complaint: Shortness Of Breath Stated Complaint: DIFFICULTY BREATHING Mode of Arrival: Medic Information source: Patient Notes: 61-year-old male dialysis patient who does dialysis Wednesdays and had dialysis performed on Sunday who is been out of his home medications for the past 2 weeks presents with complaints of shortness of breath difficulty breathing. Patient denies any fevers chills nausea vomiting or diarrhea TRAVEL OUTSIDE OF THE [place] IN LAST 30 DAYS: No - HPI Onset: This morning Onset/Duration: Persistent Quality of pain: Achy Severity: Mild Pain Level: 1 Associated symptoms: Shortness of breath Exacerbated by: Denies Relieved by: Denies Similar symptoms previously: Yes Recently seen / treated by doctor: Yes - Related Data Allergies/Adverse Reactions: Penicillins Allergy (Verified 07/03/16 18:10) Past Medical History - Social History Smoking Status: Never Smoker Cigarette use (# per day): No Chew tobacco use (# tins/day): No Smoking Education Provided: No Family History: Arthritis, CAD, CVA, DM, Hyperlipidemia, Hypertension - Past Medical History Cardiac Medical History: Reports: Hx Congestive Heart Failure, Hx Coronary Artery Disease, Hx Heart Attack - mi x 7, Hx Hypercholesterolemia, Hx Hypertension, Hx Peripheral Vascular Disease Pulmonary Medical History: Reports: Hx Asthma Denies: Hx Bronchitis, Hx COPD, Hx Pneumonia Neurological Medical History: Reports: Hx Cerebrovascular Accident - x3, Hx Seizures - 2015 x1 Endocrine Medical History: Reports: Hx Diabetes Mellitus Type 1, Hx Diabetes Mellitus Type 2 Renal/ Medical History: Reports: Hx End Stage Renal Disease, Hx Hemodialysis, Hx Renal Insufficiency. Denies: Hx Peritoneal Dialysis GI Medical History: Reports: Hx Gastroesophageal Reflux Disease Musculoskeltal Medical History: Reports Hx Arthritis, Reports Hx Musculoskeletal Deformity - right BKA, Reports Hx Musculoskeletal Trauma Psychiatric Medical History: Reports: Hx Depression Past Surgical History: Reports: Hx Cardiac Catheterization, Hx Cardiac Surgery - Stent placement x 6, Hx Coronary Stent - x6, Hx Orthopedic Surgery - right BKA , Hx Vascular Surgery - Right subclavian PermCath - Immunizations Immunizations up to date: Yes Hx Diphtheria, Pertussis, Tetanus Vaccination: Yes Hx Pneumococcal Vaccination: 07/02/12 Review of Systems - Review of Systems Notes: REVIEW OF SYSTEMS: CONSTITUTIONAL : Denies fever, chills, or sweats. Denies recent illness. EENT: Denies eye, ear, throat, or mouth pain or symptoms. Denies nasal or sinus congestion or discharge. Denies throat, tongue, or mouth swelling or difficulty swallowing. CARDIOVASCULAR: Denies chest pain. Denies palpitations or racing or irregular heart beat. Denies ankle edema. RESPIRATORY: Admits to shortness of breath GASTROINTESTINAL: Denies abdominal pain or distention. Denies nausea, vomiting , or diarrhea. Denies blood in vomitus, stools, or per rectum. Denies black, tarry stools. Denies constipation. GENITOURINARY: Denies difficulty urinating, painful urination, burning, frequency, blood in urine, or discharge. MUSCULOSKELETAL: Denies back or neck pain or stiffness. Denies joint pain or swelling. SKIN: Denies rash, lesions or sores. HEMATOLOGIC : Denies easy bruising or bleeding. LYMPHATIC: Denies swollen, enlarged glands. NEUROLOGICAL: Denies confusion or altered mental status. Denies passing out or loss of consciousness. Denies dizziness or lightheadedness. Denies headache. Denies weakness or paralysis or loss of use of either side. Denies problems with gait or speech. Denies sensory loss, numbness, or tingling. Denies seizures. PSYCHIATRIC: Denies anxiety or stress. Denies depression, suicidal ideation, or homicidal ideation. ALL OTHER SYSTEMS REVIEWED AND NEGATIVE. Dictation was performed using [employer] voice recognition software PHYSICAL EXAMINATION: GENERAL: Well-appearing, well-nourished and in no acute distress. HEAD: Atraumatic, normocephalic. EYES: Pupils equal round and reactive to light, extraocular movements intact, sclera anicteric, conjunctiva are normal. ENT: Nares patent, oropharynx clear without exudates. Moist mucous membranes. NECK: Normal range of motion, supple without lymphadenopathy LUNGS: Breath sounds clear to auscultation bilaterally and equal. No wheezes rales or rhonchi. HEART: Regular rate and rhythm without murmurs ABDOMEN: Soft, nontender, nondistended abdomen. No guarding, no rebound. No masses appreciated. Musculoskeletal: Right below-knee amputation left foot edematous NEUROLOGICAL: Cranial nerves grossly intact. Normal speech, normal gait. Normal sensory, motor exams PSYCH: Normal mood, normal affect. SKIN: Warm, Dry, normal turgor, no rashes or lesions noted. Physical Exam - Vital signs Vitals: Pulse Ox 98 04/30/17 09:41 Course - Re-evaluation Re-evalutation: 10/29/16 10:21 Patient is currently satting 96% on room air length flat, attempted IV placement by nurses, lab work imaging pending for dyspnea rule out but I believe this may be secondary to medication noncompliance 10/29/16 11:29 pt noted to have elevated troponin, dr dorinda winkler 10/29/16 11:34 I spoke with patient's primary care physician, I explained that joins are elevated much had a normal, he did give me more history on the patient was extremely noncompliant with medications has had extensive stents placed and is medically managed for his chest pain at this point. I did offer Lovenox or heparin he wishes to admit the patient and give Plavix and aspirin at this time which have been ordered. Patient will be kept in the hospital - Vital Signs Vital signs: Temp Pulse Resp BP Pulse Ox 98 10/29/16 09:41 - Laboratory Result Diagrams: 10/29/16 10:29 10/29/16 10:29 Laboratory results interpreted by me: 10/29/16 10/29/16 10/29/16 10:29 10:29 10:29 RBC 3.45 L Hgb 10.9 L Hct 33.5 L RDW 17.1 H Seg Neutrophils % 81.6 H Lymphocytes % 9.0 L BUN 38 H Creatinine 3.19 H Est GFR ( Amer) 24 L Est GFR (Non-Af Amer) 20 L Glucose 197 H ALT 20 L NT-Pro-B Natriuret Pep 48796 H - EKG Interpretation by [place] EKG shows normal: Sinus rhythm, [place], Intervals, QRS Complexes When compared to previous EKG there are: Previous EKG unavailable Discharge - Discharge Clinical Impression: Elevated troponin level, End stage renal failure on dialysis, Noncompliance with medication regimen CAD (coronary artery disease) Qualifiers: Coronary Disease-Associated Artery/Lesion type: sam[place] artery [place] vs. transplanted heart: samish heart Associated angina: with unspecified angina Qualified Code(s): I25.119 - Atherosclerotic heart disease of samish coronary artery with unspecified angina pectoris Condition: Poor Disposition: ADMITTED INPATIENT Admitting Provider: [facility] Admitted: [facility]
[2016-10-29 10:44] LABS: ABSOLUTE BASOPHILS # (AUTO) 0.1 10^3/uL (0.0-0.2); ABSOLUTE EOSINOPHILS # (AUTO) 0.1 10^3/uL (0.0-0.6); ABSOLUTE LYMPHOCYTES (AUTO) 0.8 10^3/uL (0.5-4.7); ABSOLUTE MONOCYTES (AUTO) 0.7 10^3/uL (0.1-1.4); ABSOLUTE NEUT (AUTO) 7.1 10^3/uL (1.7-8.2); EOSINOPHILS % (AUTO) 0.8 % (0-6); HEMATOCRIT 33.5 % (37.9-51.0); HEMOGLOBIN 10.9 g/dL (13.5-17.0); HGB HCT DIFFERENCE -0.8; MEAN CORPUSCULAR HEMOGLOBIN 31.6 pg (27.0-33.4); MEAN CORPUSCULAR HGB CONC 32.6 g/dL (32.0-36.0); MEAN CORPUSCULAR VOLUME 97 fl (80-97); MONOCYTES % (AUTO) 7.6 % (3-13); RED BLOOD COUNT 3.45 10^6/uL (4.35-5.55); RED CELL DISTRIBUTION WIDTH 17.1 % (11.5-14.0); SEGMENTED NEUTROPHILS % (AUTO) 81.6 % (42-78); WHITE BLOOD COUNT 8.7 10^3/uL (4.0-10.5)
[2016-10-29 11:08] LABS: ALANINE AMINOTRANSFERASE 20 U/L (21-72); ALBUMIN 3.8 g/dL (3.5-5.0); ALKALINE PHOSPHATASE 115 U/L (38-126); ANION GAP 17 (5-19); ASPARTATE AMINO TRANSFERASE 18 U/L (17-59); BILIRUBIN,DIRECT 0.2 mg/dL (0.0-0.4); BILIRUBIN,TOTAL 0.4 mg/dL (0.2-1.3); BLOOD UREA NITROGEN 38 mg/dL (7-20); CALCIUM 9.7 mg/dL (8.4-10.2); CARBON DIOXIDE 27 mmol/L (22-30); CHLORIDE 98 mmol/L (98-107); CREATINE KINASE 76 U/L (55-170); CREATININE RESULT 3.19 mg/dL (0.52-1.25); GLUCOSE 197 mg/dL (75-110); SODIUM 142.1 mmol/L (137-145); TOTAL PROTEIN 7.2 g/dL (6.3-8.2)
[2016-10-29 11:19] LABS: CREATINE KINASE MB 2.15 ng/mL (<4.55)
[2016-10-29 11:24] LABS: TROPONIN I 1.11 ng/mL
[2016-10-29] MEDS ORDERED: CLOPIDOGREL BISULFATE 300 MG TABLET PO ONE (11:32)
[2016-10-29] MEDS ORDERED: ASPIRIN 325 MG TABLET PO ONE ×2 (11:32→18:00)
[2016-10-29 11:40] LABS: VENOUS BLOOD BASE EXCESS 4.2 mmol/L; VENOUS BLOOD HCO3 30.8 mmol/L (20-32); VENOUS BLOOD PCO2 54.1 mmHg (35-63); VENOUS BLOOD PH 7.37 (7.30-7.42)
[2016-10-29] MEDS ORDERED: DEXTROSE 50%-WATER 25 GM/50 ML DISP.SYRIN IV PRN ×2 (15:35)
[2016-10-29] MEDS ORDERED: DEXTROSE 40% GEL 15 GM TUBE PO PRN ×2 (15:35)
[2016-10-29] MEDS ORDERED: GLUCAGON,HUMAN RECOMB 1 MG INJ IM PRN (15:35)
--- NOTE | 2016-10-29 17:18 | PDOC H&P ---
History of Present Illness Admission Date/PCP: 10/29/16 15:23 VIRIDIANA LEHMAN MD History of Present Illness: MARIANA RICHARDSON is a 61 year old male, he has multiple comorbid conditions including end-stage renal disease on hemodialysis coronary artery disease with multiple stents insertion in multiple coronary vessels, for medication adherence overall poor compliance to medical care. I just received a notice from [facility] that he was discharged from the agency because of his poor compliance he does not open his door, he does not answer his phone,he does not follow up with his appointments, he does not take his medications, the last time he had his medication was 2 weeks ago. He can emergency room because of chest pain associated with diaphoresis, he also had a bump in his troponin, 1 usually it is less than 1 from previous blood work, because of his multiple comorbid conditions ER physician thought patient needed to be admitted for management. I saw him by the bedside and I asked why he is not compliant with his medical care ,he stated that the times he missed dialysis was usually when he has diarrhea and he does not want to go to dialysis facility with diarrhea and sit for 3 hours. Past Medical History Cardiac Medical History: Reports: Coronary Artery Disease, Myocardial Infarction - mi x 7, Hyperlipidema, Hypertension, Peripheral Vascular Disease Pulmonary Medical History: Reports: Asthma Neurological Medical History: Reports: Seizures - 2015 x1 Endocrine Medical History: Reports: Diabetes Mellitus Type 2, Obesity Renal/ Medical History: Reports: End Stage Renal Disease GI Medical History: Reports: Gastroesophageal Reflux Disease Musculoskeltal Medical History: Reports: Arthritis Psychiatric Medical History: Reports: Depression Hematology: Reports: Anemia - hx of Past Surgical History Past Surgical History: Reports: Cardiac Catheterization, Coronary Stent - x6, Orthopedic Surgery - right BKA, Vascular Surgery - Right subclavian PermCath Social History Smoking Status: Current Some Day Smoker Frequency of Alcohol Use: None Hx Recreational Drug Use: No Drugs: None Hx Prescription Drug Abuse: No Family History Family History: Arthritis, CAD, CVA, DM, Hyperlipidemia, Hypertension Parental Family History Reviewed: Yes Children Family History Reviewed: Yes Sibling(s) Family History Reviewed.: Yes Medication/Allergy Home Medications: Aspirin [Aspirin 325 mg Tablet] 325 mg PO DAILY 10/18/16 Clonidine HCl [Catapres 0.1 mg Tablet] 0.1 mg PO QHS 10/18/16 Divalproex Sodium [Depakote ER 500 mg Tab.sr] 500 mg PO DAILY 10/18/16 Finasteride [Proscar 5 mg Tablet] 5 mg PO DAILY 10/18/16 Gabapentin [Neurontin 400 mg Capsule] 800 mg PO Q8 10/18/16 Hydralazine HCl [Apresoline 50 mg Tablet] 100 mg PO Q8 10/18/16 Insulin Aspart Protam & Aspart [Novolog Mix 70-30 Vial] 0 units SQ AC PRN Insulin Glargine,Hum.rec.anlog [Lantus Solostar] 20 units SQ QHS 10/18/16 Isosorbide Mononitrate [Imdur 30 mg Tablet.er] 30 mg PO DAILY 10/18/16 Levetiracetam [Keppra] 250 mg PO DAILY 10/18/16 Linagliptin [Tradjenta] 5 mg PO DAILY 10/18/16 Losartan Potassium [Cozaar 100 mg Tablet] 100 mg PO DAILY 10/18/16 Metoprolol Succinate [Toprol XL 100 mg Tablet] 100 mg PO DAILY 10/18/16 Omeprazole 20 mg PO DAILY 10/18/16 Promethazine HCl [Phenergan 25 mg Tablet] 25 mg PO Q6HP PRN 10/18/16 Tamsulosin HCl [Flomax 0.4 mg Cap.sr] 0.4 mg PO PCBRKFST 10/18/16 Allergies/Adverse Reactions: Penicillins Allergy (Verified 07/03/16 18:10) Review of Systems Constitutional: PRESENT: fatigue Eyes: ABSENT: visual disturbances Ears: ABSENT: hearing changes Cardiovascular: PRESENT: chest pain Respiratory: ABSENT: cough, hemoptysis Gastrointestinal: ABSENT: abdominal pain, constipation, diarrhea, hematemesis, hematochezia, nausea, vomiting Genitourinary: ABSENT: dysuria, hematuria Musculoskeletal: ABSENT: joint swelling Integumentary: ABSENT: rash, wounds Neurological: ABSENT: abnormal gait, abnormal speech, confusion, dizziness, focal weakness, syncope Psychiatric: ABSENT: anxiety, depression, homidical ideation, suicidal ideation Endocrine: PRESENT: other - Diaphoresis Hematologic/Lymphatic: ABSENT: easy bleeding, easy bruising, lymphadenopathy Physical Exam Vital Signs: Temp Pulse Resp BP Pulse Ox 97.7 F 66 19 156/68 H 98 10/29/16 16:34 10/29/16 16:34 10/29/16 16:34 10/29/16 16:34 10/29/16 15:05 Intake & Output 10/28/16 10/29/16 10/30/16 06:59 06:59 06:59 Intake Total 10 Balance 10 Weight 142.1 kg General appearance: PRESENT: obese Head exam: PRESENT: atraumatic, normocephalic Eye exam: PRESENT: PERRLA Neck exam: PRESENT: full ROM Respiratory exam: PRESENT: clear to auscultation aguilar Cardiovascular exam: PRESENT: RRR, +S1, +S2 Vascular exam: PRESENT: normal capillary refill GI/Abdominal exam: PRESENT: normal bowel sounds, soft Rectal exam: PRESENT: deferred Extremities exam: PRESENT: right AKA Neurological exam: PRESENT: alert, awake, oriented to person, oriented to place , oriented to time, oriented to situation, CN II-XII grossly intact Psychiatric exam: PRESENT: appropriate affect, normal mood Skin exam: PRESENT: dry, intact, warm Results Impressions: Chest X-Ray 10/29/16 10:06 IMPRESSION: 1. Cardiomegaly with mild right perihilar edema or infiltrate. Assessment & Plan - Diagnosis (1) Acute coronary syndrome Is this a current diagnosis for this admission?: YesPlan: Patient is admitted to the hospital with suspected acute coronary syndrome, we will schedule for stress test in a.m. (2) Elevated troponin Is this a current diagnosis for this admission?: Yes (3) ESRD (end stage renal disease) on dialysis Is this a current diagnosis for this admission?: YesPlan: Patient on maintenance hemodialysis, consultation will be requested from nephrology (4) Obesity hypoventilation syndrome Is this a current diagnosis for this admission?: Yes (5) Seizure disorder Is this a current diagnosis for this admission?: Yes (6) Anemia Qualifiers: Other causes of anemia: chronic disease, kidney (7) CAD (coronary artery disease) Qualifiers: Coronary Disease-Associated Artery/Lesion type: [place] artery [place] vs. transplanted heart: [place] heart Associated angina: with unspecified angina Qualified Code(s): I25.119 - Atherosclerotic heart disease of [place] coronary artery with unspecified angina pectoris Is this a current diagnosis for this admission?: Yes (8) Diabetes mellitus type 2 in nonobese Is this a current diagnosis for this admission?: Yes
[2016-10-29 17:28] LABS: PARTIAL THROMBOPLASTIN TIME 28.2 SEC (23.5-35.8); PROTHROMBIN TIME 13.1 SEC (11.4-15.4)
[2016-10-29 17:39] LABS: LIPASE 114.7 U/L (23-300); MAGNESIUM 1.8 mg/dL (1.6-2.3); PHOSPHORUS 4.3 mg/dL (2.5-4.5)
[2016-10-29 17:56] LABS: CREATINE KINASE MB 2.16 ng/mL (<4.55)
[2016-10-29] MEDS ORDERED: HYDRALAZINE HCL 50 MG TABLET PO ONE (18:00)
[2016-10-29] MEDS ORDERED: ISOSORBIDE MONONITRATE 30 MG TAB.ER.24H PO ONE (18:00)
[2016-10-29] MEDS ORDERED: GABAPENTIN 400 MG CAPSULE PO ONE (18:00)
[2016-10-29] MEDS ORDERED: LOSARTAN POTASSIUM 50 MG TABLET PO ONE (18:00)
[2016-10-29] MEDS ORDERED: LANSOPRAZOLE 15 MG TAB.RAP.DR PO ONE ×2 (18:00→18:30)
[2016-10-29 18:06] LABS: TROPONIN I 0.976 ng/mL
[2016-10-29 18:14] LABS: THYROID STIMULATING HORMONE 1.15 uIU/mL (0.47-4.68)
[2016-10-29] MEDS ORDERED: SITAGLIPTIN PHOSPHATE 50 MG TABLET PO ONE (18:30)
[2016-10-29] MEDS ORDERED: METOPROLOL SUCCINATE 50 MG TAB.SR.24H PO ONE (18:30)
[2016-10-29] MEDS ORDERED: LEVETIRACETAM 500 MG TABLET PO ONE (18:30)
[2016-10-29 19:00] LABS: URINE BARBITURATES SCREEN NEGATIVE; URINE METHADONE SCREEN NEGATIVE; URINE OPIATES LOW NEGATIVE; URINE PHENCYCLIDINE SCREEN NEGATIVE
[2016-10-29] MEDS ORDERED: ONDANSETRON 4 MG TAB.RAPDIS PO PRN (21:22)
[2016-10-29] MEDS ORDERED: MAG HYDROX/AL HYDROX/SIMETH SUSP 30 ML UDCUP PO PRN (21:23)
[2016-10-29 22:07] LABS: CREATINE KINASE MB 1.94 ng/mL (<4.55); TROPONIN I 0.903 ng/mL
[2016-10-29] MEDS ORDERED: ONDANSETRON 4 MG TAB.RAPDIS ONE (22:16)
[2016-10-29] MEDS: HEPARIN SOD (PORCINE) 5,000 UNIT/ML 1 ML SYRINGE SUBCUT SCH (22:19)
[2016-10-29] MEDS: CLONIDINE HCL 0.1 MG TABLET PO SCH (22:19)
[2016-10-29] MEDS: HYDRALAZINE HCL 50 MG TABLET PO SCH (22:20)
[2016-10-29] MEDS: GABAPENTIN 400 MG CAPSULE PO SCH (22:21)
--- NOTE | 2016-10-29 22:51 | EKG REPORT ---
SEVERITY:- ABNORMAL ECG - SINUS RHYTHM FIRST DEGREE AV BLOCK LEFT ATRIAL ABNORMALITY CONSIDER ANTEROSEPTAL INFARCT : Confirmed by: Donta Hunt 29-Oct-2016 22:51:17
[2016-10-29] MEDS ORDERED: INSULIN GLARGINE,HUM.REC.ANLOG 300 UNIT/3 ML INSULN.PEN SUBCUT ONE (23:04)
[2016-10-30] MEDS: INSULIN GLARGINE,HUM.REC.ANLOG 300 UNIT/3 ML INSULN.PEN SUBCUT SCH ×2 (01:02→22:31)
[2016-10-30 04:28] LABS: ABSOLUTE BASOPHILS # (AUTO) 0.1 10^3/uL (0.0-0.2); ABSOLUTE EOSINOPHILS # (AUTO) 0.2 10^3/uL (0.0-0.6); ABSOLUTE LYMPHOCYTES (AUTO) 1.6 10^3/uL (0.5-4.7); ABSOLUTE MONOCYTES (AUTO) 0.8 10^3/uL (0.1-1.4); ABSOLUTE NEUT (AUTO) 5.8 10^3/uL (1.7-8.2); BASOPHILS % (AUTO) 0.8 % (0-2); EOSINOPHILS % (AUTO) 2.3 % (0-6); HEMATOCRIT 30.1 % (37.9-51.0); HEMOGLOBIN 9.8 g/dL (13.5-17.0); HGB HCT DIFFERENCE -0.7; MEAN CORPUSCULAR HEMOGLOBIN 31.9 pg (27.0-33.4); MEAN CORPUSCULAR HGB CONC 32.6 g/dL (32.0-36.0); MEAN CORPUSCULAR VOLUME 98 fl (80-97); MONOCYTES % (AUTO) 9.4 % (3-13); RED BLOOD COUNT 3.07 10^6/uL (4.35-5.55); RED CELL DISTRIBUTION WIDTH 17.3 % (11.5-14.0); SEGMENTED NEUTROPHILS % (AUTO) 68.5 % (42-78); WHITE BLOOD COUNT 8.5 10^3/uL (4.0-10.5)
[2016-10-30 04:55] LABS: ALANINE AMINOTRANSFERASE 17 U/L (21-72); ALBUMIN 3.4 g/dL (3.5-5.0); ALKALINE PHOSPHATASE 97 U/L (38-126); ANION GAP 14 (5-19); ASPARTATE AMINO TRANSFERASE 14 U/L (17-59); BILIRUBIN,DIRECT 0.1 mg/dL (0.0-0.4); BILIRUBIN,TOTAL 0.4 mg/dL (0.2-1.3); BLOOD UREA NITROGEN 38 mg/dL (7-20); CALCIUM 9.1 mg/dL (8.4-10.2); CARBON DIOXIDE 28 mmol/L (22-30); CHLORIDE 99 mmol/L (98-107); CHOLESTEROL 186.57 mg/dL (0-200); CREATINE KINASE 61 U/L (55-170); CREATININE RESULT 3.68 mg/dL (0.52-1.25); Direct HDL 36 mg/dL (>40); GLUCOSE 115 mg/dL (75-110); TOTAL PROTEIN 6.4 g/dL (6.3-8.2); TRIGLYCERIDES 121 mg/dL (<150)
[2016-10-30 05:06] LABS: CREATINE KINASE MB 1.67 ng/mL (<4.55); DIRECT LDL 100 mg/dL (<100); TROPONIN I 0.895 ng/mL
[2016-10-30] MEDS: GABAPENTIN 400 MG CAPSULE PO SCH ×3 (06:51→22:31)
[2016-10-30] MEDS: HYDRALAZINE HCL 50 MG TABLET PO SCH ×3 (06:53→22:31)
[2016-10-30] MEDS: ISOSORBIDE MONONITRATE 30 MG TAB.ER.24H PO SCH (09:39)
[2016-10-30] MEDS: TAMSULOSIN HCL 0.4 MG CAP.SR.24H PO SCH (09:39)
[2016-10-30] MEDS: LOSARTAN POTASSIUM 50 MG TABLET PO SCH (09:39)
[2016-10-30] MEDS: LANSOPRAZOLE 15 MG TAB.RAP.DR PO SCH (09:44)
[2016-10-30] MEDS: ASPIRIN 325 MG TABLET PO SCH (09:44)
[2016-10-30] MEDS: SITAGLIPTIN PHOSPHATE 50 MG TABLET PO SCH (09:44)
[2016-10-30] MEDS: LEVETIRACETAM 500 MG TABLET PO SCH (09:44)
[2016-10-30] MEDS: CLOPIDOGREL BISULFATE 75 MG TABLET PO SCH (09:45)
[2016-10-30] MEDS ORDERED: METOPROLOL SUCCINATE 50 MG TAB.SR.24H PO SCH (10:00)
[2016-10-30] MEDS ORDERED: ASPIRIN 325 MG TABLET PO SCH (10:00)
[2016-10-30] MEDS: HEPARIN SOD (PORCINE) 5,000 UNIT/ML 1 ML SYRINGE SUBCUT SCH ×3 (11:04→22:31)
[2016-10-30] MEDS ORDERED: EPOETIN ALFA 10,000 UNIT in SYRINGE, DISPOSABLE, 1 EACH IV PRN (15:00)
--- NOTE | 2016-10-30 17:50 | PDOC CONSULTATION ---
Consultation Consult Date: 10/30/16 Consult reason:: Hemodialysis. History of Present Illness Admission Date/PCP: 10/29/16 15:23 VIRIDIANA LEHMAN MD History of Present Illness: MARIANA RICHARDSON is a 61 year old male, he has multiple comorbidities including end-stage renal disease on hemodialysis in the background of diabetes mellitus and hypertension,with other comorbidities including coronary artery disease with multiple stents insertion in multiple coronary vessels, with very poor medication adherence and overall poor compliance to medical care. He has been missing multiple dialysis treatments to the point that it has become very precarious to his health and in spite of multiple advises about the consequences , he has not made attempts to keep up with his dialysis treatments or keep up with his medications and diet. It seems that he has now been discharged from home health agency because of his poor compliance, he does not open his door, he does not answer his phone,he does not follow up with his appointments, he does not take his medications, the last time he had his medication was 2 weeks ago. He came to the emergency room because of chest discomfort and some shortness of breath and was found to have an elevated troponin.He admitted to having missed many of his dialysis treatments the last many months. He denies any persistent chest pains. Admits to noncompliance with diet and medications. Presently he is being seen on dialysis in the ICU. He is quite comfortable and he denies any history of chest pain shortness of breath. His heart rate is is is in the low 50s and hemodynamically stable. He is undergoing dialysis without any issues. Orders were discussed with the treating dialysis nurse Bettye. Past Medical History Cardiac Medical History: Reports: Coronary Artery Disease, Hyperlipidemia, Hypertension-primary, Myocardial Infarction - mi x 7, Peripheral Vascular Disease Pulmonary Medical History: Reports: Asthma Denies: Bronchitis, Chronic Obstructive Pulmonary Disease (COPD), Pneumonia Neurological Medical History: Reports: Seizures - 2015 x1 Endocrine Medical History: Reports: Diabetes Mellitus Type 2, Obesity Renal/ Medical History: Reports: End Stage Renal Disease GI Medical History: Reports: Gastroesophageal Reflux Disease Musculoskeltal Medical History: Reports: Arthritis Psychiatric Medical History: Reports: Depression Hematology Medical History: Reports Anemia of Chronic Kidney Disease Past Surgical History Past Surgical History: Reports: Cardiac Catheterization, Coronary Stent - x6, Orthopedic Surgery - right BKA, Vascular Surgery - Right subclavian PermCath Social History Smoking Status: Current Some Day Smoker Frequency of Alcohol Use: None Hx Recreational Drug Use: No Drugs: None Hx Prescription Drug Abuse: No Family History Parental Family History Reviewed: No Children Family History Reviewed: No Sibling(s) Family History Reviewed.: No Medication/Allergy Home Medications: Clonidine HCl [Catapres 0.1 mg Tablet] 0.1 mg PO QHS 10/30/16 Divalproex Sodium [Depakote ER 500 mg Tab.sr] 500 mg PO DAILY 10/30/16 Finasteride [Proscar 5 mg Tablet] 5 mg PO DAILY 10/30/16 Gabapentin [Neurontin] 800 mg PO TID 10/30/16 Hydralazine HCl [Apresoline 50 mg Tablet] 100 mg PO TID 10/30/16 Insulin Glargine,Hum.rec.anlog [Lantus Solostar] 12 units SQ DAILY 10/30/16 Isosorbide Mononitrate [Imdur 30 mg Tablet.er] 30 mg PO DAILY 10/30/16 Levetiracetam [Keppra] 250 mg PO DAILY 10/30/16 Linagliptin [Tradjenta] 5 mg PO DAILY 10/30/16 Losartan Potassium [Cozaar 100 mg Tablet] 100 mg PO DAILY 10/30/16 Metoprolol Succinate [Toprol XL 100 mg Tablet] 100 mg PO DAILY 10/30/16 Omeprazole 20 mg PO DAILY 10/30/16 Oxycodone HCl/Acetaminophen [Percocet 5-325 mg Tablet] 1 tab PO Q6HP PRN Tamsulosin HCl [Flomax 0.4 mg Cap.sr] 0.4 mg PO DAILY 10/30/16 Allergies/Adverse Reactions: Penicillins Allergy (Verified 07/03/16 18:10) Review of Systems Review of Systems: Constitutional: PRESENT: as per HPI. ABSENT: chills, fever(s), headache(s), weight gain, weight loss Eyes: ABSENT: visual disturbances Ears: ABSENT: hearing changes Cardiovascular: ABSENT: edema, orthropnea, palpitations Respiratory: ABSENT: cough, hemoptysis Gastrointestinal: ABSENT: abdominal pain, constipation, diarrhea, hematemesis, hematochezia, nausea, vomiting Genitourinary: ABSENT: dysuria, hematuria Musculoskeletal: ABSENT: joint swelling Integumentary: ABSENT: rash, wounds Neurological: ABSENT: abnormal gait, abnormal speech, confusion, dizziness, focal weakness, syncope Psychiatric: ABSENT: anxiety, depression, homicidal ideation, suicidal ideation Endocrine: ABSENT: cold intolerance, heat intolerance, , Hematologic/Lymphatic: ABSENT: easy bleeding, easy bruising, lymphadenopathy Physical Exam Vital Signs: Temp Pulse Resp BP Pulse Ox 97.4 F 54 L 19 115/57 L 100 10/30/16 11:34 10/30/16 11:34 10/30/16 11:34 10/30/16 11:34 10/30/16 11:34 Intake & Output 10/29/16 10/30/16 10/31/16 06:59 06:59 06:59 Intake Total 641 118 Output Total 300 Balance 341 118 Weight 142 kg General appearance: PRESENT: no acute distress Eye exam: PRESENT: conjunctiva pink, EOMI, PERRLA Ear exam: PRESENT: normal external ear exam Mouth exam: PRESENT: moist, neck supple Neck exam: ABSENT: JVD, lymphadenopathy, meningismus, tenderness, thyromegaly, tracheal deviation Respiratory exam: PRESENT: clear to auscultation aguilar, decreased breath sounds. ABSENT: crackles, rhonchi Cardiovascular exam: PRESENT: +S1, +S2 GI/Abdominal exam: PRESENT: normal bowel sounds, soft. ABSENT: firm, guarding, mass, organomegaly, tenderness Extremities exam: PRESENT: +1 edema Neurological exam: PRESENT: awake, oriented to person, oriented to place, oriented to time Skin exam: ABSENT: dry, erythema, mottled, rash Results Laboratory Results: 10/30/16 04:07 10/30/16 04:07 10/29/16 10/29/16 10/29/16 17:07 17:07 17:07 WBC RBC Hgb Hct MCV MCH MCHC RDW Plt Count Seg Neutrophils % Lymphocytes % Monocytes % Eosinophils % Basophils % Absolute Neutrophils Absolute Lymphocytes Absolute Monocytes Absolute Eosinophils Absolute Basophils Sodium Potassium Chloride Carbon Dioxide Anion Gap BUN Creatinine Est GFR ( Amer) Est GFR (Non-Af Amer) Glucose Calcium Phosphorus 4.3 Magnesium 1.8 Total Bilirubin AST ALT Alkaline Phosphatase Ammonia < 8.7 L Total Protein Albumin Triglycerides Cholesterol LDL Cholesterol Direct VLDL Cholesterol HDL Cholesterol Amylase 74 Lipase 114.7 TSH 1.15 Free T4 1.32 10/30/16 10/30/16 04:07 04:07 WBC 8.5 RBC 3.07 L Hgb 9.8 L Hct 30.1 L MCV 98 H MCH 31.9 MCHC 32.6 RDW 17.3 H Plt Count 274 Seg Neutrophils % 68.5 Lymphocytes % 19.0 Monocytes % 9.4 Eosinophils % 2.3 Basophils % 0.8 Absolute Neutrophils 5.8 Absolute Lymphocytes 1.6 Absolute Monocytes 0.8 Absolute Eosinophils 0.2 Absolute Basophils 0.1 Sodium 141.0 Potassium 4.0 Chloride 99 Carbon Dioxide 28 Anion Gap 14 BUN 38 H Creatinine 3.68 H Est GFR ( Amer) 20 L Est GFR (Non-Af Amer) 17 L Glucose 115 H Calcium 9.1 Phosphorus Magnesium Total Bilirubin 0.4 AST 14 L ALT 17 L Alkaline Phosphatase 97 Ammonia Total Protein 6.4 Albumin 3.4 L Triglycerides 121 Cholesterol 186.57 LDL Cholesterol Direct 100 VLDL Cholesterol 24.0 HDL Cholesterol 36 L Amylase Lipase TSH Free T4 10/29/16 10/29/16 10/29/16 17:07 17:07 17:07 Creatine Kinase 76 CK-MB (CK-2) 2.16 Troponin I 0.976 NT-Pro-B Natriuret Pep 51706 H 10/29/16 10/29/16 10/30/16 21:30 21:30 04:07 Creatine Kinase 65 CK-MB (CK-2) 1.94 1.67 Troponin I 0.903 0.895 NT-Pro-B Natriuret Pep 10/30/16 04:07 Creatine Kinase 61 CK-MB (CK-2) Troponin I NT-Pro-B Natriuret Pep Impressions: Chest X-Ray 10/29/16 10:06 IMPRESSION: 1. Cardiomegaly with mild right perihilar edema or infiltrate. Assessment & Plan - Diagnosis (1) Bradycardia Plan: Hemodynamically stable. Since his blood pressures on the lower side of normal would discontinue his beta blockers have for the moment and monitor. Discussed with the treating nurse. (2) Acute coronary syndrome Is this a current diagnosis for this admission?: YesPlan: As per Dr. Lehman (3) ESRD (end stage renal disease) on dialysis Is this a current diagnosis for this admission?: YesPlan: Patient undergoing dialysis now without any issues other than his bradycardia. Blood pressure stable. Orders were discussed with the treating nurse. We will plan to remove a liter of fluid as tolerated. Advised compliance with dialysis. (4) Noncompliance with medication regimen Plan: Discussed the consequences of that including congestive heart failure ,cardiac arrest. (5) Anemia Qualifiers: Other causes of anemia: chronic disease, kidney Plan: Titrated erythropoietin (6) Diabetes mellitus, type II Plan: Advised on tight control.
--- NOTE | 2016-10-30 19:55 | PDOC PROGRESS REPORT ---
Subjective Progress Note for:: 10/30/16 Subjective:: He had hemodialysis today, he is scheduled for stress test tomorrow Physical Exam Vital Signs: Temp Pulse Resp BP Pulse Ox 97.4 F 54 L 19 115/57 L 100 10/30/16 11:34 10/30/16 11:34 10/30/16 11:34 10/30/16 11:34 10/30/16 11:34 Intake & Output 10/29/16 10/30/16 10/31/16 06:59 06:59 06:59 Intake Total 641 236 Output Total 300 0 Balance 341 236 Weight 142 kg General appearance: PRESENT: no acute distress Eye exam: PRESENT: PERRLA Respiratory exam: PRESENT: clear to auscultation aguilar Cardiovascular exam: PRESENT: +S1, +S2 GI/Abdominal exam: PRESENT: soft Neurological exam: PRESENT: alert Results Laboratory Results: 10/30/16 04:07 10/30/16 04:07 10/30/16 10/30/16 04:07 04:07 WBC 8.5 RBC 3.07 L Hgb 9.8 L Hct 30.1 L MCV 98 H MCH 31.9 MCHC 32.6 RDW 17.3 H Plt Count 274 Seg Neutrophils % 68.5 Lymphocytes % 19.0 Monocytes % 9.4 Eosinophils % 2.3 Basophils % 0.8 Absolute Neutrophils 5.8 Absolute Lymphocytes 1.6 Absolute Monocytes 0.8 Absolute Eosinophils 0.2 Absolute Basophils 0.1 Sodium 141.0 Potassium 4.0 Chloride 99 Carbon Dioxide 28 Anion Gap 14 BUN 38 H Creatinine 3.68 H Est GFR ( Amer) 20 L Est GFR (Non-Af Amer) 17 L Glucose 115 H Calcium 9.1 Total Bilirubin 0.4 AST 14 L ALT 17 L Alkaline Phosphatase 97 Total Protein 6.4 Albumin 3.4 L Triglycerides 121 Cholesterol 186.57 LDL Cholesterol Direct 100 VLDL Cholesterol 24.0 HDL Cholesterol 36 L 10/29/16 10/29/16 10/29/16 17:07 17:07 17:07 Creatine Kinase 76 CK-MB (CK-2) 2.16 Troponin I 0.976 NT-Pro-B Natriuret Pep 12691 H 10/29/16 10/29/16 10/30/16 21:30 21:30 04:07 Creatine Kinase 65 CK-MB (CK-2) 1.94 1.67 Troponin I 0.903 0.895 NT-Pro-B Natriuret Pep 10/30/16 04:07 Creatine Kinase 61 CK-MB (CK-2) Troponin I NT-Pro-B Natriuret Pep Impressions: Chest X-Ray 10/29/16 10:06 IMPRESSION: 1. Cardiomegaly with mild right perihilar edema or infiltrate. Assessment & Plan - Diagnosis (1) Acute coronary syndrome Is this a current diagnosis for this admission?: Yes (2) Elevated troponin Is this a current diagnosis for this admission?: Yes (3) ESRD (end stage renal disease) on dialysis Is this a current diagnosis for this admission?: Yes (4) Obesity hypoventilation syndrome Is this a current diagnosis for this admission?: Yes (5) Seizure disorder Is this a current diagnosis for this admission?: Yes (6) Anemia Qualifiers: Other causes of anemia: chronic disease, kidney (7) CAD (coronary artery disease) Qualifiers: Coronary Disease-Associated Artery/Lesion type: [place] artery [place] vs. transplanted heart: [place] heart Associated angina: with unspecified angina Qualified Code(s): I25.119 - Atherosclerotic heart disease of [place] coronary artery with unspecified angina pectoris Is this a current diagnosis for this admission?: Yes (8) Diabetes mellitus type 2 in nonobese Is this a current diagnosis for this admission?: Yes
[2016-10-30] MEDS: CLONIDINE HCL 0.1 MG TABLET PO SCH (22:31)
[2016-10-30] MEDS: INSULIN LISPRO 100 UNIT/ML 3 ML VIAL SUBCUT PRN (22:31)
[2016-10-30] MEDS ORDERED: LIDOCAINE 0.5% INJ-PF (5 MG/ML) 50 ML SDV ONE (23:40)
--- NOTE | 2016-10-31 01:04 | PROGRESS NOTE E ---
Progress Note NAME: MARIANA RICHARDSON : 1955 AGE: 61Y DATE: 10/30/2016 ROOM: 302 SUBJECTIVE: The patient has poor IV access and a central line has been requested. The patient's bilateral groins were examined with ultrasound. He has had a previous right [id number] amputation and is nonambulatory. He is also morbidly obese. He has a small femoral vein hiding behind the femoral artery in the groin. The iliac vein does not appear to show up coming along side of the iliac artery and what is accessible by needle. The patient has a right perm cath being placed. The left internal jugular vein was examined. It appears to be average to slightly smaller in size and compressible without any visible clot being present. An IV central line is requested just in case the patient needed IV access during hospitalization. He is on Plavix and heparin which gives him an increased risk of swelling and bleeding in the neck, even cannulating the internal jugular vein perfectly. If he needs IV access in emergency, then consideration of using his perm cath for this purpose. If he needs IV access for vp marketing services and skin hospitalization, then the risk may be acceptable to place a right internal jugular central venous line under ultrasound guidance. DICTATING PHYSICIAN: MOISES SOLO M.D. [id number] Y#: [id number] ID: [id number] JOB#: [id number] ACCT: [id number] cc: >
[2016-10-31] MEDS: GABAPENTIN 400 MG CAPSULE PO SCH ×3 (06:06→22:55)
[2016-10-31] MEDS: HEPARIN SOD (PORCINE) 5,000 UNIT/ML 1 ML SYRINGE SUBCUT SCH ×3 (06:06→22:55)
[2016-10-31] MEDS: HYDRALAZINE HCL 50 MG TABLET PO SCH ×3 (06:09→22:46)
[2016-10-31 07:34] LABS: ABSOLUTE BASOPHILS # (AUTO) 0.1 10^3/uL (0.0-0.2); ABSOLUTE EOSINOPHILS # (AUTO) 0.2 10^3/uL (0.0-0.6); ABSOLUTE LYMPHOCYTES (AUTO) 1.8 10^3/uL (0.5-4.7); ABSOLUTE MONOCYTES (AUTO) 0.7 10^3/uL (0.1-1.4); BASOPHILS % (AUTO) 1.1 % (0-2); EOSINOPHILS % (AUTO) 2.9 % (0-6); HEMATOCRIT 33.5 % (37.9-51.0); HEMOGLOBIN 10.7 g/dL (13.5-17.0); HGB HCT DIFFERENCE -1.4; LYMPHOCYTES % (AUTO) 22.4 % (13-45); MEAN CORPUSCULAR HEMOGLOBIN 31.2 pg (27.0-33.4); MEAN CORPUSCULAR HGB CONC 31.9 g/dL (32.0-36.0); MEAN CORPUSCULAR VOLUME 98 fl (80-97); MONOCYTES % (AUTO) 9.5 % (3-13); RED BLOOD COUNT 3.43 10^6/uL (4.35-5.55); RED CELL DISTRIBUTION WIDTH 17.6 % (11.5-14.0); SEGMENTED NEUTROPHILS % (AUTO) 64.1 % (42-78); WHITE BLOOD COUNT 7.8 10^3/uL (4.0-10.5)
[2016-10-31] MEDS: ASPIRIN 325 MG TABLET PO SCH (10:39)
[2016-10-31] MEDS: LEVETIRACETAM 500 MG TABLET PO SCH (10:39)
[2016-10-31] MEDS: TAMSULOSIN HCL 0.4 MG CAP.SR.24H PO SCH (10:40)
[2016-10-31] MEDS: LANSOPRAZOLE 15 MG TAB.RAP.DR PO SCH (10:40)
[2016-10-31] MEDS: LOSARTAN POTASSIUM 50 MG TABLET PO SCH (10:41)
[2016-10-31] MEDS: SITAGLIPTIN PHOSPHATE 50 MG TABLET PO SCH (10:41)
[2016-10-31] MEDS: ISOSORBIDE MONONITRATE 30 MG TAB.ER.24H PO SCH (10:41)
[2016-10-31] MEDS: CLOPIDOGREL BISULFATE 75 MG TABLET PO SCH (10:41)
[2016-10-31] MEDS ORDERED: REGADENOSON INJ 0.4 MG/5 ML DISP.SYRIN IV ONE (13:51)
[2016-10-31] MEDS ORDERED: AMINOPHYLLINE INJ/PF 250 MG/10 ML SDV IV ONE (13:51)
[2016-10-31] MEDS: INSULIN LISPRO 100 UNIT/ML 3 ML VIAL SUBCUT PRN ×2 (17:31→22:55)
--- NOTE | 2016-10-31 19:59 | PDOC PROGRESS REPORT ---
Subjective Progress Note for:: 10/31/16 Subjective:: He had initial part of stress test done today, he has no new complaints today Physical Exam Vital Signs: Temp Pulse Resp BP Pulse Ox 97.4 F 69 16 133/55 H 97 10/31/16 11:14 10/31/16 14:00 10/31/16 11:14 10/31/16 11:14 10/31/16 11:14 Intake & Output 10/30/16 10/31/16 11/01/16 06:59 06:59 06:59 Intake Total 641 680 600 Output Total 300 1700 0 Balance 341 -1020 600 Weight 142 kg 144 kg General appearance: PRESENT: no acute distress Eye exam: PRESENT: PERRLA Respiratory exam: PRESENT: clear to auscultation aguilar Cardiovascular exam: PRESENT: +S1, +S2 GI/Abdominal exam: PRESENT: soft Results Laboratory Results: 10/31/16 07:08 10/30/16 04:07 10/31/16 07:08 WBC 7.8 RBC 3.43 L Hgb 10.7 L Hct 33.5 L MCV 98 H MCH 31.2 MCHC 31.9 L RDW 17.6 H Plt Count 231 Seg Neutrophils % 64.1 Lymphocytes % 22.4 Monocytes % 9.5 Eosinophils % 2.9 Basophils % 1.1 Absolute Neutrophils 5.0 Absolute Lymphocytes 1.8 Absolute Monocytes 0.7 Absolute Eosinophils 0.2 Absolute Basophils 0.1 10/29/16 10/29/16 10/29/16 17:07 17:07 17:07 Creatine Kinase 76 CK-MB (CK-2) 2.16 Troponin I 0.976 NT-Pro-B Natriuret Pep 21135 H 10/29/16 10/29/16 10/30/16 21:30 21:30 04:07 Creatine Kinase 65 CK-MB (CK-2) 1.94 1.67 Troponin I 0.903 0.895 NT-Pro-B Natriuret Pep 10/30/16 04:07 Creatine Kinase 61 CK-MB (CK-2) Troponin I NT-Pro-B Natriuret Pep Impressions: Chest X-Ray 10/29/16 10:06 IMPRESSION: 1. Cardiomegaly with mild right perihilar edema or infiltrate. Assessment & Plan - Diagnosis (1) Acute coronary syndrome Is this a current diagnosis for this admission?: Yes (2) Elevated troponin Is this a current diagnosis for this admission?: Yes (3) ESRD (end stage renal disease) on dialysis Is this a current diagnosis for this admission?: Yes (4) Obesity hypoventilation syndrome Is this a current diagnosis for this admission?: Yes (5) Seizure disorder Is this a current diagnosis for this admission?: Yes (6) Anemia Qualifiers: Other causes of anemia: chronic disease, kidney (7) CAD (coronary artery disease) Qualifiers: Coronary Disease-Associated Artery/Lesion type: [place] artery [place] vs. transplanted heart: [place] heart Associated angina: with unspecified angina Qualified Code(s): I25.119 - Atherosclerotic heart disease of [place] coronary artery with unspecified angina pectoris Is this a current diagnosis for this admission?: Yes (8) Diabetes mellitus type 2 in nonobese Is this a current diagnosis for this admission?: Yes
[2016-10-31] MEDS: CLONIDINE HCL 0.1 MG TABLET PO SCH (22:46)
[2016-10-31] MEDS: INSULIN GLARGINE,HUM.REC.ANLOG 300 UNIT/3 ML INSULN.PEN SUBCUT SCH (22:55)
[2016-11-01] MEDS: HYDRALAZINE HCL 50 MG TABLET PO SCH ×2 (05:29→13:48)
[2016-11-01] MEDS: HEPARIN SOD (PORCINE) 5,000 UNIT/ML 1 ML SYRINGE SUBCUT SCH ×3 (05:38→22:30)
[2016-11-01] MEDS: GABAPENTIN 400 MG CAPSULE PO SCH ×3 (05:38→22:34)
[2016-11-01 06:49] LABS: ABSOLUTE BASOPHILS # (AUTO) 0.1 10^3/uL (0.0-0.2); ABSOLUTE EOSINOPHILS # (AUTO) 0.3 10^3/uL (0.0-0.6); ABSOLUTE LYMPHOCYTES (AUTO) 1.7 10^3/uL (0.5-4.7); ABSOLUTE MONOCYTES (AUTO) 0.7 10^3/uL (0.1-1.4); ABSOLUTE NEUT (AUTO) 5.7 10^3/uL (1.7-8.2); BASOPHILS % (AUTO) 0.7 % (0-2); EOSINOPHILS % (AUTO) 3.5 % (0-6); HEMATOCRIT 27.8 % (37.9-51.0); HEMOGLOBIN 9.2 g/dL (13.5-17.0); HGB HCT DIFFERENCE -0.2; LYMPHOCYTES % (AUTO) 19.7 % (13-45); MEAN CORPUSCULAR HEMOGLOBIN 32.5 pg (27.0-33.4); MEAN CORPUSCULAR HGB CONC 33.1 g/dL (32.0-36.0); MEAN CORPUSCULAR VOLUME 98 fl (80-97); MONOCYTES % (AUTO) 8.1 % (3-13); RED BLOOD COUNT 2.83 10^6/uL (4.35-5.55); RED CELL DISTRIBUTION WIDTH 17.5 % (11.5-14.0); WHITE BLOOD COUNT 8.4 10^3/uL (4.0-10.5)
[2016-11-01 07:12] LABS: ANION GAP 15 (5-19); BLOOD UREA NITROGEN 39 mg/dL (7-20); CALCIUM 8.7 mg/dL (8.4-10.2); CARBON DIOXIDE 28 mmol/L (22-30); CHLORIDE 99 mmol/L (98-107); CREATININE RESULT 4.79 mg/dL (0.52-1.25); GLUCOSE 119 mg/dL (75-110); POTASSIUM 4.1 mmol/L (3.6-5.0); SODIUM 141.5 mmol/L (137-145)
[2016-11-01] MEDS: ISOSORBIDE MONONITRATE 30 MG TAB.ER.24H PO SCH (09:25)
[2016-11-01] MEDS: LOSARTAN POTASSIUM 50 MG TABLET PO SCH (09:25)
[2016-11-01] MEDS: TAMSULOSIN HCL 0.4 MG CAP.SR.24H PO SCH (09:25)
[2016-11-01] MEDS: LEVETIRACETAM 500 MG TABLET PO SCH (10:07)
[2016-11-01] MEDS: LANSOPRAZOLE 15 MG TAB.RAP.DR PO SCH (10:07)
[2016-11-01] MEDS: ASPIRIN 325 MG TABLET PO SCH (10:07)
[2016-11-01] MEDS: SITAGLIPTIN PHOSPHATE 50 MG TABLET PO SCH (10:07)
[2016-11-01] MEDS: CLOPIDOGREL BISULFATE 75 MG TABLET PO SCH (10:07)
--- NOTE | 2016-11-01 12:12 | DRAGON STRESS TEST REPORT ---
INTRAVENOUS LEXISCAN CARDIOLITE STRESS TEST USING SINGLE PHOTON EMMISION COMPUTERIZED TOMOGRAPHIC. DATE OF PROCEDURE: October 31, 2016, study however interpreted on November 01. INDICATION : Chest pain CARDIAC RISK FACTORS: Diabetes, hypertension, dyslipidemia, tobacco abuse, history of multiple stents and myocardial infarction. RESTING EKG: Sinus rhythm, minor nonspecific ST-T wave changes lateral leads. STRESS EKG: No significant changes noted with LexiScan bolus REASON FOR TERMINATION: Protocol. PROCEDURE REPORT: Baseline heart rate 59 beats per minute with blood pressure of on 136/38. Patient had no significant complaints. Heart rate at 2 minutes post bolus 70 with a blood pressure of 105/51. 3 minutes post bolus heart rate 69 with blood pressure of 122/54. No significant EKG changes were noted. Patient had no significant complaints during the procedure or postprocedure. Patient injected with Aminophyllin 75 mg at 3 minutes or later after Lexiscan bolus. CONCLUSIONS: Normal EKG and hemodynamic response to IV LexiScan. NUCLEAR DATA: 2 protocol used. Stress imaging on day 1 and rest imaging on day 2. At rest the patient was given 42.7 millicuries of technetium 99 sestamibi injected intravenously. As per protocol rest gated SPECT images were obtained. For stress imaging patient was given intravenous LexiScan at a dose of 0.4 mg in 5 mL intravenously, followed by flush with normal saline. Subsequently the stress dose of 42.2 millicuries of technetium 99 sestamibi was injected intravenously. As per protocol stress gated images were obtained. NUCLEAR INTERPRETATION: Both raw and processed data were used for interpretation. Visual, qualitative, computer-generated quantitative data was used. There was good myocardial uptake of technetium compound. Significant Motion artifact and soft tissue attenuations were noted. Increased visceral uptake was noted. This caused difficulty with interpretation. Decreased uptake was noted in the basal and mid anterior wall which was somewhat more decreased in the stress imaging as compared to rest imaging, this is consistent with ischemia with underlying scar in the basal and mid anterior wall. However patient was noted to have significant motion artifact as well as soft tissue attenuation. EKG gated imaging showed LV EF at 40 %, rest and stress gated EF similar visually. T. I D. ratio was 0.96. Lung heart ratio noted to be within normal limits 0.35. No significant extracardiac and abnormal radiotracer activities were noted. RV free wall uptake was noted to be increased. IMPRESSION: Also refer to comments under nuclear interpretation. Also test results needs to be interpreted in the context of pretest probability. 1. Decreased uptake was noted in the basal and mid anterior wall which was somewhat more decreased in the stress imaging as compared to rest imaging, this is consistent with ischemia with underlying scar in the basal and mid anterior wall. However patient was noted to have significant motion artifact as well as soft tissue attenuation. Confidence in accurate interpretation is somewhat low. 2. Right ventricular free wall uptake was noted to be increased consistent with right ventricular hypertrophy. 3. EKG gated imaging shows left ejection fraction of approximately 40 % with mild diffuse hypokinesia. 4. Clinical correlation requested as occasionally worse disease or balanced ischemia could be missed. In approximately 10% of the cases Lexiscan may not cause adequate vasodilatory stress. RECOMMENDATIONS: Aggressive risk factor modification, medical therapy. Clinical correlation with echocardiogram derived ejection fraction. Inability to exercise by itself can lead to increased cardiovascular event risks. Consider cardiology consultation and or follow-up if clinically indicated. I AM AVAILABLE FOR CARDIOLOGY CONSULTATION AND FOLLOWUP IF REQUESTED BY SARA Hunt M.D., KYLE Ward Supervisor deli bakery clerk, Board certified in cardiovascular diseases, Nuclear cardiology, Echocardiography Cardiac CT and cardiac MRI Ph. [phone] YAMILKA
[2016-11-01] MEDS: HEPARIN SOD (PORCINE) 1,000 UNIT/ML 10 ML VIAL IV PRN ×2 (15:09→18:00)
[2016-11-01] MEDS: EPOETIN ALFA 10,000 UNIT in SYRINGE, DISPOSABLE, 1 EACH IV PRN ×2 (15:16→18:00)
[2016-11-01] MEDS ORDERED: HYDRALAZINE HCL 50 MG TABLET PO SCH (15:27)
--- NOTE | 2016-11-01 15:41 | PDOC PROGRESS REPORT ---
Subjective Progress Note for:: 11/01/16 Subjective:: The nuclear stress test was abnormal, consultation will be requested from cardiology, he had hemodialysis today Physical Exam Vital Signs: Temp Pulse Resp BP Pulse Ox 97.9 F 66 16 113/52 L 100 11/01/16 11:28 11/01/16 11:28 11/01/16 11:28 11/01/16 11:28 11/01/16 11:28 Intake & Output 10/31/16 11/01/16 11/02/16 06:59 06:59 06:59 Intake Total 680 1729 Output Total 1700 0 Balance -1020 1729 Weight 144 kg 145.9 kg General appearance: PRESENT: no acute distress Eye exam: PRESENT: PERRLA Respiratory exam: PRESENT: clear to auscultation aguilar Cardiovascular exam: PRESENT: +S1, +S2 GI/Abdominal exam: PRESENT: soft Results Laboratory Results: 11/01/16 05:28 11/01/16 05:28 11/01/16 11/01/16 05:28 05:28 WBC 8.4 RBC 2.83 L Hgb 9.2 L Hct 27.8 L MCV 98 H MCH 32.5 MCHC 33.1 RDW 17.5 H Plt Count 225 Seg Neutrophils % 68.0 Lymphocytes % 19.7 Monocytes % 8.1 Eosinophils % 3.5 Basophils % 0.7 Absolute Neutrophils 5.7 Absolute Lymphocytes 1.7 Absolute Monocytes 0.7 Absolute Eosinophils 0.3 Absolute Basophils 0.1 Sodium 141.5 Potassium 4.1 Chloride 99 Carbon Dioxide 28 Anion Gap 15 BUN 39 H Creatinine 4.79 H Est GFR ( Amer) 15 L Est GFR (Non-Af Amer) 12 L Glucose 119 H Calcium 8.7 10/29/16 10/29/16 10/29/16 17:07 17:07 17:07 Creatine Kinase 76 CK-MB (CK-2) 2.16 Troponin I 0.976 NT-Pro-B Natriuret Pep 56030 H 10/29/16 10/29/16 10/30/16 21:30 21:30 04:07 Creatine Kinase 65 CK-MB (CK-2) 1.94 1.67 Troponin I 0.903 0.895 NT-Pro-B Natriuret Pep 10/30/16 04:07 Creatine Kinase 61 CK-MB (CK-2) Troponin I NT-Pro-B Natriuret Pep Impressions: Chest X-Ray 10/29/16 10:06 IMPRESSION: 1. Cardiomegaly with mild right perihilar edema or infiltrate. Assessment & Plan - Diagnosis (1) Acute coronary syndrome Is this a current diagnosis for this admission?: Yes (2) Elevated troponin Is this a current diagnosis for this admission?: Yes (3) ESRD (end stage renal disease) on dialysis Is this a current diagnosis for this admission?: Yes (4) Obesity hypoventilation syndrome Is this a current diagnosis for this admission?: Yes (5) Seizure disorder Is this a current diagnosis for this admission?: Yes (6) Anemia Qualifiers: Qualified Code(s): N18.9 - Chronic kidney disease, unspecified; D63.1 - Anemia in chronic kidney disease (7) CAD (coronary artery disease) Qualifiers: Qualified Code(s): I25.119 - Atherosclerotic heart disease of [place] coronary artery with unspecified angina pectoris Is this a current diagnosis for this admission?: Yes (8) Diabetes mellitus type 2 in nonobese Is this a current diagnosis for this admission?: Yes - Plan Summary Plan Summary: Abnormal stress tests
--- NOTE | 2016-11-01 15:52 | PDOC PROGRESS REPORT ---
Subjective Progress Note for:: 11/01/16 Subjective:: seen on HD.Denies chest pains dyspnea. Orders discussed with forest supervisor. Physical Exam Vital Signs: Temp Pulse Resp BP Pulse Ox 97.9 F 66 16 113/52 L 100 11/01/16 11:28 11/01/16 11:28 11/01/16 11:28 11/01/16 11:28 11/01/16 11:28 Intake & Output 10/31/16 11/01/16 11/02/16 06:59 06:59 06:59 Intake Total 680 1729 Output Total 1700 0 Balance -1020 1729 Weight 144 kg 145.9 kg General appearance: PRESENT: no acute distress Respiratory exam: PRESENT: clear to auscultation aguilar. ABSENT: crackles, rhonchi Cardiovascular exam: PRESENT: +S1, +S2 GI/Abdominal exam: PRESENT: normal bowel sounds, soft. ABSENT: firm, guarding, mass, organomegaly, tenderness Results Laboratory Results: 11/01/16 05:28 11/01/16 05:28 11/01/16 11/01/16 05:28 05:28 WBC 8.4 RBC 2.83 L Hgb 9.2 L Hct 27.8 L MCV 98 H MCH 32.5 MCHC 33.1 RDW 17.5 H Plt Count 225 Seg Neutrophils % 68.0 Lymphocytes % 19.7 Monocytes % 8.1 Eosinophils % 3.5 Basophils % 0.7 Absolute Neutrophils 5.7 Absolute Lymphocytes 1.7 Absolute Monocytes 0.7 Absolute Eosinophils 0.3 Absolute Basophils 0.1 Sodium 141.5 Potassium 4.1 Chloride 99 Carbon Dioxide 28 Anion Gap 15 BUN 39 H Creatinine 4.79 H Est GFR ( Amer) 15 L Est GFR (Non-Af Amer) 12 L Glucose 119 H Calcium 8.7 10/29/16 10/29/16 10/29/16 17:07 17:07 17:07 Creatine Kinase 76 CK-MB (CK-2) 2.16 Troponin I 0.976 NT-Pro-B Natriuret Pep 99392 H 10/29/16 10/29/16 10/30/16 21:30 21:30 04:07 Creatine Kinase 65 CK-MB (CK-2) 1.94 1.67 Troponin I 0.903 0.895 NT-Pro-B Natriuret Pep 05/01/17 04:07 Creatine Kinase 61 CK-MB (CK-2) Troponin I NT-Pro-B Natriuret Pep Impressions: Chest X-Ray 10/29/16 10:06 IMPRESSION: 1. Cardiomegaly with mild right perihilar edema or infiltrate. Assessment & Plan - Diagnosis (2) Acute coronary syndrome Is this a current diagnosis for this admission?: Yes (3) ESRD (end stage renal disease) on dialysis Is this a current diagnosis for this admission?: YesPlan: Patient undergoing dialysis now without any issues other than low normal BP. BP improved with prime and will see how he tolerates UF. Orders were discussed with the treating nurse. We will plan to remove a liter of fluid as tolerated. (5) Anemia Qualifiers: Qualified Code(s): N18.9 - Chronic kidney disease, unspecified; D63.1 - Anemia in chronic kidney disease Plan: Titrated erythropoietin
[2016-11-01] MEDS ORDERED: LOSARTAN POTASSIUM 50 MG TABLET PO ONE (17:00)
--- NOTE | 2016-11-01 20:55 | PDOC CONSULTATION ---
Consultation Consult Date: 11/01/16 Attending physician:: VIRIDIANA LEHMAN Consult reason:: Chest pain and positive stress test History of Present Illness Admission Date/PCP: 10/29/16 15:23 VIRIDIANA LEHMAN MD Patient complains of: Chest pain History of Present Illness: MARIANA RICHARDSON is a 61 year old male, he has multiple comorbidities including end-stage renal disease on hemodialysis in the background of diabetes mellitus and hypertension,with other comorbidities including coronary artery disease with multiple stents insertion in multiple coronary vessels, with very poor medication adherence and overall poor compliance to medical care. He has been missing multiple dialysis treatments to the point that it has become very precarious to his health and in spite of multiple advises about the consequences , he has not made attempts to keep up with his dialysis treatments or keep up with his medications and diet. It seems that he has now been discharged from home health agency because of his poor compliance, he does not open his door, he does not answer his phone,he does not follow up with his appointments, he does not take his medications, the last time he had his medication was 2 weeks ago. He came to the emergency room because of chest discomfort and some shortness of breath and was found to have an elevated troponin.He admitted to having missed many of his dialysis treatments the last many months. He denies any persistent chest pains. Admits to noncompliance with diet and medications. Patient had a nuclear stress test which was positive for mid and basal anterior wall ischemia with underlying fixed defect. Patient has positive troponin I and also complains of intermittent chest pain. This history was reviewed supplemented and confirmed. Past Medical History Cardiac Medical History: Reports: Congestive Heart Failure, Coronary Artery Disease, Myocardial Infarction - mi x 7, Hyperlipidema, Hypertension, Peripheral Vascular Disease Pulmonary Medical History: Reports: Asthma Denies: Bronchitis, Chronic Obstructive Pulmonary Disease (COPD), Pneumonia Neurological Medical History: Reports: Seizures - 2015 x1 Endocrine Medical History: Reports: Diabetes Mellitus Type 1, Diabetes Mellitus Type 2, Obesity Renal/ Medical History: Reports: End Stage Renal Disease GI Medical History: Reports: Gastroesophageal Reflux Disease Musculoskeltal Medical History: Reports: Arthritis Psychiatric Medical History: Reports: Depression Hematology: Reports: Anemia - hx of Past Surgical History Past Surgical History: Reports: Cardiac Catheterization, Coronary Stent - x6, Orthopedic Surgery - right BKA, Vascular Surgery - Right subclavian PermCath Social History Information Source: Patient Smoking Status: Current Some Day Smoker Frequency of Alcohol Use: None Hx Recreational Drug Use: No Drugs: None Hx Prescription Drug Abuse: No - Advance Directive Resuscitation Status: Full Code Surrogate healthcare decision maker:: Patient's girlfriend Family History Family History: Arthritis, CAD, CVA, DM, Hyperlipidemia, Hypertension Parental Family History Reviewed: Yes Children Family History Reviewed: Yes Sibling(s) Family History Reviewed.: Yes - Positive for CAD Medication/Allergy Home Medications: Clonidine HCl [Catapres 0.1 mg Tablet] 0.1 mg PO QHS 10/30/16 Divalproex Sodium [Depakote ER 500 mg Tab.sr] 500 mg PO DAILY 10/30/16 Finasteride [Proscar 5 mg Tablet] 5 mg PO DAILY 10/30/16 Gabapentin [Neurontin] 800 mg PO TID 10/30/16 Hydralazine HCl [Apresoline 50 mg Tablet] 100 mg PO TID 10/30/16 Insulin Glargine,Hum.rec.anlog [Lantus Solostar] 12 units SQ DAILY 10/30/16 Isosorbide Mononitrate [Imdur 30 mg Tablet.er] 30 mg PO DAILY 10/30/16 Levetiracetam [Keppra] 250 mg PO DAILY 10/30/16 Linagliptin [Tradjenta] 5 mg PO DAILY 10/30/16 Losartan Potassium [Cozaar 100 mg Tablet] 100 mg PO DAILY 10/30/16 Metoprolol Succinate [Toprol XL 100 mg Tablet] 100 mg PO DAILY 10/30/16 Omeprazole 20 mg PO DAILY 10/30/16 Oxycodone HCl/Acetaminophen [Percocet 5-325 mg Tablet] 1 tab PO Q6HP PRN Tamsulosin HCl [Flomax 0.4 mg Cap.sr] 0.4 mg PO DAILY 10/30/16 Allergies/Adverse Reactions: Penicillins Allergy (Verified 07/03/16 18:10) Review of Systems Review of Systems: Please see history of present illness and past medical history as wall. Constitutional: No fever or chills reported. Head : No recent chronic headaches, recent head injury. Eyes: No recent eye pain, diplopia, redness, discharge, acute visual changes. Ears: No recent chronic ear pain, acute hearing loss, ear discharge. Oral cavity: No recent ulcerations, bleeding, oral cavity discomfort. Neck: No recent acute neck pain reported. Hematologic: No recent easy bruising or bleeding or hematologic malignancy reported. Lymphatic: No recent lymphatic malignancy, chronic lymphadenopathy reported yet Cardiovascular system review: See history of present illness. Respiratory system review: No recent chronic cough, hemoptysis, blood clots in the lungs reported. Mild Shortness of breath on exertion Gastrointestinal system review: Negative for any recent acute or chronic abdominal pain, hematemesis, melena, recent change in bowel habits. Genitourinary system review: No recent acute or chronic hematuria, flank pain, UTI etc. reported. Skin system review: Negative for any recent abnormal bruising, no rash, no pruritus reported. Neurologic: No prior history of strokes, mini strokes, seizure disorder. Psychologic: No history of major psychosis or major depression reported. Musculoskeletal: Minor aches and pains reported. No acute joint swelling reported. Endocrine: No recent polyuria, polydipsia, recent heat or cold intolerance. Physical Exam Vital Signs: Temp Pulse Resp BP Pulse Ox 97.5 F 72 18 118/51 L 97 11/01/16 17:00 11/01/16 19:00 11/01/16 17:00 11/01/16 17:00 11/01/16 17:00 Intake & Output 10/31/16 11/01/16 11/02/16 06:59 06:59 06:59 Intake Total 680 1729 0 Output Total 1700 0 Balance -1020 1729 0 Weight 144 kg 145.9 kg Exam: GENERAL: well-nourished and in no acute distress. Alert and oriented x3 HEAD: Atraumatic, normocephalic. EYES: Pupils equal round and reactive to light, extraocular movements intact, sclera anicteric, conjunctiva are normal. ENT: TMs normal, nares patent, oropharynx clear without exudates. Moist mucous membranes. No oral ulcerations or bleeding gums noted NECK: supple without lymphadenopathy. Trachea is central. No cervical or axillary lymphadenopathy noted. Carotids are 2+, JVD WNL LUNGS: Respiration seems nonlabored, no significant accessory muscle action noted. Breath sounds clear to auscultation bilaterally and equal noted. No wheezes rales or rhonchi noted. No significant dullness noted on percussion. CHEST: Palpation of the chest wall shows no significant chest wall tenderness. No other significant abnormalities noted. 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 ABDOMEN: Soft, no significant tenderness appreciated, normoactive bowel sounds. No guarding, no rebound. No rigidity noted . No masses appreciated. EXTREMITIES: Pedal pulses are 1-2+, no calf tenderness noted. No clubbing or cyanosis.trace to 1+ pedal edema noted. Below-knee amputation noted of the right lower extremity NEUROLOGICAL: Focused neurological exam showed no significant neurologic deficit. Normal speech, no focal weakness appreciated. PSYCH: Normal mood, normal affect. Judgment and insight within normal limits. SKIN: No significant ecchymosis, rash, ulcerations or signs of pruritus noted. MUSCULOSKELETAL EXAM: No significant joint swelling noted. Results Laboratory Results: 11/01/16 05:28 11/01/16 05:28 11/01/16 11/01/16 05:28 05:28 WBC 8.4 RBC 2.83 L Hgb 9.2 L Hct 27.8 L MCV 98 H MCH 32.5 MCHC 33.1 RDW 17.5 H Plt Count 225 Seg Neutrophils % 68.0 Lymphocytes % 19.7 Monocytes % 8.1 Eosinophils % 3.5 Basophils % 0.7 Absolute Neutrophils 5.7 Absolute Lymphocytes 1.7 Absolute Monocytes 0.7 Absolute Eosinophils 0.3 Absolute Basophils 0.1 Sodium 141.5 Potassium 4.1 Chloride 99 Carbon Dioxide 28 Anion Gap 15 BUN 39 H Creatinine 4.79 H Est GFR ( Amer) 15 L Est GFR (Non-Af Amer) 12 L Glucose 119 H Calcium 8.7 10/29/16 10/29/16 10/29/16 17:07 17:07 17:07 Creatine Kinase 76 CK-MB (CK-2) 2.16 Troponin I 0.976 NT-Pro-B Natriuret Pep 08605 H 10/29/16 10/29/16 10/30/16 21:30 21:30 04:07 Creatine Kinase 65 CK-MB (CK-2) 1.94 1.67 Troponin I 0.903 0.895 NT-Pro-B Natriuret Pep 10/30/16 04:07 Creatine Kinase 61 CK-MB (CK-2) Troponin I NT-Pro-B Natriuret Pep EKG Comments: Sinus rhythm, no acute ST-T wave changes noted Impressions: Chest X-Ray 10/29/16 10:06 IMPRESSION: 1. Cardiomegaly with mild right perihilar edema or infiltrate. Assessment & Plan - Diagnosis (1) Acute coronary syndrome Is this a current diagnosis for this admission?: Yes (2) Elevated troponin Is this a current diagnosis for this admission?: Yes (3) CAD (coronary artery disease) Qualifiers: Coronary Disease-Associated Artery/Lesion type: [place] artery [place] vs. transplanted heart: [place] heart Associated angina: with unspecified angina Qualified Code(s): I25.119 - Atherosclerotic heart disease of [place] coronary artery with unspecified angina pectoris Is this a current diagnosis for this admission?: Yes (4) Diabetes mellitus, type II Qualifiers: Chronic kidney disease stage: on chronic dialysis Is this a current diagnosis for this admission?: Yes (5) HTN (hypertension) Qualifiers: Hypertension type: essential hypertension Qualified Code(s): I10 - Essential (primary) hypertension (6) ESRD (end stage renal disease) on dialysis Is this a current diagnosis for this admission?: Yes - Notes Notes: Acute coronary syndrome: Patient had positive stress test and also has positive enzyme. Electrocardiogram relatively unremarkable except for minor nonspecific ST segment changes. Above findings discussed with the patient. Have recommended cardiac catheterization. Will discuss above with primary care attending in the morning and if needed. Will arrange for transfer to tertiary care. Peak troponin I was 1.1 which is 10 times more than myocardial infarction cutoff range in this institution Elevated troponin I: Most likely related to ACS. 2 be further evaluated with heart catheterization. Coronary artery disease:, Have optimize therapy for underlying CAD. Have placed patient on high potency statin therapy. Patient gives history of numerous and multiple heart attacks and multiple stents placement in the past. Patient does have a history of noncompliance with diet and medications. Hypertension: Reasonably well controlled. Blood pressure goal in this patient is 135/85 or less. End-stage renal disease on dialysis: Being expertly managed by lead inspector. Obesity: Patient has been encouraged in weight loss. Peripheral vascular disease: This is suspected. Patient is status post amputation below knee on the right side. A 2-D echocardiogram was ordered for risk assessment. - Time Time Spent: 50 to 70 Minutes - Patient's nephew is the surrogate decision maker. We discussed nuclear stress test results with the patient. Medications reviewed and adjusted accordingly: Yes
[2016-11-01] MEDS ORDERED: ATORVASTATIN CALCIUM 40 MG TABLET PO SCH (22:00)
[2016-11-01] MEDS: INSULIN GLARGINE,HUM.REC.ANLOG 300 UNIT/3 ML INSULN.PEN SUBCUT SCH (22:30)
[2016-11-01] MEDS: INSULIN LISPRO 100 UNIT/ML 3 ML VIAL SUBCUT PRN (22:31)
[2016-11-01] MEDS: HYDRALAZINE HCL 25 MG TABLET PO SCH (22:32)
[2016-11-01] MEDS: CLONIDINE HCL 0.1 MG TABLET PO SCH (22:33)
[2016-11-02] MEDS: GABAPENTIN 400 MG CAPSULE PO SCH ×2 (06:12→13:01)
[2016-11-02] MEDS: HEPARIN SOD (PORCINE) 5,000 UNIT/ML 1 ML SYRINGE SUBCUT SCH ×2 (06:12→13:01)
[2016-11-02] MEDS: HYDRALAZINE HCL 25 MG TABLET PO SCH (06:13)
--- NOTE | 2016-11-02 08:27 | EKG REPORT ---
SEVERITY:- ABNORMAL ECG - SINUS RHYTHM FIRST DEGREE AV BLOCK BORDERLINE T WAVE ABNORMALITIES ANTROLATERAL LEADS. : Confirmed by: Vincent Cruz MD 02-Nov-2016 08:26:25
[2016-11-02] MEDS ORDERED: LOSARTAN POTASSIUM 50 MG TABLET PO SCH (10:00)
[2016-11-02] MEDS ORDERED: CLONIDINE HCL 0.1 MG TABLET PO SCH (10:50)
[2016-11-02] MEDS: INSULIN LISPRO 100 UNIT/ML 3 ML VIAL SUBCUT PRN ×3 (10:54→17:47)
[2016-11-02] MEDS: TAMSULOSIN HCL 0.4 MG CAP.SR.24H PO SCH (10:55)
[2016-11-02] MEDS: ISOSORBIDE MONONITRATE 30 MG TAB.ER.24H PO SCH (10:56)
[2016-11-02] MEDS: SITAGLIPTIN PHOSPHATE 50 MG TABLET PO SCH (10:56)
[2016-11-02] MEDS: ASPIRIN 325 MG TABLET PO SCH (10:57)
[2016-11-02] MEDS: LANSOPRAZOLE 15 MG TAB.RAP.DR PO SCH (10:57)
[2016-11-02] MEDS: CLOPIDOGREL BISULFATE 75 MG TABLET PO SCH (10:57)
[2016-11-02] MEDS: LEVETIRACETAM 500 MG TABLET PO SCH (10:58)
--- NOTE | 2016-11-02 11:03 | PDOC PROGRESS REPORT ---
Subjective Progress Note for:: 11/02/16 Subjective:: Mr. Price is seen in the hospital today. He denies any history of chest pain but has some shortness of breath with exertion. Reviewed his stress test . Been reported as positive by cardiology and he is being set up for transfer for cardiac catheterization. Patient is uncertain about his psychosocial situations and living situations. He states that he has not been able to get his prosthetic leg which he has been trying to obtain for the last couple of months and therefore has been limited in his mobility. Also been trying to get a wheel chair which has not yet happened. For all of these reasons he he states he is unable to look after himself properly. Physical Exam Vital Signs: Temp Pulse Resp BP Pulse Ox 98.0 F 119 H 19 117/53 L 97 11/02/16 07:40 11/02/16 07:40 11/02/16 07:40 11/02/16 07:40 11/02/16 07:40 Intake & Output 11/01/16 11/02/16 11/03/16 06:59 06:59 06:59 Intake Total 1729 10 Output Total 0 Balance 1729 10 Weight 145.9 kg 147.2 kg General appearance: PRESENT: no acute distress Respiratory exam: PRESENT: clear to auscultation aguilar, symmetrical. ABSENT: crackles, rales Cardiovascular exam: PRESENT: +S1, +S2 GI/Abdominal exam: PRESENT: normal bowel sounds, soft. ABSENT: firm, guarding, mass, organomegaly, tenderness Extremities exam: PRESENT: +1 edema Results Laboratory Results: 11/01/16 05:28 11/01/16 05:28 10/29/16 10/29/16 10/29/16 17:07 17:07 17:07 Creatine Kinase 76 CK-MB (CK-2) 2.16 Troponin I 0.976 NT-Pro-B Natriuret Pep 02198 H 10/29/16 10/29/16 10/30/16 21:30 21:30 04:07 Creatine Kinase 65 CK-MB (CK-2) 1.94 1.67 Troponin I 0.903 0.895 NT-Pro-B Natriuret Pep 10/30/16 04:07 Creatine Kinase 61 CK-MB (CK-2) Troponin I NT-Pro-B Natriuret Pep Impressions: Chest X-Ray 10/29/16 10:06 IMPRESSION: 1. Cardiomegaly with mild right perihilar edema or infiltrate. Assessment & Plan - Diagnosis (2) Acute coronary syndrome Is this a current diagnosis for this admission?: Yes (3) ESRD (end stage renal disease) on dialysis Is this a current diagnosis for this admission?: YesPlan: He'll be dialyzed tomorrow if he is still in the hospital and has not been transferred. Orders were placed. Discussed that with the patient. To be transferred to the ICU for dialysis as he is still unstable from a coronary standpoint. (5) Anemia Qualifiers: Other causes of anemia: chronic disease, kidney Plan: Titrated erythropoietin (6) Diabetes mellitus, type II Qualifiers: Chronic kidney disease stage: on chronic dialysis Is this a current diagnosis for this admission?: Yes (7) Essential hypertension Plan: Currently low normal. We will down titrate his medications and is being done. This is being done to remove fluids which otherwise to be difficult given his low normal blood pressures.
[2016-11-02] MEDS ORDERED: HEPARIN SOD (PORCINE) 1,000 UNIT/ML 10 ML VIAL IV PRN (11:15)
[2016-11-02] MEDS ORDERED: EPOETIN ALFA INJ 20000 UNIT/1 ML VIAL (RENAL) IV PRN (11:15)
[2016-11-02] MEDS ORDERED: LOSARTAN POTASSIUM 50 MG TABLET PO ONE (11:30)
--- NOTE | 2016-11-02 11:50 | PDOC PROGRESS REPORT ---
Subjective Progress Note for:: 11/02/16 Subjective:: Patient continuing to have intermittent chest discomfort. Patient history was reviewed. He has history of multiple stents and also multiple myocardial infarction. Chest discomfort is difficult to assess. There is some pleuritic component but he also complains of tightness. A 2-D echo was ordered. Evaluate for any pericarditis, pericardial effusion etc. Patient denying any PND, orthopnea. Patient denied any sustained palpitations, dizziness, syncope, near syncope. Patient denying any fever chills. Patient denying any other significant discomfort. Patient is maintaining sinus rhythm. Review of systems: Rest review of systems negative. Medications: Medications have been reviewed. Physical Exam Vital Signs: Temp Pulse Resp BP Pulse Ox 98.0 F 119 H 19 117/53 L 97 11/02/16 07:40 11/02/16 07:40 11/02/16 07:40 11/02/16 07:40 11/02/16 07:40 Intake & Output 11/01/16 11/02/16 11/03/16 06:59 06:59 06:59 Intake Total 1729 10 Output Total 0 Balance 1729 10 Weight 145.9 kg 147.2 kg Exam: GENERAL: well-nourished and in no acute distress. Alert and oriented x3 HEAD: Atraumatic, normocephalic. EYES: Pupils equal round and reactive to light, extraocular movements intact, sclera anicteric, conjunctiva are normal. ENT: TMs normal, nares patent, oropharynx clear without exudates. Moist mucous membranes. No oral ulcerations or bleeding gums noted NECK: supple without lymphadenopathy. Trachea is central. No cervical or axillary lymphadenopathy noted. Carotids are 2+, JVD WNL LUNGS: Respiration seems nonlabored, no significant accessory muscle action noted. Breath sounds clear to auscultation bilaterally and equal noted. No wheezes rales or rhonchi noted. No significant dullness noted on percussion. CHEST: Palpation of the chest wall shows no significant chest wall tenderness. No other significant abnormalities noted. 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 ABDOMEN: Soft, no significant tenderness appreciated, normoactive bowel sounds. No guarding, no rebound. No rigidity noted . No masses appreciated. EXTREMITIES: Pedal pulses are 1-2+, no calf tenderness noted. No clubbing or cyanosis.status post right BKA, left leg 1+ pedal edema noted NEUROLOGICAL: Focused neurological exam showed no significant neurologic deficit. Normal speech, no focal weakness appreciated. PSYCH: Normal mood, normal affect. Judgment and insight within normal limits. SKIN: No significant ecchymosis, rash, ulcerations or signs of pruritus noted. MUSCULOSKELETAL EXAM: No significant joint swelling noted. Results Laboratory Results: 11/01/16 05:28 11/01/16 05:28 10/29/16 10/29/16 10/29/16 17:07 17:07 17:07 Creatine Kinase 76 CK-MB (CK-2) 2.16 Troponin I 0.976 NT-Pro-B Natriuret Pep 38284 H 10/29/16 10/29/16 10/30/16 21:30 21:30 04:07 Creatine Kinase 65 CK-MB (CK-2) 1.94 1.67 Troponin I 0.903 0.895 NT-Pro-B Natriuret Pep 10/30/16 04:07 Creatine Kinase 61 CK-MB (CK-2) Troponin I NT-Pro-B Natriuret Pep Impressions: Chest X-Ray 10/29/16 10:06 IMPRESSION: 1. Cardiomegaly with mild right perihilar edema or infiltrate. Assessment & Plan - Diagnosis (1) Acute coronary syndrome Is this a current diagnosis for this admission?: Yes (2) Elevated troponin Is this a current diagnosis for this admission?: Yes (3) CAD (coronary artery disease) Qualifiers: Coronary Disease-Associated Artery/Lesion type: [place] artery [place] vs. transplanted heart: [place] heart Associated angina: with unspecified angina Qualified Code(s): I25.119 - Atherosclerotic heart disease of [place] coronary artery with unspecified angina pectoris Is this a current diagnosis for this admission?: Yes (4) Diabetes mellitus, type II Qualifiers: Chronic kidney disease stage: on chronic dialysis Is this a current diagnosis for this admission?: Yes (5) HTN (hypertension) Qualifiers: Hypertension type: essential hypertension Qualified Code(s): I10 - Essential (primary) hypertension (6) ESRD (end stage renal disease) on dialysis Is this a current diagnosis for this admission?: Yes - Notes Notes: Had a long discussion with patient. He could not remember where he had his stents placed but then I called his primary care physician Dr. LEHMAN. It seems patient had previous interventions in the [facility]. Discussed with patient about transfer to tertiary care for heart catheterization. He is agreeable for such a transfer. Patient was noted to have ischemia plus scar in the basal and mid-anterolateral wall. Image quality was somewhat suboptimal however. Patient does have elevated troponin I and multiple cardiac risk factors including previous stents, myocardial infarction, end-stage renal disease therefore best option is for the patient to have a heart catheterization especially in view of recurrent chest pain. This was recommended and patient is agreeable for transfer. In this regard I talked with solution coordinator and arranged for transfer to [facility] under Dr. Magdaleno. He is on the waiting list for transfer. Approximately 70 minutes spent going through all this. Have reviewed patient's medications. Will add long-acting nitrates. Patient was previously placed on statins. We will also optimize beta alisson therapy. As regards his other comorbid diagnoses, this seems relatively stable and well managed. - Time Time with patient: Greater than 35 minutes - CODE STATUS was discussed, patient remains full code. Surrogate decision-maker unchanged. Multiple medical problems were addressed.More than 50% of the time spent coordinating care, discussing management plans with involved caregivers. Management plans discussed with involved personnels. Medical decision making was of moderate to high complexity, patient's has multiple severe comorbidities. Medications reviewed and adjusted accordingly: Yes
[2016-11-02] MEDS ORDERED: ISOSORBIDE MONONITRATE 30 MG TAB.ER.24H PO SCH (11:52)
[2016-11-02] MEDS ORDERED: METOPROLOL SUCCINATE 25 MG TAB.SR.24H PO SCH (12:00)
--- NOTE | 2016-11-02 12:57 | XCELERA REPORT ---
[address] [address] Transthoracic Echocardiogram Report Name: MARIANA RICHARDSON Age: 61 yrs Gender: Male : 1955 Patient Status: Inpatient Patient Location: [id number]\A Study Date: 11/02/2016 10:12 AM Height: 66 in Weight: 321 lb BSA: 2.4 m2 Procedure: A complete two-dimensional transthoracic echocardiogram was performed (2D, M-mode, spectral and color flow Doppler). The study was technically difficult with many images being suboptimal in quality. Reason For Study: ACS Ordering Physician: DONTA RIVERO Performed By: Serena Lewis Interpretation Summary The study was technically difficult with many images being suboptimal in quality. The left ventricular ejection fraction is normal. There is mild concentric left ventricular hypertrophy. Doppler measurements suggest pseudonormalized left ventricular relaxation, which is associated with grade II/IV or mild to moderate diastolic dysfunction The left ventricle is grossly normal size. Not all wall segments were well visualized. Regional wall motion abnormalities cannot be excluded due to limited visualization. The right ventricle is borderline dilated. The right ventricular systolic function is normal. The right atrium is mildly dilated. The left atrium is moderately dilated. There is no mitral valve stenosis. There is a trace amount of mitral regurgitation There is no aortic valve stenosis No aortic regurgitation is present. There is a trace or physiologic amount of tricuspid regurgitation Tricuspid regurgitation jet envelope not well defined to measure RV systolic pressure accurately. The aortic root is not well visualized. The inferior vena cava was not well visualized There is no pericardial effusion. MMode/2D Measurements \T\ Calculations RVDd: 3.4 cm LVIDd: 5.6 cmFS: 45.4 % Ao root diam: 3.2 cm IVSd: 1.1 cm LVIDs: 3.1 cmEDV(Teich): 154.0 ml LVPWd: 1.1 cmESV(Teich): 36.7 ml Ao root area: 8.1 cm2 EF(Teich): 76.2 % LA dimension: 4.7 cm LVOT diam: 2.4 cm LVOT area: 4.6 cm2 Doppler Measurements \T\ Calculations MV E max elma: MV P1/2t max elma: Ao V2 max: LV V1 max P.8 cm/sec 75.2 cm/sec 144.2 cm/sec 4.1 mmHg MV A max elma: MV P1/2t: 67.0 msec Ao max PG: LV V1 max: 84.1 cm/sec MVA(P1/2t): 3.3 cm2 8.3 mmHg 101.4 cm/sec MV E/A: 0.89 MV dec slope: CARLOS(V,D): 3.2 cm2 328.6 cm/sec2 PA V2 max: 73.7 cm/sec PA max P.2 mmHg Left Ventricle The left ventricle is grossly normal size. There is mild concentric left ventricular hypertrophy. The left ventricular ejection fraction is normal. Doppler measurements suggest pseudonormalized left ventricular relaxation, which is associated with grade II/IV or mild to moderate diastolic dysfunction. Not all wall segments were well visualized. Regional wall motion abnormalities cannot be excluded due to limited visualization. Right Ventricle The right ventricle is borderline dilated. There is normal right ventricular wall thickness. The right ventricular systolic function is normal. Atria The right atrium is mildly dilated. The left atrium is moderately dilated. Interarterial septum not well visualized and not well dopplered. Cannot comment on ASD/PFO presence. Mitral Valve The mitral valve leaflets are sclerotic, but show no functional abnormalities. There is no mitral valve stenosis. There is a trace amount of mitral regurgitation. Aortic Valve The aortic valve is mildly calcified. There is no aortic valve stenosis. No aortic regurgitation is present. Tricuspid Valve The tricuspid valve is not well visualized secondary to technical limitations. There is no tricuspid stenosis. There is a trace or physiologic amount of tricuspid regurgitation. Tricuspid regurgitation jet envelope not well defined to measure RV systolic pressure accurately. Pulmonic Valve The pulmonic valve is not well visualized. Great Vessels The aortic root is not well visualized. The inferior vena cava was not well visualized. Effusions There is no pericardial effusion. : DONTA RIVERO > Donta Rivero
[2016-11-02] MEDS ORDERED: ACETAMINOPHEN 325 MG TABLET PO PRN (14:28)
--- NOTE | 2016-11-02 18:09 | PDOC TRANSFER SUMMARY ---
General Admission Date/PCP: 10/29/16 15:23 VIRIDIANA LEHMAN MD Transfer Date: 11/02/16 Accepting Facility: [facility] Resuscitation Status: Full Code - Transfer Diagnosis (1) Acute coronary syndrome Is this a current diagnosis for this admission?: Yes (2) Elevated troponin Is this a current diagnosis for this admission?: Yes (3) ESRD (end stage renal disease) on dialysis Is this a current diagnosis for this admission?: Yes (4) Obesity hypoventilation syndrome Is this a current diagnosis for this admission?: Yes (5) Seizure disorder Is this a current diagnosis for this admission?: Yes (7) CAD (coronary artery disease) Is this a current diagnosis for this admission?: Yes (8) Diabetes mellitus type 2 in nonobese Is this a current diagnosis for this admission?: Yes - Transfer Medications Home Medications: Clonidine HCl [Catapres 0.1 mg Tablet] 0.1 mg PO QHS 10/30/16 Divalproex Sodium [Depakote ER 500 mg Tab.sr] 500 mg PO DAILY 10/30/16 Gabapentin [Neurontin] 800 mg PO TID 10/30/16 Insulin Glargine,Hum.rec.anlog [Lantus Solostar] 12 units SQ DAILY 10/30/16 Isosorbide Mononitrate [Imdur 30 mg Tablet.er] 30 mg PO DAILY 10/30/16 Levetiracetam [Keppra] 250 mg PO DAILY 10/30/16 Linagliptin [Tradjenta] 5 mg PO DAILY 10/30/16 Metoprolol Succinate [Toprol XL 100 mg Tablet] 100 mg PO DAILY 10/30/16 Oxycodone HCl/Acetaminophen [Percocet 5-325 mg Tablet] 1 tab PO Q6HP PRN RX: Finasteride [Proscar 5 mg Tablet] 5 mg PO DAILY 10/30/16 RX: Hydralazine HCl [Apresoline 50 mg Tablet] 100 mg PO TID 10/30/16 RX: Losartan Potassium [Cozaar 100 mg Tablet] 100 mg PO DAILY 10/30/16 RX: Omeprazole 20 mg PO DAILY 10/30/16 Tamsulosin HCl [Flomax 0.4 mg Cap.sr] 0.4 mg PO DAILY 05/01/17 Transfer Medications: Current Medications Acetaminophen (Tylenol 325 Mg Tablet) 650 mg PO Q6HP PRN PRN Reason: PAIN Stop: 12/02/16 14:27 Last Admin: 11/02/16 16:52 Dose: 650 mg Al Hydrox/Mg Hydrox/Simethicone (Maalox Plus Susp 30 Udcup) 30 ml PO Q4HP PRN PRN Reason: HEARTBURN Stop: 11/28/16 21:22 Last Admin: 10/29/16 22:18 Dose: 30 ml Aspirin (Aspirin 325 Mg Tablet) 325 mg PO DAILY [facility] Stop: 11/29/16 09:59 Last Admin: 11/02/16 10:57 Dose: 325 mg Atorvastatin Calcium (Lipitor 40 Mg Tablet) 40 mg PO QHS [facility] Stop: 12/01/16 21:59 Last Admin: 11/01/16 22:33 Dose: 40 mg Clonidine (Catapres 0.1 Mg Tablet) 0.1 mg PO QHS [facility] Stop: 11/28/16 21:59 Clopidogrel Bisulfate (Plavix 75 Mg Tablet) 75 mg PO DAILY [facility] Stop: 11/29/16 09:59 Last Admin: 11/02/16 10:57 Dose: 75 mg Dextrose (Dextrose Inj 50% Syringe (25 Gm/50 Ml)) 12.5 gm IV PRN PRN; Protocol PRN Reason: FOR BG 50-69 IN ALERT PATIENT Stop: 11/28/16 15:34 Dextrose (Dextrose Inj 50% Syringe (25 Gm/50 Ml)) 25 gm IV PRN PRN PRN Reason: Protocol Stop: 11/28/16 15:34 Epoetin Michael (Procrit Inj 20,000 Unit/1 Ml Vial (Renal)) 20,000 unit IV .DIALYSIS PRN PRN Reason: THIS MED IS NOT "PRN" Stop: 12/02/16 11:14 Gabapentin (Neurontin 400 Mg Capsule) 800 mg PO Q8 [facility] Stop: 11/28/16 21:59 Last Admin: 11/02/16 13:01 Dose: 800 mg Glucagon (Glucagen Inj 1 Mg Vial) 1 mg IM PRN PRN; Protocol PRN Reason: Evaluate for BG < 70 Stop: 11/28/16 15:34 Glucose (Glutose 40% Gel 15 Gm Tube) 15 gm PO PRN PRN; Protocol PRN Reason: FOR BG 50-69 IN ALERT PATIENT Stop: 11/28/16 15:34 Glucose (Glutose 40% Gel 15 Gm Tube) 30 gm PO PRN PRN; Protocol PRN Reason: FOR BG < 50 IN ALERT PATIENT Stop: 11/28/16 15:34 Heparin Sodium (Porcine) (Heparin Inj 5,000 Units/Ml 1 Ml Syringe) 5,000 unit SUBCUT Q8 [facility] Stop: 11/28/16 21:59 Last Admin: 11/02/16 13:01 Dose: 5,000 unit Heparin Sodium (Porcine) (Heparin Inj 1,000 Unit/Ml 10 Ml Vial) 1,000 unit IV .DIALYSIS PRN PRN Reason: THIS MED IS NOT "PRN" Stop: 12/02/16 11:14 Insulin Glargine (Lantus Insulin Inj 300 Unit/3 Ml Pen) 20 unit SUBCUT QHS [facility] Stop: 11/28/16 21:59 Last Admin: 11/01/16 22:30 Dose: 20 unit Insulin Human Lispro (Humalog Insulin 100 Unit/1 Ml 3 Ml Vial) 0 - 12 unit SUBCUT ACHSP PRN PRN Reason: Protocol Stop: 11/28/16 15:34 Last Admin: 11/02/16 17:47 Dose: 2 unit Isosorbide Mononitrate (Imdur 30 Mg Tablet.Er) 60 mg PO DAILY [facility] Stop: 12/02/16 11:50 Lansoprazole (Prevacid 15 Mg Odt Tablet) 15 mg PO DAILY [facility] Stop: 11/29/16 09:59 Last Admin: 11/02/16 10:57 Dose: 15 mg Levetiracetam (Keppra 500 Mg Tablet) 250 mg PO DAILY [facility] Stop: 11/29/16 09:59 Last Admin: 11/02/16 10:58 Dose: 250 mg Losartan Potassium (Cozaar 50 Mg Tablet) 25 mg PO DAILY [facility] Stop: 12/03/16 09:59 Metoprolol Succinate (Toprol Xl 25 Mg Tab.Sr) 25 mg PO Q12 [facility] Stop: 12/02/16 11:59 Ondansetron HCl (Zofran Odt 4 Mg Tablet) 4 mg PO Q6HP PRN PRN Reason: NAUSEA Stop: 11/28/16 21:21 Sitagliptin Phosphate (Januvia 50 Mg Tablet) 100 mg PO DAILY [facility] Stop: 11/29/16 09:59 Last Admin: 11/02/16 10:56 Dose: 100 mg Tamsulosin HCl (Flomax 0.4 Mg Cap.Sr) 0.4 mg PO PCBRKFST [facility] Stop: 11/29/16 08:59 Last Admin: 11/02/16 10:55 Dose: 0.4 mg - Allergies Allergies/Adverse Reactions: Penicillins Allergy (Verified 07/03/16 18:10) Hospital Course Hospital Course: Patient with history of coronary artery disease, he presented with chest pain and elevated troponin. He was seen by nephrology because is on dialysis. He had a Lexiscan Cardiolite stress test done and it was abnormal, it was seen by cardiology , the order entry recommended cardiac cauterization and that is the reason for transfer to [facility] Physical Exam Vital Signs: Temp Pulse Resp BP Pulse Ox 98.0 F 67 21 H 125/57 L 95 11/02/16 15:49 11/02/16 15:49 11/02/16 15:49 11/02/16 15:49 11/02/16 15:49 Intake & Output 11/01/16 11/02/16 11/03/16 06:59 06:59 06:59 Intake Total 1729 10 473 Output Total 0 Balance 1729 10 473 Weight 145.9 kg 147.2 kg General appearance: PRESENT: no acute distress Eye exam: PRESENT: PERRLA Respiratory exam: PRESENT: clear to auscultation aguilar Cardiovascular exam: PRESENT: +S1, +S2 GI/Abdominal exam: PRESENT: soft Neurological exam: PRESENT: alert, CN II-XII grossly intact Results Laboratory Results: 11/01/16 05:28 11/01/16 05:28 10/29/16 10/29/16 10/29/16 17:07 17:07 17:07 Creatine Kinase 76 CK-MB (CK-2) 2.16 Troponin I 0.976 NT-Pro-B Natriuret Pep 76656 H 10/29/16 10/29/16 10/30/16 21:30 21:30 04:07 Creatine Kinase 65 CK-MB (CK-2) 1.94 1.67 Troponin I 0.903 0.895 NT-Pro-B Natriuret Pep 10/30/16 04:07 Creatine Kinase 61 CK-MB (CK-2) Troponin I NT-Pro-B Natriuret Pep Impressions: Chest X-Ray 10/29/16 10:06 IMPRESSION: 1. Cardiomegaly with mild right perihilar edema or infiltrate.
[2016-11-02] MEDS ORDERED: OXYCODONE-ACETAMINOPHEN 5-325 MG TABLET PO ONE (19:00)
[2016-11-02 20:56] VITALS: BP 118/51
[2016-11-03] MEDS ORDERED: LOSARTAN POTASSIUM 50 MG TABLET PO SCH (10:00)
== END 2016-11-02 21:00 | disposition short-term general hospital (02) | DRG 302 ==
LOC: ER 09:35 → EH 12:25 → UNDOADMIN 12:25 → EH 15:01 → 3N 15:01
PROVIDERS: ADMIT Internal Medicine; ATTEND Internal Medicine
PROC: 5A1D60Z (ICD-10-PCS; principal; 2016-10-30)
DX: I25.119 Atherosclerotic heart disease of native coronary artery with unspecified angina pectoris (principal); N18.6 End stage renal disease; E66.2 Morbid (severe) obesity with alveolar hypoventilation; Z68.43 Body mass index [BMI] 50.0-59.9, adult; I12.0 Hypertensive chronic kidney disease with stage 5 chronic kidney disease or end stage renal disease; E11.22 Type 2 diabetes mellitus with diabetic chronic kidney disease; D63.1 Anemia in chronic kidney disease; I73.9 Peripheral vascular disease, unspecified; R77.8 Other specified abnormalities of plasma proteins; G40.909 Epilepsy, unspecified, not intractable, without status epilepticus; Z91.19 Patient's noncompliance with other medical treatment and regimen; Z95.5 Presence of coronary angioplasty implant and graft; Z79.82 Long term (current) use of aspirin; Z79.4 Long term (current) use of insulin; Z79.899 Other long term (current) drug therapy; Z89.511 Acquired absence of right leg below knee; Z88.0 Allergy status to penicillin; Z99.2 Dependence on renal dialysis
CPT/HCPCS: 36415; 71010; 78452; 80048; 80053; 80061; 80307; 82140; 82150; 82550; 82553; 82803; 82962; 83036; 83690; 83735; 83880; 84100; 84439; 84443; 84484; 85025; 85610; 85730; 87040; 87077; 87186; 93005; 93010; 93017; 93306; 99285; A9500; J0280; J1644; J1815; J2785; J3490; Q4081; Q9969; S0119

== ENCOUNTER 2016-11-12 10:58 | Inpatient (IN) | payer MEDICAID ==
--- NOTE | 2016-11-12 11:20 | ER Document Report ---
ED GI/ - General Mode of Arrival: Medic Information source: Patient TRAVEL OUTSIDE OF THE [place] IN LAST 30 DAYS: No - HPI Patient complains to provider of: Abdominal pain, Diarrhea, Vomiting Onset: This morning - 0800 Associated symptoms: Other - see notes above <JUAN YOUNG - Last Filed: 11/12/16 11:29> <MAKAYLA ROBERT - Last Filed: 11/12/16 15:58> <NOEL PAREKH - Last Filed: 11/12/16 17:56> - General Chief Complaint: Nausea/Vomiting Stated Complaint: NAUSEA Time Seen by Provider: 11/12/16 11:09 Notes: 61 year old male with history of CAD, cardiac stents (x6), DE (x7), CVA (x3), GERD, diabetes, and ESRD (on dialysis) presents to the ED via EMS complaining of multiple episodes of diarrhea and vomiting that started this morning at 0800. Patient reports that he is currently nauseous and is having generalized abdominal pain and left chest pain that he believes is due to vomiting. Patient denies fever. Patient was seen in the ED on 10/29/2016 for difficulty breathing and transferred to [facility] with elevated troponin levels on 11/02/2016. Patient reports that a cardiac catheterization was performed at [facility] with no significant findings. PCP: Dr. Gordillo Client Development Director: Dr. Bojorquez (JUAN YOUNG) - Related Data Allergies/Adverse Reactions: Penicillins Allergy (Verified 07/03/16 18:10) Home Medications: Current Home Medications Clonidine HCl [Catapres 0.1 mg Tablet] 0.1 mg PO QHS 11/12/16 [History] Divalproex Sodium [Depakote ER] 500 mg PO DAILY 11/12/16 [History] Finasteride [Proscar 5 mg Tablet] 5 mg PO DAILY 11/12/16 [History] Gabapentin [Neurontin] 800 mg PO Q8 11/12/16 [History] Hydralazine HCl [Apresoline 50 mg Tablet] 100 mg PO TID 11/12/16 [History] Insulin Glargine,Hum.rec.anlog [Lantus Solostar] 12 unit SQ DAILY 11/12/16 [ History] Isosorbide Mononitrate [Isosorbide Mononitrate ER] 30 mg PO DAILY 11/12/16 [ History] Levetiracetam [Keppra] 250 mg PO DAILY 11/12/16 [History] Linagliptin [Tradjenta] 5 mg PO DAILY 11/12/16 [History] Losartan Potassium [Cozaar 100 mg Tablet] 100 mg PO DAILY 11/12/16 [History] Metoprolol Succinate [Toprol XL 100 mg Tablet] 100 mg PO DAILY 11/12/16 [History ] Omeprazole 20 mg PO DAILY 11/12/16 [History] Tamsulosin HCl [Flomax 0.4 mg Cap.sr] 0.4 mg PO DAILY 11/12/16 [History] Past Medical History - General Information source: Patient, H Records - Social History Smoking Status: Unknown if Ever Smoked Family History: Arthritis, CAD, CVA, DM, Hyperlipidemia, Hypertension - Past Medical History Cardiac Medical History: Reports: Hx Congestive Heart Failure, Hx Coronary Artery Disease, Hx Heart Attack - mi x 7; EF of 40%, Hx Hypercholesterolemia, Hx Hypertension, Hx Peripheral Vascular Disease Pulmonary Medical History: Reports: Hx Asthma Neurological Medical History: Reports: Hx Cerebrovascular Accident - x3, Hx Seizures - 2015 x1 Endocrine Medical History: Reports: Hx Diabetes Mellitus Type 1, Hx Diabetes Mellitus Type 2 Renal/ Medical History: Reports: Hx End Stage Renal Disease, Hx Hemodialysis, Hx Kidney Stones, Hx Renal Insufficiency. Denies: Hx Peritoneal Dialysis GI Medical History: Reports: Hx Gastroesophageal Reflux Disease Musculoskeltal Medical History: Reports Hx Arthritis, Reports Hx Musculoskeletal Deformity - right BKA, Reports Hx Musculoskeletal Trauma Psychiatric Medical History: Reports: Hx Depression Past Surgical History: Reports: Hx Cardiac Catheterization, Hx Cardiac Surgery - Stent placement x 6, Hx Coronary Stent - x6, Hx Orthopedic Surgery - right BKA , Hx Vascular Surgery - Right subclavian PermCath - Immunizations Immunizations up to date: Yes Hx Diphtheria, Pertussis, Tetanus Vaccination: Yes Hx Pneumococcal Vaccination: 07/02/12 <JUAN YOUNG - Last Filed: 11/12/16 11:29> Review of Systems - Review of Systems Constitutional: No symptoms reported. denies: Fever EENT: No symptoms reported Cardiovascular: See HPI, Chest pain - left Respiratory: No symptoms reported Gastrointestinal: See HPI, Abdominal pain, Diarrhea, Nausea, Vomiting Genitourinary: No symptoms reported Male Genitourinary: No symptoms reported Musculoskeletal: No symptoms reported Skin: No symptoms reported Hematologic/Lymphatic: No symptoms reported Neurological/Psychological: No symptoms reported -: Yes All other systems reviewed and negative <JUAN YOUNG - Last Filed: 11/12/16 11:29> Physical Exam - General General appearance: Alert In distress: None - HEENT Head: Normocephalic, Atraumatic Eyes: Normal Extraocular movements intact: Yes Pupils: PERRL - Respiratory Respiratory status: No respiratory distress Chest status: Tender - see below, Other - Perm cath present Breath sounds: Normal Chest palpation: Tender - reproducible left anterior chest wall tenderness to palpation. No: Normal - Cardiovascular Rhythm: Regular Heart sounds: Normal auscultation - Abdominal Inspection: Normal Distension: No distension Bowel sounds: Normal Tenderness: Nontender - Back Back: Normal - Extremities General upper extremity: Normal inspection, Normal ROM, Other - AV shunt to the left upper extremity which is not mature yet. General lower extremity: No: Normal inspection - right BKA - Neurological Neuro grossly intact: Yes - Psychological Associated symptoms: Normal affect, Normal mood - Skin Skin Temperature: Warm Skin Moisture: Dry Skin Color: Normal <JUAN YOUNG - Last Filed: 11/12/16 11:29> Course <JUAN YOUNG - Last Filed: 11/12/16 11:29> - Laboratory Result Diagrams: 11/12/16 12:58 11/12/16 12:58 <MAKAYLA ROBERT - Last Filed: 11/12/16 15:58> - Laboratory Result Diagrams: 11/12/16 12:58 11/12/16 12:58 - EKG Interpretation by Wi EKG shows normal: Sinus rhythm, [place], Intervals, QRS Complexes, ST-T Waves Rate: Normal - 83 Heart block present: 1st Degree When compared to previous EKG there are: Changes noted - T waves are more prominent in the lateral leads than they were on 11/02/2016 - Consults Dr. Gordillo Time consulted: 15:00 Consulted provider: will see as inpatient <NOEL PAREKH - Last Filed: 11/12/16 17:56> - Re-evaluation Re-evalutation: 11/12/16 17:55 The PermCath was accessed via the blue port to get the initial blood work done due to lack of obvious venous access. It was cleaned with a ChloraPrep sponge, then wiped down well with alcohol wipes. 5 mL was withdrawn and discarded. Then a total of 20 mL of blood was withdrawn. It was then flushed with 10 mL's of normal saline. Afterward it was flushed with 5 mL's of heparin locked flush with 500 units of heparin per 5 mL's. (NOEL PAREKH) - Vital Signs Vital signs: Temp Pulse Resp BP Pulse Ox 9 L 95 11/12/16 14:00 11/12/16 14:00 - Laboratory Laboratory results interpreted by me: 11/12/16 11/12/16 11/12/16 12:58 12:58 16:12 RBC 3.36 L Hgb 10.9 L Hct 32.8 L MCV 98 H RDW 16.8 H Seg Neutrophils % 85.3 H Lymphocytes % 6.8 L Absolute Neutrophils 8.3 H Potassium 6.2 H* Chloride 108 H BUN 59 H Creatinine 4.50 H Est GFR ( Amer) 16 L Est GFR (Non-Af Amer) 13 L Glucose 164 H POC Glucose 141 H Alkaline Phosphatase 142 H Procedures <JUAN YOUNG - Last Filed: 11/12/16 11:29> - Additional Procedures IV insertion Time performed: 15:58 Additional Procedures: IV insertion <MAKAYLA ROBERT - Last Filed: 11/12/16 15:58> <NOEL PAREKH - Last Filed: 11/12/16 17:56> - Additional Procedures IV insertion Notes: 20 guage IV inserted into right brachial vein under ultrasound guidance due to difficulty obtaining access by RN. (MAKAYLA ROBERT) Critical Care Note - Critical Care Note Total time excluding time spent on procedures (mins): 35 <NOEL PAREKH - Last Filed: 11/12/16 17:56> Discharge <JUAN YOUNG - Last Filed: 11/12/16 11:29> <MAKAYLA ROBERT - Last Filed: 11/12/16 15:58> - Discharge Admitting Provider: Patels[facility] Unit Admitted: Telemetry <NOEL PAREKH - Last Filed: 11/12/16 17:56> - Discharge Clinical Impression: Nausea, vomiting and diarrhea, Chronic renal failure, stage 5, Hyperkalemia, Noncompliance with treatment regimen Condition: Stable Disposition: ADMITTED OBSERVATION Scribe Attestation: 11/12/16 16:08 I personally performed the services described in the documentation, reviewed and edited the documentation which was dictated to the scribe in my presence, and it accurately records my words and actions. (NOEL PAREKH) Scribe Documentation - Scribe Written by Scribe:: Glenn Middleton, 11/12/2016 1136 acting as scribe for :: Erin <JUAN YOUNG - Last Filed: 11/12/16 11:29>
[2016-11-12] MEDS ORDERED: ONDANSETRON HCL INJ/PF 4 MG/2 ML SDV IV ONE (11:25)
[2016-11-12 13:16] LABS: ABSOLUTE BASOPHILS # (AUTO) 0.1 10^3/uL (0.0-0.2); ABSOLUTE EOSINOPHILS # (AUTO) 0.3 10^3/uL (0.0-0.6); ABSOLUTE LYMPHOCYTES (AUTO) 0.7 10^3/uL (0.5-4.7); ABSOLUTE MONOCYTES (AUTO) 0.4 10^3/uL (0.1-1.4); ABSOLUTE NEUT (AUTO) 8.3 10^3/uL (1.7-8.2); BASOPHILS % (AUTO) 0.6 % (0-2); EOSINOPHILS % (AUTO) 3.1 % (0-6); HEMATOCRIT 32.8 % (37.9-51.0); HEMOGLOBIN 10.9 g/dL (13.5-17.0); HGB HCT DIFFERENCE -0.1; LYMPHOCYTES % (AUTO) 6.8 % (13-45); MEAN CORPUSCULAR HEMOGLOBIN 32.6 pg (27.0-33.4); MEAN CORPUSCULAR HGB CONC 33.3 g/dL (32.0-36.0); MEAN CORPUSCULAR VOLUME 98 fl (80-97); MONOCYTES % (AUTO) 4.2 % (3-13); RED BLOOD COUNT 3.36 10^6/uL (4.35-5.55); RED CELL DISTRIBUTION WIDTH 16.8 % (11.5-14.0); SEGMENTED NEUTROPHILS % (AUTO) 85.3 % (42-78); WHITE BLOOD COUNT 9.8 10^3/uL (4.0-10.5)
[2016-11-12 13:34] LABS: ALANINE AMINOTRANSFERASE 25 U/L (21-72); ALBUMIN 3.8 g/dL (3.5-5.0); ALKALINE PHOSPHATASE 142 U/L (38-126); ANION GAP 14 (5-19); ASPARTATE AMINO TRANSFERASE 21 U/L (17-59); BILIRUBIN,DIRECT 0.4 mg/dL (0.0-0.4); BILIRUBIN,TOTAL 0.4 mg/dL (0.2-1.3); BLOOD UREA NITROGEN 59 mg/dL (7-20); CALCIUM 9.1 mg/dL (8.4-10.2); CARBON DIOXIDE 22 mmol/L (22-30); CHLORIDE 108 mmol/L (98-107); CREATINE KINASE 104 U/L (55-170); GLUCOSE 164 mg/dL (75-110); SODIUM 144.2 mmol/L (137-145); TOTAL PROTEIN 7.4 g/dL (6.3-8.2)
[2016-11-12 13:39] LABS: POTASSIUM 6.2 mmol/L (3.6-5.0)
[2016-11-12 13:45] LABS: CREATINE KINASE MB 3.75 ng/mL (<4.55); TROPONIN I 0.024 ng/mL
[2016-11-12] MEDS ORDERED: SODIUM POLYSTYRENE SULFONATE 15 GM/60 ML PO ONE (15:47)
[2016-11-12] MEDS ORDERED: CALCIUM GLUCONATE 1000 MG/10 ML INJ IV ONE (15:48)
[2016-11-12] MEDS ORDERED: INSULIN REG, HUMAN 100 UNIT/ML 3 ML VIAL (PYX) IV ONE (15:49)
[2016-11-12] MEDS ORDERED: DEXTROSE 50%-WATER 25 GM/50 ML DISP.SYRIN IV ONE (15:49)
[2016-11-12] MEDS ORDERED: GLUCAGON,HUMAN RECOMB 1 MG INJ IM PRN (20:52)
[2016-11-12] MEDS ORDERED: DEXTROSE 40% GEL 15 GM TUBE PO PRN (20:52)
[2016-11-12] MEDS ORDERED: DEXTROSE 40% GEL 15 GM TUBE X 2 PO PRN (20:52)
[2016-11-12] MEDS ORDERED: INSULIN LISPRO 100 UNIT/ML 3 ML VIAL SUBCUT PRN (20:52)
[2016-11-12] MEDS ORDERED: DEXTROSE 50%-WATER SYRINGE 25 GM/50 ML DOSE IV PRN (20:52)
[2016-11-12] MEDS ORDERED: DEXTROSE 50%-WATER SYRINGE 12.5 GM/25 ML DOSE IV PRN (20:52)
--- NOTE | 2016-11-12 22:46 | EKG REPORT ---
SEVERITY:- ABNORMAL ECG - SINUS RHYTHM FIRST DEGREE AV BLOCK CONSIDER ANTEROSEPTAL INFARCT : Confirmed by: Donta Hunt 12-Nov-2016 22:45:17
[2016-11-12] MEDS: GABAPENTIN 400 MG CAPSULE PO SCH (23:06)
[2016-11-12] MEDS: CLONIDINE HCL 0.1 MG TABLET PO SCH (23:06)
[2016-11-12] MEDS: HYDRALAZINE HCL 50 MG TABLET PO SCH (23:07)
[2016-11-13] MEDS ORDERED: ACETAMINOPHEN 325 MG TABLET PO PRN (03:01)
[2016-11-13] MEDS: MAG HYDROX/AL HYDROX/SIMETH SUSP 30 ML UDCUP PO PRN ×2 (04:27→23:15)
[2016-11-13] MEDS: HYDRALAZINE HCL 50 MG TABLET PO SCH ×3 (06:04→22:57)
[2016-11-13] MEDS: GABAPENTIN 400 MG CAPSULE PO SCH ×3 (06:04→22:57)
[2016-11-13 07:40] LABS: ABSOLUTE BASOPHILS # (AUTO) 0.1 10^3/uL (0.0-0.2); ABSOLUTE EOSINOPHILS # (AUTO) 0.5 10^3/uL (0.0-0.6); ABSOLUTE LYMPHOCYTES (AUTO) 1.5 10^3/uL (0.5-4.7); ABSOLUTE MONOCYTES (AUTO) 0.5 10^3/uL (0.1-1.4); ABSOLUTE NEUT (AUTO) 6.5 10^3/uL (1.7-8.2); BASOPHILS % (AUTO) 0.7 % (0-2); EOSINOPHILS % (AUTO) 5.1 % (0-6); HEMATOCRIT 31.3 % (37.9-51.0); HEMOGLOBIN 10.1 g/dL (13.5-17.0); LYMPHOCYTES % (AUTO) 16.4 % (13-45); MEAN CORPUSCULAR HEMOGLOBIN 31.8 pg (27.0-33.4); MEAN CORPUSCULAR HGB CONC 32.2 g/dL (32.0-36.0); MEAN CORPUSCULAR VOLUME 99 fl (80-97); RED BLOOD COUNT 3.17 10^6/uL (4.35-5.55); RED CELL DISTRIBUTION WIDTH 16.7 % (11.5-14.0); SEGMENTED NEUTROPHILS % (AUTO) 71.8 % (42-78)
[2016-11-13 07:57] LABS: ANION GAP 12 (5-19); BLOOD UREA NITROGEN 57 mg/dL (7-20); CALCIUM 9.4 mg/dL (8.4-10.2); CARBON DIOXIDE 21 mmol/L (22-30); CHLORIDE 109 mmol/L (98-107); CREATININE RESULT 4.62 mg/dL (0.52-1.25); GLUCOSE 160 mg/dL (75-110); POTASSIUM 5.4 mmol/L (3.6-5.0)
[2016-11-13] MEDS ORDERED: ISOSORBIDE MONONITRATE 30 MG TAB.ER.24H PO SCH (10:00)
[2016-11-13] MEDS ORDERED: METOPROLOL SUCCINATE 50 MG TAB.SR.24H PO SCH (10:00)
[2016-11-13] MEDS ORDERED: LEVETIRACETAM 500 MG TABLET PO SCH (10:00)
[2016-11-13] MEDS ORDERED: (PENDING PHARMACY ID) (Linagliptin [Tradjenta] 5 MG) PO SCH (10:00)
[2016-11-13] MEDS ORDERED: INSULIN GLARGINE,HUM.REC.ANLOG 300 UNIT/3 ML INSULN.PEN SUBCUT SCH (10:00)
[2016-11-13] MEDS ORDERED: SITAGLIPTIN PHOSPHATE 50 MG TABLET PO SCH (10:00)
[2016-11-13] MEDS ORDERED: SITAGLIPTIN PHOSPHATE 25 MG TABLET PO SCH (10:00)
[2016-11-13] MEDS ORDERED: FINASTERIDE 5 MG TABLET PO SCH (10:00)
[2016-11-13] MEDS ORDERED: LANSOPRAZOLE 15 MG TAB.RAP.DR PO SCH (10:00)
[2016-11-13] MEDS ORDERED: LOSARTAN POTASSIUM 50 MG TABLET PO SCH (10:00)
--- NOTE | 2016-11-13 10:34 | PDOC CONSULTATION ---
Consultation Consult Date: 11/13/16 Consult reason:: Hemodialysis in the setting of hyperkalemia. History of Present Illness Admission Date/PCP: 11/12/16 20:44 VIRIDIANA LEHMAN MD History of Present Illness: MARIANA RICHARDSON is a 61 year old male Past Medical History Cardiac Medical History: Reports: Coronary Artery Disease, Hyperlipidemia, Hypertension-primary, Myocardial Infarction - mi x 7; EF of 40%, Peripheral Vascular Disease Pulmonary Medical History: Reports: Asthma Denies: Bronchitis, Chronic Obstructive Pulmonary Disease (COPD), Pneumonia Neurological Medical History: Reports: Seizures - 2015 x1 Endocrine Medical History: Reports: Diabetes Mellitus Type 2 Renal/ Medical History: Reports: End Stage Renal Disease, Secondary Hyperparathyroidism GI Medical History: Reports: Gastroesophageal Reflux Disease Musculoskeltal Medical History: Reports: Arthritis Psychiatric Medical History: Reports: Depression Hematology Medical History: Reports Anemia of Chronic Kidney Disease Past Surgical History Past Surgical History: Reports: Cardiac Catheterization, Coronary Stent - x6, Orthopedic Surgery - right BKA, Vascular Surgery - Right subclavian PermCath Social History Smoking Status: Former Smoker Frequency of Alcohol Use: None Hx Recreational Drug Use: No Drugs: None Hx Prescription Drug Abuse: No - Advance Directive Resuscitation Status: Full Code Family History Parental Family History Reviewed: Yes - Negative for ESRD Children Family History Reviewed: No Sibling(s) Family History Reviewed.: No Medication/Allergy Home Medications: Clonidine HCl [Catapres 0.1 mg Tablet] 0.1 mg PO QHS 11/12/16 Divalproex Sodium [Depakote ER] 500 mg PO DAILY 11/12/16 Finasteride [Proscar 5 mg Tablet] 5 mg PO DAILY 11/12/16 Gabapentin [Neurontin] 800 mg PO Q8 11/12/16 Hydralazine HCl [Apresoline 50 mg Tablet] 100 mg PO TID 11/12/16 Insulin Glargine,Hum.rec.anlog [Lantus Solostar] 12 unit SQ DAILY 11/12/16 Isosorbide Mononitrate [Isosorbide Mononitrate ER] 30 mg PO DAILY 11/12/16 Levetiracetam [Keppra] 250 mg PO DAILY 11/12/16 Linagliptin [Tradjenta] 5 mg PO DAILY 11/12/16 Losartan Potassium [Cozaar 100 mg Tablet] 100 mg PO DAILY 11/12/16 Metoprolol Succinate [Toprol XL 100 mg Tablet] 100 mg PO DAILY 11/12/16 Omeprazole 20 mg PO DAILY 11/12/16 Tamsulosin HCl [Flomax 0.4 mg Cap.sr] 0.4 mg PO DAILY 11/12/16 Allergies/Adverse Reactions: Penicillins Allergy (Verified 07/03/16 18:10) Review of Systems Constitutional: PRESENT: fatigue, weakness. ABSENT: fever(s), headache(s), night sweats Nose, Mouth, and Throat: ABSENT: headache(s), mouth pain, sore throat Cardiovascular: PRESENT: dyspnea on exertion, edema. ABSENT: orthropnea, palpitations Gastrointestinal: PRESENT: abdominal pain, diarrhea, nausea, vomiting. ABSENT: constipation, dysphagia, heartburn, hematemesis, hematochezia, melena Genitourinary: ABSENT: dysuria, hematuria Integumentary: ABSENT: lesions, pruritus, rash Neurological: ABSENT: abnormal gait, abnormal movements, confusion, focal weakness Psychiatric: PRESENT: depression Hematologic/Lymphatic: ABSENT: easy bruising Physical Exam Vital Signs: Temp Pulse Resp BP Pulse Ox 97.9 F 72 18 116/54 L 100 11/13/16 07:00 11/13/16 07:00 11/13/16 07:00 11/13/16 07:00 11/13/16 07:00 Intake & Output 11/12/16 11/13/16 11/14/16 06:59 06:59 06:59 Intake Total 450 Output Total 900 Balance -450 Weight 132.9 kg General appearance: PRESENT: no acute distress Eye exam: PRESENT: conjunctiva pink, EOMI, PERRLA. ABSENT: conjunctiva pale, nystagmus Ear exam: PRESENT: normal external ear exam Mouth exam: PRESENT: neck supple. ABSENT: moist Neck exam: ABSENT: lymphadenopathy, meningismus, tenderness, thyromegaly, tracheal deviation Respiratory exam: PRESENT: clear to auscultation aguilar. ABSENT: crackles, rhonchi Cardiovascular exam: PRESENT: +S1, +S2, systolic murmur GI/Abdominal exam: PRESENT: normal bowel sounds, soft. ABSENT: diminished bowel sounds, distended, guarding, mass, organomegaly, tenderness Extremities exam: PRESENT: +1 edema Neurological exam: PRESENT: awake, oriented to person, oriented to place, oriented to time Psychiatric exam: PRESENT: flat affect Skin exam: ABSENT: erythema, mottled, rash Results Laboratory Results: 11/13/16 07:30 11/13/16 07:30 11/13/16 11/13/16 07:30 07:30 WBC 9.0 RBC 3.17 L Hgb 10.1 L Hct 31.3 L MCV 99 H MCH 31.8 MCHC 32.2 RDW 16.7 H Plt Count 210 Seg Neutrophils % 71.8 Lymphocytes % 16.4 Monocytes % 6.0 Eosinophils % 5.1 Basophils % 0.7 Absolute Neutrophils 6.5 Absolute Lymphocytes 1.5 Absolute Monocytes 0.5 Absolute Eosinophils 0.5 Absolute Basophils 0.1 Sodium 142.0 Potassium 5.4 H Chloride 109 H Carbon Dioxide 21 L Anion Gap 12 BUN 57 H Creatinine 4.62 H Est GFR ( Amer) 16 L Est GFR (Non-Af Amer) 13 L Glucose 160 H Calcium 9.4 Impressions: Chest X-Ray 11/12/16 16:08 IMPRESSION: HEART ENLARGED WITHOUT FAILURE. NO OTHER SIGNIFICANT RADIOGRAPHIC FINDING IN THE CHEST. Assessment & Plan - Diagnosis (1) ESRD (end stage renal disease) on dialysis Plan: Patient seen on dialysis. He is undergoing dialysis without issues. Orders were discussed with the treating nurse. His hyperkalemia should respond to dialysis. Patient has missed the last 1 week of treatment to [facility]. We discussed compliance with diet and medications and dialysis treatments. Hemodynamically stable. (2) Hyperkalemia Plan: See response to dialysis. Discussed on compliance with diet and medications and getting for his regular treatments of [facility]. (4) Noncompliance with treatment regimen Plan: Discussed at length. Patient has not been sticking to his diet and medications and has not missed multiple dialysis outpatient treatments which is sad and unfortunate. (5) Diabetes mellitus type 2 in nonobese Plan: Advised tight diabetic control (6) HTN (hypertension) Qualifiers: Hypertension type: essential hypertension Qualified Code(s): I10 - Essential (primary) hypertension Plan: Monitor for good blood pressure control. Advised taking his medications faithfully. (7) Morbid obesity Qualifiers: Obesity type: unspecified obesity type Qualified Code(s): E66.01 - Morbid (severe) obesity due to excess calories Plan: Advised on weight loss.
[2016-11-13] MEDS ORDERED: DIVALPROEX SODIUM 500 MG TAB.SR.24H PO SCH (11:00)
[2016-11-13] MEDS ORDERED: HEPARIN SOD (PORCINE) 1,000 UNIT/ML 10 ML VIAL IV PRN (11:02)
[2016-11-13] MEDS ORDERED: TAMSULOSIN HCL 0.4 MG CAP.SR.24H PO SCH (18:00)
--- NOTE | 2016-11-13 18:33 | PDOC H&P ---
History of Present Illness Admission Date/PCP: 11/12/16 20:44 VIRIDIANA LEHMAN MD History of Present Illness: Patient 61-year-old male with history of end-stage renal disease on maintenance hemodialysis, he came to emergency room because of diarrhea and vomiting, in the emergency room he was evaluated, he was found to have elevated serum potassium. The emergency room providers want him admitted to the hospital for management. He was just recently admitted for acute coronary syndrome and he was transferred to tertiary care for cardiac catheterization, I do not have the result of the cardiac catheterization. Past Medical History Cardiac Medical History: Reports: Coronary Artery Disease, Myocardial Infarction - mi x 7; EF of 40%, Hyperlipidema, Hypertension, Peripheral Vascular Disease Pulmonary Medical History: Reports: Asthma Neurological Medical History: Reports: Seizures - 2015 x1 Endocrine Medical History: Reports: Diabetes Mellitus Type 1, Diabetes Mellitus Type 2 Renal/ Medical History: Reports: End Stage Renal Disease GI Medical History: Reports: Gastroesophageal Reflux Disease Musculoskeltal Medical History: Reports: Arthritis Psychiatric Medical History: Reports: Depression Hematology: Reports: Anemia - hx of Past Surgical History Past Surgical History: Reports: Cardiac Catheterization, Coronary Stent - x6, Orthopedic Surgery - right BKA, Vascular Surgery - Right subclavian PermCath Social History Smoking Status: Former Smoker Frequency of Alcohol Use: None Hx Recreational Drug Use: No Drugs: None Hx Prescription Drug Abuse: No - Advance Directive Resuscitation Status: Full Code Family History Family History: Arthritis, CAD, CVA, DM, Hyperlipidemia, Hypertension Parental Family History Reviewed: Yes Children Family History Reviewed: Yes Sibling(s) Family History Reviewed.: Yes Medication/Allergy Home Medications: Clonidine HCl [Catapres 0.1 mg Tablet] 0.1 mg PO QHS 11/12/16 Divalproex Sodium [Depakote ER] 500 mg PO DAILY 11/12/16 Finasteride [Proscar 5 mg Tablet] 5 mg PO DAILY 11/12/16 Gabapentin [Neurontin] 800 mg PO Q8 11/12/16 Hydralazine HCl [Apresoline 50 mg Tablet] 100 mg PO TID 11/12/16 Insulin Glargine,Hum.rec.anlog [Lantus Solostar] 12 unit SQ DAILY 11/12/16 Isosorbide Mononitrate [Isosorbide Mononitrate ER] 30 mg PO DAILY 11/12/16 Levetiracetam [Keppra] 250 mg PO DAILY 11/12/16 Linagliptin [Tradjenta] 5 mg PO DAILY 11/12/16 Losartan Potassium [Cozaar 100 mg Tablet] 100 mg PO DAILY 11/12/16 Metoprolol Succinate [Toprol XL 100 mg Tablet] 100 mg PO DAILY 11/12/16 Omeprazole 20 mg PO DAILY 11/12/16 Tamsulosin HCl [Flomax 0.4 mg Cap.sr] 0.4 mg PO DAILY 11/12/16 Allergies/Adverse Reactions: Penicillins Allergy (Verified 07/03/16 18:10) Review of Systems Constitutional: ABSENT: chills, fever(s), headache(s), weight gain, weight loss Eyes: ABSENT: visual disturbances Ears: ABSENT: hearing changes Cardiovascular: ABSENT: chest pain, dyspnea on exertion, edema, orthropnea, palpitations Respiratory: ABSENT: cough, hemoptysis Gastrointestinal: ABSENT: abdominal pain, constipation, diarrhea, hematemesis, hematochezia, nausea, vomiting Genitourinary: ABSENT: dysuria, hematuria Musculoskeletal: ABSENT: joint swelling Integumentary: ABSENT: rash, wounds Neurological: ABSENT: abnormal gait, abnormal speech, confusion, dizziness, focal weakness, syncope Psychiatric: ABSENT: anxiety, depression, homidical ideation, suicidal ideation Endocrine: ABSENT: cold intolerance, heat intolerance, menstrual abnormalities, polydipsia, polyuria Hematologic/Lymphatic: ABSENT: easy bleeding, easy bruising, lymphadenopathy Physical Exam Vital Signs: Temp Pulse Resp BP Pulse Ox 98 F 68 16 118/46 L 99 11/13/16 16:00 11/13/16 16:00 11/13/16 16:00 11/13/16 16:00 11/13/16 16:00 Intake & Output 11/12/16 11/13/16 11/14/16 06:59 06:59 06:59 Intake Total 450 483 Output Total 900 3600 Balance -450 -3117 Weight 132.9 kg General appearance: PRESENT: no acute distress Eye exam: PRESENT: PERRLA Respiratory exam: PRESENT: clear to auscultation aguilar Cardiovascular exam: PRESENT: +S1, +S2 GI/Abdominal exam: PRESENT: soft Extremities exam: PRESENT: right BKA Neurological exam: PRESENT: alert, CN II-XII grossly intact Results Laboratory Results: 11/13/16 07:30 11/13/16 07:30 11/13/16 11/13/16 07:30 07:30 WBC 9.0 RBC 3.17 L Hgb 10.1 L Hct 31.3 L MCV 99 H MCH 31.8 MCHC 32.2 RDW 16.7 H Plt Count 210 Seg Neutrophils % 71.8 Lymphocytes % 16.4 Monocytes % 6.0 Eosinophils % 5.1 Basophils % 0.7 Absolute Neutrophils 6.5 Absolute Lymphocytes 1.5 Absolute Monocytes 0.5 Absolute Eosinophils 0.5 Absolute Basophils 0.1 Sodium 142.0 Potassium 5.4 H Chloride 109 H Carbon Dioxide 21 L Anion Gap 12 BUN 57 H Creatinine 4.62 H Est GFR ( Amer) 16 L Est GFR (Non-Af Amer) 13 L Glucose 160 H Calcium 9.4 Impressions: Chest X-Ray 11/12/16 16:08 IMPRESSION: HEART ENLARGED WITHOUT FAILURE. NO OTHER SIGNIFICANT RADIOGRAPHIC FINDING IN THE CHEST. Assessment & Plan - Diagnosis (1) Diarrhea Qualifiers: Diarrhea type: unspecified type Qualified Code(s): R19.7 - Diarrhea , unspecified Is this a current diagnosis for this admission?: YesPlan: Patient was admitted for observation because of diarrhea and hyperkalemia (2) ESRD (end stage renal disease) on dialysis Is this a current diagnosis for this admission?: YesPlan: Consultation will be requested from nephrology because he will need dialysis in the hospital (4) Diabetes mellitus type 2 in obese Is this a current diagnosis for this admission?: Yes (5) HTN (hypertension) Qualifiers: Hypertension type: essential hypertension Qualified Code(s): I10 - Essential (primary) hypertension Is this a current diagnosis for this admission?: Yes
--- NOTE | 2016-11-13 18:36 | PDOC DISCHARGE SUMMARY ---
General - Admit/Disc Date/PCP Admission Date/Primary Care Provider: 11/12/16 20:44 VIRIDIANA LEHMAN MD Discharge Date: 11/13/16 - Discharge Diagnosis (1) Diarrhea Is this a current diagnosis for this admission?: Yes (2) ESRD (end stage renal disease) on dialysis Is this a current diagnosis for this admission?: Yes (3) Obesity hypoventilation syndrome Is this a current diagnosis for this admission?: Yes (4) Diabetes mellitus type 2 in obese Is this a current diagnosis for this admission?: Yes (5) HTN (hypertension) Is this a current diagnosis for this admission?: Yes - Additional Information Resuscitation Status: Full Code Discharge Diet: Diabetic Discharge Activity: Activity As Tolerated Home Medications: Clonidine HCl [Catapres 0.1 mg Tablet] 0.1 mg PO QHS 11/12/16 Divalproex Sodium [Depakote ER] 500 mg PO DAILY 11/12/16 Finasteride [Proscar 5 mg Tablet] 5 mg PO DAILY 11/12/16 Gabapentin [Neurontin] 800 mg PO Q8 11/12/16 Hydralazine HCl [Apresoline 50 mg Tablet] 100 mg PO TID 11/12/16 Insulin Glargine,Hum.rec.anlog [Lantus Solostar] 12 unit SQ DAILY 11/12/16 Isosorbide Mononitrate [Isosorbide Mononitrate ER] 30 mg PO DAILY 11/12/16 Levetiracetam [Keppra] 250 mg PO DAILY 11/12/16 Linagliptin [Tradjenta] 5 mg PO DAILY 11/12/16 Losartan Potassium [Cozaar 100 mg Tablet] 100 mg PO DAILY 11/12/16 Metoprolol Succinate [Toprol XL 100 mg Tablet] 100 mg PO DAILY 11/12/16 Omeprazole 20 mg PO DAILY 11/12/16 Tamsulosin HCl [Flomax 0.4 mg Cap.sr] 0.4 mg PO DAILY 11/12/16 History of Present Illness History of Present Illness: Patient 61-year-old male with history of end-stage renal disease on maintenance hemodialysis, he came to emergency room because of diarrhea and vomiting, in the emergency room he was evaluated, he was found to have elevated serum potassium. The emergency room providers want him admitted to the hospital for management. He was just recently admitted for acute coronary syndrome and he was transferred to tertiary care for cardiac catheterization, I do not have the result of the cardiac catheterization. Hospital Course Hospital Course: Patient was admitted for observation because of diarrhea, no diarrhea, was observed in the hospital. He was seen by nephrology because he has end-stage renal disease, he was dialyzed this morning. Physical Exam Vital Signs: Temp Pulse Resp BP Pulse Ox 98 F 68 16 118/46 L 99 11/13/16 16:00 11/13/16 16:00 11/13/16 16:00 11/13/16 16:00 11/13/16 16:00 Intake & Output 11/12/16 11/13/16 11/14/16 06:59 06:59 06:59 Intake Total 450 483 Output Total 900 3600 Balance -450 -3117 Weight 132.9 kg General appearance: PRESENT: no acute distress Eye exam: PRESENT: PERRLA Respiratory exam: PRESENT: clear to auscultation aguilar Cardiovascular exam: PRESENT: +S1, +S2 GI/Abdominal exam: PRESENT: soft Results Laboratory Results: 11/13/16 07:30 11/13/16 07:30 11/13/16 11/13/16 07:30 07:30 WBC 9.0 RBC 3.17 L Hgb 10.1 L Hct 31.3 L MCV 99 H MCH 31.8 MCHC 32.2 RDW 16.7 H Plt Count 210 Seg Neutrophils % 71.8 Lymphocytes % 16.4 Monocytes % 6.0 Eosinophils % 5.1 Basophils % 0.7 Absolute Neutrophils 6.5 Absolute Lymphocytes 1.5 Absolute Monocytes 0.5 Absolute Eosinophils 0.5 Absolute Basophils 0.1 Sodium 142.0 Potassium 5.4 H Chloride 109 H Carbon Dioxide 21 L Anion Gap 12 BUN 57 H Creatinine 4.62 H Est GFR ( Amer) 16 L Est GFR (Non-Af Amer) 13 L Glucose 160 H Calcium 9.4 Impressions: Chest X-Ray 11/12/16 16:08 IMPRESSION: HEART ENLARGED WITHOUT FAILURE. NO OTHER SIGNIFICANT RADIOGRAPHIC FINDING IN THE CHEST.
[2016-11-13] MEDS: CLONIDINE HCL 0.1 MG TABLET PO SCH (22:58)
[2016-11-13 23:08] VITALS: BP 118/46
== END 2016-11-13 23:50 | disposition home or self-care (01) | DRG 640 ==
LOC: ER 10:58 → EH 17:01 → UNDOADMOB 17:01 → OBSVTOIN 17:01 → INTOOBSV 17:01 → EH 19:42 → 4N 19:42 → OBSVTOIN 20:44 → EH 20:44 → 4N 20:44
PROVIDERS: ADMIT Family Medicine; ATTEND Family Medicine
PROC: 5A1D00Z (ICD-10-PCS; principal; 2016-11-13)
DX: E87.5 Hyperkalemia (principal); N18.6 End stage renal disease; I12.0 Hypertensive chronic kidney disease with stage 5 chronic kidney disease or end stage renal disease; E66.2 Morbid (severe) obesity with alveolar hypoventilation; Z68.41 Body mass index [BMI] 40.0-44.9, adult; R11.2 Nausea with vomiting, unspecified; E11.22 Type 2 diabetes mellitus with diabetic chronic kidney disease; I25.10 Atherosclerotic heart disease of native coronary artery without angina pectoris; E78.5 Hyperlipidemia, unspecified; I25.2 Old myocardial infarction; E11.51 Type 2 diabetes mellitus with diabetic peripheral angiopathy without gangrene; J45.909 Unspecified asthma, uncomplicated; K21.9 Gastro-esophageal reflux disease without esophagitis; M19.90 Unspecified osteoarthritis, unspecified site; F32.9 Major depressive disorder, single episode, unspecified; D63.1 Anemia in chronic kidney disease; Z99.2 Dependence on renal dialysis; Z79.4 Long term (current) use of insulin; Z79.899 Other long term (current) drug therapy; Z95.5 Presence of coronary angioplasty implant and graft; Z89.511 Acquired absence of right leg below knee; Z87.891 Personal history of nicotine dependence; Z88.0 Allergy status to penicillin; Z91.11 Patient's noncompliance with dietary regimen; Z91.14 Patient's other noncompliance with medication regimen; Z91.15 Patient's noncompliance with renal dialysis; Z82.3 Family history of stroke; Z83.3 Family history of diabetes mellitus; Z82.61 Family history of arthritis; Z82.49 Family history of ischemic heart disease and other diseases of the circulatory system
CPT/HCPCS: 36415; 71010; 80048; 80053; 82550; 82553; 82962; 84484; 85025; 87040; 87077; 87186; 93005; 93010; 99291; J1644; J1815; J3490

== ENCOUNTER 2017-01-25 10:09 | Emergency (ER) | payer MEDICAID ==
--- NOTE | 2017-01-25 10:55 | ER Document Report ---
ED Fall - General Chief Complaint: Fall Stated Complaint: WEAKNESS,FALL Time Seen by Provider: 01/25/17 10:25 Notes: Patient is a 61-year-old male, past medical history ESRD (MWF), presents with left-sided body pain after he off his bed yesterday and was trapped in between the bed and wall. He called 911 to help him up yesterday and refused transport at that time. Today, he started to have left shoulder, left chest wall and left hip pain from where he laid. He had his full course of dialysis yesterday. He denies weakness (despite triage note), fevers, numbness, tingling , shortness of breath, head injury, neck pain or open wounds. TRAVEL OUTSIDE OF THE [place] IN LAST 30 DAYS: No - Related data Allergies/Adverse Reactions: Penicillins Allergy (Verified 01/25/17 10:22) Past Medical History - General Information source: Patient - Social History Smoking Status: Never Smoker Frequency of alcohol use: None Drug Abuse: None Family History: Arthritis, CAD, CVA, DM, Hyperlipidemia, Hypertension - Past Medical History Cardiac Medical History: Reports: Hx Congestive Heart Failure, Hx Coronary Artery Disease, Hx Heart Attack - mi x 7; EF of 40%, Hx Hypercholesterolemia, Hx Hypertension, Hx Peripheral Vascular Disease Pulmonary Medical History: Reports: Hx Asthma, Hx COPD, Hx Pneumonia - november 2016 Denies: Hx Bronchitis Neurological Medical History: Reports: Hx Cerebrovascular Accident - x3, Hx Seizures - 2015 x1 Endocrine Medical History: Reports: Hx Diabetes Mellitus Type 1, Hx Diabetes Mellitus Type 2 Renal/ Medical History: Reports: Hx End Stage Renal Disease, Hx Hemodialysis, Hx Kidney Stones, Hx Renal Insufficiency. Denies: Hx Peritoneal Dialysis GI Medical History: Reports: Hx Gastroesophageal Reflux Disease Musculoskeltal Medical History: Reports Hx Arthritis, Reports Hx Musculoskeletal Deformity - right BKA, Reports Hx Musculoskeletal Trauma Psychiatric Medical History: Reports: Hx Depression Past Surgical History: Reports: Hx Cardiac Catheterization, Hx Cardiac Surgery - Stent placement x 6, Hx Coronary Stent - x6, Hx Orthopedic Surgery - right BKA , Hx Vascular Surgery - Right subclavian PermCath - Immunizations Immunizations up to date: Yes Hx Diphtheria, Pertussis, Tetanus Vaccination: Yes Hx Pneumococcal Vaccination: 07/02/12 Review of Systems - Review of Systems Notes: REVIEW OF SYSTEMS: CONSTITUTIONAL: -fevers, -chills EENT: -eye pain, -difficulty swallowing, -nasal congestion CARDIOVASCULAR: +left chest wall pain, -syncope. RESPIRATORY: -cough, -SOB GASTROINTESTINAL: -abdominal pain, - nausea, -vomiting, -diarrhea GENITOURINARY: -dysuria, -hematuria MUSCULOSKELETAL: +left upper arm pain, +left hip pain, -back pain, -neck pain SKIN: -rash or skin lesions. HEMATOLOGIC: -easy bruising or bleeding. LYMPHATIC: -swollen, enlarged glands. NEUROLOGICAL: -altered mental status or loss of consciousness, -headache, - neurologic symptoms PSYCHIATRIC: -anxiety, -depression. ALL OTHER SYSTEMS REVIEWED AND NEGATIVE. Physical Exam - Vital signs Vitals: Temp Pulse Resp BP Pulse Ox 98.9 F 74 20 118/48 L 100 01/25/17 10:10 01/25/17 10:10 01/25/17 10:10 01/25/17 10:10 01/25/17 10:10 - Notes Notes: PHYSICAL EXAMINATION: GENERAL: Well-appearing, well-nourished and in no acute distress. HEAD: Atraumatic, normocephalic. EYES: Pupils equal round and reactive to light, extraocular movements intact, sclera anicteric, conjunctiva are normal. ENT: nares patent, oropharynx clear without exudates. Moist mucous membranes. NECK: Normal range of motion, supple without lymphadenopathy LUNGS: Breath sounds clear to auscultation bilaterally and equal. No wheezes rales or rhonchi. HEART: Regular rate and rhythm without murmurs ABDOMEN: Soft, nontender, normoactive bowel sounds. No guarding, no rebound. No masses appreciated. EXTREMITIES: Tenderness over left upper humerus, left lateral chest wall and left lateral hip. LUE with AV fistula with good bruit and thrill. Normal range of motion, no pitting or edema. No cyanosis. NEUROLOGICAL: Cranial nerves grossly intact. Normal sensory and motor exams. PSYCH: Normal mood, normal affect. SKIN: Warm, Dry, normal turgor, no rashes or lesions noted. Course - Re-evaluation Re-evalutation: Patient appears very well. His x-rays do not show any evidence of acute fractures. He has no weakness or focal weakness. We will send patient back to his long-term care facility with follow-up with his primary care physician. - Vital Signs Vital signs: Temp Pulse Resp BP Pulse Ox 98.9 F 74 20 118/48 L 100 01/25/17 10:10 01/25/17 10:10 01/25/17 10:10 01/25/17 10:10 01/25/17 10:10 01/25/17 12:04 - Diagnostic Test Radiology reviewed: Image reviewed, Reports reviewed Radiology results interpreted by me: Humerus, chest, left hip x-rays: NAD Discharge - Discharge Clinical Impression: Multiple contusions Condition: Stable Disposition: HOME, SELF-CARE Additional Instructions: Your x-rays do not show any evidence of broken bones. Ice packs and Tylenol for any pain. Follow-up with your primary care physician. Contusion Your injury has resulted in a contusion -- a crushing of the deep tissues. No injury to important structures was detected during the physician's exam. Contusions vary in the amount of pain they cause, and in the length of time required for healing. Typically, the area will become bruised, and will remain painful to touch for two or three weeks. However, most patients are back to working and playing within a few days. After the initial period of rest and cold-packs, your symptoms (together with the doctor's recommendations) will determine how rapidly you can get back to full activity. Usually this means "do what feels okay, but don't do things that hurt." If re-examination was recommended, it's important to follow up as instructed. Call the doctor or return any time if pain increases, if swelling becomes severe, if you develop numbness or weakness in an injured extremity, or if any other alarming symptoms occur.
--- NOTE | 2017-01-25 11:24 | RADIOLOGY REPORT (SQ) ---
EXAM DESCRIPTION: CHEST PA/LAT COMPLETED DATE/TIME: 01/25/2017 11:12 am REASON FOR STUDY: left chest wall pain from fall COMPARISON: 07/26/2016 NUMBER OF VIEWS: Two view TECHNIQUE: Frontal and lateral radiographic images of the chest acquired. LIMITATIONS: Body habitus. FINDINGS: LUNGS AND PLEURA: Chronic interstitial changes. No pneumothorax. MEDIASTINUM AND HILAR STRUCTURES: Stable heart size and mediastinal structures. HEART AND VASCULAR STRUCTURES: Stable appearance. SUPPORT DEVICES: Appropriate location without change. BONES: No acute findings. OTHER: No other significant finding. IMPRESSION: Stable, chronic changes. TECHNICAL DOCUMENTATION: JOB ID: [id number] [employer]- All Rights Reserved
--- NOTE | 2017-01-25 11:28 | RADIOLOGY REPORT (SQ) ---
EXAM DESCRIPTION: HIP LEFT AP/LATERAL COMPLETED DATE/TIME: 01/25/2017 11:12 am REASON FOR STUDY: hip pain from fall COMPARISON: None. NUMBER OF VIEWS: Two views. TECHNIQUE: AP and frog-leg view of the left hip. LIMITATIONS: None. FINDINGS: MINERALIZATION: Osteopenia. LEFT HIP: No fracture or dislocation. No worrisome bone lesions. OPPOSITE HIP: No fracture or dislocation. No worrisome bone lesions. SOFT TISSUES: Vascular calcifications. OTHER: No other significant finding. IMPRESSION: NO RADIOGRAPHIC EVIDENCE OF ACUTE INJURY. TECHNICAL DOCUMENTATION: JOB ID: [id number] [employer]- All Rights Reserved
--- NOTE | 2017-01-25 11:29 | RADIOLOGY REPORT (SQ) ---
EXAM DESCRIPTION: HUMERUS LEFT COMPLETED DATE/TIME: 01/25/2017 11:12 am REASON FOR STUDY: arm pain from fall COMPARISON: None. NUMBER OF VIEWS: Two views. TECHNIQUE: Two radiographic images were acquired of the left humerus to include elbow and shoulder i n at least one projection. LIMITATIONS: None. FINDINGS: MINERALIZATION: Normal. BONES: No acute fracture or dislocation. No worrisome bone lesions. SOFT TISSUES: Vascular stents. Vascular clips. OTHER: No other significant finding. IMPRESSION: NO RADIOGRAPHIC EVIDENCE OF ACUTE INJURY. TECHNICAL DOCUMENTATION: JOB ID: [id number] [employer]- All Rights Reserved
[2017-01-25 15:01] VITALS: BP 126/78
== END 2017-01-25 15:00 | disposition home or self-care (01) ==
LOC: ER 10:09
DX: T14.8 Other injury of unspecified body region (principal); R53.1 Weakness; N18.6 End stage renal disease; Z99.2 Dependence on renal dialysis; W19.XXXA Unspecified fall, initial encounter
CPT/HCPCS: 71020; 99285